=== PATIENT | male | born 1955 | race Caucasian/White ===

== ENCOUNTER 2020-09-11 07:29 | Outpatient (REF) | payer MEDICARE, SELFPAY ==
--- NOTE | ~2020-09-11 | XR_ITS ---
EXAMINATION: BILATERAL KNEE X-RAY CLINICAL INFORMATION: Pain COMPARISON: Previous x-rays most recent February 2019 TECHNIQUE: Standing AP view of both knees and lateral and sunrise view of the right knee FINDINGS: Right knee: There is mild varus angulation at the knee joint. No fracture or dislocation is seen. There is subchondral lucency in the medial femoral condyle that is unchanged likely related to old trauma or osteochondritis desiccants. There is arthritis at the medial femoral tibial and patellofemoral joints with joint space narrowing and osteophyte formation. There is a small joint effusion. There is a ossification at the quadriceps tendon insertion to the patella. Standing AP view of the left knee demonstrates medial femoral tibial joint space narrowing and mild varus angulation. XR/XR knee LT 2V IMPRESSION: Right knee: Mild varus angulation and arthritis at the medial femoral tibial patellofemoral joints. 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 Medial femoral tibial joint space narrowing and mild varus angulation of the left knee.
--- NOTE | ~2020-09-11 | XR_ITS ---
EXAMINATION: BILATERAL KNEE X-RAY CLINICAL INFORMATION: Pain COMPARISON: Previous x-rays most recent February 2019 TECHNIQUE: Standing AP view of both knees and lateral and sunrise view of the right knee FINDINGS: Right knee: There is mild varus angulation at the knee joint. No fracture or dislocation is seen. There is subchondral lucency in the medial femoral condyle that is unchanged likely related to old trauma or osteochondritis desiccants. There is arthritis at the medial femoral tibial and patellofemoral joints with joint space narrowing and osteophyte formation. There is a small joint effusion. There is a ossification at the quadriceps tendon insertion to the patella. Standing AP view of the left knee demonstrates medial femoral tibial joint space narrowing and mild varus angulation. XR/XR knee standing BI IMPRESSION: Right knee: Mild varus angulation and arthritis at the medial femoral tibial patellofemoral joints. 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 Medial femoral tibial joint space narrowing and mild varus angulation of the left knee.
--- NOTE | ~2020-09-11 | XR_ITS ---
EXAMINATION: BILATERAL KNEE X-RAY CLINICAL INFORMATION: Pain COMPARISON: Previous x-rays most recent February 2019 TECHNIQUE: Standing AP view of both knees and lateral and sunrise view of the right knee FINDINGS: Right knee: There is mild varus angulation at the knee joint. No fracture or dislocation is seen. There is subchondral lucency in the medial femoral condyle that is unchanged likely related to old trauma or osteochondritis desiccants. There is arthritis at the medial femoral tibial and patellofemoral joints with joint space narrowing and osteophyte formation. There is a small joint effusion. There is a ossification at the quadriceps tendon insertion to the patella. Standing AP view of the left knee demonstrates medial femoral tibial joint space narrowing and mild varus angulation. XR/XR knee RT 2V IMPRESSION: Right knee: Mild varus angulation and arthritis at the medial femoral tibial patellofemoral joints. 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 Medial femoral tibial joint space narrowing and mild varus angulation of the left knee.
== END 2020-09-11 07:30 | disposition home or self-care (01) ==
LOC: HO.HOSX 07:29
PROVIDERS: Visit Provider Orthopaedic Surgery
DX: M17.0 Bilateral primary osteoarthritis of knee (principal)
CPT/HCPCS: 73560; 73565; 99212

== ENCOUNTER → 2020-10-18 09:42 | Outpatient (BNVA) | payer MEDICARE, SELFPAY | PROVIDERS: PCP Internal Medicine; Visit Provider Orthopaedic Surgery | DX: Z01.812 Encounter for preprocedural laboratory examination (principal); Z01.810 Encounter for preprocedural cardiovascular examination ==

== ENCOUNTER → 2020-11-16 08:32 | Outpatient (BNVA) | payer MEDICARE, SELFPAY | PROVIDERS: PCP Internal Medicine; Visit Provider Physician Assistant | DX: M17.12 Unilateral primary osteoarthritis, left knee (principal) | CPT/HCPCS: 99212 ==

== ENCOUNTER 2020-11-21 08:46 | Day surgery (SDC) | payer MEDICARE, SELFPAY ==
--- NOTE | 2020-10-19 11:19 | ECG_ITS ---
Test Reason : Z01.818 PREOP Blood Pressure : / mmHG Vent. Rate : 073 BPM Atrial Rate : 073 BPM P-R Int : 184 ms QRS Dur : 112 ms QT Int : 402 ms P-R-T Axes : 049 082 037 degrees QTc Int : 442 ms Normal sinus rhythm Normal EKG When compared with ECG of 09-AUG-2015 18:39, No significant change was found Referred By: Geoff Lima Electronically Signed By:JAMEL GRIGGS
[2020-10-19 12:29] LABS: MANUAL DIFF FLAG NO
[2020-10-19 12:36] LABS: Basophils Absolute Auto 0.1 X10*3/uL (0.0-0.2); Basophils Percent Auto 0.7 % (0-2); Eosinophils Absolute Auto 0.3 X10*3/uL (0.0-0.4); Hematocrit 40.3 % (42-52); Hemoglobin 13.1 g/dl (14.0-18.0); Imm Gran Abs Auto 0.07 X10*3/uL (0.00-0.03); Imm Gran Pct Auto 0.7 % (0.0-0.4); Lymphocytes Absolute Auto 2.6 X10*3/uL (1.2-4.9); Lymphocytes Percent Auto 24.6 % (20-40); Mean Corpuscular HGB Conc 32.5 g/dl (31.0-36.0); Mean Corpuscular Hemoglobin 28.6 pg (27.0-33.0); Mean Platelet Volume 10.7 fL (9.4-12.4); Monocytes Absolute Auto 1.4 X10*3/uL (0.1-1.2); Neutrophils Absolute Auto 6.1 X10*3/uL (2.0-8.3); Platelet Count 254 X10*3/uL (160-400); Red Blood Count 4.58 X10*6/uL (4.60-5.80); White Blood Count 10.5 X10*3/uL (4.8-10.8)
[2020-10-19 12:52] LABS: Anion Gap 15 (12-20); Blood Urea Nitrogen 24 mg/dL (9-16); Calcium 9.4 mg/dL (8.4-10.2); Carbon Dioxide 25 mmol/L (22-29); Chloride 104 mmol/L (96-108); Estimated Glomerular Filt Rate > 60; Glucose Random 83 mg/dL (60-115); Potassium 4.6 mmol/L (3.3-5.1); Sodium 139 mmol/L (135-145)
[2020-11-17 11:46] VITALS: BMI 42.8
[2020-11-17 11:56] VITALS: BP 155/67; PULSE 95; RESP 20; O2SAT 98
--- NOTE | 2020-11-17 12:07 | P.CONAN_ITS ---
Documented by User: Stacie Robin 11/20/20 10:43 HPI - Anesthesia Eval Consult details Narrative: 65yo M for Left Knee Replacement Total PCP cleared FOR[facility], [facility]–1983 Active Problems Active Problems: All Active Problems (Updated 11/16/20 @ 15:39 by Carley Rodriguez) Osteoarthritis of left knee (Acute) Past Medical History Medical History Chronic venous insufficiency COVID-19 vaccine series completed High cholesterol Hypertension Obesity TANO on CPAP Osteoarthritis Family History Family History Father No problems noted. Mother No problems noted. Family history of problems with anesthesia: No Surgical History Surgical History History of orthopedic surgery History of right knee surgery Hx of colonoscopy LAP-BAND surgery status History of Problems with Anesthesia: No (Slow to wake after general anesthesia x 2, probable TANO related) Social History Social History Are you a primary aged or disabled care worker to a significant other at home: No Do you presently have visiting nurse or other home services: No Alcohol intake: never Patient Tobacco Use Status: Never used Tobacco Use of substances other than those prescribed or required for medical reasons: No Have you been hit, kicked, punched, or otherwise hurt by someone within the past year? If so, by whom?: No Are you DNR?: No Advance Directives: No Advance Directives Information Provided: No Advance Directives on File: No Recently lost weight without trying: No How much weight loss: 34pounds or more Eating poorly because of decreased appetite: No Nutrition screen score: 4 Nutrition Risks: No Nutritional Risk Current occupational status: retired Narrative Narrative: No recent illness >4 mets with riding bike regularly. Actively losing weight. Meds Allergies Allergy/AdvReac Type Severity Reaction Status Date / Time dextromethorphan Allergy Severe ITCHY Verified 11/17/20 11:59 [DEXTROMETHORPHAN] SWELLING SOB shellfish derived Allergy Severe ANAPHYLAXIS Verified 11/17/20 11:59 moxifloxacin [From Avelox] Allergy Itching Verified 11/17/20 11:59 cough syrup Allergy Unknown Unknown Uncoded 11/17/20 11:59 seafood Allergy Unknown Difficulty Uncoded 11/17/20 11:59 Breathing Home Medications Medication Instructions Recorded Confirmed Last Taken Type atorvastatin 10 mg tablet 10 mg PO DAILY 09/11/20 11/16/20 Unknown History carvedilol 3.125 mg tablet 3.125 mg PO BID 09/11/20 11/16/20 11/21/20 History epinephrine 0.3 mg/0.3 mL 0.3 ml IM DAILY PRN 09/11/20 11/16/20 Unknown History injection, auto-injector sildenafil 50 mg tablet 50 mg PO DAILY PRN 09/11/20 11/16/20 Unknown History multivitamin,tx-minerals 1 tab PO DAILY 11/16/20 11/16/20 Unknown History [Therapeutic Multivitamins] cholecalciferol (vitamin D3) 50 mcg PO DAILY 11/17/20 11/17/20 Unknown History [Vitamin D3] zinc 50 mg PO DAILY 11/17/20 11/17/20 Unknown History Exam Exam Date and Time: November 17, 2020 1207 Height,Weight and Vital Signs: Height 5 ft 11 in Weight 139.253 kg Last Vital Signs Pulse 95 11/17/20 11:56 Resp 20 11/17/20 11:56 BP 155/67 H 11/17/20 11:56 Pulse Ox 98 11/17/20 11:56 Pertinent Lab Results Pertinent Lab Results: Lab Results 10/19/20 10/19/20 11/17/20 Range/Units 11:20 11:20 12:52 WBC 10.5 (4.8-10.8) X10*3/uL RBC 4.58 L (4.60-5.80) X10*6/uL Hgb 13.1 L (14.0-18.0) g/dl Hct 40.3 L (42-52) % MCV 88.0 (80-98) fL MCH 28.6 (27.0-33.0) pg MCHC 32.5 (31.0-36.0) g/dl RDW 13.0 (11.0-16.0) % Plt Count 254 (160-400) X10*3/uL MPV 10.7 (9.4-12.4) fL Immature Gran % (Auto) 0.7 H (0.0-0.4) % Neut % (Auto) 58.0 (45-73) % Lymph % (Auto) 24.6 (20-40) % [place] % (Auto) 13.0 H (2-11) % Eos % (Auto) 3.0 (0-4) % Baso % (Auto) 0.7 (0-2) % Lymph # (Auto) 2.6 (1.2-4.9) X10*3/uL [place] # (Auto) 1.4 H (0.1-1.2) X10*3/uL Eos # (Auto) 0.3 (0.0-0.4) X10*3/uL Baso # (Auto) 0.1 (0.0-0.2) X10*3/uL Abs Immat Gran (auto) 0.07 H (0.00-0.03) X10*3/uL Absolute Neuts (auto) 6.1 (2.0-8.3) X10*3/uL Absolute Nucleated RBC 0.000 (0.0-0.012) X10*3/uL Nucleated RBC % (auto) 0.0 (0.0-0.2) /100WBC Sodium 139 (135-145) mmol/L Potassium 4.6 (3.3-5.1) mmol/L Chloride 104 (96-108) mmol/L Carbon Dioxide 25 (22-29) mmol/L Anion Gap 15 (12-20) BUN 24 H (9-16) mg/dL Creatinine 1.10 (0.5-1.4) mg/dL Estim Creat Clear Calc TNP Estimated GFR > 60 Random Glucose 83 (60-115) mg/dL Calcium 9.4 (8.4-10.2) mg/dL Nasal Screen MRSA (PCR) (Negative) Nasal S. aureus Screen (Negative) Nasal MRSA/S.aureus Interp Blood Type O Positive Antibody Screen NEGATIVE 11/17/20 Range/Units Unknown WBC (4.8-10.8) X10*3/uL RBC (4.60-5.80) X10*6/uL Hgb (14.0-18.0) g/dl Hct (42-52) % MCV (80-98) fL MCH (27.0-33.0) pg MCHC (31.0-36.0) g/dl RDW (11.0-16.0) % Plt Count (160-400) X10*3/uL MPV (9.4-12.4) fL Immature Gran % (Auto) (0.0-0.4) % Neut % (Auto) (45-73) % Lymph % (Auto) (20-40) % [place] % (Auto) (2-11) % Eos % (Auto) (0-4) % Baso % (Auto) (0-2) % Lymph # (Auto) (1.2-4.9) X10*3/uL [place] # (Auto) (0.1-1.2) X10*3/uL Eos # (Auto) (0.0-0.4) X10*3/uL Baso # (Auto) (0.0-0.2) X10*3/uL Abs Immat Gran (auto) (0.00-0.03) X10*3/uL Absolute Neuts (auto) (2.0-8.3) X10*3/uL Absolute Nucleated RBC (0.0-0.012) X10*3/uL Nucleated RBC % (auto) (0.0-0.2) /100WBC Sodium (135-145) mmol/L Potassium (3.3-5.1) mmol/L Chloride (96-108) mmol/L Carbon Dioxide (22-29) mmol/L Anion Gap (12-20) BUN (9-16) mg/dL Creatinine (0.5-1.4) mg/dL Estim Creat Clear Calc Estimated GFR Random Glucose (60-115) mg/dL Calcium (8.4-10.2) mg/dL Nasal Screen MRSA (PCR) NEGATIVE (Negative) Nasal S. aureus Screen NEGATIVE (Negative) Nasal MRSA/S.aureus Interp SEE NOTE Blood Type Antibody Screen Narrative Narrative: EKG 10/2020 Vent. Rate : 073 BPM Atrial Rate : 073 BPM P-R Int : 184 ms QRS Dur : 112 ms QT Int : 402 ms P-R-T Axes : 049 082 037 degrees QTc Int : 442 ms Normal sinus rhythm Normal EKG When compared with ECG of 09-AUG-2015 18:39, No significant change was found Airway Mallampati Class: III TM Dist: >3cm Neck ROM: Full Loose/Missing/Broken Teeth: Yes (Pulled top right molars) Heart: RRR Lungs: CTAB Assessment and Plan Assessment Anesthesia Assessment: Anesthesia Plan Discussed and PAT Visit Documented by User: Renate Borges 11/21/20 11:15 PMFSH Past Medical History Medical History Chronic venous insufficiency COVID-19 vaccine series completed High cholesterol Hypertension Obesity TANO on CPAP Osteoarthritis Family History Family History Father No problems noted. Mother No problems noted. Surgical History Surgical History History of orthopedic surgery History of right knee surgery Hx of colonoscopy LAP-BAND surgery status Social History Social History Are you a primary aged or disabled care worker to a significant other at home: No Do you presently have visiting nurse or other home services: No Alcohol intake: never Patient Tobacco Use Status: Never used Tobacco Use of substances other than those prescribed or required for medical reasons: No Have you been hit, kicked, punched, or otherwise hurt by someone within the past year? If so, by whom?: No Are you DNR?: No Advance Directives: No Advance Directives Information Provided: No Advance Directives on File: No Recently lost weight without trying: No How much weight loss: 34pounds or more Eating poorly because of decreased appetite: No Nutrition screen score: 4 Nutrition Risks: No Nutritional Risk Current occupational status: retired Meds Allergies Allergy/AdvReac Type Severity Reaction Status Date / Time dextromethorphan Allergy Severe ITCHY Verified 11/17/20 11:59 [DEXTROMETHORPHAN] SWELLING SOB shellfish derived Allergy Severe ANAPHYLAXIS Verified 11/17/20 11:59 moxifloxacin [From Avelox] Allergy Itching Verified 11/17/20 11:59 cough syrup Allergy Unknown Unknown Uncoded 11/17/20 11:59 seafood Allergy Unknown Difficulty Uncoded 11/17/20 11:59 Breathing Home Medications Medication Instructions Recorded Confirmed Last Taken Type atorvastatin 10 mg tablet 10 mg PO DAILY 09/11/20 11/16/20 Unknown History carvedilol 3.125 mg tablet 3.125 mg PO BID 09/11/20 11/16/20 11/21/20 History epinephrine 0.3 mg/0.3 mL 0.3 ml IM DAILY PRN 09/11/20 11/16/20 Unknown History injection, auto-injector sildenafil 50 mg tablet 50 mg PO DAILY PRN 09/11/20 11/16/20 Unknown History multivitamin,tx-minerals 1 tab PO DAILY 11/16/20 11/16/20 Unknown History [Therapeutic Multivitamins] cholecalciferol (vitamin D3) 50 mcg PO DAILY 11/17/20 11/17/20 Unknown History [Vitamin D3] zinc 50 mg PO DAILY 11/17/20 11/17/20 Unknown History Exam Height,Weight and Vital Signs: Vital Signs Temp Pulse Resp BP Pulse Ox 11/21/20 08:42 97.7 F 64 16 141/62 H 98 Pertinent Lab Results Pertinent Lab Results: Laboratory Results - last 24 hr 11/21/20 08:15 COVID-19 (BISI) Negative COVID-19 Clin Com See Note Airway Mallampati Class: II TM Dist: >3cm Neck ROM: Full Heart: RRR Lungs: CTAB Assessment and Plan Assessment Anesthesia Assessment: Anesthesia Plan Discussed and Chart Reviewed Final Anesthetic Review NPO: Yes ASA Class: III Final Preanesthetic Review: No Changes in Pt Med Stat, Meds/Allgs Chart Reviewed, Consent Obtained/Reviewed and Anes Risks/Benef Reviewed Patient Risk: Intermediate Procedure Risk: Intermediate Assessment/Block/Sedation in SS: Assess/Block/Sedation-SS Anesthetic Plan Anesthetic Plan: Spinal Disposition: Inp. Admit - Standard Bed
[2020-11-17 15:05] LABS: MRSA Nasal PCR NEGATIVE (Negative); SA Nasal PCR NEGATIVE (Negative)
[2020-11-21] VITALS (12 sets, daily range): BP systolic 110–141; BP diastolic 55–76; PULSE 54–91; RESP 16–17; TEMP 36.1–36.9; O2SAT 97–100
--- NOTE | ~2020-11-21 | XR_ITS ---
EXAMINATION: XR KNEE, LEFT CLINICAL INFORMATION: Knee replacement COMPARISON: Previous x-ray August 2020 TECHNIQUE: Two views of the left knee. FINDINGS: There is a new hinged left knee replacement in satisfactory position. No fracture or dislocation is seen. There are postoperative changes to the soft tissues. XR/XR knee LT 2V IMPRESSION: Satisfactory appearance of left knee replacement.
[2020-11-21] MEDS: Gabapentin 600 MG TABLET PO (08:45)
[2020-11-21 09:02] LABS: IDNOW Serial# 08D9AD1C
[2020-11-21 09:03] LABS: COVID-19 Test Negative (Negative)
[2020-11-21] MEDS: Lactated Ringers 1,000 ML 100 ML IVCONT (09:15)
--- NOTE | 2020-11-21 09:41 | MHC.SHP ---
Pre-Procedural Eval Section A The patient is an INPATIENT: No Changes since office visit: Yes Patient answered all questions; No Cold of Flu in the past 2 weeks, No New Medical Problems and No Changes in Medication The History & Physical has been completed within 30 days and I have reviewed it.: Yes Section B Chief Complaint: s/p l tka Allergies: Allergies Allergy/AdvReac Type Severity Reaction Status Date / Time dextromethorphan Allergy Severe ITCHY Verified 11/17/20 11:59 [DEXTROMETHORPHAN] SWELLING SOB shellfish derived Allergy Severe ANAPHYLAXIS Verified 11/17/20 11:59 moxifloxacin [From Avelox] Allergy Itching Verified 11/17/20 11:59 cough syrup Allergy Unknown Unknown Uncoded 11/17/20 11:59 seafood Allergy Unknown Difficulty Uncoded 11/17/20 11:59 Breathing Plan I have reviewed the history and physical and performed a pertinent physical examination on my patient. No changes have occurred unless specified.
--- NOTE | 2020-11-21 13:31 | P.BOP_ITS ---
Brief Operative Note Date of Service: 11/21/20 Pre-op diagnosis: left knee OA Post-op diagnosis: same Procedure: left TKA Implants: Ivon traithalon cemented 09/18/15/a Surgeon: Geoff Lima MD Anesthesia: GETA Was an Podiatric Medicine Professor used for this Procedure?: Yes Podiatric Medicine Professor: Sulaiman Choi Estimated blood loss (mL): 200 IV fluids (mL): 1,200 Pathology: other Condition: stable Disposition: PACU
--- NOTE | 2020-11-21 13:32 | W.PM.OPN ---
Operative Note Operative Note Date of Service: 11/21/20 Narrative: Procedure in detail: Patient was brought to the operating room and prepped and draped in standard sterile fashion. A time-out was called to identify proper site proper procedure proper surgeon IV antibiotics were administered. 1 g of IV tranexamic acid was also administered. I began by making a midline incision down to the retinaculum and performed a medial parapatellar arthrotomy. He had a prior quadriceps tendon repair and this incision was incorporated into the incision. The patella was translated laterally and the knee was flexed up. There was medial and PF compartment wear. I performed a small medial peel and resected the infrapatellar fat pad. Disputanta's line was then used to drill my intramedullary femoral guide and my distal femur cut was made in 5 degrees of valgus. I then measured a #4 femur and placed my cutting guide and made my anterior posterior and chamfer cuts protecting the soft tissues at all times. I made my box cut and resected the PCL. Once I was satisfied with my cuts I turned my attention to the tibia. In line with the tibial crest and with a neutral slope I made my distal tibial cut, removing 9 mm from the lateral plateau. An extension block was used to confirm appropriate amount of bony resection. I then sized a #4 tibia and once I was satisfied with the tibial coverage I placed my trial and with the trial femur in place took the knee through range of motion. THere was some hyperextension with the 11 and the 16 felt stable with excellent motion but still with some mild imbalance laterally with a tight capsuloligamentous complex. I released the popliteuas and pie crusted the LCL. I was satisfied with the extension and flexion as well as the stability and balance at 0, 30 and 90 degrees. I then turned my attention to the patella where I removed 1 cm from the undersurface of the patella and then trialed a 38A patellar button. Again the knee was taken through range of motion I was satisfied with the tracking. I then prepared the tibia. Femoral bone plug was then placed and the knee was irrigated copiously. I then cemented in the femur and tibia in standard fashion while applying axial compression. I did the same with the patella using a clamp. Once the cement was hard I removed all excess cement and re-trialed. I was most satisfied with the 16 and a 16 TS implant was placed. I then performed a 3 minutes iodine soak with local TXA. The knee was then closed with a running Quill suture, a 3 0 Vicryl and adriana on the skin. Patient was then placed in sterile dressing and brought to recovery room in stable condition there were no known complications.
[2020-11-21] MEDS: Dextrose 5 % and 0.45 % NaCl 1,000 ML 80 ML IVCONT (14:57)
[2020-11-21] MEDS: 0.9 % Sodium Chloride Flush 3 ML SYRINGE IVFLUSH (14:58)
--- NOTE | 2020-11-21 15:10 | MHC.CM.PN ---
NURSE RESERVATIONS AGENT NOTE ELECTRONIC MEDICAL RECORD REVIEWED ALONG WITH CASE DISCUSSED, WITH STAFF NURSE , MET WITH PATIENT HE REPORTED THAT HE HAS BEEN RETIRED FROM THE [place] [employer] [facility], HE LIVES ALONE , INDEPENDENT ADLS AND MOBILITY WITH [facility] , HE HAS A WALKER AT HOME THAT WAS RECOMMENDED. . HE HAS SLEEP APNEA AND HAS CPAP AT HOME FROM [facility] , REVIEWED WITH HIM THE VNA AGENCIES IN THE [place] AND HE CHOSE THE [facility] SINCE HIS SUYURGEON IS FROM THE [place] AND WAS RECOMMENDED THAT AFTER D/C FROM THE [facility] HOME VISITS HE WILL COME BACK TO [facility] OUT PATIENT P,T,. DISCHARGE PLAN HOME WITH 1 NEW REFERRAL TO THE [facility] FOR HOME PHYSICAL THERAPY (HE WILL BE D/X HOME ON [facility] 2PCP DR BRITTNEY GODOY 3 ORTHOPEDIC SURGICAL FOLLOW UP PER DISCHARGE INSTRUCTIONS 4TRANSPORTATION FAMILY/FRIENDS 5HCP TO BE MAILED IN AFTER DISCHARGE 6 SELF RESUMPTION OF HIS CPAP SUPPLIES THROUGH [facility] IMM COMPLETED) 2.
[2020-11-21] MEDS: ceFAZolin Sodium/Dextrose,Iso 2 GM/50 ML PIGGYBACK IV (16:25)
[2020-11-21] MEDS: Acetaminophen 325 MG TABLET 650 MG PO (16:28)
--- NOTE | 2020-11-21 17:22 | PM.IMCN ---
History of Present Illness Data of Consult Service Date: 11/21/20 <Greta Renae NP - Last Filed: 11/21/20 17:58> Requesting physician: Geoff Lima <Greta Renae NP - Last Filed: 11/21/20 17:58> Primary Care Provider: Wilian Wood MD <Greta Renae NP - Last Filed: 11/21/20 17:58> HPI Reason for consult: medical management <Greta Renae NP - Last Filed: 11/21/20 17:58> 65-year-old man admitted by Orthopedic surgery and is status post left total knee arthroplasty. Surgery was unremarkable. Vital signs are stable. Patient has no acute medical complaints at this time. <Greta Renae NP - Last Filed: 11/21/20 17:58> Review of Systems Review of Systems: Denies any recent fever chills or decrease in appetite respiratory denies any shortness of breath coverage production cardiovascular is adjustment of any PND or edema gastrointestinal denies any dysphagia abdominal pain nausea vomiting or diarrhea genitourinary denies any dysuria frequency or hematuria musculoskeletal See HPI neuropsych denies any weakness or seizures all other systems reviewed are negative <Greta Renae NP - Last Filed: 11/21/20 17:58> [facility] Medical History: Medical History (Updated 11/21/20 @ 17:28 by Greta Renae NP) Chronic venous insufficiency COVID-19 vaccine series completed Gastritis High cholesterol Hypertension Obesity TANO on CPAP Osteoarthritis <Greta Renae NP - Last Filed: 11/21/20 17:58> Family History: Family History Father No problems noted. Mother No problems noted. <Greta Renae NP - Last Filed: 11/21/20 17:58> Surgical History: Surgical History (Updated 11/22/20 @ 07:34 by Georgina Marc PA-C) History of orthopedic surgery History of right knee surgery Hx of colonoscopy LAP-BAND surgery status <Greta Renae NP - Last Filed: 11/21/20 17:58> Social History: Social History Are you a primary pharmacy customer care specialist to a significant other at home: No Do you presently have visiting nurse or other home services: No Alcohol intake: never Patient Tobacco Use Status: Never used Tobacco service: No Current occupational status: retired <Greta Renae NP - Last Filed: 11/21/20 17:58> Meds Allergies/Adverse reactions: Allergies Allergy/AdvReac Type Severity Reaction Status Date / Time dextromethorphan Allergy Severe ITCHY Verified 11/17/20 11:59 [DEXTROMETHORPHAN] SWELLING SOB shellfish derived Allergy Severe ANAPHYLAXIS Verified 11/17/20 11:59 moxifloxacin [From Avelox] Allergy Itching Verified 11/17/20 11:59 cough syrup Allergy Unknown Unknown Uncoded 11/17/20 11:59 seafood Allergy Unknown Difficulty Uncoded 11/17/20 11:59 Breathing <Greta Renae NP - Last Filed: 11/21/20 17:58> Active Medications: Current Medications Generic Name Dose Route Start Last Admin Trade Name Freq PRN Reason Stop Dose Admin Acetaminophen 650 mg 11/21/20 14:38 11/21/20 16:28 Acetaminophen 325 Mg Tablet PO 650 mg Q6H PRN Administration Pain, Mild (Pain Scale 1-3) Celecoxib 200 mg 11/21/20 21:00 Celecoxib 200 Mg Capsule PO BID NGA Docusate Sodium 100 mg 11/21/20 21:00 Docusate Sodium 100 Mg Capsule PO BID NGA Hydromorphone HCl 0.25 mg 11/21/20 14:38 Hydromorphone Hcl 0.5 Mg/0.5 Ml Syringe IVPUSH Q4H PRN Pain, Severe (Pain Scale 7-10) Dextrose/Sodium Chloride 1,000 mls @ 80 mls/hr 11/21/20 14:38 11/21/20 14:57 D51/2ns IVCONT 80 mls/hr .[id number] NGA Administration Naloxone HCl 0.2 mg 11/21/20 14:38 Naloxone Hcl 0.4 Mg/Ml Vial IVPUSH Q2M PRN Excessive sedation or RR < 8 Ondansetron HCl 4 mg 11/21/20 14:38 Ondansetron Hcl 4 Mg/2 Ml Vial IVPUSH Q8H PRN Nausea and Vomiting Oxycodone HCl 10 mg 11/21/20 14:38 Oxycodone Hcl Immed Release 5 Mg Tablet PO Q4H PRN Pain, Moderate (Pain Scale 4-6 Oxycodone HCl 10 mg 11/21/20 21:00 Oxycodone Hcl Er 10 Mg Tab.Er.12h PO BID NGA Sodium Chloride 3 ml 11/21/20 16:00 11/21/20 14:58 0.9 % Sodium Chloride Flush 3 Ml Syringe IVFLUSH 3 ml QSHIFT NGA Administration <Greta Renae NP - Last Filed: 11/21/20 17:58> Home medications: Home Medications Medication Instructions Recorded Confirmed Last Taken Type atorvastatin 10 mg tablet 10 mg PO DAILY 09/11/20 11/16/20 Unknown History carvedilol 3.125 mg tablet 3.125 mg PO BID 09/11/20 11/16/20 11/21/20 History epinephrine 0.3 mg/0.3 mL 0.3 ml IM DAILY PRN 09/11/20 11/16/20 Unknown History injection, auto-injector sildenafil 50 mg tablet 50 mg PO DAILY PRN 09/11/20 11/16/20 Unknown History multivitamin,tx-minerals 1 tab PO DAILY 11/16/20 11/16/20 Unknown History [Therapeutic Multivitamins] cholecalciferol (vitamin D3) 50 mcg PO DAILY 11/17/20 11/17/20 Unknown History [Vitamin D3] zinc 50 mg PO DAILY 11/17/20 11/17/20 Unknown History <Greta Renae NP - Last Filed: 11/21/20 17:58> Physical Exam Vital Signs and Narrative: Vital Signs: Last Vital Signs Temp 97.9 F 11/21/20 15:13 Pulse 66 11/21/20 15:13 Resp 17 11/21/20 15:13 BP 140/73 H 11/21/20 15:13 Pulse Ox 98 11/21/20 15:13 Body Mass Index 42.8 <Greta Renae NP - Last Filed: 11/21/20 17:58> Appearing in no acute distress head is normocephalic atraumatic eyes pupils are PERRLA sclera is anicteric mouth throat mucous membranes are intact and moist neck is supple no lymphadenopathy, no JVD noted lung sounds are clear to auscultation heart regular rate rhythm, clear S1, S2 positive bowel sounds, abdomen is soft, nontender neuro patient is alert x3, no focal deficits musculoskeletal surgical dressing intact <Greta Renae NP - Last Filed: 11/21/20 17:58> Results Labs CBC and Chem 7: : 11/22/20 06:01 11/22/20 06:01 <Greta Renae NP - Last Filed: 11/21/20 17:58> Labs: Laboratory Results - last 24 hr 11/21/20 08:15 COVID-19 ([facility]) Negative COVID-19 Clin Com See Note <Greta Renae NP - Last Filed: 11/21/20 17:58> Imaging Radiologist's Impressions: Impressions Knee X-Ray 11/21/20 13:50 IMPRESSION: Satisfactory appearance of left knee replacement. <Greta Renae NP - Last Filed: 11/21/20 17:58> Assessment and Plan (1) Osteoarthritis of left knee: Status: Acute <Greta Renae NP - Last Filed: 11/21/20 17:58> 65-year-old man status post left total knee arthroplasty. Left total knee arthroplasty. -management as per surgical team -pain management Hypertension. Stable blood pressure. -Continue carvedilol Hyperlipidemia. -Statin at discharge DVT prophylaxis as per surgical team Full code Attending: Dr. Sheridan <Greta Renae NP - Last Filed: 11/21/20 17:58>
[2020-11-21] MEDS: HYDROmorphone HCl 0.5 MG/0.5 ML SYRINGE 0.25 MG IVPUSH (17:35)
[2020-11-21] MEDS: ondansetron HCL 4 MG/2 ML VIAL IVPUSH (17:46)
[2020-11-21] MEDS: oxyCODONE HCl ER 10 MG TAB.ER.12H PO (20:23)
[2020-11-21] MEDS: Docusate Sodium 100 MG CAPSULE PO (20:23)
[2020-11-21] MEDS: carvediloL 3.125 MG TABLET PO (20:23)
[2020-11-21] MEDS: Celecoxib 200 MG CAPSULE PO (20:23)
[2020-11-22] VITALS (12 sets, daily range): BP systolic 125–149; BP diastolic 54–69; PULSE 64–81; RESP 16–20; TEMP 36–36.8; O2SAT 96–98
[2020-11-22] MEDS: HYDROmorphone HCl 0.5 MG/0.5 ML SYRINGE 0.25 MG IVPUSH ×5 (00:15→21:28)
[2020-11-22] MEDS: Dextrose 5 % and 0.45 % NaCl 1,000 ML 80 ML IVCONT ×2 (03:30→15:33)
[2020-11-22 06:42] LABS: Basophils Percent Auto 0.2 % (0-2); Hematocrit 34.2 % (42-52); Hemoglobin 11.5 g/dl (14.0-18.0); Imm Gran Abs Auto 0.12 X10*3/uL (0.00-0.03); Imm Gran Pct Auto 0.6 % (0.0-0.4); Lymphocytes Absolute Auto 1.2 X10*3/uL (1.2-4.9); Lymphocytes Percent Auto 6.4 % (20-40); MANUAL DIFF FLAG SCAN; Mean Corpuscular HGB Conc 33.6 g/dl (31.0-36.0); Mean Corpuscular Hemoglobin 29.6 pg (27.0-33.0); Mean Corpuscular Volume 87.9 fL (80-98); Mean Platelet Volume 10.5 fL (9.4-12.4); Monocytes Absolute Auto 1.8 X10*3/uL (0.1-1.2); Monocytes Percent Auto 9.1 % (2-11); Neutrophils Percent Auto 83.7 % (45-73); Platelet Count 206 X10*3/uL (160-400); Red Blood Count 3.89 X10*6/uL (4.60-5.80); Red Cell Distribution Width 12.9 % (11.0-16.0); SCAN SMEAR FLAG 1; White Blood Count 19.1 X10*3/uL (4.8-10.8)
[2020-11-22 07:10] LABS: Anion Gap 9 (12-20); Blood Urea Nitrogen 21 mg/dL (9-16); Calcium 8.5 mg/dL (8.4-10.2); Carbon Dioxide 25 mmol/L (22-29); Chloride 107 mmol/L (96-108); Creatinine Clr Calc Pharmacy 110.3; Estimated Glomerular Filt Rate > 60; Glucose Fasting 152 mg/dL (60-99); Potassium 4.3 mmol/L (3.3-5.1); Sodium 137 mmol/L (135-145)
[2020-11-22 07:24] LABS: SLIDE REVIEW VERIFIED
--- NOTE | 2020-11-22 07:32 | P.PNOP_ITS ---
Subjective Subjective Date of Service: 11/22/20 Interval history: POD1 s/p LTKA with Dr. Lima. Patient is resting comfortably in bed. No overnight events. Pain is well managed. No additional complaints. Physical Exam Vital Signs: Vital Signs: Last Vital Signs Temp 98.2 F 11/22/20 06:06 Pulse 76 11/22/20 06:06 Resp 18 11/22/20 06:06 BP 125/59 L 11/22/20 06:06 Pulse Ox 96 11/22/20 06:06 Body Mass Index 42.8 Const: General: cooperative and no acute distress Orientation/consciousness: patient oriented x3 Resp: Effort & Inspection: normal respiratory effort and able to speak in complete sentences Cardio: Peripheral pulses: Peripheral pulses 2+ throughout Skin: General skin exam: no rashes or lesions noted Neuro: General: patient oriented x3 Extrem: Other: Left knee dressing is clean, dry, and intact. Patient is able to dorsiflex and plantarflex. Sensation intact. Pedal pulse intact. Progress Note: A&P Assessment and plan (1) Status post total knee replacement, left: Status: Acute Assessment and Plan: Continue pain mgmnt Begin ASA for dvt ppx begin PT for LTKA Dispo planning-Pending PT eval, pain mgmnt Fall Risk Details Current Medications: Current Medications Generic Name Dose Route Start Last Admin Trade Name Freq PRN Reason Stop Dose Admin Acetaminophen 650 mg 11/21/20 14:38 11/21/20 16:28 Acetaminophen 325 Mg Tablet PO 650 mg Q6H PRN Administration Pain, Mild (Pain Scale 1-3) Aspirin 325 mg 11/22/20 11:00 Aspirin 325 Mg Tablet PO BID NGA Carvedilol 3.125 mg 11/21/20 21:00 11/21/20 20:23 Carvedilol 3.125 Mg Tablet PO 3.125 mg BID NGA Administration Protocol Celecoxib 200 mg 11/21/20 21:00 11/21/20 20:23 Celecoxib 200 Mg Capsule PO 200 mg BID NGA Administration Docusate Sodium 100 mg 11/21/20 21:00 11/21/20 20:23 Docusate Sodium 100 Mg Capsule PO 100 mg BID NGA Administration Hydromorphone HCl 0.25 mg 11/21/20 14:38 11/22/20 00:15 Hydromorphone Hcl 0.5 Mg/0.5 Ml Syringe IVPUSH 0.25 mg Q4H PRN Administration Pain, Severe (Pain Scale 7-10) Dextrose/Sodium Chloride 1,000 mls @ 80 mls/hr 11/21/20 14:38 11/22/20 03:30 D51/2ns IVCONT 80 mls/hr .[id number] NGA Administration Multivitamins/Minerals 1 tab 11/22/20 09:00 Multivitamin With Minerals Tablet PO DAILY NGA Naloxone HCl 0.2 mg 11/21/20 14:38 Naloxone Hcl 0.4 Mg/Ml Vial IVPUSH Q2M PRN Excessive sedation or RR < 8 Ondansetron HCl 4 mg 11/21/20 14:38 11/21/20 17:46 Ondansetron Hcl 4 Mg/2 Ml Vial IVPUSH 4 mg Q8H PRN Administration Nausea and Vomiting Oxycodone HCl 10 mg 11/21/20 14:38 Oxycodone Hcl Immed Release 5 Mg Tablet PO Q4H PRN Pain, Moderate (Pain Scale 4-6 Oxycodone HCl 10 mg 11/21/20 21:00 11/21/20 20:23 Oxycodone Hcl Er 10 Mg Tab.Er.12h PO 10 mg BID NGA Administration Sodium Chloride 3 ml 11/21/20 16:00 11/22/20 00:15 0.9 % Sodium Chloride Flush 3 Ml Syringe IVFLUSH Not Given QSHIFT [facility] Vitamin D 50 mcg 11/22/20 09:00 Cholecalciferol (Vitamin D3) 25 Mcg Tablet PO DAILY [facility] Zinc Sulfate 220 mg 11/22/20 09:00 Zinc Sulfate 220 Mg Capsule PO DAILY [facility] Time Spent With Patient Time: Total time spent is greater than 50% in coordination of care (as documented) at patient's floor/unit and/or counseling patient: Time with patient: less than 15 minutes Procedures Date of Service Date of Service: 11/22/20
[2020-11-22] MEDS: Cholecalciferol (Vitamin D3) 25 MCG TABLET 50 MCG PO (08:52)
[2020-11-22] MEDS: Docusate Sodium 100 MG CAPSULE PO ×2 (08:52→21:23)
[2020-11-22] MEDS: carvediloL 3.125 MG TABLET PO ×2 (08:53→21:23)
[2020-11-22] MEDS: Zinc Sulfate 220 MG CAPSULE PO (08:53)
[2020-11-22] MEDS: oxyCODONE HCl ER 10 MG TAB.ER.12H PO ×2 (08:53→21:23)
[2020-11-22] MEDS: Celecoxib 200 MG CAPSULE PO ×2 (08:53→21:23)
[2020-11-22] MEDS: oxyCODONE HCl Immed Release 5 MG TABLET 10 MG PO ×3 (09:57→18:31)
[2020-11-22] MEDS: Aspirin 325 MG TABLET PO ×2 (09:58→21:22)
[2020-11-22] MEDS: Acetaminophen 325 MG TABLET 650 MG PO (14:06)
--- NOTE | 2020-11-22 14:20 | HO.POSTANES ---
Post Anesthesia Evaluation Post Anesthesia Evaluation Vital Signs: Vital Signs Temp Pulse Resp BP Pulse Ox 11/22/20 13:45 78 143/65 H 98 11/22/20 11:22 97.5 F 78 19 143/65 H 98 11/22/20 09:41 64 139/69 11/22/20 08:53 64 139/69 11/22/20 07:47 97.4 F 64 18 131/69 97 11/22/20 06:06 98.2 F 76 18 125/59 L 96 Anesthesia: Spinal Mental Status: Awake Pain Control: Satisfactory Nausea/Vomiting: None Hydration: Adequate Anesthesia-Related Issues: No Anes. Related Issues
--- NOTE | 2020-11-22 14:26 | P.PNIM_ITS ---
Subjective Subjective Date of Service: 11/22/20 Interval History: Complaining of left knee pain requiring pain medications every 4 hours denies lightheadedness dizziness tolerating by mouth well with no nausea, no vomiting lost 77 lb prior to surgery. Review of systems [employer] no headache no dizziness CVS no chest pain, no palpitation GI no nausea no vomiting no diarrhea Respiratory no cough, no shortness of breath Physical Exam Vital Signs: Vital Signs: Last Vital Signs Temp 97.5 F 11/22/20 11:22 Pulse 78 11/22/20 13:45 Resp 19 11/22/20 11:22 BP 143/65 H 11/22/20 13:45 Pulse Ox 98 11/22/20 13:45 Body Mass Index 42.8 General no acute distress. Neck supple no JVD. CVS regular rate rhythm, Respiratory lungs clear to auscultation, no respiratory distress, no wheeze, no rhonchi. Gastrointestinal abdomen soft, nontender, bowel sounds audible, no guarding , no rigidity. Extremities no edema, left knee dressing in place. Neuro nonfocal ,speech clear. Skin no rash Objective Data Current Medications Generic Name Dose Route Start Last Admin Trade Name Freq PRN Reason Stop Dose Admin Acetaminophen 650 mg 11/21/20 14:38 11/22/20 14:06 Acetaminophen 325 Mg Tablet PO 650 mg Q6H PRN Administration Pain, Mild (Pain Scale 1-3) Aspirin 325 mg 11/22/20 11:00 11/22/20 09:58 Aspirin 325 Mg Tablet PO 325 mg BID NGA Administration Carvedilol 3.125 mg 11/21/20 21:00 11/22/20 08:53 Carvedilol 3.125 Mg Tablet PO 3.125 mg BID NGA Administration Protocol Celecoxib 200 mg 11/21/20 21:00 11/22/20 08:53 Celecoxib 200 Mg Capsule PO 200 mg BID NGA Administration Docusate Sodium 100 mg 11/21/20 21:00 11/22/20 08:52 Docusate Sodium 100 Mg Capsule PO 100 mg BID NGA Administration Hydromorphone HCl 0.25 mg 11/21/20 14:38 11/22/20 11:29 Hydromorphone Hcl 0.5 Mg/0.5 Ml Syringe IVPUSH 0.25 mg Q4H PRN Administration Pain, Severe (Pain Scale 7-10) Dextrose/Sodium Chloride 1,000 mls @ 80 mls/hr 11/21/20 14:38 11/22/20 03:30 D51/2ns IVCONT 80 mls/hr .[id number] NGA Administration Multivitamins/Minerals 1 tab 11/22/20 09:00 11/22/20 08:52 Multivitamin With Minerals Tablet PO 1 tab DAILY NGA Administration Naloxone HCl 0.2 mg 11/21/20 14:38 Naloxone Hcl 0.4 Mg/Ml Vial IVPUSH Q2M PRN Excessive sedation or RR < 8 Ondansetron HCl 4 mg 11/21/20 14:38 11/21/20 17:46 Ondansetron Hcl 4 Mg/2 Ml Vial IVPUSH 4 mg Q8H PRN Administration Nausea and Vomiting Oxycodone HCl 10 mg 11/21/20 14:38 11/22/20 14:06 Oxycodone Hcl Immed Release 5 Mg Tablet PO 10 mg Q4H PRN Administration Pain, Moderate (Pain Scale 4-6 Oxycodone HCl 10 mg 11/21/20 21:00 11/22/20 08:53 Oxycodone Hcl Er 10 Mg Tab.Er.12h PO 10 mg BID NGA Administration Sodium Chloride 3 ml 11/21/20 16:00 11/22/20 10:01 0.9 % Sodium Chloride Flush 3 Ml Syringe IVFLUSH Not Given QSHIFT [facility] Vitamin D 50 mcg 11/22/20 09:00 11/22/20 08:52 Cholecalciferol (Vitamin D3) 25 Mcg Tablet PO 50 mcg DAILY NGA Administration Zinc Sulfate 220 mg 11/22/20 09:00 11/22/20 08:53 Zinc Sulfate 220 Mg Capsule PO 220 mg DAILY NGA Administration Labs CBC & Chem 7: 11/22/20 06:01 11/22/20 06:01 Assessment and Plan (1) Status post total knee replacement, left: Status: Acute (2) Osteoarthritis of left knee: Status: Acute Assessment and Plan: 65-year-old man status post left total knee arthroplasty on 11/21/20. Left total knee arthroplasty pod #1. Continue pain control with OxyContin twice daily, oxycodone 10 mg q.4 hours and IV Dilaudid, will DC IV fluid Recommend high-fiber diet to avoid constipation continue Colace encourage incentive spirometry Hypertension. Stable blood pressure,Continue carvedilol Hyperlipidemia. Resume Lipitor DVT prophylaxis with aspirin as per surgical team Full code
--- NOTE | 2020-11-22 15:01 | MHC.CLN ---
WEIGHT LOSS DISCUSSED WEIGHT LOSS WITH PATIENT. REPORTS 75# WEIGHT LOSS IN THE PAST 15-16 MONTHS. FAVORABLE, PLANNED WEIGHT LOSS. 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 NO NEW NUTRITION INTERVENTIONS.
[2020-11-23] VITALS (7 sets, daily range): BP systolic 123–163; BP diastolic 59–77; PULSE 72–96; RESP 15–18; TEMP 36.2–37.1; O2SAT 97–99
[2020-11-23] MEDS: Dextrose 5 % and 0.45 % NaCl 1,000 ML 80 ML IVCONT (04:06)
[2020-11-23] MEDS: HYDROmorphone HCl 0.5 MG/0.5 ML SYRINGE 0.25 MG IVPUSH ×2 (05:54→10:23)
[2020-11-23 06:47] LABS: Basophils Percent Auto 0.3 % (0-2); Eosinophils Absolute Auto 0.2 X10*3/uL (0.0-0.4); Eosinophils Percent Auto 1.2 % (0-4); Imm Gran Pct Auto 0.8 % (0.0-0.4); Lymphocytes Absolute Auto 1.9 X10*3/uL (1.2-4.9); Lymphocytes Percent Auto 15.5 % (20-40); MANUAL DIFF FLAG SCAN; Mean Corpuscular HGB Conc 33.3 g/dl (31.0-36.0); Mean Corpuscular Hemoglobin 29.4 pg (27.0-33.0); Mean Corpuscular Volume 88.2 fL (80-98); Mean Platelet Volume 10.7 fL (9.4-12.4); Monocytes Absolute Auto 1.9 X10*3/uL (0.1-1.2); Monocytes Percent Auto 15.7 % (2-11); Neutrophils Percent Auto 66.5 % (45-73); Platelet Count 182 X10*3/uL (160-400); Red Blood Count 3.74 X10*6/uL (4.60-5.80); Red Cell Distribution Width 13.4 % (11.0-16.0); SCAN SMEAR FLAG 1; White Blood Count 12.1 X10*3/uL (4.8-10.8)
[2020-11-23 07:06] LABS: Anion Gap 10 (12-20); Blood Urea Nitrogen 16 mg/dL (9-16); Calcium 8.3 mg/dL (8.4-10.2); Carbon Dioxide 26 mmol/L (22-29); Chloride 105 mmol/L (96-108); Creatinine Clr Calc Pharmacy 105.7; Estimated Glomerular Filt Rate > 60; Glucose Fasting 116 mg/dL (60-99); Sodium 137 mmol/L (135-145)
[2020-11-23 07:26] LABS: SLIDE REVIEW VERIFIED
--- NOTE | 2020-11-23 07:48 | PM.PNORT ---
Subjective Subjective Date of Service: 11/23/20 Interval history: POD2 s/p left TKA. Pain is resting in bed. Having some difficulties with pain management. No additional complaints at this time. Physical Exam Vital Signs: Vital Signs: Last Vital Signs Temp 97.9 F 11/23/20 07:29 Pulse 84 11/23/20 07:29 Resp 18 11/23/20 07:29 BP 163/73 H 11/23/20 07:29 Pulse Ox 97 11/23/20 07:29 Body Mass Index 42.8 Const: General: cooperative, healthy appearing and no acute distress Resp: Effort & Inspection: normal respiratory effort and able to speak in complete sentences Cardio: Rate: regular rate Peripheral pulses: Peripheral pulses 2+ throughout GI: Palpation (GI): Soft to palpation Skin: Lesions: no lesions Rashes: no rashes Extrem: Other: Left knee Aquacel dressing removed. [place] intact. No erythema, ecchymosis, or drainage. New Aquacel dressing applied. Patient is able to dorsiflex and plantarflex. Sensation intact. Pedal pulse intact. Progress Note: A&P Assessment and plan (1) Status post total knee replacement, left: Status: Acute Assessment and Plan: Continue pain mgmnt Continue ASA for dvt ppx Continue PT for LTKA Dispo planning-Pending PT eval, pain mgmnt Fall Risk Details Current Medications: Current Medications Generic Name Dose Route Start Last Admin Trade Name Freq PRN Reason Stop Dose Admin Acetaminophen 650 mg 11/21/20 14:38 11/22/20 14:06 Acetaminophen 325 Mg Tablet PO 650 mg Q6H PRN Administration Pain, Mild (Pain Scale 1-3) Aspirin 325 mg 11/22/20 11:00 11/22/20 21:22 Aspirin 325 Mg Tablet PO 325 mg BID NGA Administration Carvedilol 3.125 mg 11/21/20 21:00 11/22/20 21:23 Carvedilol 3.125 Mg Tablet PO 3.125 mg BID NGA Administration Protocol Celecoxib 200 mg 11/21/20 21:00 11/22/20 21:23 Celecoxib 200 Mg Capsule PO 200 mg BID NGA Administration Docusate Sodium 100 mg 11/21/20 21:00 11/22/20 21:23 Docusate Sodium 100 Mg Capsule PO 100 mg BID NGA Administration Hydromorphone HCl 0.25 mg 11/21/20 14:38 11/23/20 05:54 Hydromorphone Hcl 0.5 Mg/0.5 Ml Syringe IVPUSH 0.25 mg Q4H PRN Administration Pain, Severe (Pain Scale 7-10) Dextrose/Sodium Chloride 1,000 mls @ 80 mls/hr 11/21/20 14:38 11/23/20 04:06 D51/2ns IVCONT 80 mls/hr .[id number] NGA Administration Multivitamins/Minerals 1 tab 11/22/20 09:00 11/22/20 08:52 Multivitamin With Minerals Tablet PO 1 tab DAILY NGA Administration Naloxone HCl 0.2 mg 11/21/20 14:38 Naloxone Hcl 0.4 Mg/Ml Vial IVPUSH Q2M PRN Excessive sedation or RR < 8 Ondansetron HCl 4 mg 11/21/20 14:38 11/21/20 17:46 Ondansetron Hcl 4 Mg/2 Ml Vial IVPUSH 4 mg Q8H PRN Administration Nausea and Vomiting Oxycodone HCl 10 mg 11/21/20 14:38 11/22/20 18:31 Oxycodone Hcl Immed Release 5 Mg Tablet PO 10 mg Q4H PRN Administration Pain, Moderate (Pain Scale 4-6 Oxycodone HCl 10 mg 11/21/20 21:00 11/22/20 21:23 Oxycodone Hcl Er 10 Mg Tab.Er.12h PO 10 mg BID NGA Administration Sodium Chloride 3 ml 11/21/20 16:00 11/22/20 23:34 0.9 % Sodium Chloride Flush 3 Ml Syringe IVFLUSH Not Given QSHIFT [facility] Vitamin D 50 mcg 11/22/20 09:00 11/22/20 08:52 Cholecalciferol (Vitamin D3) 25 Mcg Tablet PO 50 mcg DAILY NGA Administration Zinc Sulfate 220 mg 11/22/20 09:00 11/22/20 08:53 Zinc Sulfate 220 Mg Capsule PO 220 mg DAILY NGA Administration Time Spent With Patient Time: Total time spent is greater than 50% in coordination of care (as documented) at patient's floor/unit and/or counseling patient: Time with patient: less than 15 minutes Procedures Date of Service Date of Service: 11/23/20
--- NOTE | 2020-11-23 07:57 | P.F2F_ITS ---
Service Date Service Date: 11/23/20 Encounter Encounter: Pt. is considered homebound due to recent surgery. Unable to drive, poor balance, poor gait mechanics. Reasons for Services Homebound: Leaving the home is medically contraindicated at this time without the asist of a device and/or another person due th the listed conditions above and below. Reason homebound: unsteady gait / fall risk, leg weakness, pain with ambulation, pain with transfers, poor balance / fall risk and unable to drive Homebound supporting statement: Pt. is considered homebound due to recent surgery. Unable to drive, poor balance, poor gait mechanics. Certification: Based on the above findings, I certify that this patient is confined to the home and needs intermittent care home care, physical therapy and/or speech therapy, or continues to need occupational therapy. The patient is under my care, and I have initiated the establishment of the plan of care. The patient will be followed by a physician who will periodically review the plan of care.
[2020-11-23] MEDS: Zinc Sulfate 220 MG CAPSULE PO (08:58)
[2020-11-23] MEDS: oxyCODONE HCl Immed Release 5 MG TABLET 10 MG PO ×4 (08:58→21:15)
[2020-11-23] MEDS: Docusate Sodium 100 MG CAPSULE PO ×2 (08:58→20:14)
[2020-11-23] MEDS: Celecoxib 200 MG CAPSULE PO ×2 (08:58→20:14)
[2020-11-23] MEDS: oxyCODONE HCl ER 10 MG TAB.ER.12H PO ×2 (08:59→20:14)
[2020-11-23] MEDS: Cholecalciferol (Vitamin D3) 25 MCG TABLET 50 MCG PO (08:59)
[2020-11-23] MEDS: carvediloL 3.125 MG TABLET PO ×2 (08:59→20:14)
[2020-11-23] MEDS: Aspirin 325 MG TABLET PO ×2 (09:00→20:13)
--- NOTE | 2020-11-23 13:58 | MHC.CM.PN ---
[facility] UPDATED WITH PT EVAL. PLAN IS FOR DC TOMORROW (FRIDAY)
--- NOTE | 2020-11-23 14:41 | HO.PM.IMPN ---
Subjective Subjective Date of Service: 11/23/20 Interval History: Offers no acute complaints noted to have elevated blood pressure this morning but was check soon after physical therapy, patient denies headache, lightheadedness or dizziness Good pain control. Review of systems [employer] no headache, no dizziness CVS no chest pain, no palpitation GI no nausea, no vomiting, no diarrhea Respiratory no cough, no shortness of breath Physical Exam Vital Signs: Vital Signs: Last Vital Signs Temp 98.4 F 11/23/20 11:25 Pulse 78 11/23/20 11:25 Resp 16 11/23/20 11:25 BP 150/65 H 11/23/20 11:25 Pulse Ox 99 11/23/20 11:25 Body Mass Index 42.8 General no acute distress. Neck supple no JVD. CVS regular rate rhythm, Respiratory lungs clear to auscultation, no respiratory distress, no wheeze, no rhonchi. Gastrointestinal abdomen soft, nontender, bowel sounds audible, no guarding , no rigidity. Extremities no edema, left knee dressing in place. Neuro nonfocal ,speech clear. Skin no rash Objective Data Current Medications Generic Name Dose Route Start Last Admin Trade Name Freq PRN Reason Stop Dose Admin Acetaminophen 650 mg 11/21/20 14:38 11/22/20 14:06 Acetaminophen 325 Mg Tablet PO 650 mg Q6H PRN Administration Pain, Mild (Pain Scale 1-3) Aspirin 325 mg 11/22/20 11:00 11/23/20 09:00 Aspirin 325 Mg Tablet PO 325 mg BID NGA Administration Carvedilol 3.125 mg 11/21/20 21:00 11/23/20 08:59 Carvedilol 3.125 Mg Tablet PO 3.125 mg BID NGA Administration Protocol Celecoxib 200 mg 11/21/20 21:00 11/23/20 08:58 Celecoxib 200 Mg Capsule PO 200 mg BID NGA Administration Docusate Sodium 100 mg 11/21/20 21:00 11/23/20 08:58 Docusate Sodium 100 Mg Capsule PO 100 mg BID NGA Administration Hydromorphone HCl 0.25 mg 11/21/20 14:38 11/23/20 10:23 Hydromorphone Hcl 0.5 Mg/0.5 Ml Syringe IVPUSH 0.25 mg Q4H PRN Administration Pain, Severe (Pain Scale 7-10) Multivitamins/Minerals 1 tab 11/22/20 09:00 11/23/20 08:59 Multivitamin With Minerals Tablet PO 1 tab DAILY NGA Administration Naloxone HCl 0.2 mg 11/21/20 14:38 Naloxone Hcl 0.4 Mg/Ml Vial IVPUSH Q2M PRN Excessive sedation or RR < 8 Ondansetron HCl 4 mg 11/21/20 14:38 11/21/20 17:46 Ondansetron Hcl 4 Mg/2 Ml Vial IVPUSH 4 mg Q8H PRN Administration Nausea and Vomiting Oxycodone HCl 10 mg 11/21/20 14:38 11/23/20 13:20 Oxycodone Hcl Immed Release 5 Mg Tablet PO 10 mg Q4H PRN Administration Pain, Moderate (Pain Scale 4-6 Oxycodone HCl 10 mg 11/21/20 21:00 11/23/20 08:59 Oxycodone Hcl Er 10 Mg Tab.Er.12h PO 10 mg BID NGA Administration Sodium Chloride 3 ml 11/21/20 16:00 11/23/20 08:55 0.9 % Sodium Chloride Flush 3 Ml Syringe IVFLUSH Not Given QSHIFT [facility] Vitamin D 50 mcg 11/22/20 09:00 11/23/20 08:59 Cholecalciferol (Vitamin D3) 25 Mcg Tablet PO 50 mcg DAILY NGA Administration Zinc Sulfate 220 mg 11/22/20 09:00 11/23/20 08:58 Zinc Sulfate 220 Mg Capsule PO 220 mg DAILY NGA Administration Labs CBC & Chem 7: 11/23/20 06:04 11/23/20 06:04 Assessment and Plan (1) Leukocytosis: Status: Acute (2) Status post total knee replacement, left: Status: Acute (3) Osteoarthritis of left knee: Status: Acute Assessment and Plan: 65-year-old man status post left total knee arthroplasty on 11/21/20. Left total knee arthroplasty pod #2. Good pain control, participating with PT Continue pain control with OxyContin twice daily, oxycodone 10 mg q.4 hours, Celebrex and IV Dilaudid, will DC IV fluid Hematocrit stable Recommend high-fiber diet to avoid constipation continue Colace encourage incentive spirometry Hypertension. Noted to have elevated blood pressure this morning likely due to activity, and pain, Continue carvedilol and follow BP Leukocytosis likely reactive patient asymptomatic WBC trending down Hyperlipidemia. Resume Lipitor upon discharge DVT prophylaxis with aspirin as per surgical team Full code
[2020-11-23] MEDS: 0.9 % Sodium Chloride Flush 3 ML SYRINGE IVFLUSH ×2 (16:26→23:34)
[2020-11-24 03:19] VITALS: BP 162/80; PULSE 76; RESP 18; TEMP 36.5; O2SAT 98
[2020-11-24 07:06] LABS: Basophils Absolute Auto 0.1 X10*3/uL (0.0-0.2); Basophils Percent Auto 0.5 % (0-2); Eosinophils Absolute Auto 0.3 X10*3/uL (0.0-0.4); Eosinophils Percent Auto 2.6 % (0-4); Hematocrit 32.7 % (42-52); Hemoglobin 10.6 g/dl (14.0-18.0); Imm Gran Abs Auto 0.06 X10*3/uL (0.00-0.03); Imm Gran Pct Auto 0.6 % (0.0-0.4); Lymphocytes Absolute Auto 1.6 X10*3/uL (1.2-4.9); Lymphocytes Percent Auto 15.6 % (20-40); MANUAL DIFF FLAG SCAN; Mean Corpuscular HGB Conc 32.4 g/dl (31.0-36.0); Mean Corpuscular Hemoglobin 29.1 pg (27.0-33.0); Mean Corpuscular Volume 89.8 fL (80-98); Mean Platelet Volume 10.9 fL (9.4-12.4); Monocytes Absolute Auto 1.7 X10*3/uL (0.1-1.2); Monocytes Percent Auto 16.2 % (2-11); Neutrophils Absolute Auto 6.8 X10*3/uL (2.0-8.3); Neutrophils Percent Auto 64.5 % (45-73); Platelet Count 165 X10*3/uL (160-400); Red Blood Count 3.64 X10*6/uL (4.60-5.80); Red Cell Distribution Width 13.4 % (11.0-16.0); SCAN SMEAR FLAG 1; White Blood Count 10.5 X10*3/uL (4.8-10.8)
[2020-11-24 07:12] LABS: Anion Gap 10 (12-20); Blood Urea Nitrogen 17 mg/dL (9-16); Calcium 7.9 mg/dL (8.4-10.2); Carbon Dioxide 27 mmol/L (22-29); Chloride 105 mmol/L (96-108); Creatinine Clr Calc Pharmacy 100.6; Estimated Glomerular Filt Rate > 60; Glucose Fasting 105 mg/dL (60-99); Potassium 4.1 mmol/L (3.3-5.1); Sodium 138 mmol/L (135-145)
[2020-11-24] MEDS: oxyCODONE HCl Immed Release 5 MG TABLET 10 MG PO ×2 (07:16→11:17)
--- NOTE | 2020-11-24 07:26 | MHC.CM.PN ---
PATIENT DENIES ANY REFERRALS TO THE ACUTE REHAB FACILITIES, ALTHOUGH HE IS AWARE THAT THIS MAY BE BEST OPTION. HE WANTS TO STAY IN [place] AND ASKS FOR A SAME DAY [facility] REFERRAL TO BE PLACED. REFERRALS PLACED. CASE MANAGEMENT FOLLOWING. PLAN IS DC TODAY
[2020-11-24 07:40] VITALS: BP 128/68; PULSE 83; RESP 16; TEMP 36.4; O2SAT 99
[2020-11-24 07:40] LABS: SLIDE REVIEW VERIFIED
[2020-11-24 08:33] VITALS: BP 128/68; PULSE 83; RESP 16; TEMP 36.4
[2020-11-24] MEDS: Docusate Sodium 100 MG CAPSULE PO (08:35)
[2020-11-24] MEDS: Celecoxib 200 MG CAPSULE PO (08:35)
[2020-11-24] MEDS: Zinc Sulfate 220 MG CAPSULE PO (08:35)
[2020-11-24] MEDS: Cholecalciferol (Vitamin D3) 25 MCG TABLET 50 MCG PO (08:35)
[2020-11-24] MEDS: oxyCODONE HCl ER 10 MG TAB.ER.12H PO (08:36)
[2020-11-24] MEDS: Aspirin 325 MG TABLET PO (08:36)
[2020-11-24 08:37] VITALS: BP 128/68; PULSE 83
[2020-11-24] MEDS: carvediloL 3.125 MG TABLET PO (08:37)
--- NOTE | 2020-11-24 09:10 | P.DS_ITS ---
DS: Providers Provider Date of Service: 11/24/20 Primary care physician: Wilian Wood MD Consults: 11/21/20 14:38 Consult to Hospitalist Routine Consulting Provider: Hospitalist Reason For Exam: post op medical management DS: Diagnosis Discharge Diagnosis (1) Leukocytosis: Status: Acute (2) Status post total knee replacement, left: Status: Acute (3) Osteoarthritis of left knee: Problem details: Mr. Giraldo is a 65 yo male who presented to the office with ongoing left knee pain. He was found to have OA of the left knee and had failed all conservative treatment. He continued to have difficulty with ambulation and daily activities; therefore he consented to move forward with left total knee arthroplasty. DS: Medications Discharge Medications Home Medications: Home Medications Medication Instructions Recorded Confirmed atorvastatin 10 mg tablet 10 mg PO DAILY 09/11/20 11/16/20 carvedilol 3.125 mg tablet 3.125 mg PO BID 09/11/20 11/16/20 epinephrine 0.3 mg/0.3 mL 0.3 ml IM DAILY PRN 09/11/20 11/16/20 injection, auto-injector sildenafil 50 mg tablet 50 mg PO DAILY PRN 09/11/20 11/16/20 multivitamin,tx-minerals 1 tab PO DAILY 11/16/20 11/16/20 cholecalciferol (vitamin D3) 50 mcg PO DAILY 11/17/20 11/17/20 [Vitamin D3] zinc 50 mg PO DAILY 11/17/20 11/17/20 Previous Rx's Medication Instructions Recorded walker #1 ea 10/18/20 acetaminophen 650 mg PO Q6H PRN 30 Days #240 tab 11/23/20 aspirin 325 mg PO BID 28 Days #56 tab 11/23/20 docusate sodium 100 mg PO BID 30 Days #60 cap 11/23/20 oxycodone 10 mg PO Q4H PRN 7 Days #42 tab 11/23/20 DS: Summary Status at Discharge Cognitive/behavioral status at discharge: The patient underwent a successful left total knee arthroplasty, they were transferred to PACU and then to the [facility] to recover. During their stay, their vitals were stable, afebrile at 97.5. Labs were unremarkable, H/H 10.3/32.7. POD 1 they were started on Aspirin 325mg po bid for DVT ppx, they also received Physical Therapy services twice a day. Prior to discharge, their dressing was changed, incision clean dry and intact, new Aquacel dressing applied and the plan was to be discharged home with VNA services. Time Spent with Patient Time attestation: Total time spent providing and/or coordinating discharge services: Discharge coordination time: Less than 30 minutes Quality: Stroke Does the patient have a stroke diagnosis?: No Physical Exam Vital Signs: Vital Signs: Last Vital Signs Temp 97.5 F 11/24/20 08:33 Pulse 83 11/24/20 08:37 Resp 16 11/24/20 08:33 BP 128/68 11/24/20 08:37 Pulse Ox 99 11/24/20 07:40 Body Mass Index 42.8 Const: General: cooperative, healthy appearing and no acute distress Resp: Effort & Inspection: normal respiratory effort and able to speak in complete sentences Cardio: Rate: regular rate Peripheral pulses: Peripheral pulses 2+ throughout GI: Palpation (GI): Soft to palpation Skin: Lesions: no lesions Rashes: no rashes Extrem: Other: LEft knee Aquacell dressing intact. Dale intact. Patient is able to dorsiflex and plantarflex. NVI. DS: Data Data Completed and Pending Completed studies during hospitalization [Text1]: Pending at discharge 11/21/20 12:46 Surgical [PTH] Routine Labs on day of discharge: Laboratory Results - last 24 hr 11/24/20 11/24/20 05:56 05:56 WBC 10.5 RBC 3.64 L Hgb 10.6 L Hct 32.7 L MCV 89.8 MCH 29.1 MCHC 32.4 RDW 13.4 Plt Count 165 MPV 10.9 Immature Gran % (Auto) 0.6 H Neut % (Auto) 64.5 Lymph % (Auto) 15.6 L [place] % (Auto) 16.2 H Eos % (Auto) 2.6 Baso % (Auto) 0.5 Lymph # (Auto) 1.6 [place] # (Auto) 1.7 H Eos # (Auto) 0.3 Baso # (Auto) 0.1 Abs Immat Gran (auto) 0.06 H Absolute Neuts (auto) 6.8 Absolute Nucleated RBC 0.000 Nucleated RBC % (auto) 0.0 Smear Tech's Comments VERIFIED Sodium 138 Potassium 4.1 Chloride 105 Carbon Dioxide 27 Anion Gap 10 L BUN 17 H Creatinine 1.03 Estim Creat Clear Calc 100.6 Estimated GFR > 60 Fasting Glucose 105 H Calcium 7.9 L Discharge Plan Discharge Patient Disposition: Home, Self-Care Referrals: Sulaiman Choi PA-C [Physician Cooler Supervisor] - 1 Week (12/07/20 at 9:45am) Discharge Medications: New acetaminophen 325 mg Tablet 650 mg PO Q6H PRN (Reason: Pain, Mild (Pain Scale 1-3)) 30 Days Qty: 240 RF: 0 aspirin 325 mg Tablet 325 mg PO BID 28 Days Qty: 56 RF: 0 docusate sodium 100 mg Capsule 100 mg PO BID 30 Days Qty: 60 RF: 0 oxycodone 5 mg Tablet 10 mg PO Q4H PRN (Reason: Pain, Moderate (Pain Scale 4-6) 7 Days Qty: 42 RF: 0 Continued multivitamin,tx-minerals Tablet 1 tab PO DAILY RF: 0 zinc 50 mg Tablet 50 mg PO DAILY RF: 0 cholecalciferol (vitamin D3) [Vitamin D3] 50 mcg (2,000 unit) Capsule 50 mcg PO DAILY RF: 0 carvedilol 3.125 mg tablet 3.125 mg PO BID RF: 0 atorvastatin 10 mg tablet 10 mg PO DAILY RF: 0 sildenafil 50 mg tablet 50 mg PO DAILY PRN (Reason: Sexual Activity) RF: 0 epinephrine 0.3 mg/0.3 mL auto-injector 0.3 ml IM DAILY PRN (Reason: Allergic Reaction) RF: 0 (DME) walker Misc See Rx Instructions .MEDSUPPLY Qty: 1 RF: 0 Discharge Orders: Discharge Order (Routine); Ordered 11/24/20 Ordered By: Georgina Marc Activity Restrictions/Additional Instructions: Physical Therapy for ROM 0-120, quad strength, gait training. Use walker for ambulation Limit stair climbing, No shower, No tub bath, No driving Continue anticoagulant Keep Aquacel dressing clean, dry and intact. Follow up with orthopedics in 2 weeks
[2020-11-24 09:52] LABS: COVID-19 Test Negative (Negative)
[2020-11-24] MEDS: Acetaminophen 325 MG TABLET 650 MG PO (10:26)
--- NOTE | 2020-11-24 13:48 | MHC.CM.PN ---
NURSE CONSULTING SYSTEMS ENGINEER NOTE ACTION WHEELCHAIR VAN CAME TO PICK PATIENT UP , DESPITE HAVING HT/WT AND DX THEIR WHEELCHAIR WAS TOO SMALL FOR PATIENT , THE STAFF NRMARCE WAS GOING TO LEND THEM THE LARGER WHEELCAIR WITH LEG EXTENSION , BUT THE ATTENDANT COULD NOT GET HIM OIN THE WHEELCHAIR VAN , HE CALLED TASHA SEBASTIAN AND THEY ARE SENDING A AAAAAAAAAAAAAAAAAAAAAAAAAAMBULANCE IN SUBSTITUE FOR WHEELCHAIR VAN AT THE SAME COST ATS THE WHEELCHAIR VAN . INFORMED SUDEEP AT [facility] OF THE DELAY AND ANTICIPATED TOME OF DEPATURE FROM HER WITH THE AMBULANCE
== END 2020-11-24 13:21 | disposition skilled nursing facility (03) ==
LOC: HO.SSS 10:08 → HO.S3 10:38
PROVIDERS: Physician Assistant; PCP Internal Medicine; Visit Provider Orthopaedic Surgery
PROC: (CPT 27447; principal; 2020-11-21 10:00)
DX: M17.12 Unilateral primary osteoarthritis, left knee (principal); I10 Essential (primary) hypertension; E78.5 Hyperlipidemia, unspecified; D72.829 Elevated white blood cell count, unspecified; Z20.822 Contact with and (suspected) exposure to COVID-19
CPT/HCPCS: 27447; 36415; 73560; 80048; 85025; 86850; 86900; 86901; 87635; 87640; 87641; 88305; 88311; 93005; 97110; 97116; 97161; 97530; C1713; C1776; J0690; J1100; J1170; J2250; J2405

== ENCOUNTER → 2020-12-07 09:34 | Outpatient (BNVA) | payer MEDICARE, SELFPAY | PROVIDERS: Visit Provider Physician Assistant | DX: Z47.1 Aftercare following joint replacement surgery (principal); Z96.652 Presence of left artificial knee joint | CPT/HCPCS: 99212 ==

== ENCOUNTER 2021-01-04 08:14 | Outpatient (REF) | payer MEDICARE, SELFPAY ==
--- NOTE | ~2021-01-04 | XR_ITS ---
EXAMINATION: XR KNEES, STANDING AP XR KNEE, LEFT CLINICAL INFORMATION: Knee pain. COMPARISON: Radiographs left knee 11/21/2020, standing bilateral AP view and left patellar view 09/11/2020 TECHNIQUE: Standing AP view of both knees is performed along with lateral and axial patella views of the left knee. FINDINGS: Left: Status post knee arthroplasty with hinged prosthesis. Hardware intact. Normal alignment. No fracture or dislocation or destructive process. No osteolysis. Suprapatellar effusion and mild edema in Hoffa's fat pad. No lateralization or tilting patella. There is some benign heterotopic mineralization extensor mechanism in region of distal quadriceps, proximal patellar tendon, and lateral patellar retinaculum. Right: There are degenerative changes medial knee joint compartment with prominent knee joint narrowing and secondary genu varus. Small subchondral cysts medial femoral condyle again seen. No erosive change or chondrocalcinosis. XR/XR knee LT 2V IMPRESSION: Left: -Status post knee arthroplasty. Hardware intact. No destructive process. -Mild heterotopic mineralization extensor mechanism. Right: -Degenerative changes greatest medial compartment with secondary genu varus.
--- NOTE | ~2021-01-04 | XR_ITS ---
EXAMINATION: XR KNEES, STANDING AP XR KNEE, LEFT CLINICAL INFORMATION: Knee pain. COMPARISON: Radiographs left knee 11/21/2020, standing bilateral AP view and left patellar view 09/11/2020 TECHNIQUE: Standing AP view of both knees is performed along with lateral and axial patella views of the left knee. FINDINGS: Left: Status post knee arthroplasty with hinged prosthesis. Hardware intact. Normal alignment. No fracture or dislocation or destructive process. No osteolysis. Suprapatellar effusion and mild edema in Hoffa's fat pad. No lateralization or tilting patella. There is some benign heterotopic mineralization extensor mechanism in region of distal quadriceps, proximal patellar tendon, and lateral patellar retinaculum. Right: There are degenerative changes medial knee joint compartment with prominent knee joint narrowing and secondary genu varus. Small subchondral cysts medial femoral condyle again seen. No erosive change or chondrocalcinosis. XR/XR knee standing BI IMPRESSION: Left: -Status post knee arthroplasty. Hardware intact. No destructive process. -Mild heterotopic mineralization extensor mechanism. Right: -Degenerative changes greatest medial compartment with secondary genu varus.
== END 2021-01-04 08:15 | disposition home or self-care (01) ==
LOC: HO.HOSX 08:14
PROVIDERS: Visit Provider Orthopaedic Surgery
DX: M25.562 Pain in left knee (principal); M17.12 Unilateral primary osteoarthritis, left knee; E78.00 Pure hypercholesterolemia, unspecified; I10 Essential (primary) hypertension; Z88.8 Allergy status to other drugs, medicaments and biological substances; Z91.013 Allergy to seafood; Z96.652 Presence of left artificial knee joint
CPT/HCPCS: 73560; 73565; 99212

== ENCOUNTER 2021-02-15 08:06 | Outpatient (REF) | payer MEDICARE, SELFPAY ==
--- NOTE | ~2021-02-15 | XR_ITS ---
EXAMINATION: XR BOTH KNEES AP STANDING XR LEFT KNEE, 2 VIEWS CLINICAL INFORMATION: Pain. COMPARISON: Standing bilateral and left knee radiographs dated 01/04/2021. TECHNIQUE: Standing AP view of both knees and lateral and sunrise views of the left knee. FINDINGS: Right Knee: Severe medial compartment joint space narrowing. Subchondral sclerosis and subchondral cystic change. Tract compartment marginal osteophytes. No fracture or dislocation. No abnormal soft tissue calcification. Left knee: Hinged total left knee arthroplasty. No acute hardware or osseous fracture. No perihardware lucency to suggest loosening or infection. Small joint effusion, unchanged. Multiple calcifications redemonstrated in the region of the distal quadriceps tendon, unchanged. XR/XR knee LT 2V IMPRESSION: Right knee: Tricompartmental osteoarthritis, most severe within the medial compartment, unchanged. LEFT KNEE: Total left knee arthroplasty without evidence of hardware complication. No significant interval change.
--- NOTE | ~2021-02-15 | XR_ITS ---
EXAMINATION: XR BOTH KNEES AP STANDING XR LEFT KNEE, 2 VIEWS CLINICAL INFORMATION: Pain. COMPARISON: Standing bilateral and left knee radiographs dated 01/04/2021. TECHNIQUE: Standing AP view of both knees and lateral and sunrise views of the left knee. FINDINGS: Right Knee: Severe medial compartment joint space narrowing. Subchondral sclerosis and subchondral cystic change. Tract compartment marginal osteophytes. No fracture or dislocation. No abnormal soft tissue calcification. Left knee: Hinged total left knee arthroplasty. No acute hardware or osseous fracture. No perihardware lucency to suggest loosening or infection. Small joint effusion, unchanged. Multiple calcifications redemonstrated in the region of the distal quadriceps tendon, unchanged. XR/XR knee standing BI IMPRESSION: Right knee: Tricompartmental osteoarthritis, most severe within the medial compartment, unchanged. LEFT KNEE: Total left knee arthroplasty without evidence of hardware complication. No significant interval change.
== END 2021-02-15 08:07 | disposition home or self-care (01) ==
LOC: HO.HOSX 08:06
PROVIDERS: Visit Provider Orthopaedic Surgery
DX: Z47.1 Aftercare following joint replacement surgery (principal); Z96.652 Presence of left artificial knee joint
CPT/HCPCS: 73560; 73565; 99212

== ENCOUNTER 2021-03-16 08:00 | Outpatient (RCR) | payer MEDICARE, SELFPAY ==
--- NOTE | 2020-12-20 16:16 | MHC.PT.EP ---
[facility] [place] Office [place] Office [place] Office [address] [place] [address] [address] [phone] F: [phone] F: [phone] F: [phone] F: [phone] Physical Therapy Plan of Care Date of Evaluation: Date of Surgery: 11/21/20 Diagnosis: L TKR Assessment: Pt IS 65 YO M REFERRED TO PT FROM ORTHO ([facility] PATEL) S/P L TKR ON 11/21/[address] NGUYEN. Pt HAD STR AND HOME PT. PRESENTS NOW WITH ROM L KNEE 5-120, TIGHTNESS L LE, DECREASED LE STRENGTH/ENDURANCE AND PAIN LIMITING ADLS. REPORTS STILL HAVING TROUBLE WITH STAIRS. USING [facility]. GOOD PT CANDIDATE TO ADDRESS THESE ISSUES Frequency and Duration: The patient will be seen 2X/WK X 6 WKS Short Term Goals: 1. INCREASED AWARENESS KNEE CARE 2. I HEP WITH DC EX PLAN 3. ABLE TO COMFORTABLY NEGOTIATE STAIRS STEP OVER STEP Fpc Goals: 1. INCREASED L KNEE ROM 0-125 2. NORMALIZED GT WITHOUT AD 3. DECREASED L LE PAIN AT LEAST 50% WITH ADLS Treatment Plan: Modalities to reduce pain, spasms and effusion. Manual therapy to restore motion and function. Therapeutic exercise to improve strength and flexibility. Neuromuscular re-education for posture and balance. Therapeutic activities to return to functional activities of daily living. Electronically signed by: RAMEZ ZAVALA PT Please sign and return to therapist. Thank you for your referral.
--- NOTE | 2021-03-30 08:46 | MHC.PT.DC ---
[facility] [place] Office [place] Office [place] Office [address]aryn Tee 140 [facility] [phone] F: [phone] F: [phone] F: [phone] F: [phone] Physical Therapy Discharge Report Diagnosis: L TKR Date of Surgery: 11/21/20 Date of Evaluation: 12/20/20 Date of Discharge: 03/16/21 Treatments to Date: 23 Cancellations to Date: No Shows to Date: Discharge Status: Achieved Goals Improved Function Independent with HEP Discharge Summary: HAS MET MOST PT GOALS, GOES TO GYM REGULARLY, HAS HEP Electronically signed by: RAMEZ ZAVALA PT Please sign and return to therapist. Thank you for your referral.
== END 2021-03-30 08:54 | disposition home or self-care (01) ==
LOC: HO.PT 08:00
PROVIDERS: Visit Provider Physician Assistant
DX: Z96.652 Presence of left artificial knee joint (principal)
CPT/HCPCS: 97014; 97110; 97112; 97116; 97140; 97150; 97162; 97530

== ENCOUNTER → 2021-03-19 08:10 | Outpatient (BNVA) | payer MEDICARE, SELFPAY | PROVIDERS: Visit Provider Orthopaedic Surgery | DX: Z47.1 Aftercare following joint replacement surgery (principal); Z96.652 Presence of left artificial knee joint | CPT/HCPCS: 99212 ==

== ENCOUNTER → 2021-04-02 10:50 | Outpatient (BNVA) | payer MEDICARE, SELFPAY | PROVIDERS: PCP Internal Medicine; Visit Provider Internal Medicine | DX: G47.33 Obstructive sleep apnea (adult) (pediatric) (principal); E66.01 Morbid (severe) obesity due to excess calories; Z99.89 Dependence on other enabling machines and devices | CPT/HCPCS: 99202 ==

== ENCOUNTER → 2021-04-23 12:52 | Outpatient (REF) | payer MEDICARE, SELFPAY | LOC: HO.SL 12:52 | PROVIDERS: PCP Internal Medicine; Visit Provider Internal Medicine | DX: G47.33 Obstructive sleep apnea (adult) (pediatric) (principal); E66.01 Morbid (severe) obesity due to excess calories; Z99.89 Dependence on other enabling machines and devices | CPT/HCPCS: 95806 ==

== ENCOUNTER → 2021-05-21 09:16 | Outpatient (BNVA) | payer MEDICARE, SELFPAY | PROVIDERS: PCP Internal Medicine; Visit Provider Internal Medicine | DX: E66.01 Morbid (severe) obesity due to excess calories (principal); G47.33 Obstructive sleep apnea (adult) (pediatric); Z99.89 Dependence on other enabling machines and devices; Z68.42 Body mass index [BMI] 45.0-49.9, adult | CPT/HCPCS: 99212 ==

== ENCOUNTER 2021-06-25 07:51 | Outpatient (REF) | payer MEDICARE, SELFPAY ==
--- NOTE | ~2021-06-25 | XR_ITS ---
EXAMINATION: CR X-RAY KNEES STANDING BILATERAL, LEFT KNEE 2 VIEW CLINICAL INFORMATION: Left knee pain. COMPARISON: 02/15/2021 knee radiographs. TECHNIQUE: 2 views of the left knee as well as standing views of the bilateral knees were obtained. FINDINGS: The patient is status post left knee arthroplasty showing good anatomic alignment with no evidence for hardware malfunction. There is no acute fracture. The right knee shows femoral-tibial degenerative joint changes most pronounced medially without acute abnormality. XR/XR knee LT 2V IMPRESSION: 1. No significant left knee hardware abnormality or change. 2. Right knee femoral-tibial degenerative joint changes most consistent with osteoarthritis without significant change.
--- NOTE | ~2021-06-25 | XR_ITS ---
EXAMINATION: CR X-RAY KNEES STANDING BILATERAL, LEFT KNEE 2 VIEW CLINICAL INFORMATION: Left knee pain. COMPARISON: 02/15/2021 knee radiographs. TECHNIQUE: 2 views of the left knee as well as standing views of the bilateral knees were obtained. FINDINGS: The patient is status post left knee arthroplasty showing good anatomic alignment with no evidence for hardware malfunction. There is no acute fracture. The right knee shows femoral-tibial degenerative joint changes most pronounced medially without acute abnormality. XR/XR knee standing BI IMPRESSION: 1. No significant left knee hardware abnormality or change. 2. Right knee femoral-tibial degenerative joint changes most consistent with osteoarthritis without significant change.
== END 2021-06-25 07:52 | disposition home or self-care (01) ==
LOC: HO.HOSX 07:51
PROVIDERS: Visit Provider Orthopaedic Surgery
DX: M25.561 Pain in right knee (principal); M17.11 Unilateral primary osteoarthritis, right knee; I10 Essential (primary) hypertension; E78.00 Pure hypercholesterolemia, unspecified; E66.01 Morbid (severe) obesity due to excess calories; G47.33 Obstructive sleep apnea (adult) (pediatric); Z68.42 Body mass index [BMI] 45.0-49.9, adult; Z96.652 Presence of left artificial knee joint; Z98.84 Bariatric surgery status; Z88.8 Allergy status to other drugs, medicaments and biological substances; Z91.013 Allergy to seafood; Z99.89 Dependence on other enabling machines and devices
CPT/HCPCS: 20610; 73560; 73565; 99212; J1100

== ENCOUNTER → 2021-10-11 09:00 | Outpatient (BNVA) | payer MEDICARE, SELFPAY | PROVIDERS: PCP Internal Medicine; Visit Provider Internal Medicine | DX: G47.33 Obstructive sleep apnea (adult) (pediatric) (principal); E66.01 Morbid (severe) obesity due to excess calories; Z99.89 Dependence on other enabling machines and devices; Z68.42 Body mass index [BMI] 45.0-49.9, adult | CPT/HCPCS: 99212 ==

== ENCOUNTER 2021-10-29 07:16 | Outpatient (REF) | payer MEDICARE, SELFPAY ==
--- NOTE | ~2021-10-29 | XR_ITS ---
EXAMINATION: XR KNEE STANDING, BILATERAL XR KNEE, LEFT CLINICAL INFORMATION: Pain left knee COMPARISON: None TECHNIQUE: AP bilateral knee standing. Left knee 2 views. FINDINGS: AP BILATERAL KNEE: There is a total left knee prosthesis with prosthetic components in satisfactory alignment. There is loss of medial compartment right knee joint space with mild degenerative varus deformity. Minimal loss of lateral compartment joint space is seen as well. No bony erosive changes. The soft tissues are normal. LEFT KNEE: There is a total left knee prosthesis with prosthetic components in satisfactory alignment. No periprosthetic loosening or fracture. There is minimal suprapatellar joint effusion. Moderate enthesophytes seen and parapatellar regions with mild prepatellar and infrapatellar superficial soft tissue swelling. XR/XR knee standing BI IMPRESSION: 1. Total left knee prosthesis in satisfactory alignment without any loosening or periprosthetic fracture. 2. There is mild suprapatellar joint effusion and anterior prepatellar superficial soft tissue swelling. 3. There are no loose bodies.
--- NOTE | ~2021-10-29 | XR_ITS ---
EXAMINATION: XR KNEE STANDING, BILATERAL XR KNEE, LEFT CLINICAL INFORMATION: Pain left knee COMPARISON: None TECHNIQUE: AP bilateral knee standing. Left knee 2 views. FINDINGS: AP BILATERAL KNEE: There is a total left knee prosthesis with prosthetic components in satisfactory alignment. There is loss of medial compartment right knee joint space with mild degenerative varus deformity. Minimal loss of lateral compartment joint space is seen as well. No bony erosive changes. The soft tissues are normal. LEFT KNEE: There is a total left knee prosthesis with prosthetic components in satisfactory alignment. No periprosthetic loosening or fracture. There is minimal suprapatellar joint effusion. Moderate enthesophytes seen and parapatellar regions with mild prepatellar and infrapatellar superficial soft tissue swelling. XR/XR knee LT 2V IMPRESSION: 1. Total left knee prosthesis in satisfactory alignment without any loosening or periprosthetic fracture. 2. There is mild suprapatellar joint effusion and anterior prepatellar superficial soft tissue swelling. 3. There are no loose bodies.
== END 2021-10-29 07:17 | disposition home or self-care (01) ==
LOC: HO.HOSX 07:16
PROVIDERS: Visit Provider Orthopaedic Surgery
DX: Z13.89 Encounter for screening for other disorder (principal)
CPT/HCPCS: 73560; 73565; 99212

== ENCOUNTER 2021-10-29 12:56 | Outpatient (REF) | payer MEDICARE, SELFPAY ==
[2021-10-29 14:03] LABS: C Reactive Protein 0.31 mg/dL (< or = 0.50)
[2021-10-29 14:13] LABS: Erythrocyte Sedimentation Rate 23 MM/HR (0-15)
== END 2021-10-29 12:57 | disposition home or self-care (01) ==
LOC: HO.10HDL 12:56
PROVIDERS: Visit Provider Orthopaedic Surgery
DX: Z96.652 Presence of left artificial knee joint (principal)
CPT/HCPCS: 36415; 73560; 73565; 85652; 86140; 99212

== ENCOUNTER → 2021-12-21 08:52 | Outpatient (BNVA) | payer MEDICARE, SELFPAY | PROVIDERS: PCP Internal Medicine; Visit Provider Orthopaedic Surgery | DX: M70.52 Other bursitis of knee, left knee (principal); Z96.652 Presence of left artificial knee joint | CPT/HCPCS: 99212 ==

== ENCOUNTER 2022-01-04 08:00 | Outpatient (RCR) | payer MEDICARE, SELFPAY ==
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
--- NOTE | 2022-01-04 09:24 | MHC.PT.DC ---
[facility] [place] Office [place] Office [place] Office [address] Sharyn Tee [address] [phone] F: [phone] F: [phone] F: [phone] F: [phone] Physical Therapy Discharge Report Diagnosis: L KNEE PAIN/PES ANSERINE BURSITIS L S/P L TKR 11/21/20 Date of Surgery: 11/21/20 Date of Evaluation: 11/23/21 Date of Discharge: 01/04/22 Treatments to Date: 12 Cancellations to Date: No Shows to Date: Discharge Status: Achieved Goals Improved Function Independent with HEP Discharge Summary: HAS MET PT GOALS. I WITH HEP AND GOES TO GYM REGULARLY LIMP INITIALLY AFTER GETS UP FROM SIT IN WAITING ROOM Electronically signed by: RAMEZ ZAVALA PT Please sign and return to therapist. Thank you for your referral.
== END 2022-01-04 09:25 | disposition home or self-care (01) ==
LOC: HO.PT 08:00
PROVIDERS: Visit Provider Orthopaedic Surgery
DX: M70.50 Other bursitis of knee, unspecified knee (principal); Z96.652 Presence of left artificial knee joint
CPT/HCPCS: 97033; 97110; 97140; 97162; 97530

== ENCOUNTER 2022-03-09 12:12 | Inpatient (IN) | payer MEDICARE, SELFPAY ==
[2022-03-09] VITALS (9 sets, daily range): BP systolic 104–189; BP diastolic 48–86; PULSE 91–170; RESP 19–35; TEMP 36.6; O2SAT 96–99; BMI 55.7
--- NOTE | ~2022-03-09 | XR_ITS ---
EXAMINATION: XR chest 1V CLINICAL INFORMATION: Fever COMPARISON: 2016, 2017 TECHNIQUE: XR chest 1V Tubes and lines: None Lungs and pleura: Limited portable technique underpenetrated, crowding of lung markings probably poor inspiration, no dense focal consolidation pneumonia. Heart and mediastinum: The mediastinum is within normal limits.. Bones/soft tissue: Skeletal structures included are normal for patient's age. XR/XR chest 1V IMPRESSION: Limited portable, crowding of lung markings probably poor inspiration. No dense consolidation.
--- NOTE | ~2022-03-09 | US_ITS ---
EXAMINATION: US ABDOMEN LIMITED CLINICAL INFORMATION: Fever. COMPARISON: None TECHNIQUE: Real-time imaging of the right upper quadrant abdominal viscera. FINDINGS: Exam limited by patient's body habitus. PANCREAS: The visualized portion of the pancreas head and body are normal, portion of the pancreatic body and tail, not visualized are obscured by bowel gas. LIVER: Increased echogenicity of the liver parenchyma, this can be seen in the setting of hepatic steatosis or liver parenchymal disease. The liver is normal in size. The liver contour is normal. No focal hepatic lesion. There is no intrahepatic biliary duct dilatation seen. GALLBLADDER: Normal. The gallbladder is physiologically distended without evidence of stones, sludge, polyps, wall thickening or pericholecystic fluid. COMMON BILE DUCT: Not visualized might have been obscured by bowel gas. RIGHT KIDNEY: Normal. No hydronephrosis. No renal calculi or focal parenchymal lesions. The kidney measures 11.9 cm in maximum dimension. FREE FLUID: None. US/US abdomen limited IMPRESSION: Study limited No ultrasound evidence of cholecystitis. Diffusely echogenic liver suggesting hepatic steatosis.
--- NOTE | ~2022-03-09 | CT_ITS ---
EXAMINATION: CT ABDOMEN AND PELVIS WITHOUT CONTRAST CLINICAL INFORMATION: pain . COMPARISON: 08/25/2008. TECHNIQUE: Multidetector volumetric imaging was performed from the superior aspect of the liver through the pubic symphysis without contrast per request. Sagittal and coronal reformatted images were obtained on the technologist workstation. This CT examination was performed using dose optimization techniques as appropriate, variously including the following: *Automated exposure control *Adjustment of mA and/or kV according to patient size (this includes techniques or standardized protocols for targeted exams where dose is matched to indication/reason for exam; i.e. extremities or head) *Use of iterative reconstruction technique DLP: 1625 mGy-cm. FINDINGS: LUNG BASES: Minimal dependent atelectasis. Old healed right-sided rib fractures. Small hiatal hernia. LIVER, GALLBLADDER, BILIARY TREE: The non-contrast liver is normal in size, shape, and attenuation. No focal hepatic lesion or biliary ductal dilatation is present. The gallbladder is unremarkable with no evidence of radiopaque gallstones, gallbladder wall thickening, or obvious pericholecystic inflammatory changes. PANCREAS: Inflammatory changes are seen in the region the pancreatic head. Epicenter this appears to be more associated with the adjacent duodenum. No pancreatic ductal dilatation SPLEEN: Unremarkable. ADRENAL GLANDS: Unremarkable. KIDNEYS AND URETERS: The kidneys are normal in size, shape, and attenuation. No hydronephrosis or hydroureter. 8 mm nonobstructing intrarenal calculi in the lower pole collecting system of the right kidney. No perinephric stranding. BLADDER: Unremarkable. GASTROINTESTINAL TRACT: No colonic wall thickening or pericolonic inflammatory changes. Normal-appearing retrocecal appendix. Main abnormality of note is focal wall thickening in surrounding inflammatory change in the region of the 2nd-3rd portion the duodenum. Focal duodenitis or duodenal ulcer is suspected in this setting. Pancreatitis would be considered less likely with this distribution. Lap band noted. ABDOMINAL WALL: No significant hernia is appreciated. LYMPHOVASCULAR STRUCTURES: Minimal vascular calcification within the aorta iliac system. Small retroperitoneal lymph nodes but no bulky adenopathy.. PELVIC VISCERA: Unremarkable. OSSEUS STRUCTURES: Degenerative changes in the spine but no acute bony abnormality. CT/CT abdomen pelvis wo IV con IMPRESSION: Main finding of note is focal inflammatory changes surrounding a thick-walled 2nd-3rd portion of the duodenum. With this appearance, a focal duodenitis/duodenal ulcer disease would be suspected. Clinical correlation would be recommended. Although the inflammation is near the pancreatic head, the epicenter really appears to be more associated with the duodenum. No obstructive changes seen. Other chronic appearing changes as noted above.
--- NOTE | ~2022-03-09 | US_ITS ---
EXAMINATION: RIGHT LOWER EXTREMITY DEEP VENOUS ULTRASOUND CLINICAL INFORMATION: Right leg edema COMPARISON: Right lower extremity DVT study January 23, 2017 TECHNIQUE: Duplex Doppler imaging with compression maneuvers were performed of the right lower extremity deep venous system. FINDINGS: The visualized common femoral, femoral and popliteal veins demonstrate normal compressibility and color flow without evidence of venous thrombosis. Calf veins not clearly visualized due to overlying edema. There is no evidence of a Castellanos's cyst. A few prominent lymph nodes are again noted within the right groin, nonspecific. US/US venous duplex LE RT IMPRESSION: No evidence of femoral to popliteal deep venous thrombosis involving the right lower extremity.
--- NOTE | 2022-03-09 12:22 | ECG_ITS ---
Test Reason : SOB Blood Pressure : / mmHG Vent. Rate : 167 BPM Atrial Rate : 000 BPM P-R Int : 000 ms QRS Dur : 102 ms QT Int : 270 ms P-R-T Axes : 000 126 -13 degrees QTc Int : 450 ms Atrial fibrillation with rapid ventricular response Incomplete right bundle branch block Possible Right ventricular hypertrophy ST & T wave abnormality, consider inferior ischemia Abnormal ECG When compared with ECG of 19-OCT-2020 11:26, Atrial fibrillation has replaced Sinus rhythm Vent. rate has increased BY 94 BPM Incomplete right bundle branch block is now Present Criteria for Inferior-posterior infarct are no longer Present Referred By: Cirilo Hatfield Electronically Signed By:EDWARDO BRO
--- NOTE | 2022-03-09 12:36 | ED_ITS ---
HPI - General Adult General Chief complaint: Abdominal Pain Stated complaint: SOB Time Seen by Provider: 03/09/22 12:22 Source: patient and EMS Mode of arrival: EMS Limitations: no limitations History of Present Illness HPI narrative: 66-year-old male came in for evaluation of SOB. Two nights ago patient had a dinner at a restaurant, patient vaguely remember have did a drive back home and patient ever since not feeling well had subjective fever at home at 102, patient been having shortness of breath for the past 2 days that is worsening with exertion slightly improved with rest, patient was chronic bilateral lower extremity swelling. No exposure to sick contacts, no recent travel. Related Data Home Medications Medication Instructions Recorded Confirmed atorvastatin 10 mg tablet 10 mg PO DAILY 09/11/20 03/09/22 carvedilol 3.125 mg tablet 3.125 mg PO BID 09/11/20 03/09/22 epinephrine 0.3 mg/0.3 mL 0.3 ml IM DAILY PRN Allergic 09/11/20 03/09/22 injection, auto-injector Reaction multivitamin,tx-minerals 1 tab PO DAILY 11/16/20 03/09/22 cholecalciferol (vitamin D3) 50 50 mcg PO DAILY 11/17/20 03/09/22 mcg (2,000 unit) capsule (Vitamin D3) sildenafil 50 mg tablet 50 mg PO DAILY PRN sexual 04/02/21 03/09/22 dysfunction Allergies Allergy/AdvReac Type Severity Reaction Status Date / Time dextromethorphan Allergy Severe ITCHY Verified 10/29/21 12:22 [DEXTROMETHORPHAN] SWELLING SOB shellfish derived Allergy Severe ANAPHYLAXIS Verified 10/29/21 12:22 Review of Systems Review of Systems: All other systems are reviewed and are negative Constitutional: Reports as per HPI and Reports no additional constitutional complaints Eyes: Reports as per HPI and Reports no additional eye complaints Reports system reviewed and no additional complaints, except as documented Cardiovascular: Reports as per HPI and Reports no additional cardiovascular complaints Respiratory: Reports as per HPI and Reports no additional respiratory complaints Gastrointestinal: Reports as per HPI and Reports no additional gastrointestinal complaints Genitourinary: Reports no additional female genitourinary complaints Musculoskeletal: Reports no additional musculoskeletal complaints Skin/Breast: Reports system reviewed and no additional complaints, except as docu Psychiatric: Reports no additional psychiatric complaints Endocrine: Reports no additional endocrine complaints Hematologic/Lymphatic: Reports no additional hematologic/lymphatic complaints Allergic/Immunologic: Reports no additional allergic/immunologic complaints Reports system reviewed and no additional complaints, except as documented and Reports Abnormal speech present [facility] Past Medical History Medical History Chronic venous insufficiency COVID-19 vaccine series completed Gastritis High cholesterol Hypertension Leukocytosis Morbid obesity Obesity TANO on CPAP TANO on CPAP Osteoarthritis Osteoarthritis of left knee Surgical History History of orthopedic surgery History of right knee surgery Hx of colonoscopy LAP-BAND surgery status Family History Family History Father No problems noted. Mother No problems noted. 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 Physical Exam ED Vital Signs: Vital Signs - 24 hr 03/09/22 12:29 03/09/22 12:41 03/09/22 13:02 Temperature 98 F Pulse Rate 170 H 152 H 150 H Respiratory Rate 20 26 H 26 H Blood Pressure 146/73 H 148/71 H 164/82 H Pulse Oximetry 98 98 99 Oxygen Delivery Method Nasal Cannula Nasal Cannula Nasal Cannula Oxygen Flow Rate 4 2 03/09/22 13:17 03/09/22 14:09 Temperature Pulse Rate 153 H 144 H Respiratory Rate 20 19 Blood Pressure 189/86 H 153/64 H Pulse Oximetry 99 Oxygen Delivery Method Nasal Cannula Nasal Cannula Oxygen Flow Rate 2 BMI result Body Mass Index 55.7 Vital signs have been reviewed as appeared to be correct. Blood pressure normal. Heart rate rapid. Respiration rate normal. Temperature normal. Oxygen saturation normal. Appearance: Alert. Oriented X3. No acute distress. Head: Normal external exam. Normocephalic. Atraumatic. No Ramírez signs noted. No raccoon eyes noted Eyes: PERRLA. EOMI. Conjunctiva and sclera normal. Eyelids normal. ENT: TM's Normal. Pharynx normal. Uvula midline. Moist mucous membranes. No trismus noted. No drooling noted. No muffled voice noted. Neck: Normal inspection. Neck supple. FROM. No adenopathy. Thyroid Normal. No meningeal signs. No neck mass noted. CVS: Normal heart rate and rhythm. Heart sound normal. No murmurs noted. Pulses normal throughout. Respiratory: No respiratory distress. Painless inspiration. Breath sounds normal. No wheezes/rales/rhonchi noted. Chest nontender. No accessory muscle usage noted or decreased air movement noted. Abdomen: Soft and nontender. Bowel sounds normal in all 4 quadrants. No distention noted. No organomegaly noted. No visible injury noted. Back: No CVA tenderness. Full range of motion noted. Skin: Skin warm and dry. Normal skin color. Normal skin turgor. No rashes/lesions/lacerations noted. Extremities: +2 lower extremity edema. Redness hotness to the right lower extremity. Extremities exhibit normal range of motion. Extremities nontender. Neuro: Oriented X 3. Cranial nerve exam: II-XII are grossly intact No motor deficit. No sensory deficit. Reflexes normal. Course Course Course Narrative: 66-year-old male came in for evaluation of generalized weakness patient found to be in rapid atrial fibrillation which is new onset. 1. New onset rapid atrial fibrillation patient is on Cardizem IV drip and received 1 dose of digoxin in the ED heart rate is still 130s to 140s. 2. Patient meets criteria for sirs no septic shock or severe sepsis source is right lower extremity cellulitis start the patient on Zosyn. 3. Elevated LFTs had hepatobiliary ultrasound which was unremarkable except for probably hepatic steatosis. Medical Decision Making Medical Records Medical records reviewed: Yes I reviewed the patient's medical records. Lab Data Lab results reviewed: Yes I reviewed the patient's lab results. Result diagrams: 03/09/22 12:45 03/09/22 12:45 Labs: Lab Results 03/09/22 03/09/22 03/09/22 Range/Units 12:44 12:45 12:45 WBC 24.8 H (4.8-10.8) X10*3/uL RBC 4.84 (4.60-5.80) X10*6/uL Hgb 13.9 L (14.0-18.0) g/dl Hct 41.0 L (42.0-52.0) % MCV 84.7 (80.0-98.0) fL MCH 28.7 (27.0-33.0) pg MCHC 33.9 (31.0-36.0) g/dl RDW 14.0 (11.0-16.0) % Plt Count 214 (160-400) X10*3/uL MPV 10.7 (9.4-12.4) fL Immature Gran % (Auto) 1.5 H (0.0-0.4) % Neut % (Auto) 90.2 H (45-73) % Lymph % (Auto) 3.5 L (20-40) % [place] % (Auto) 4.6 (2-11) % Eos % (Auto) 0.0 (0-4) % Baso % (Auto) 0.2 (0-2) % Lymph # (Auto) 0.9 L (1.2-4.9) X10*3/uL [place] # (Auto) 1.2 (0.1-1.2) X10*3/uL Eos # (Auto) 0.0 (0.0-0.4) X10*3/uL Baso # (Auto) 0.1 (0.0-0.2) X10*3/uL Abs Immat Gran (auto) 0.38 H (0.00-0.03) X10*3/uL Absolute Neuts (auto) 22.4 H (2.0-8.3) x10*3/uL Absolute Nucleated RBC 0.000 (0.0-0.012) X10*3/uL Nucleated RBC % (auto) 0.0 (0.0-0.2) /100WBC Smear Tech's Comments VERIFIED Sodium 132 L (135-145) mmol/L Potassium 3.9 (3.3-5.1) mmol/L Chloride 98 (96-108) mmol/L Carbon Dioxide 19 L (22-29) mmol/L Anion Gap 19 (12-20) BUN 24 H (9-16) mg/dL Creatinine 1.44 H (0.5-1.4) mg/dL Estim Creat Clear Calc 71.0 Estimated GFR 49 Random Glucose 173 H D (60-115) mg/dL Lactic Acid 1.7 (0.5-2.0) mmol/L Calcium 8.6 D (8.4-10.2) mg/dL Total Bilirubin 1.6 H (0.0-1.0) mg/dL Direct Bilirubin 0.8 H (0.0-0.5) mg/dL AST 62 H (5-37) U/L ALT 61 H (0-40) U/L Alkaline Phosphatase 78 (39-117) U/L Troponin I High Sens (<3.5-35.0) ng/L B-Natriuretic Peptide (<100) pg/mL Total Protein 6.5 (6.5-8.0) g/dL Albumin 3.9 (3.5-5.0) g/dL Lipase 17 (8-78) U/L Influenza Type A (PCR) (Negative) Influenza Type B (PCR) (Negative) RSV RNA Qual (PCR) (Negative) SARS-CoV-2 RNA (RT-PCR) (Negative) 03/09/22 03/09/22 Range/Units 12:45 12:46 WBC (4.8-10.8) X10*3/uL RBC (4.60-5.80) X10*6/uL Hgb (14.0-18.0) g/dl Hct (42.0-52.0) % MCV (80.0-98.0) fL MCH (27.0-33.0) pg MCHC (31.0-36.0) g/dl RDW (11.0-16.0) % Plt Count (160-400) X10*3/uL MPV (9.4-12.4) fL Immature Gran % (Auto) (0.0-0.4) % Neut % (Auto) (45-73) % Lymph % (Auto) (20-40) % [place] % (Auto) (2-11) % Eos % (Auto) (0-4) % Baso % (Auto) (0-2) % Lymph # (Auto) (1.2-4.9) X10*3/uL [place] # (Auto) (0.1-1.2) X10*3/uL Eos # (Auto) (0.0-0.4) X10*3/uL Baso # (Auto) (0.0-0.2) X10*3/uL Abs Immat Gran (auto) (0.00-0.03) X10*3/uL Absolute Neuts (auto) (2.0-8.3) x10*3/uL Absolute Nucleated RBC (0.0-0.012) X10*3/uL Nucleated RBC % (auto) (0.0-0.2) /100WBC Smear Tech's Comments Sodium (135-145) mmol/L Potassium (3.3-5.1) mmol/L Chloride (96-108) mmol/L Carbon Dioxide (22-29) mmol/L Anion Gap (12-20) BUN (9-16) mg/dL Creatinine (0.5-1.4) mg/dL Estim Creat Clear Calc Estimated GFR Random Glucose (60-115) mg/dL Lactic Acid (0.5-2.0) mmol/L Calcium (8.4-10.2) mg/dL Total Bilirubin (0.0-1.0) mg/dL Direct Bilirubin (0.0-0.5) mg/dL AST (5-37) U/L ALT (0-40) U/L Alkaline Phosphatase (39-117) U/L Troponin I High Sens 13.2 (<3.5-35.0) ng/L B-Natriuretic Peptide 54 (<100) pg/mL Total Protein (6.5-8.0) g/dL Albumin (3.5-5.0) g/dL Lipase (8-78) U/L Influenza Type A (PCR) NEGATIVE (Negative) Influenza Type B (PCR) NEGATIVE (Negative) RSV RNA Qual (PCR) NEGATIVE (Negative) SARS-CoV-2 RNA (RT-PCR) NEGATIVE (Negative) Imaging Data Chest x-ray: Attestation: I personally reviewed and interpreted this imaging study as follows: Radiologist's impression: Limited portable, crowding of lung markings probably poor inspiration. No dense consolidation. Abdominal ultrasound: Attestation: I personally reviewed and interpreted this imaging study as follows: Radiologist's impression: IMPRESSION: Study limited ? ? No ultrasound evidence of cholecystitis. ? Diffusely echogenic liver suggesting hepatic steatosis. ECG Data Interpretation: AFib with rapid ventricular response at 167 beats per minute, incomplete right bundle-branch block, normal intervals. Discharge Plan Discharge Clinical Impression: Cellulitis of leg, right, New onset atrial fibrillation Patient Disposition: Admitted As Inpatient Prescriptions: No Action multivitamin,tx-minerals Tablet 1 tab PO DAILY cholecalciferol (vitamin D3) [Vitamin D3] 50 mcg (2,000 unit) Capsule 50 mcg PO DAILY carvedilol 3.125 mg tablet 3.125 mg PO BID atorvastatin 10 mg tablet 10 mg PO DAILY epinephrine 0.3 mg/0.3 mL auto-injector 0.3 ml IM DAILY PRN (Reason: Allergic Reaction) sildenafil 50 mg tablet 50 mg PO DAILY PRN (Reason: sexual dysfunction)
[2022-03-09] MEDS: dilTIAZem HCL 50 MG/10 ML VIAL 25 MG IVPUSH (12:38)
[2022-03-09] MEDS: 0.9 % Sodium Chloride 1,000 ML 999 ML IV (12:40)
[2022-03-09] MEDS: dilTIAZem HCL 125 MG in 0.9 % Sodium Chloride 100 ML 10 MG IVCONT (12:49)
--- NOTE | 2022-03-09 12:58 | PC.NURSE ---
pt alert and oriented, skin very warm to touch, respirations even and unlabored, rapid a-fib on the monitor ranging from 150-170's no hx of a-fib, pt denies feeling sob denies chest pain, but is having mid abd pain 3/, denies n/v/d but is feeling dizzy swaying motion. bp stable at this time
[2022-03-09 13:12] LABS: Lactic Acid 1.7 mmol/L (0.5-2.0)
[2022-03-09 13:16] LABS: Basophils Absolute Auto 0.1 X10*3/uL (0.0-0.2); Basophils Percent Auto 0.2 % (0-2); Hemoglobin 13.9 g/dl (14.0-18.0); Imm Gran Abs Auto 0.38 X10*3/uL (0.00-0.03); Imm Gran Pct Auto 1.5 % (0.0-0.4); Lymphocytes Absolute Auto 0.9 X10*3/uL (1.2-4.9); Lymphocytes Percent Auto 3.5 % (20-40); MANUAL DIFF FLAG SCAN; Mean Corpuscular HGB Conc 33.9 g/dl (31.0-36.0); Mean Corpuscular Hemoglobin 28.7 pg (27.0-33.0); Mean Corpuscular Volume 84.7 fL (80.0-98.0); Mean Platelet Volume 10.7 fL (9.4-12.4); Monocytes Absolute Auto 1.2 X10*3/uL (0.1-1.2); Monocytes Percent Auto 4.6 % (2-11); Neutrophils Absolute Auto 22.4 x10*3/uL (2.0-8.3); Neutrophils Percent Auto 90.2 % (45-73); Platelet Count 214 X10*3/uL (160-400); Red Blood Count 4.84 X10*6/uL (4.60-5.80); SCAN SMEAR FLAG 1; White Blood Count 24.8 X10*3/uL (4.8-10.8)
[2022-03-09 13:17] LABS: Alanine Aminotransferase 61 U/L (0-40); Albumin Level 3.9 g/dL (3.5-5.0); Alkaline Phosphatase 78 U/L (39-117); Anion Gap 19 (12-20); Aspartate Amino Transferase 62 U/L (5-37); Bilirubin Direct 0.8 mg/dL (0.0-0.5); Bilirubin Total 1.6 mg/dL (0.0-1.0); Blood Urea Nitrogen 24 mg/dL (9-16); Calcium 8.6 mg/dL (8.4-10.2); Carbon Dioxide 19 mmol/L (22-29); Chloride 98 mmol/L (96-108); Estimated Glomerular Filt Rate 49; Glucose Random 173 mg/dL (60-115); Lipase 17 U/L (8-78); Potassium 3.9 mmol/L (3.3-5.1); Sodium 132 mmol/L (135-145); Total Protein 6.5 g/dL (6.5-8.0)
[2022-03-09] MEDS: Piperacillin Sodium/Tazobactam 3.375 GM in 0.9 % Sodium Chloride 50 ML IV (13:18)
[2022-03-09 13:21] LABS: B Type Natriuretic Peptide 54 pg/mL (<100); Troponin-I High Sensitivity 13.2 ng/L (<3.5-35.0)
[2022-03-09 13:46] LABS: Influenza A PCR NEGATIVE (Negative); Influenza B PCR NEGATIVE (Negative); Resp Syncy Virus RNA Qual PCR NEGATIVE (Negative); SARS COV2 PCR INHOUSE NEGATIVE (Negative)
[2022-03-09 13:52] LABS: SLIDE REVIEW VERIFIED
[2022-03-09] MEDS: Digoxin 0.25 MG TABLET PO ×2 (14:14→15:55)
--- NOTE | 2022-03-09 14:47 | PHA.MEDREC ---
Pharmacy Consult ? Medication Reconciliation Pharmacy has completed the medication reconciliation.
--- NOTE | 2022-03-09 15:45 | P.EN_ITS ---
Event Note Date of Service: 03/09/22
--- NOTE | 2022-03-09 15:45 | PM.EVENT ---
Event Note Date of Service: 03/09/22
--- NOTE | 2022-03-09 15:54 | PM.IMHP ---
History of Present Illness Date of Service: 03/09/22 Attending physician on admission: Jeremias Sanches Chief Complaint: shortness of breath, redness RLE 66-year-old male with history of hypertension, hyperlipidemia, chronic venous stasis dermatitis, erectile dysfunction, morbid obesity, and TANO on CPAP presented to the ER earlier today for evaluation of increased redness and swelling of the right lower leg as well as dyspnea on exertion that has been ongoing for about 2 days. He is also reporting fevers up to 102. On arrrival patient was afebrile. However, HR 170 and tachypneic to 26. EKG showed new atrial fibrillation with RVR, rate [address]/T wave abnormality, consider inferior ischemia. Trop-I 13.5. BNP 54. WBC 24.8. Lactic acid 1.7. Creat elevated from baseline at 1.44, BUN 24. Na 132. Glucose 173. A1c 5.6%. Total bilirubin 1.6, direct bili 0.8, AST 62, ALT 61. U/s abd showed hepatic steatosis, no cholecytitis. CXR negative for acute pulmonary disease. Found to have cellulitis of the RLE and started on zosyn. Started on 2l O2 via NC. In the ED patient received diltiazem 25mg push without improvement in HR. Started on cardiazem drip without improvement in rate. Digoxin iniated. Pt to be admitted for new onset AFib and cellulitis with severe sepsis. Denies palpitations, lightheadedenss, or palpitations. Review of Systems Review of Systems: General: No fevers, malaise, unintentional weight loss HEENT: no blurred vision or diplopia Cardiovascular: No chest pain, palpitations, or leg edema Respiratory: +shortness of breath. No wheezing, cough GI: No abdominal pain, nausea, vomiting, diarrhea, constipation, melena, hematochezia : No dysuria, hematuria, increased frequency MSK: no back pain Neuro: No headaches, weakness, paresthesias Skin: +increased redness/swelling RLE. No other rashes or lesions [facility] Medical History (Updated 03/09/22 @ 16:31 by JORGE Logan) ALEXUS (acute kidney injury) Chronic venous insufficiency COVID-19 vaccine series completed Gastritis High cholesterol Hypertension Leukocytosis Morbid obesity Obesity TANO on CPAP TANO on CPAP Osteoarthritis Osteoarthritis of left knee Family History (Updated 03/09/22 @ 16:22 by JORGE Logan) Father Myocardial infarct Mother No problems noted. 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 Meds Allergies Allergy/AdvReac Type Severity Reaction Status Date / Time dextromethorphan Allergy Severe ITCHY Verified 10/29/21 12:22 [DEXTROMETHORPHAN] SWELLING SOB shellfish derived Allergy Severe ANAPHYLAXIS Verified 10/29/21 12:22 Active Medications: Current Medications Apixaban (Apixaban 5 Mg Tablet) 5 mg PO BID [facility] Atorvastatin Calcium (Atorvastatin Calcium 10 Mg Tablet) 10 mg PO DAILY [facility] Carvedilol (Carvedilol 3.125 Mg Tablet) 3.125 mg PO BID [facility]; Protocol Digoxin (Digoxin 0.5 Mg/2 Ml Ampul) 0.25 mg IVPUSH Q6H [facility] Stop: 03/10/22 02:16 Diltiazem HCl 125 mg/ Sodium (Chloride) 125 mls @ 0 mls/hr IVCONT .Q0M [facility]; Protocol Last Titration: 03/09/22 13:16 Dose: 15 mg/hr, 15 mls/hr Sodium Chloride (Ns) 1,000 mls @ 100 mls/hr IVCONT .Q10H [facility] Pharmacy Consult (Consult Rx Perform Med Rec) 1 each MISCELLANE ONCE PRN PRN Reason: Consult order Sodium Chloride (0.9 % Sodium Chloride Flush 3 Ml Syringe) 3 ml IVFLUSH QSHIFT [facility] Home Medications Medication Instructions Recorded Confirmed Last Taken Type atorvastatin 10 mg tablet 10 mg PO DAILY 09/11/20 03/09/22 03/09/22 History carvedilol 3.125 mg tablet 3.125 mg PO BID 09/11/20 03/09/22 03/09/22 History epinephrine 0.3 mg/0.3 mL 0.3 ml IM DAILY PRN Allergic 09/11/20 03/09/22 Unknown History injection, auto-injector Reaction multivitamin,tx-minerals 1 tab PO DAILY 11/16/20 03/09/22 03/09/22 History cholecalciferol (vitamin D3) 50 50 mcg PO DAILY 11/17/20 03/09/22 03/09/22 History mcg (2,000 unit) capsule (Vitamin D3) sildenafil 50 mg tablet 50 mg PO DAILY PRN sexual 04/02/21 03/09/22 Unknown History dysfunction Physical Exam Vital Signs and Narrative: Vital Signs: Last Vital Signs Temp 98 F 03/09/22 12:29 Pulse 144 H 03/09/22 14:09 Resp 19 03/09/22 14:09 BP 153/64 H 03/09/22 14:09 Pulse Ox 99 03/09/22 13:17 O2 Del Method 03/09/22 14:09 O2 Flow Rate 2 03/09/22 13:17 Oxygen Flow Rate 4 03/09/22 12:29 BMI result Body Mass Index 55.7 Constitutional - Awake and Alert, uncomfortable appearing, on 2L supplemental O2 Eyes - PERRLA, EOMI Cardiovascular - Irregularly irregular,tachycardic. S1S2, 1+BLE Respiratory - Normal lung expansion, Normal respiratory effort, No respiratory distress, CTA bilaterally Gastrointestinal - NT / ND; +BS; No rebound or guarding Extremities - no calf tenderness bilaterally Skin - Warm/Dry. Chronic venous stasis dermatitis ble with erythema/warmth lower leg Neurological - Alert & oriented x3, CN II in tact, 5/5 strength BUE and BLE, no sensory deficit Psychological - Appropriate affect Results Labs CBC and Chem 7: 03/09/22 12:45 03/09/22 12:45 Labs: Laboratory Results - last 24 hr 03/09/22 03/09/22 03/09/22 12:44 12:45 12:45 MCV 84.7 MCH 28.7 MCHC 33.9 RDW 14.0 Plt Count 214 MPV 10.7 Immature Gran % (Auto) 1.5 H Neut % (Auto) 90.2 H Lymph % (Auto) 3.5 L [place] % (Auto) 4.6 Eos % (Auto) 0.0 Baso % (Auto) 0.2 Lymph # (Auto) 0.9 L [place] # (Auto) 1.2 Eos # (Auto) 0.0 Baso # (Auto) 0.1 Abs Immat Gran (auto) 0.38 H Absolute Neuts (auto) 22.4 H Absolute Nucleated RBC 0.000 Nucleated RBC % (auto) 0.0 Smear Tech's Comments VERIFIED Anion Gap 19 Estim Creat Clear Calc 71.0 Estimated GFR 49 Random Glucose 173 H D Lactic Acid 1.7 Calcium 8.6 D Total Bilirubin 1.6 H Direct Bilirubin 0.8 H AST 62 H ALT 61 H Alkaline Phosphatase 78 B-Natriuretic Peptide Total Protein 6.5 Albumin 3.9 Lipase 17 Influenza Type A (PCR) Influenza Type B (PCR) RSV RNA Qual (PCR) SARS-CoV-2 RNA (RT-PCR) 03/09/22 03/09/22 12:45 12:46 MCV MCH MCHC RDW Plt Count MPV Immature Gran % (Auto) Neut % (Auto) Lymph % (Auto) [place] % (Auto) Eos % (Auto) Baso % (Auto) Lymph # (Auto) [place] # (Auto) Eos # (Auto) Baso # (Auto) Abs Immat Gran (auto) Absolute Neuts (auto) Absolute Nucleated RBC Nucleated RBC % (auto) Smear Tech's Comments Anion Gap Estim Creat Clear Calc Estimated GFR Random Glucose Lactic Acid Calcium Total Bilirubin Direct Bilirubin AST ALT Alkaline Phosphatase B-Natriuretic Peptide 54 Total Protein Albumin Lipase Influenza Type A (PCR) NEGATIVE Influenza Type B (PCR) NEGATIVE RSV RNA Qual (PCR) NEGATIVE SARS-CoV-2 RNA (RT-PCR) NEGATIVE Imaging Radiologist's Impressions: Impressions Chest X-Ray 03/09/22 12:47 IMPRESSION: Limited portable, crowding of lung markings probably poor inspiration. No dense consolidation. Abdomen Ultrasound 03/09/22 14:09 IMPRESSION: Study limited No ultrasound evidence of cholecystitis. Diffusely echogenic liver suggesting hepatic steatosis. Assessment and Plan (1) New onset atrial fibrillation: Status: Acute (2) Cellulitis of leg, right: Status: Acute (3) Severe sepsis: Status: Acute (4) ALEXUS (acute kidney injury): Status: Acute Plan 66-year-old male with history of hypertension, hyperlipidemia, chronic venous stasis dermatitis, erectile dysfunction, morbid obesity, and TANO on CPAP admitted for new onset atrial fibrillation with RVR and cellulitis RLE with severe sepsis. 1- New onset atrial fibrillation with RVR -EKG with new afib, rate 167, consider inferior infarct. Troponin 13.2, BNP 54. Repeat troponin -Magnesium and TSH ordered -Received 25mg diltiazem push in ED, Cardiazem drip and diltiazem intiated -Continue cardiazem drip and digoxin load. Check digoxin level am -[id number] score 2. Initaite eliquis 5mg BID. Denies hx bleeding disorders or any active bleeding. Monitor for bleeding. Follow cbc -Cardiology consulted -Echocardiogram ordered -Admit to telemetry 2-Severe sepsis secondary to cellulitis RLE -Leukocytosis 24.8 with tachypnea, elevated bilirubin (possibly chronic r/t liver disease), and ALEXUS -IV cefazolin and doxycycline -Continue IV fluids -Follow CBC and chemistries 3-Acute cellulitis RLE with severe sepsis and chronic venous stasis dermatitis -IV cefazolin and doxycycline -Follow CBC -Tylenol prn for fevers 4-ALEXUS secondary to sepsis/infection -Creat 1.44, BUN 24 -Continue IVF -Follow BMP 5-Hepatic steatosis -AST 62, ALT 61, Direct bili 0.8, total bili 1.6 -U/S showed hepatic steatosis, no cholecystitis -Recommend weight loss efforts 1-ITI-bhtivttagj -Hold home bp meds -Continue dilt drip 7-HLD -Continue atorvastatin 10mg DVT prophylaxis Full code Pt requires inpt stay of at least 2 midnights for management of new onset atrial fibrillation with RVR, alexus and cellulitis with severe sepsis requiring IV fluid resuscitation, IV abx, and cardizem drip wtih further close montioring to prevent cardiacvascular and renal compromise. Quality Stroke Does the patient have a stroke diagnosis?: No VTE Prior VTE?: No VTE Risk Level:: Medical - moderate - high VTE Device Contraindication: Treatment Not Indicated VTE Drug Contraindication: N/A - Med Ordered
[2022-03-09] MEDS: ondansetron HCL 4 MG/2 ML VIAL IVPUSH (15:55)
[2022-03-09] MEDS: 0.9 % Sodium Chloride Flush 3 ML SYRINGE IVFLUSH (15:55)
[2022-03-09] MEDS: 0.9 % Sodium Chloride 1,000 ML 100 ML IVCONT (16:02)
[2022-03-09 16:07] LABS: Estimated Average Glucose 114 mg/dL; Hemoglobin A1c % 5.6 %
--- NOTE | 2022-03-09 16:09 | PC.NURSE ---
pt alert and oriented, skin pwd, respirations even and unlabored, pt reports having nausea but denies pain and sob. still in rapid a-fib ranges from 140-160's, bp holding
[2022-03-09 17:48] LABS: Troponin-I High Sensitivity 19.1 ng/L (<3.5-35.0)
[2022-03-09] MEDS: Magnesium Sulfate/H2O 2 GM/50 ML PIGGYBACK IV (18:12)
[2022-03-09 18:56] LABS: Magnesium 1.6 mg/dL (1.6-2.6)
[2022-03-09] MEDS: ceFAZolin Sodium/Dextrose,Iso 2 GM/50 ML PIGGYBACK IV (19:04)
[2022-03-09 19:16] LABS: Thyroid Stimulating Hormone 1.31 uIU/mL (0.32-4.0)
[2022-03-09] MEDS: Doxycycline Hyclate 100 MG in 0.9 % Sodium Chloride 250 ML 166.67 MG IV (19:46)
[2022-03-09] MEDS: Digoxin 0.5 MG/2 ML AMPUL 0.25 MG IVPUSH (20:08)
[2022-03-09] MEDS: carvediloL 3.125 MG TABLET PO (20:08)
[2022-03-09] MEDS: Apixaban 5 MG TABLET PO (20:08)
[2022-03-09 20:10] LABS: Appearance Urine Clear; Color Urine Dark Yellow; Glucose Urine UA Negative (Negative); Leukocyte Esterase Urine Negative (Negative); Nitrite Urine Negative (Negative); Specific Gravity - Urine >= 1.030 (1.005-1.025); UMIC TRIGGER UACC YES; Urine Blood Trace (Negative); Urine Ketones Trace mg/dL (Negative); Urine Protein 100 (2+) mg/dL (Neg-Trace)
[2022-03-09 20:12] LABS: Bacteria Urine None Seen (None Seen); Hyaline Casts Urine 0-2 /LPF (0-2); RBC Urine 0-2 /HPF (0-2); WBC Urine 0-5 /HPF (0-5)
[2022-03-09] MEDS: dilTIAZem HCL 125 MG in 0.9 % Sodium Chloride 100 ML 15 MG IVCONT (21:39)
[2022-03-10 00:44] VITALS: BP 132/74; PULSE 120; RESP 21
[2022-03-10] MEDS: Metoprolol Tartrate 5 MG/5 ML VIAL IVPUSH (01:58)
[2022-03-10] MEDS: Digoxin 0.5 MG/2 ML AMPUL 0.25 MG IVPUSH (01:58)
[2022-03-10] MEDS: 0.9 % Sodium Chloride 1,000 ML 100 ML IVCONT (01:59)
[2022-03-10 02:07] VITALS: BP 116/58; PULSE 103; RESP 19; O2SAT 97
[2022-03-10] MEDS: ceFAZolin Sodium/Dextrose,Iso 2 GM/50 ML PIGGYBACK IV ×3 (03:07→21:50)
[2022-03-10 05:20] LABS: MANUAL DIFF FLAG NO
[2022-03-10 05:26] LABS: Basophils Percent Auto 0.2 % (0-2); Hematocrit 38.1 % (42.0-52.0); Hemoglobin 12.7 g/dl (14.0-18.0); Imm Gran Abs Auto 0.14 X10*3/uL (0.00-0.03); Imm Gran Pct Auto 0.7 % (0.0-0.4); Lymphocytes Absolute Auto 0.9 X10*3/uL (1.2-4.9); Lymphocytes Percent Auto 4.5 % (20-40); Mean Corpuscular HGB Conc 33.3 g/dl (31.0-36.0); Mean Corpuscular Hemoglobin 28.9 pg (27.0-33.0); Mean Corpuscular Volume 86.6 fL (80.0-98.0); Mean Platelet Volume 11.2 fL (9.4-12.4); Monocytes Absolute Auto 1.3 X10*3/uL (0.1-1.2); Monocytes Percent Auto 6.9 % (2-11); Neutrophils Absolute Auto 16.9 x10*3/uL (2.0-8.3); Neutrophils Percent Auto 87.7 % (45-73); Platelet Count 180 X10*3/uL (160-400); Red Cell Distribution Width 14.2 % (11.0-16.0); White Blood Count 19.3 X10*3/uL (4.8-10.8)
[2022-03-10 05:59] LABS: Alanine Aminotransferase 50 U/L (0-40); Albumin Level 3.2 g/dL (3.5-5.0); Alkaline Phosphatase 75 U/L (39-117); Anion Gap 18 (12-20); Aspartate Amino Transferase 54 U/L (5-37); Bilirubin Total 1.2 mg/dL (0.0-1.0); Blood Urea Nitrogen 21 mg/dL (9-16); Carbon Dioxide 18 mmol/L (22-29); Chloride 103 mmol/L (96-108); Creatinine Clr Calc Pharmacy 81.8; Estimated Glomerular Filt Rate 58; Glucose Random 137 mg/dL (60-115); Potassium 4.8 mmol/L (3.3-5.1); Sodium 134 mmol/L (135-145); Total Protein 5.7 g/dL (6.5-8.0)
[2022-03-10 06:22] LABS: Digoxin 1.6 ng/mL (0.8-2.0)
[2022-03-10] MEDS: Doxycycline Hyclate 100 MG in 0.9 % Sodium Chloride 250 ML 166.67 MG IV ×2 (08:45→18:59)
[2022-03-10] MEDS: Atorvastatin Calcium 10 MG TABLET PO (08:47)
[2022-03-10] MEDS: carvediloL 3.125 MG TABLET PO (08:47)
[2022-03-10] MEDS: Apixaban 5 MG TABLET PO ×2 (08:48→21:53)
[2022-03-10 08:51] VITALS: BP 128/64; PULSE 88; RESP 20; O2SAT 97
[2022-03-10] MEDS: 0.9 % Sodium Chloride Flush 3 ML SYRINGE IVFLUSH (08:53)
--- NOTE | 2022-03-10 09:10 | HO.PM.IMPN ---
Subjective Subjective Date of Service: 03/10/22 Interval History: Seen for follow up on new onset afib and cellulitis with severe sepsis Interval history: Patient reports he is feeling much better. Denies any ongoing shortness of breath. No palpitations, lightheadedness, or chest pains. Right lower extremity remains painful with edema. Complaining of mild discomfort lower abdomen. Last BM this am, voiding without difficulty. No radiation of pain. Denies n/v. Review of Systems General: No fevers, malaise, unintentional weight loss Cardiovascular: No chest pain, palpitations, 2+edema RLE Respiratory: No shortness of breath, wheezing, cough GI: +mild lower abdominal pain. No nausea, vomiting, diarrhea, constipation, melena, hematochezia Neuro: No headaches, weakness, paresthesias Skin: +redness,warmth RLE. No other rashes or lesions Physical Exam Vital Signs: Vital Signs: Last Vital Signs Temp 97.9 F 03/09/22 22:41 Pulse 88 03/10/22 08:51 Resp 20 03/10/22 08:51 BP 128/64 03/10/22 08:51 Pulse Ox 97 03/10/22 08:51 O2 Del Method 03/10/22 08:51 O2 Flow Rate 2 03/10/22 08:51 Oxygen Flow Rate 4 03/09/22 12:29 BMI result Body Mass Index 55.7 Constitutional - Awake and Alert, No apparent distress Eyes - PERRLA, EOMI Cardiovascular - S1S2, irregularly irregular, rate controlled, 2+ edema RLE Respiratory - Normal lung expansion, Normal respiratory effort, No respiratory distress on 2L supplemental o2, CTA bilaterally Gastrointestinal - NT / ND; +BS; No rebound or guarding Extremities - +right calf tenderness and swelling ROM Skin - RLE- 2+edema with erythema and warmth of the distal half of the leg Neurological - Alert & oriented x3, No focal deficit Psychological - Appropriate affect Objective Data Active Medications Acetaminophen (Acetaminophen 325 Mg Tablet) 650 mg PO Q6H PRN PRN Reason: fever and mild pain Apixaban (Apixaban 5 Mg Tablet) 5 mg PO BID [facility] Last Admin: 03/10/22 08:48 Dose: 5 mg Documented By: RADHA Atorvastatin Calcium (Atorvastatin Calcium 10 Mg Tablet) 10 mg PO DAILY [facility] Last Admin: 03/10/22 08:47 Dose: 10 mg Documented By: RADHA Carvedilol (Carvedilol 3.125 Mg Tablet) 3.125 mg PO BID [facility]; Protocol Last Admin: 03/10/22 08:47 Dose: 3.125 mg Documented By: RADHA Diltiazem HCl 125 mg/ Sodium (Chloride) 125 mls @ 0 mls/hr IVCONT .Q0M [facility]; Protocol Last Admin: 03/09/22 21:39 Dose: 15 mg/hr, 15 mls/hr Documented By: JEFF Sodium Chloride (Ns) 1,000 mls @ 100 mls/hr IVCONT .Q10H [facility] Last Admin: 03/10/22 01:59 Dose: 100 mls/hr Documented By: JEFF Doxycycline Hyclate 100 mg/ (Sodium Chloride) 250 mls @ 166.67 mls/hr IV Q12H [facility] Last Admin: 03/10/22 08:45 Dose: 166.67 mls/hr Documented By: RADHA Cefazolin Sodium/Dextrose (Ancef) 2 gm in 50 mls @ 100 mls/hr IV Q8H [facility] Last Admin: 03/10/22 03:07 Dose: 100 mls/hr Documented By: JEFF Ondansetron HCl (Ondansetron Hcl 4 Mg/2 Ml Vial) 4 mg IVPUSH Q8H PRN PRN Reason: Nausea and Vomiting Pharmacy Consult (Consult Rx Perform Med Rec) 1 each MISCELLANE ONCE PRN PRN Reason: Consult order Sodium Chloride (0.9 % Sodium Chloride Flush 3 Ml Syringe) 3 ml IVFLUSH QSHIFT [facility] Last Admin: 03/10/22 08:53 Dose: 3 ml Documented By: RADHA Labs CBC & Chem 7: 03/10/22 04:13 03/10/22 04:13 Labs: Laboratory Results - last 24 hr 03/09/22 03/09/22 03/09/22 12:44 12:45 12:45 MCV 84.7 MCH 28.7 MCHC 33.9 RDW 14.0 Plt Count 214 MPV 10.7 Immature Gran % (Auto) 1.5 H Neut % (Auto) 90.2 H Lymph % (Auto) 3.5 L Ector % (Auto) 4.6 Eos % (Auto) 0.0 Baso % (Auto) 0.2 Lymph # (Auto) 0.9 L Ector # (Auto) 1.2 Eos # (Auto) 0.0 Baso # (Auto) 0.1 Abs Immat Gran (auto) 0.38 H Absolute Neuts (auto) 22.4 H Absolute Nucleated RBC 0.000 Nucleated RBC % (auto) 0.0 Smear Tech's Comments VERIFIED Anion Gap 19 Estim Creat Clear Calc 71.0 Estimated GFR 49 Random Glucose 173 H D Estimat Average Glucose Hemoglobin A1c % Lactic Acid 1.7 Calcium 8.6 D Magnesium 1.6 Total Bilirubin 1.6 H Direct Bilirubin 0.8 H AST 62 H ALT 61 H Alkaline Phosphatase 78 B-Natriuretic Peptide Total Protein 6.5 Albumin 3.9 Lipase 17 TSH 1.31 Urine Color Urine Appearance Urine pH Ur Specific Fisher Urine Protein Urine Glucose (UA) Urine Ketones Urine Blood Urine Nitrite Ur Leukocyte Esterase Urine RBC Urine WBC Ur Squamous Epith Cells Urine Bacteria Hyaline Casts Digoxin Influenza Type A (PCR) Influenza Type B (PCR) RSV RNA Qual (PCR) SARS-CoV-2 RNA (RT-PCR) 03/09/22 03/09/22 03/09/22 12:45 12:45 12:46 MCV MCH MCHC RDW Plt Count MPV Immature Gran % (Auto) Neut % (Auto) Lymph % (Auto) Ector % (Auto) Eos % (Auto) Baso % (Auto) Lymph # (Auto) Ector # (Auto) Eos # (Auto) Baso # (Auto) Abs Immat Gran (auto) Absolute Neuts (auto) Absolute Nucleated RBC Nucleated RBC % (auto) Smear Tech's Comments Anion Gap Estim Creat Clear Calc Estimated GFR Random Glucose Estimat Average Glucose 114 Hemoglobin A1c % 5.6 Lactic Acid Calcium Magnesium Total Bilirubin Direct Bilirubin AST ALT Alkaline Phosphatase B-Natriuretic Peptide 54 Total Protein Albumin Lipase TSH Urine Color Urine Appearance Urine pH Ur Specific Fisher Urine Protein Urine Glucose (UA) Urine Ketones Urine Blood Urine Nitrite Ur Leukocyte Esterase Urine RBC Urine WBC Ur Squamous Epith Cells Urine Bacteria Hyaline Casts Digoxin Influenza Type A (PCR) NEGATIVE Influenza Type B (PCR) NEGATIVE RSV RNA Qual (PCR) NEGATIVE SARS-CoV-2 RNA (RT-PCR) NEGATIVE 03/09/22 03/10/22 03/10/22 20:02 04:13 04:13 MCV 86.6 MCH 28.9 MCHC 33.3 RDW 14.2 Plt Count 180 MPV 11.2 Immature Gran % (Auto) 0.7 H Neut % (Auto) 87.7 H Lymph % (Auto) 4.5 L Ector % (Auto) 6.9 Eos % (Auto) 0.0 Baso % (Auto) 0.2 Lymph # (Auto) 0.9 L Ector # (Auto) 1.3 H Eos # (Auto) 0.0 Baso # (Auto) 0.0 Abs Immat Gran (auto) 0.14 H Absolute Neuts (auto) 16.9 H Absolute Nucleated RBC 0.000 Nucleated RBC % (auto) 0.0 Smear Tech's Comments Anion Gap 18 Estim Creat Clear Calc 81.8 Estimated GFR 58 Random Glucose 137 H Estimat Average Glucose Hemoglobin A1c % Lactic Acid Calcium 8.0 L D Magnesium Total Bilirubin 1.2 H Direct Bilirubin AST 54 H ALT 50 H Alkaline Phosphatase 75 B-Natriuretic Peptide Total Protein 5.7 L Albumin 3.2 L Lipase TSH Urine Color Dark Yellow Urine Appearance Clear Urine pH 7.0 Ur Specific Fisher >= 1.030 H Urine Protein 100 (2+) H Urine Glucose (UA) Negative Urine Ketones Trace Urine Blood Trace H Urine Nitrite Negative Ur Leukocyte Esterase Negative Urine RBC 0-2 Urine WBC 0-5 Ur Squamous Epith Cells 3-5 Urine Bacteria None Seen Hyaline Casts 0-2 Digoxin Influenza Type A (PCR) Influenza Type B (PCR) RSV RNA Qual (PCR) SARS-CoV-2 RNA (RT-PCR) 03/10/22 04:13 MCV MCH MCHC RDW Plt Count MPV Immature Gran % (Auto) Neut % (Auto) Lymph % (Auto) Ector % (Auto) Eos % (Auto) Baso % (Auto) Lymph # (Auto) Ector # (Auto) Eos # (Auto) Baso # (Auto) Abs Immat Gran (auto) Absolute Neuts (auto) Absolute Nucleated RBC Nucleated RBC % (auto) Smear Tech's Comments Anion Gap Estim Creat Clear Calc Estimated GFR Random Glucose Estimat Average Glucose Hemoglobin A1c % Lactic Acid Calcium Magnesium Total Bilirubin Direct Bilirubin AST ALT Alkaline Phosphatase B-Natriuretic Peptide Total Protein Albumin Lipase TSH Urine Color Urine Appearance Urine pH Ur Specific Fisher Urine Protein Urine Glucose (UA) Urine Ketones Urine Blood Urine Nitrite Ur Leukocyte Esterase Urine RBC Urine WBC Ur Squamous Epith Cells Urine Bacteria Hyaline Casts Digoxin 1.6 Influenza Type A (PCR) Influenza Type B (PCR) RSV RNA Qual (PCR) SARS-CoV-2 RNA (RT-PCR) Assessment and Plan (1) New onset atrial fibrillation: Status: Acute (2) Cellulitis of leg, right: Status: Acute (3) Severe sepsis: Status: Acute (4) ALEXUS (acute kidney injury): Status: Acute Plan 66-year-old male with history of hypertension, hyperlipidemia, chronic venous stasis dermatitis, erectile dysfunction, morbid obesity, and TANO on CPAP admitted for new onset atrial fibrillation with RVR and cellulitis RLE with severe sepsis. 1- New onset atrial fibrillation with RVR -Rate improved. Continue digoxin and diltiazem. Digoxin level 1.6 -Magnesiuma nd TSH normal -Continue eliquis. Denies bleeding. H/H stable. Follow H/H -Change carvedilol to metorprolol, add lasix 20mg BID per cardiology -Cardiology input appreciated -Echocardiogram pending 2-Severe sepsis secondary to cellulitis RLE- improving -WBC trending down, now 19.3. Continue following CBC. Intermittent tachycardia secondary to AFib. ALEXUS improved. Bili improving, likely chronically elevated secondary to chronic liver disease -Continue IV cefazolin and doxycycline -DC IV fluids -Follow CBC and chemistries 3-Acute cellulitis RLE with severe sepsis and chronic venous stasis dermatitis -IV cefazolin and doxycycline -Edema, erythema, and warmth persists thought WBC is improving. R/o DVT with venous duplex. Lasix added -Follow CBC -Tylenol prn for fevers 4-ALEXUS secondary to sepsis/infection- resolved -D/C IVF -Encourage PO intake 5-Hepatic steatosis -LFTs trendign down -Recommend weight loss efforts and outpt follow up 4-[id number]-[id number] -Continue carvedilol and diltiazem drip 7-HLD -Continue atorvastatin 10mg 8-TANO -Continue CPAP DVT prophylaxis Full code Pt requires ongoing inpt stay due to new onset a fib with rvr requiring diltiazem drip and IV digoxin load with ongoing cardiac monitoring. He also requiring IV abx for cellulitis RLE with severe sepsis. Quality Stroke Does the patient have a stroke diagnosis?: No VTE Prior VTE?: No VTE Risk Level:: Medical - moderate - high VTE Device Contraindication: Treatment Not Indicated VTE Drug Contraindication: N/A - Med Ordered
--- NOTE | 2022-03-10 10:21 | P.CONCA_ITS ---
History of Present Illness History of Present Illness Date of Service: 03/10/22 Chief complaint: afib, cellulitis Narrative: This is a cardiology consultation regarding atrial fibrillation rapid rate. Patient has listed history of hypertension, hyperlipidemia, morbid obesity as well as obstructive sleep apnea. He came here because of increasing redness and swelling of right lower leg as well as shortness of breath which has been present for about 2 days time. There is also a mention in the H and P of fevers up to 102. However, he was afebrile upon arrival. Heart rate was in the 170s. Was tachypneic. EKG with atrial fibrillation rapid rate. Subsequently, hospitalized. He was started on a Cardizem drip and digoxin. We have been asked to see him in evaluation. Patient is denying any prior history of coronary artery disease or myocardial infarction or cardiomyopathy or any other cardiac issues in the past. He states that he is generally able to get along without any cardiac symptoms apart from some shortness of breath from weight. Otherwise, not known to have any COPD or asthma. He does have obstructive sleep apnea and uses CPAP regularly. Review of Systems Review of Systems: Yes all other systems are reviewed and are negative Constitutional: Constitutional: Reports as per HPI Eyes: Eyes: Reports as per HPI ENT: Reports as per HPI Cardiovascular: Cardiovascular: Reports as per HPI, Denies acrocyanosis, Denies cool extremities, Denies chest pain, Reports leg edema, Denies lightheadedness, Denies palpitations and Reports dyspnea Respiratory: Respiratory: Reports as per HPI, Reports no additional respiratory complaints and Reports dyspnea Gastrointestinal: Gastrointestinal: Reports as per HPI and Reports no additional gastrointestinal complaints Genitourinary: Genitourinary: Reports no additional male genitourinary co mplaints and Reports as per HPI Musculoskeletal: Musculoskeletal: Reports no additional musculoskeletal complaints and Reports as per HPI Integumentary/Breasts: Skin/Breast: Reports system reviewed and no additional complaints, except as docu Neurologic: Reports system reviewed and no additional complaints, except as documented and Reports as per HPI Psychiatric: Psychiatric: Reports no additional psychiatric complaints and Reports as per HPI Endocrine: Endocrine: Reports no additional endocrine complaints, Reports as per HPI and Denies palpitations Hematologic/Lymphatic: Hematologic/Lymphatic: Reports no additional hematologic/lymphatic complaints and Reports as per HPI Allergic/Immunologic: Allergic/Immunologic: Reports no additional allergic/immunologic complaints and Reports as per HPI [facility] Past Medical History Medical History (Updated 03/10/22 @ 10:27 by Jass Posada MD) ALEXUS (acute kidney injury) Chronic venous insufficiency COVID-19 vaccine series completed Gastritis High cholesterol Hypertension Leukocytosis Morbid obesity Obesity TANO on CPAP TANO on CPAP Osteoarthritis Osteoarthritis of left knee Family History Family History (Updated 03/09/22 @ 16:22 by JORGE Logan) Father Myocardial infarct Mother No problems noted. Brother Myocardial infarct Surgical History Surgical History History of orthopedic surgery History of right knee surgery Hx of colonoscopy LAP-BAND surgery status Social History Social History Are you a primary client care consultant to a significant other at home: No Do you presently have visiting nurse or other home services: No Alcohol intake: never Patient Tobacco Use Status: Never used Tobacco Use of substances other than those prescribed or required for medical reasons: No Advance Directives: No Advance Directives Information Provided: No service: No Current occupational status: 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 Meds Allergies Allergy/AdvReac Type Severity Reaction Status Date / Time dextromethorphan Allergy Severe ITCHY Verified 10/29/21 12:22 [DEXTROMETHORPHAN] SWELLING SOB shellfish derived Allergy Severe ANAPHYLAXIS Verified 10/29/21 12:22 Active Medications: Current Medications Acetaminophen (Acetaminophen 325 Mg Tablet) 650 mg PO Q6H PRN PRN Reason: fever and mild pain Apixaban (Apixaban 5 Mg Tablet) 5 mg PO BID [facility] Last Admin: 03/10/22 08:48 Dose: 5 mg Atorvastatin Calcium (Atorvastatin Calcium 10 Mg Tablet) 10 mg PO DAILY [facility] Last Admin: 03/10/22 08:47 Dose: 10 mg Carvedilol (Carvedilol 3.125 Mg Tablet) 3.125 mg PO BID [facility]; Protocol Last Admin: 03/10/22 08:47 Dose: 3.125 mg Diltiazem HCl 125 mg/ Sodium (Chloride) 125 mls @ 0 mls/hr IVCONT .Q0M [facility]; Protocol Last Admin: 03/09/22 21:39 Dose: 15 mg/hr, 15 mls/hr Doxycycline Hyclate 100 mg/ (Sodium Chloride) 250 mls @ 166.67 mls/hr IV Q12H [facility] Last Admin: 03/10/22 08:45 Dose: 166.67 mls/hr Cefazolin Sodium/Dextrose (Ancef) 2 gm in 50 mls @ 100 mls/hr IV Q8H [facility] Last Admin: 03/10/22 03:07 Dose: 100 mls/hr Ondansetron HCl (Ondansetron Hcl 4 Mg/2 Ml Vial) 4 mg IVPUSH Q8H PRN PRN Reason: Nausea and Vomiting Pharmacy Consult (Consult Rx Perform Med Rec) 1 each MISCELLANE ONCE PRN PRN Reason: Consult order Sodium Chloride (0.9 % Sodium Chloride Flush 3 Ml Syringe) 3 ml IVFLUSH QSHIFT [facility] Last Admin: 03/10/22 08:53 Dose: 3 ml Home Medications Medication Instructions Recorded Confirmed Last Taken Type atorvastatin 10 mg tablet 10 mg PO DAILY 09/11/20 03/09/22 03/09/22 History carvedilol 3.125 mg tablet 3.125 mg PO BID 09/11/20 03/09/22 03/09/22 History epinephrine 0.3 mg/0.3 mL 0.3 ml IM DAILY PRN Allergic 09/11/20 03/09/22 Unknown History injection, auto-injector Reaction multivitamin,tx-minerals 1 tab PO DAILY 11/16/20 03/09/22 03/09/22 History cholecalciferol (vitamin D3) 50 50 mcg PO DAILY 11/17/20 03/09/22 03/09/22 History mcg (2,000 unit) capsule (Vitamin D3) sildenafil 50 mg tablet 50 mg PO DAILY PRN sexual 04/02/21 03/09/22 Unknown History dysfunction Physical Exam Vital Signs: Vital Signs: Last Vital Signs Temp 97.9 F 03/09/22 22:41 Pulse 88 03/10/22 08:51 Resp 20 03/10/22 08:51 BP 128/64 03/10/22 08:51 Pulse Ox 97 03/10/22 08:51 O2 Del Method 03/10/22 08:51 O2 Flow Rate 2 03/10/22 08:51 Oxygen Flow Rate 4 03/09/22 12:29 BMI result Body Mass Index 55.7 Const: General: comfortable and no acute distress Delta entation/consciousness: patient oriented x3 HEENT: Other: Unremarkable Head: Yes normal to inspection Neck: Neck: Yes normal visual inspection Chest: Chest palpation & inspection: normal inspection of the chest Resp: Auscultation: clear to auscultation bilaterally Cardio: Palpation: normal PMI Heart sounds: S1 normal heart sound present, S2 normal heart sound present, no gallops, no murmurs and no rubs GI: Palpation (GI): Soft to palpation Back/Spine/Pelvis: Other: unremarkable Skin: General skin exam: no rashes or lesions noted Neuro: General: patient oriented x3 Extrem: Other: RLE >LLE swelling, atleast 2+; right macario also red. Psych: Mental Status: mental status grossly normal Objective Labs and Meds Result diagrams: 03/10/22 04:13 03/10/22 04:13 Lab results: Laboratory Results - last 24 hr 03/09/22 03/09/22 03/09/22 12:44 12:45 12:45 WBC 24.8 H RBC 4.84 Hgb 13.9 L Hct 41.0 L MCV 84.7 MCH 28.7 MCHC 33.9 RDW 14.0 Plt Count 214 MPV 10.7 Immature Gran % (Auto) 1.5 H Neut % (Auto) 90.2 H Lymph % (Auto) 3.5 L [place] % (Auto) 4.6 Eos % (Auto) 0.0 Baso % (Auto) 0.2 Lymph # (Auto) 0.9 L [place] # (Auto) 1.2 Eos # (Auto) 0.0 Baso # (Auto) 0.1 Abs Immat Gran (auto) 0.38 H Absolute Neuts (auto) 22.4 H Absolute Nucleated RBC 0.000 Nucleated RBC % (auto) 0.0 Smear Tech's Comments VERIFIED Sodium 132 L Potassium 3.9 Chloride 98 Carbon Dioxide 19 L Anion Gap 19 BUN 24 H Creatinine 1.44 H Estim Creat Clear Calc 71.0 Estimated GFR 49 Random Glucose 173 H D Estimat Average Glucose Hemoglobin A1c % Lactic Acid 1.7 Calcium 8.6 D Magnesium 1.6 Total Bilirubin 1.6 H Direct Bilirubin 0.8 H AST 62 H ALT 61 H Alkaline Phosphatase 78 Troponin I High Sens B-Natriuretic Peptide Total Protein 6.5 Albumin 3.9 Lipase 17 TSH 1.31 Urine Color Urine Appearance Urine pH Ur Specific [place] Urine Protein Urine Glucose (UA) Urine Ketones Urine Blood Urine Nitrite Ur Leukocyte Esterase Urine RBC Urine WBC Ur Squamous Epith Cells Urine Bacteria Hyaline Casts Digoxin Influenza Type A (PCR) Influenza Type B (PCR) RSV RNA Qual (PCR) SARS-CoV-2 RNA (RT-PCR) 03/09/22 03/09/22 03/09/22 12:45 12:45 12:46 WBC RBC Hgb Hct MCV MCH MCHC RDW Plt Count MPV Immature Gran % (Auto) Neut % (Auto) Lymph % (Auto) [place] % (Auto) Eos % (Auto) Baso % (Auto) Lymph # (Auto) [place] # (Auto) Eos # (Auto) Baso # (Auto) Abs Immat Gran (auto) Absolute Neuts (auto) Absolute Nucleated RBC Nucleated RBC % (auto) Smear Tech's Comments Sodium Potassium Chloride Carbon Dioxide Anion Gap BUN Creatinine Estim Creat Clear Calc Estimated GFR Random Glucose Estimat Average Glucose 114 Hemoglobin A1c % 5.6 Lactic Acid Calcium Magnesium Total Bilirubin Direct Bilirubin AST ALT Alkaline Phosphatase Troponin I High Sens 13.2 B-Natriuretic Peptide 54 Total Protein Albumin Lipase TSH Urine Color Urine Appearance Urine pH Ur Specific [place] Urine Protein Urine Glucose (UA) Urine Ketones Urine Blood Urine Nitrite Ur Leukocyte Esterase Urine RBC Urine WBC Ur Squamous Epith Cells Urine Bacteria Hyaline Casts Digoxin Influenza Type A (PCR) NEGATIVE Influenza Type B (PCR) NEGATIVE RSV RNA Qual (PCR) NEGATIVE SARS-CoV-2 RNA (RT-PCR) NEGATIVE 03/09/22 03/09/22 03/10/22 17:21 20:02 04:13 WBC 19.3 H RBC 4.40 L Hgb 12.7 L Hct 38.1 L MCV 86.6 MCH 28.9 MCHC 33.3 RDW 14.2 Plt Count 180 MPV 11.2 Immature Gran % (Auto) 0.7 H Neut % (Auto) 87.7 H Lymph % (Auto) 4.5 L [place] % (Auto) 6.9 Eos % (Auto) 0.0 Baso % (Auto) 0.2 Lymph # (Auto) 0.9 L [place] # (Auto) 1.3 H Eos # (Auto) 0.0 Baso # (Auto) 0.0 Abs Immat Gran (auto) 0.14 H Absolute Neuts (auto) 16.9 H Absolute Nucleated RBC 0.000 Nucleated RBC % (auto) 0.0 Smear Tech's Comments Sodium Potassium Chloride Carbon Dioxide Anion Gap BUN Creatinine Estim Creat Clear Calc Estimated GFR Random Glucose Estimat Average Glucose Hemoglobin A1c % Lactic Acid Calcium Magnesium Total Bilirubin Direct Bilirubin AST ALT Alkaline Phosphatase Troponin I High Sens 19.1 B-Natriuretic Peptide Total Protein Albumin Lipase TSH Urine Color Dark Yellow Urine Appearance Clear Urine pH 7.0 Ur Specific [place] >= 1.030 H Urine Protein 100 (2+) H Urine Glucose (UA) Negative Urine Ketones Trace Urine Blood Trace H Urine Nitrite Negative Ur Leukocyte Esterase Negative Urine RBC 0-2 Urine WBC 0-5 Ur Squamous Epith Cells 3-5 Urine Bacteria None Seen Hyaline Casts 0-2 Digoxin Influenza Type A (PCR) Influenza Type B (PCR) RSV RNA Qual (PCR) SARS-CoV-2 RNA (RT-PCR) 03/10/22 03/10/22 04:13 04:13 WBC RBC Hgb Hct MCV MCH MCHC RDW Plt Count MPV Immature Gran % (Auto) Neut % (Auto) Lymph % (Auto) [place] % (Auto) Eos % (Auto) Baso % (Auto) Lymph # (Auto) [place] # (Auto) Eos # (Auto) Baso # (Auto) Abs Immat Gran (auto) Absolute Neuts (auto) Absolute Nucleated RBC Nucleated RBC % (auto) Smear Tech's Comments Sodium 134 L Potassium 4.8 D Chloride 103 Carbon Dioxide 18 L Anion Gap 18 BUN 21 H Creatinine 1.25 Estim Creat Clear Calc 81.8 Estimated GFR 58 Random Glucose 137 H Estimat Average Glucose Hemoglobin A1c % Lactic Acid Calcium 8.0 L D Magnesium Total Bilirubin 1.2 H Direct Bilirubin AST 54 H ALT 50 H Alkaline Phosphatase 75 Troponin I High Sens B-Natriuretic Peptide Total Protein 5.7 L Albumin 3.2 L Lipase TSH Urine Color Urine Appearance Urine pH Ur Specific [place] Urine Protein Urine Glucose (UA) Urine Ketones Urine Blood Urine Nitrite Ur Leukocyte Esterase Urine RBC Urine WBC Ur Squamous Epith Cells Urine Bacteria Hyaline Casts Digoxin 1.6 Influenza Type A (PCR) Influenza Type B (PCR) RSV RNA Qual (PCR) SARS-CoV-2 RNA (RT-PCR) ECG Interpretation: EKG with atrial fibrillation at a rate of 167/Min; incomplete right bundle- branch block pattern and nonspecific ST-T changes. In the previous EKG from 2020, in sinus rhythm. Imaging Radiologist's impression: Impressions Chest X-Ray 03/09/22 12:47 IMPRESSION: Limited portable, crowding of lung markings probably poor inspiration. No dense consolidation. Abdomen Ultrasound 03/09/22 14:09 IMPRESSION: Study limited No ultrasound evidence of cholecystitis. Diffusely echogenic liver suggesting hepatic steatosis. Assessment and Plan (1) Atrial fibrillation with rapid ventricular response: Status: Acute (2) Acute diastolic heart failure: Status: Acute (3) Cellulitis of leg, right: Status: Acute (4) Severe sepsis: Status: Acute (5) ALEXUS (acute kidney injury): Status: Acute Plan Possibly right lower extremity cellulitis triggering atrial fibrillation rapid rate. Also with elevated creatinine upon arrival but now improving. From the cardiac standpoint, rate is somewhere in the 90s at this time. Co ntinue diltiazem drip. It appears that he also got some digoxin. At home he is on Carvedilol; possibly switch to metoprolol to avoid blood pressure lowering too much. Agree with Tessa. Will also need some diuretics as there may be a component of heart failure as well. We will get an echocardiogram tomorrow for LV function assessment. High sensitivity troponins are unremarkable. Cardiac BNP is also within normal limits but could be false negative. Discussed with Michelle Diez. Procedures Date of Service Date of Service: 03/10/22
[2022-03-10] MEDS: Furosemide 20 MG/2 ML VIAL IVPUSH ×2 (12:01→18:58)
[2022-03-10 12:03] VITALS: BP 126/73; PULSE 89; RESP 24; O2SAT 98
[2022-03-10 13:32] VITALS: BP 133/70; PULSE 93; RESP 20; O2SAT 98
[2022-03-10] MEDS: dilTIAZem HCL 125 MG in 0.9 % Sodium Chloride 100 ML 10 MG IVCONT (14:53)
--- NOTE | 2022-03-10 19:02 | PC.NURSE ---
Pt restful throughout shift. Attempting to eat dinner at this time. Remains a fib on tele rate 90-100. Cardizem at 10mg/hr. BP stable. Pt states minimal 5/10 pain to right leg, which remains aarm, red and hot to touch, +CMS. Condom cath placed, i and o documented.
[2022-03-10] MEDS: Metoprolol Tartrate 25 MG TABLET PO (21:53)
--- NOTE | 2022-03-10 21:57 | PC.NURSE ---
pt a&ox3, afib on monitor, hr remains in high 90s-110s, dilt running at 10mg/hr, other vss, medicated per provider order, pt on CPAP for sleep apnea overnight.
[2022-03-11] VITALS (7 sets, daily range): BP systolic 115–150; BP diastolic 67–80; PULSE 79–113; RESP 18–32; TEMP 36.8–37.4; O2SAT 92–97
[2022-03-11] MEDS: ceFAZolin Sodium/Dextrose,Iso 2 GM/50 ML PIGGYBACK IV ×3 (04:59→19:29)
[2022-03-11] MEDS: dilTIAZem HCL 125 MG in 0.9 % Sodium Chloride 100 ML 10 MG IVCONT (05:45)
[2022-03-11] MEDS: Doxycycline Hyclate 100 MG in 0.9 % Sodium Chloride 250 ML 166.67 MG IV ×2 (05:47→18:33)
--- NOTE | 2022-03-11 05:52 | PC.NURSE ---
messaged provider regarding diltiazem drip finishing, 40mg IV push dilt ordered, called provider to clarify order, IV push vs continuing titration, per provider do not administer IV push, restart titration at 10mg/hr. medicated per provider order, 18G IV left AC resecured.
--- NOTE | 2022-03-11 07:00 | CA_ITS ---
Transthoracic Echocardiogram Patient (Last, First, Middle): Emery Giraldo R Gender: Male Date of : 1955 Age: 66 Procedure Date: 03/11/2022 Procedure Type: Transthoracic Echocardiogram Location: ER Height: 167.64 cm Weight: 156.49 kg BSA: 2.52 m2 Heart Rate: 109 bpm BP: 130 / 68 mmHg Muck Hauler: JOSÉ Referring MD: Michelle PATEL Symptoms: atrial fibrillation Study Quality: Adequate w contrast ECG Rhythm: Afib w RVR Conclusions: - Normal left ventricular cavity size. The left ventricular systolic function is hyperdynamic. The visually estimated ejection fraction is >70%. - Limited assessment but function appears preserved. - There is mild dilatation of the sinuses of Valsalva and mild dilatation of the ascending aorta. Findings Procedure Information Contrast agent, definity, is being given per protocol with complications as noted. The patient experienced back pain from contrast. Left Ventricle Normal left ventricular cavity size. The left ventricular systolic function is hyperdynamic. The visually estimated ejection fraction is >70%. There is no evidence of regional wall motion abnormalities. Diastolic function is indeterminate on the basis of available data. Right Ventricle Limited assessment but function appears preserved. Atria The left atrium is mildly dilated. Aortic Valve There is a normal trileaflet aortic valve. There is mild calcification of the aortic valve. There is no aortic valve stenosis. There is no aortic valve regurgitation. Mitral Valve Normal mitral valve structure and function. There is no mitral valve regurgitation. There is no mitral valve stenosis. Pulmonic Valve The pulmonic valve was not well visualized. Tricuspid Valve Likely normal tricuspid valve structure and function. Tricuspid regurgitation envelope is inadequate for calculation of right ventricular systolic pressure. Mildly elevated right atrial pressure. Great Vessels The pulmonary artery was not well visualized. There is mild dilatation of the sinuses of Valsalva and mild dilatation of the ascending aorta. Venous The inferior vena cava is normal in size and collapses less than 50% with inspiration. Pericardium/Pleural There is no evidence of pericardial effusion. Prior Study Comparison No prior study available for comparison. Measurements 2D Linear Measurements IVSd: 2.26 0.6-0.9/0.6-1.0 cm LVIDd: 2.73 3.9-5.3/4.2-5.9 cm LVIDd Index: 1.08 2.4-3.2/2.2-3.1 cm/m2 LVIDs: 2.37 2.0-3.6 cm LVPWd: 1.58 0.7-1.1 cm LA Diam: 4.10 2.7-3.8/3.0-4.0 cm LAIDs Index: 1.63 1.5-2.3 cm/m2 LV Mass: 273.78 67-162/88-224 g LV Mass Index: 108.64 43-95/49-115 g/m2 LVOT Diam: 2.10 3.0+(-)1.3 cm 2D Systolic Function EF 4C: 75.40 >55% EF 2C: 64.70 >55% EF BiP: 71.10 >55% Aortic Valve AoV Pk Flex: 1.46 AoV Mn Flex: 1.09 AoV VTI: 0.24 AoV Pk Grad: 9.00 Aov Mn Grad: 6.00 SUPRIYA Cont.VTI: 3.36 LVOT LVOT Pk Flex: 1.20 LVOT Mn Flex: 0.88 LVOT VTI: 0.23 LVOT Pk Grad: 6.00 LVOT Mn Grad: 4.00 LVOT Diam: 2.10 LVOT Area: 3.46 Right Ventricle TAPSE (mm): 19.10 TVS' Flex: 12.60 Tricuspid Valve TR Pk Flex: 1.59 TR Pk Grad: 10.00 RA Press: 3.00 Great Vessels Aorta Sinus of Valsalva: 3.90 2.0-3.5 cm Ao Asc: 3.90 2.1-3.4 cm Pulmonary Valve PV Pk Flex: 1.09 Peak PV Grad: 5.00 Updated in Other Vendor System with Status of Final Trino Sanchez MD electronically signed on 03/11/2022 10:29:16 AM with status of Final
[2022-03-11] MEDS: 0.9 % Sodium Chloride Flush 3 ML SYRINGE IVFLUSH ×2 (09:10→18:00)
[2022-03-11] MEDS: Furosemide 20 MG/2 ML VIAL IVPUSH (09:10)
[2022-03-11] MEDS: Metoprolol Tartrate 25 MG TABLET PO ×2 (09:10→21:21)
[2022-03-11] MEDS: Apixaban 5 MG TABLET PO ×2 (09:11→21:21)
[2022-03-11] MEDS: Atorvastatin Calcium 10 MG TABLET PO (09:11)
[2022-03-11 09:37] LABS: Basophils Absolute Auto 0.1 X10*3/uL (0.0-0.2); Basophils Percent Auto 0.3 % (0-2); Eosinophils Percent Auto 0.1 % (0-4); Hematocrit 39.8 % (42.0-52.0); Lymphocytes Percent Auto 5.1 % (20-40); MANUAL DIFF FLAG SCAN; Mean Corpuscular HGB Conc 32.7 g/dl (31.0-36.0); Mean Corpuscular Hemoglobin 28.1 pg (27.0-33.0); Mean Corpuscular Volume 86.1 fL (80.0-98.0); Mean Platelet Volume 10.3 fL (9.4-12.4); Monocytes Absolute Auto 2.2 X10*3/uL (0.1-1.2); Neutrophils Percent Auto 82.5 % (45-73); Platelet Count 216 X10*3/uL (160-400); Red Blood Count 4.62 X10*6/uL (4.60-5.80); Red Cell Distribution Width 14.1 % (11.0-16.0); SCAN SMEAR FLAG 1; White Blood Count 19.5 X10*3/uL (4.8-10.8)
[2022-03-11 09:57] LABS: Alanine Aminotransferase 46 U/L (0-40); Albumin Level 3.2 g/dL (3.5-5.0); Alkaline Phosphatase 72 U/L (39-117); Anion Gap 14 (12-20); Aspartate Amino Transferase 38 U/L (5-37); Bilirubin Direct 0.5 mg/dL (0.0-0.5); Bilirubin Total 0.9 mg/dL (0.0-1.0); Blood Urea Nitrogen 22 mg/dL (9-16); Calcium 8.3 mg/dL (8.4-10.2); Carbon Dioxide 25 mmol/L (22-29); Chloride 99 mmol/L (96-108); Creatinine Clr Calc Pharmacy 85.2; Estimated Glomerular Filt Rate > 60; Glucose Random 158 mg/dL (60-115); Potassium 3.7 mmol/L (3.3-5.1); Sodium 134 mmol/L (135-145); Total Protein 5.6 g/dL (6.5-8.0)
[2022-03-11 10:09] LABS: SLIDE REVIEW VERIFIED
--- NOTE | 2022-03-11 10:10 | MHC.CM.PN ---
met with pt who is independent pot had no servcis and does not feel he will need any when dcd pt is covid vax x 3 dc plan home no servceis
--- NOTE | 2022-03-11 10:18 | P.PNCA_ITS ---
Subjective Subjective Date of Service: 03/11/22 Interval history: Saying he is feeling better. Continues to have right leg cellulitis. Telemetry is showing AFib with RVR. Physical Exam Vital Signs: Last Vital Signs Temp 98.3 F 03/11/22 09:49 Pulse 113 H 03/11/22 09:49 Resp 24 H 03/11/22 09:49 BP 150/79 H 03/11/22 09:49 Pulse Ox 97 03/11/22 09:49 O2 Del Method 03/11/22 09:49 O2 Flow Rate 2 03/10/22 13:32 Oxygen Flow Rate 4 03/09/22 12:29 BMI result Body Mass Index 55.7 GENERAL APPEARANCE: in no acute distress, pleasant. NECK: no carotid bruit, elevated jugular venous distention. SKIN: no suspicious lesions, warm and dry. HEART: no murmurs, irregular rate and rhythm. LUNGS: clear to auscultation bilaterally. ABDOMEN: soft, nontender. EXTREMITIES: 1 to 2+ edema. Erythema right lower extremity. PERIPHERAL PULSES: equal. NEUROLOGIC: No gross deficits, AAO X 3 Objective Labs and Meds Result diagrams: 03/11/22 09:25 03/11/22 09:25 Lab results: Laboratory Results - last 24 hr 03/11/22 03/11/22 09:25 09:25 WBC 19.5 H RBC 4.62 Hgb 13.0 L Hct 39.8 L MCV 86.1 MCH 28.1 MCHC 32.7 RDW 14.1 Plt Count 216 MPV 10.3 Immature Gran % (Auto) 1.0 H Neut % (Auto) 82.5 H Lymph % (Auto) 5.1 L [place] % (Auto) 11.0 Eos % (Auto) 0.1 Baso % (Auto) 0.3 Lymph # (Auto) 1.0 L [place] # (Auto) 2.2 H Eos # (Auto) 0.0 Baso # (Auto) 0.1 Abs Immat Gran (auto) 0.20 H Absolute Neuts (auto) 16.0 H Absolute Nucleated RBC 0.000 Nucleated RBC % (auto) 0.0 Smear Tech's Comments VERIFIED Sodium 134 L Potassium 3.7 D Chloride 99 Carbon Dioxide 25 Anion Gap 14 BUN 22 H Creatinine 1.20 Estim Creat Clear Calc 85.2 Estimated GFR > 60 Random Glucose 158 H Calcium 8.3 L Total Bilirubin 0.9 Direct Bilirubin 0.5 AST 38 H ALT 46 H Alkaline Phosphatase 72 Total Protein 5.6 L Albumin 3.2 L Imaging Radiologist's impression: Impressions Venous Duplex 03/10/22 10:10 IMPRESSION: No evidence of femoral to popliteal deep venous thrombosis involving the right lower extremity. Progress Note: A&P Assessment and plan (1) Acute diastolic heart failure: Status: Acute (2) Atrial fibrillation with rapid ventricular response: Status: Acute Plan Pleasant 66 year gentleman presenting with AFib with RVR and congestive heart failure in the setting of right leg cellulitis. Continues to have redness and cellulitis on the right lower extremity. He is on Cardizem and metoprolol currently. He is on IV diuretics. Clinically he is volume overloaded. His neck veins are distended. Increasing Lasix to 40 mg IV b.i.d.. We will review the echocardiogram. If the echo shows any LV dysfunction then I will stop the Cardizem and substituted with digoxin. As he improves from the cellulitis point of view will see if he converts back to sinus rhythm. If not then he may require BEATRIZ cardioversion. Continue Eliquis. Thank you for allowing me to participate in the care of your patient. Please feel free to contact me if you have any questions. Time Spent With Patient Time: Total time spent is greater than 50% in coordination of care (as documented) at patient's floor/unit and/or counseling patient: Progress Note: Quality Stroke Does the patient have a stroke diagnosis?: No Procedures Date of Service Date of Service: 03/11/22
--- NOTE | 2022-03-11 10:30 | P.PNIM_ITS ---
Subjective Subjective Date of Service: 03/11/22 Review of Systems Follow-up atrial fibrillation with rapid ventricular response, cellulitis Feeling okay today Physical Exam Vital Signs: Vital Signs: Last Vital Signs Temp 98.3 F 03/11/22 09:49 Pulse 113 H 03/11/22 09:49 Resp 24 H 03/11/22 09:49 BP 150/79 H 03/11/22 09:49 Pulse Ox 97 03/11/22 09:49 O2 Del Method 03/11/22 09:49 O2 Flow Rate 2 03/10/22 13:32 Oxygen Flow Rate 4 03/09/22 12:29 BMI result Body Mass Index 55.7 Appearing in no acute distress lung sounds are clear to auscultation Irregularly irregular positive bowel sounds, abdomen is soft, nontender neuro patient is alert x3, no focal deficits Objective Data Active Medications Acetaminophen (Acetaminophen 325 Mg Tablet) 650 mg PO Q6H PRN PRN Reason: fever and mild pain Apixaban (Apixaban 5 Mg Tablet) 5 mg PO BID [facility] Last Admin: 03/11/22 09:11 Dose: 5 mg Documented By: YURIY Atorvastatin Calcium (Atorvastatin Calcium 10 Mg Tablet) 10 mg PO DAILY [facility] Last Admin: 03/11/22 09:11 Dose: 10 mg Documented By: YURIY Furosemide (Furosemide 20 Mg/2 Ml Vial) 40 mg IVPUSH BID@0900,1800 [facility]; Protocol Diltiazem HCl 125 mg/ Sodium (Chloride) 125 mls @ 0 mls/hr IVCONT .Q0M [facility]; Protocol Last Admin: 03/11/22 05:45 Dose: 10 mg/hr, 10 mls/hr Documented By: NIKHIL Comments: no NS 100ml available, compatible w D5W, added to 100ml D5W bag. Doxycycline Hyclate 100 mg/ (Sodium Chloride) 250 mls @ 166.67 mls/hr IV Q12H [facility] Last Infusion: 03/11/22 07:58 Dose: 0 mls/hr Documented By: YURIY Cefazolin Sodium/Dextrose (Ancef) 2 gm in 50 mls @ 100 mls/hr IV Q8H [facility] Last Infusion: 03/11/22 05:30 Dose: 0 mls/hr Documented By: NIKHIL Metoprolol Tartrate (Metoprolol Tartrate 25 Mg Tablet) 25 mg PO BID [facility]; Protocol Last Admin: 03/11/22 09:10 Dose: 25 mg Documented By: YURIY Ondansetron HCl (Ondansetron Hcl 4 Mg/2 Ml Vial) 4 mg IVPUSH Q8H PRN PRN Reason: Nausea and Vomiting Pharmacy Consult (Consult Rx Perform Med Rec) 1 each MISCELLANE ONCE PRN PRN Reason: Consult order Sodium Chloride (0.9 % Sodium Chloride Flush 3 Ml Syringe) 3 ml IVFLUSH QSHIFT [facility] Last Admin: 03/11/22 09:10 Dose: 3 ml Documented By: YURIY Labs CBC & Chem 7: 03/11/22 09:25 03/11/22 09:25 Labs: Laboratory Results - last 24 hr 03/11/22 03/11/22 09:25 09:25 MCV 86.1 MCH 28.1 MCHC 32.7 RDW 14.1 Plt Count 216 MPV 10.3 Immature Gran % (Auto) 1.0 H Neut % (Auto) 82.5 H Lymph % (Auto) 5.1 L [place] % (Auto) 11.0 Eos % (Auto) 0.1 Baso % (Auto) 0.3 Lymph # (Auto) 1.0 L [place] # (Auto) 2.2 H Eos # (Auto) 0.0 Baso # (Auto) 0.1 Abs Immat Gran (auto) 0.20 H Absolute Neuts (auto) 16.0 H Absolute Nucleated RBC 0.000 Nucleated RBC % (auto) 0.0 Smear Tech's Comments VERIFIED Anion Gap 14 Estim Creat Clear Calc 85.2 Estimated GFR > 60 Random Glucose 158 H Calcium 8.3 L Total Bilirubin 0.9 Direct Bilirubin 0.5 AST 38 H ALT 46 H Alkaline Phosphatase 72 Total Protein 5.6 L Albumin 3.2 L Microbiology Microbiology Results: Microbiology 03/09/22 12:57 Blood Culture - Preliminary Blood - Venous No growth after 24 hours. 03/09/22 12:44 Blood Culture - Preliminary Blood - Venous No growth after 24 hours. Assessment and Plan (1) New onset atrial fibrillation: Status: Acute (2) Cellulitis of leg, right: Status: Acute (3) Severe sepsis: Status: Acute (4) ALEXUS (acute kidney injury): Status: Acute Plan 66-year-old male with history of hypertension, hyperlipidemia, chronic venous stasis dermatitis, erectile dysfunction, morbid obesity, and TANO on CPAP admitted for new onset atrial fibrillation with RVR and cellulitis RLE with severe sepsis. New onset atrial fibrillation with rapid ventricular response Magnesium a TSH normal Continue diltiazem drip and Eliquis Metoprolol 25 mg b.i.d. along with Lasix 20 mg b.i.d. Cardiology following Echocardiogram pending Will likely need cardioversion Severe sepsis secondary to cellulitis to right lower extremity Continue IV cefazolin and doxycycline IV fluids stopped History of venous stasis dermatitis Venous Doppler ultrasound negative for DVT ALEXUS. Resolved Secondary to infection Treated with IV fluids Transaminitis. Chronic LFTs trending down Hypertension stable blood pressure Continue metoprolol and diltiazem Hyperlipidemia Continue statin Obstructive sleep apnea Continue CPAP Morbid obesity BMI 55.7 Discussed importance of weight management as this may contribute to worsening of other comorbidities DVT prophylaxis with Tessa Attending Dr. Martinez Full code Pt requires ongoing inpt stay due to new onset a fib with rvr requiring diltiazem drip and ongoing cardiac monitoring. He also requiring IV abx for cellulitis RLE with severe sepsis. Quality Stroke Does the patient have a stroke diagnosis?: No VTE Prior VTE?: No VTE Risk Level:: Medical - moderate - high VTE Device Contraindication: Treatment Not Indicated VTE Drug Contraindication: N/A - Med Ordered
[2022-03-11] MEDS: Furosemide 40 MG/4 ML VIAL IVPUSH (11:59)
[2022-03-11] MEDS: dilTIAZem HCL 125 MG in 0.9 % Sodium Chloride 100 ML 15 MG IVCONT ×2 (15:06→21:23)
[2022-03-11] MEDS: dilTIAZem HCL 50 MG/10 ML VIAL 15 MG IVPUSH (18:00)
[2022-03-11] MEDS: Furosemide 20 MG/2 ML VIAL 40 MG IVPUSH (18:34)
[2022-03-11] MEDS: Pantoprazole Sodium 40 MG/10 ML VIAL IVPUSH (18:45)
[2022-03-12] MEDS: ceFAZolin Sodium/Dextrose,Iso 2 GM/50 ML PIGGYBACK IV ×2 (01:52→10:54)
[2022-03-12 03:03] VITALS: BP 134/74; PULSE 80; RESP 16; TEMP 37.3; O2SAT 97
[2022-03-12] MEDS: Doxycycline Hyclate 100 MG in 0.9 % Sodium Chloride 250 ML 166.67 MG IV (06:25)
[2022-03-12] MEDS: Pantoprazole Sodium 40 MG/10 ML VIAL IVPUSH ×2 (06:26→16:00)
[2022-03-12 07:24] VITALS: BP 148/74; PULSE 110; RESP 16; TEMP 36.9; O2SAT 97
[2022-03-12] MEDS: Apixaban 5 MG TABLET PO ×2 (07:36→21:42)
[2022-03-12] MEDS: Furosemide 20 MG/2 ML VIAL 40 MG IVPUSH ×2 (07:36→17:58)
[2022-03-12] MEDS: Atorvastatin Calcium 10 MG TABLET PO (07:36)
[2022-03-12] MEDS: Metoprolol Tartrate 25 MG TABLET PO ×3 (07:36→21:42)
[2022-03-12] MEDS: dilTIAZem HCL 125 MG in 0.9 % Sodium Chloride 100 ML 10 MG IVCONT (07:48)
--- NOTE | 2022-03-12 09:03 | P.PNCA_ITS ---
Subjective Subjective Date of Service: 03/12/22 Interval history: Patient seen and examined at bedside. Continues to be in AFib with RVR. Volume status improving with the higher diuretic dose. Continues to have significant swelling and erythema of the right lower extremity. On IV antibiotics. Physical Exam Vital Signs: Last Vital Signs Temp 98.5 F 03/12/22 07:24 Pulse 110 H 03/12/22 07:24 Resp 16 03/12/22 07:24 BP 148/74 H 03/12/22 07:24 Pulse Ox 97 03/12/22 07:24 O2 Del Method 03/12/22 07:24 O2 Flow Rate 2 03/10/22 13:32 Oxygen Flow Rate 4 03/09/22 12:29 BMI result Body Mass Index 55.7 GENERAL APPEARANCE: in no acute distress, pleasant. NECK: no carotid bruit, elevated jugular venous distention. SKIN: no suspicious lesions, warm and dry. HEART: no murmurs, irregular rate and rhythm. LUNGS: clear to auscultation bilaterally. ABDOMEN: soft, nontender. EXTREMITIES: 1 to 2+ edema. Erythema right lower extremity. PERIPHERAL PULSES: equal. NEUROLOGIC: No gross deficits, AAO X 3 Objective Labs and Meds Result diagrams: 03/11/22 09:25 03/11/22 09:25 Lab results: Laboratory Results - last 24 hr 03/11/22 03/11/22 09:25 09:25 WBC 19.5 H RBC 4.62 Hgb 13.0 L Hct 39.8 L MCV 86.1 MCH 28.1 MCHC 32.7 RDW 14.1 Plt Count 216 MPV 10.3 Immature Gran % (Auto) 1.0 H Neut % (Auto) 82.5 H Lymph % (Auto) 5.1 L [place] % (Auto) 11.0 Eos % (Auto) 0.1 Baso % (Auto) 0.3 Lymph # (Auto) 1.0 L [place] # (Auto) 2.2 H Eos # (Auto) 0.0 Baso # (Auto) 0.1 Abs Immat Gran (auto) 0.20 H Absolute Neuts (auto) 16.0 H Absolute Nucleated RBC 0.000 Nucleated RBC % (auto) 0.0 Smear Tech's Comments VERIFIED Sodium 134 L Potassium 3.7 D Chloride 99 Carbon Dioxide 25 Anion Gap 14 BUN 22 H Creatinine 1.20 Estim Creat Clear Calc 85.2 Estimated GFR > 60 Random Glucose 158 H Calcium 8.3 L Total Bilirubin 0.9 Direct Bilirubin 0.5 AST 38 H ALT 46 H Alkaline Phosphatase 72 Total Protein 5.6 L Albumin 3.2 L Imaging Radiologist's impression: Impressions Abdomen/Pelvis CT 03/11/22 17:30 IMPRESSION: Main finding of note is focal inflammatory changes surrounding a thick-walled 2nd-3rd portion of the duodenum. With this appearance, a focal duodenitis/duodenal ulcer disease would be suspected. Clinical correlation would be recommended. Although the inflammation is near the pancreatic head, the epicenter really appears to be more associated with the duodenum. No obstructive changes seen. Other chronic appearing changes as noted above. Progress Note: A&P Assessment and plan (1) Acute diastolic heart failure: Status: Acute (2) Atrial fibrillation with rapid ventricular response: Status: Acute Plan 66-year-old gentleman who is presenting for AFib with RVR and diastolic heart failure. He has significant cellulitis on right lower extremity. He will be seen by ID today. I think cellulitis is trying is AFib and till be improved that chest year successfully cardioverting him are low. His echocardiography has shown normal LV function. Continue the anticoagulation. Keep NPO after midnight for potential BEATRIZ cardioversion tomorrow. If his legs looks the same tomorrow are probably not cardiovert him but if he is improving then I think we should consider BEATRIZ cardioversion. Continue diuretics at the same dose. Thank you for allowing me to participate in the care of your patient. Please feel free to contact me if you have any questions. Time Spent With Patient Time: Total time spent is greater than 50% in coordination of care (as documented) at patient's floor/unit and/or counseling patient: Progress Note: Quality Stroke Does the patient have a stroke diagnosis?: No Procedures Date of Service Date of Service: 03/12/22
[2022-03-12 10:40] VITALS: BP 130/71; PULSE 111; RESP 20; TEMP 36.8; O2SAT 97
--- NOTE | 2022-03-12 13:58 | HO.PM.IMPN ---
Subjective Subjective Date of Service: 03/12/22 Review of Systems Follow-up congestive heart failure, cellulitis Feeling better today Right leg swelling is slightly better Denies chest pain, shortness breath, nausea, vomiting, diarrhea Physical Exam Vital Signs: Vital Signs: Last Vital Signs Temp 98.3 F 03/12/22 10:40 Pulse 111 H 03/12/22 10:40 Resp 20 03/12/22 10:40 BP 130/71 03/12/22 10:40 Pulse Ox 97 03/12/22 10:40 O2 Del Method 03/12/22 10:40 O2 Flow Rate 2 03/10/22 13:32 Oxygen Flow Rate 4 03/09/22 12:29 BMI result Body Mass Index 55.7 Appearing in no acute distress lung sounds are clear to auscultation heart regular rate rhythm, clear S1, S2 positive bowel sounds, abdomen is soft, nontender neuro patient is alert x3, no focal deficits Right lower extremity with erythema and edema Objective Data Active Medications Acetaminophen (Acetaminophen 325 Mg Tablet) 650 mg PO Q6H PRN PRN Reason: fever and mild pain Apixaban (Apixaban 5 Mg Tablet) 5 mg PO BID [facility] Last Admin: 03/12/22 07:36 Dose: 5 mg Documented By: NANCIE Atorvastatin Calcium (Atorvastatin Calcium 10 Mg Tablet) 10 mg PO DAILY [facility] Last Admin: 03/12/22 07:36 Dose: 10 mg Documented By: NANCIE Furosemide (Furosemide 20 Mg/2 Ml Vial) 40 mg IVPUSH BID@0900,1800 [facility]; Protocol Last Admin: 03/12/22 07:36 Dose: 40 mg Documented By: NANCIE Diltiazem HCl 125 mg/ Sodium (Chloride) 125 mls @ 0 mls/hr IVCONT .Q0M [facility]; Protocol Last Titration: 03/12/22 13:28 Dose: 15 mg/hr, 15 mls/hr Documented By: NANCIE Doxycycline Hyclate 100 mg/ (Sodium Chloride) 250 mls @ 166.67 mls/hr IV Q12H [facility] Last Infusion: 03/12/22 07:49 Dose: 0 mls/hr Documented By: NANCIE Cefazolin Sodium/Dextrose (Ancef) 2 gm in 50 mls @ 100 mls/hr IV Q8H [facility] Last Infusion: 03/12/22 11:31 Dose: 0 mls/hr Documented By: NANCIE Metoprolol Tartrate (Metoprolol Tartrate 25 Mg Tablet) 25 mg PO BID [facility]; Protocol Last Admin: 03/12/22 07:36 Dose: 25 mg Documented By: NANCIE Ondansetron HCl (Ondansetron Hcl 4 Mg/2 Ml Vial) 4 mg IVPUSH Q8H PRN PRN Reason: Nausea and Vomiting Pantoprazole Sodium (Pantoprazole Sodium 40 Mg/10 Ml Vial) 40 mg IVPUSH BID@0630,1630 [facility] Last Admin: 03/12/22 06:26 Dose: 40 mg Documented By: CARLENE Pharmacy Consult (Consult Rx Perform Med Rec) 1 each MISCELLANE ONCE PRN PRN Reason: Consult order Sodium Chloride (0.9 % Sodium Chloride Flush 3 Ml Syringe) 3 ml IVFLUSH QSHIFT [facility] Last Admin: 03/12/22 07:37 Dose: Not Given Documented By: NANCIE Non-Admin Reason: IV Running Labs CBC & Chem 7: 03/11/22 09:25 03/11/22 09:25 Microbiology Microbiology Results: Microbiology 03/09/22 12:57 Blood Culture - Preliminary Blood - Venous No growth after 48 hours. 03/09/22 12:44 Blood Culture - Preliminary Blood - Venous No growth after 48 hours. Assessment and Plan (1) New onset atrial fibrillation: Status: Acute (2) Cellulitis of leg, right: Status: Acute (3) Severe sepsis: Status: Acute (4) ALEXUS (acute kidney injury): Status: Acute Plan 66-year-old male with history of hypertension, hyperlipidemia, chronic venous stasis dermatitis, erectile dysfunction, morbid obesity, and TANO on CPAP admitted for new onset atrial fibrillation with RVR and cellulitis RLE with severe sepsis. New onset atrial fibrillation with rapid ventricular response Magnesium a TSH normal Continue diltiazem drip and Eliquis Metoprolol increased to 5 mg q.6 hours. Continue Lasix 40 mg b.i.d. Cardiology following Echocardiogram with EF of 70% and no evidence of regional wall motion abnormalities Plan for BEATRIZ cardioversion tomorrow NPO after midnight Severe sepsis secondary to cellulitis to right lower extremity. Sepsis resolved Continue IV cefazolin and doxycycline IV fluids stopped History of venous stasis dermatitis Venous Doppler ultrasound negative for DVT ALEXUS. Resolved Secondary to infection Treated with IV fluids Transaminitis. Chronic LFTs trending down Hypertension stable blood pressure Continue metoprolol and diltiazem Hyperlipidemia Continue statin Obstructive sleep apnea Continue CPAP Morbid obesity BMI 55.7 Discussed importance of weight management as this may contribute to worsening of other comorbidities DVT prophylaxis with Tessa Attending Dr. Martinez Full code Pt requires ongoing inpt stay due to new onset a fib with rvr requiring diltiazem drip and ongoing cardiac monitoring. He also requiring IV abx for cellulitis RLE with severe sepsis. Quality Stroke Does the patient have a stroke diagnosis?: No VTE Prior VTE?: No VTE Risk Level:: Medical - moderate - high VTE Device Contraindication: Treatment Not Indicated VTE Drug Contraindication: N/A - Med Ordered
--- NOTE | 2022-03-12 14:59 | P.CNID_ITS ---
History of Present Illness Data of Consult Service Date: 03/12/22 Requesting physician: Greta Renae Primary Care Provider: Wilian Wood MD [facility] Reason for consult: shortness of breath He presents with cough and shortness of breath and weakness for two days. He went to restaurant and had no ill exposures. He has some redness right leg. Review of Systems Review of Systems: Yes all other systems are reviewed and are negative PMFSH Past Medical History Medical History ALEXUS (acute kidney injury) Chronic venous insufficiency COVID-19 vaccine series completed Gastritis High cholesterol Hypertension Leukocytosis Morbid obesity Obesity TANO on CPAP TANO on CPAP Osteoarthritis Osteoarthritis of left knee Family History Family History Father Myocardial infarct Mother No problems noted. 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 Meds Allergies Allergy/AdvReac Type Severity Reaction Status Date / Time dextromethorphan Allergy Severe ITCHY Verified 10/29/21 12:22 [DEXTROMETHORPHAN] SWELLING SOB shellfish derived Allergy Severe ANAPHYLAXIS Verified 10/29/21 12:22 perflutren AdvReac Back Pain Verified 03/12/22 15:04 Active Medications: Current Medications Acetaminophen (Acetaminophen 325 Mg Tablet) 650 mg PO Q6H PRN PRN Reason: fever and mild pain Apixaban (Apixaban 5 Mg Tablet) 5 mg PO BID [facility] Last Admin: 03/12/22 07:36 Dose: 5 mg Atorvastatin Calcium (Atorvastatin Calcium 10 Mg Tablet) 10 mg PO DAILY [facility] Last Admin: 03/12/22 07:36 Dose: 10 mg Furosemide (Furosemide 20 Mg/2 Ml Vial) 40 mg IVPUSH BID@0900,1800 [facility]; Protocol Last Admin: 03/12/22 07:36 Dose: 40 mg Diltiazem HCl 125 mg/ Sodium (Chloride) 125 mls @ 0 mls/hr IVCONT .Q0M [facility]; Protocol Last Titration: 03/12/22 13:28 Dose: 15 mg/hr, 15 mls/hr Doxycycline Hyclate 100 mg/ (Sodium Chloride) 250 mls @ 166.67 mls/hr IV Q12H [facility] Last Infusion: 03/12/22 07:49 Dose: Infused Cefazolin Sodium/Dextrose (Ancef) 2 gm in 50 mls @ 100 mls/hr IV Q8H [facility] Last Infusion: 03/12/22 11:31 Dose: Infused Metoprolol Tartrate (Metoprolol Tartrate 25 Mg Tablet) 25 mg PO BID [facility]; Protocol Last Admin: 03/12/22 07:36 Dose: 25 mg Ondansetron HCl (Ondansetron Hcl 4 Mg/2 Ml Vial) 4 mg IVPUSH Q8H PRN PRN Reason: Nausea and Vomiting Pantoprazole Sodium (Pantoprazole Sodium 40 Mg/10 Ml Vial) 40 mg IVPUSH BID@0630,1630 [facility] Last Admin: 03/12/22 06:26 Dose: 40 mg Pharmacy Consult (Consult Rx Perform Med Rec) 1 each MISCELLANE ONCE PRN PRN Reason: Consult order Sodium Chloride (0.9 % Sodium Chloride Flush 3 Ml Syringe) 3 ml IVFLUSH QSHIFT [facility] Last Admin: 03/12/22 07:37 Dose: Not Given Home Medications Medication Instructions Recorded Confirmed Last Taken Type atorvastatin 10 mg tablet 10 mg PO DAILY 09/11/20 03/09/22 03/09/22 History carvedilol 3.125 mg tablet 3.125 mg PO BID 09/11/20 03/09/22 03/09/22 History epinephrine 0.3 mg/0.3 mL 0.3 ml IM DAILY PRN Allergic 09/11/20 03/09/22 Unknown History injection, auto-injector Reaction multivitamin,tx-minerals 1 tab PO DAILY 11/16/20 03/09/22 03/09/22 History cholecalciferol (vitamin D3) 50 50 mcg PO DAILY 11/17/20 03/09/2222 History mcg (2,000 unit) capsule (Vitamin D3) sildenafil 50 mg tablet 50 mg PO DAILY PRN sexual 04/02/21 03/09/22 Unknown History dysfunction Physical Exam Vital Signs: Vital Signs: Last Vital Signs Temp 98.3 F 03/12/22 10:40 Pulse 111 H 03/12/22 10:40 Resp 20 03/12/22 10:40 BP 130/71 03/12/22 10:40 Pulse Ox 97 03/12/22 10:40 O2 Del Method 03/12/22 10:40 O2 Flow Rate 2 03/10/22 13:32 Oxygen Flow Rate 4 03/09/22 12:29 BMI result Body Mass Index 55.7 Const: General: cooperative HEENT: Head: Yes normal to inspection Face and sinus: Yes normal facial exam Mouth: Normal oral and palatal mucosa present Teeth and gingiva: dentition normal Eyes: General: appearance normal, both eyes and all related structures Pupils: Equal, round and reactive pupils present Resp: Effort & Inspection: normal respiratory effort Cardio: Rate: regular rate Rhythm: regular rhythm GI: Palpation (GI): Soft to palpation and nontender : General: Yes no CVA tenderness Back/Spine/Pelvis: Back: no CVA tenderness Skin: General skin exam: no rashes or lesions noted Neuro: General: moves all extremities Cranial nerves: Yes Equal, round and reactive pupils present Extrem: Other: right leg Psych: Appearance: grossly normal Results Labs CBC & Chem 7: 03/11/22 09:25 03/11/22 09:25 Microbiology Microbiology Results: Microbiology 03/09/22 12:57 Blood - Venous Blood Culture - Preliminary No growth after 48 hours. 03/09/22 12:44 Blood - Venous Blood Culture - Preliminary No growth after 48 hours. Assessment and Plan (1) Cellulitis of leg, right: Status: Acute He has possible strep or staph High BMI and leg swelling are contributory Plan Would elevate leg IV Clindamycin and gram negative agent such as Ceftriaxone or Zosyn as well,duration to be determined,
[2022-03-12 15:45] VITALS: BP 142/74; PULSE 93; RESP 14; TEMP 37.1; O2SAT 96
[2022-03-12] MEDS: Clindamycin Phosphate/D5W 900 MG/50 ML PIGGYBACK 50 MG IV (16:00)
--- NOTE | 2022-03-12 16:03 | PM.PNCARD ---
Subjective Subjective Date of Service: 03/12/22 <HECTOR Graham - Last Filed: 03/12/22 16:18> 03/13/22 <Trino Sanchez MD - Last Filed: 03/13/22 12:06> Principal diagnosis: Afib, CHF, cellulitis <HECTOR Graham - Last Filed: 03/12/22 16:18> Interval history: Seen at 0930. Today he reports that he is still noticing shortness of breath with movement. He does not feel heart palpitations, chest discomfort, dizziness. He still has significant swelling and redness in his right lower leg. His left leg is less swollen. He slept with the head of the bed mostly flat. No coughing. No bleeding issues. alarm security or surveillance monitor showing atrial fibrillation with heart rate 90-100 at rest and up to 160 this a.m. with movement. Continues on diltiazem drip at 15 mg an hour. <HECTOR Graham - Last Filed: 03/12/22 16:18> Review of Systems Review of Systems As above <HECTOR Graham - Last Filed: 03/12/22 16:18> Physical Exam Vital Signs: Last Vital Signs Temp 98.8 F 03/12/22 15:45 Pulse 93 03/12/22 15:45 Resp 14 03/12/22 15:45 BP 142/74 H 03/12/22 15:45 Pulse Ox 96 03/12/22 15:45 O2 Del Method 03/12/22 15:45 O2 Flow Rate 2 03/10/22 13:32 Oxygen Flow Rate 4 03/09/22 12:29 BMI result Body Mass Index 55.7 <HECTOR Graham - Last Filed: 03/12/22 16:18> Const General: cooperative, comfortable and no acute distress <HECTOR Graham Last Filed: 03/12/22 16:18> Neck Neck: Yes normal visual inspection and Yes no JVD (Difficult to assess however none noted) <HECTOR Graham Last Filed: 03/12/22 16:18> Resp Effort & Inspection: normal respiratory effort <HECTOR Graham Last Filed: 03/12/22 16:18> Auscultation: clear to auscultation bilaterally, no crackles, no rales, no rhonchi and no wheezes <HECTOR Graham - Last Filed: 03/12/22 16:18> Cardio Rate: tachycardic <HECTOR Graham - Last Filed: 03/12/22 16:18> Rhythm: abnormal rhythm <ION Graham - Last Filed: 03/12/22 16:18> Heart sounds: S1 normal heart sound present, S2 normal heart sound present, no gallops, no murmurs and no rubs <ION Graham - Last Filed: 03/12/22 16:18> Extrem Other: Right lower leg reddened discoloration, significantly swollen and warm to touch. He states unchanged from yesterday. <ION Graham - Last Filed: 03/12/22 16:18> Psych Appearance: grossly normal <ION Graham - Last Filed: 03/12/22 16:18> Mental Status: mental status grossly normal [facility]: 03/12/22 16:18> Speech and movement: Normal speech and movement present <HECTOR Graham Last Filed: 03/12/22 16:18> Objective Labs and Meds Result diagrams: : 03/11/22 09:25 03/11/22 09:25 <ION Graham - Last Filed: 03/12/22 16:18> Imaging Radiologist's impression: Impressions Abdomen/Pelvis CT 03/11/22 17:30 IMPRESSION: Main finding of note is focal inflammatory changes surrounding a thick-walled 2nd-3rd portion of the duodenum. With this appearance, a focal duodenitis/duodenal ulcer disease would be suspected. Clinical correlation would be recommended. Although the inflammation is near the pancreatic head, the epicenter really appears to be more associated with the duodenum. No obstructive changes seen. Other chronic appearing changes as noted above. <ION Graham - Last Filed: 03/12/22 16:18> Progress Note: A&P Assessment and plan (1) Atrial fibrillation with rapid ventricular response: Status: Acute <HECTOR Graham - Last Filed: 03/12/22 16:18> Assessment and Plan: Admission with cellulitis right lower leg. New finding atrial fibrillation with rapid ventricular response. Being treated with heart rate control using diltiazem drip and metoprolol p.o.. No reports of heart palpitations or chest discomfort. Does have shortness of breath with activity and findings of acute diastolic heart failure. Echocardiogram showed EF greater than 70%, left atrium mildly dilated, mildly dilated sinus of Valsalva and ascending aorta. Telemetry monitoring shows heart rate 90s to 100 at rest and up to 160 this a.m. with getting out of bed. Will increase his metoprolol to 25 mg q.6 hours. Continue diltiazem drip and titrate as needed for heart rate control. NPO in the a.m. Possible BEATRIZ cardioversion tomorrow. Discuss this with patient and he states understanding. Ongoing management for his right lower leg cellulitis. Consider ID evaluation. We will follow. <HECTOR Graham - Last Filed: 03/12/22 16:18> (2) Acute diastolic heart failure: Status: Acute <HECTOR Graham - Last Filed: 03/12/22 16:18> Assessment and Plan: Shortness of breath with activity present on admit. BNP normal however could be false due to his obesity. Chest x-ray limited quality. Based on symptoms and clinical exam he is being treated for acute diastolic heart failure. Being diuresed with IV Lasix. Negative fluid balance 1482 cc since admission. Continues to report some shortness of breath with activity such as getting out of bed this morning. He has significant edema still in his right lower leg however less in the left lower leg. Will continue on IV Lasix. Continue strict I&O monitoring. Close monitoring of electrolytes and kidney function. <HECTOR Graham - Last Filed: 03/12/22 16:18> (3) Cellulitis of leg, right: Status: Acute <HECTOR Graham - Last Filed: 03/12/22 16:18> Assessment and Plan: Being managed by hospitalist. <HECTOR Graham - Last Filed: 03/12/22 16:18> Time Spent With Patient Time: Total time spent is greater than 50% in coordination of care (as documented) at patient's floor/unit and/or counseling patient: 20 <HECTOR Graham - Last Filed: 03/12/22 16:18> Progress Note: Quality Stroke Does the patient have a stroke diagnosis?: No <HECTOR Graham Last Filed: 03/12/22 16:18> Procedures Date of Service Date of Service: 03/12/22 <HECTOR Graham - Last Filed: 03/12/22 16:18>
--- NOTE | 2022-03-12 17:13 | PM.EVENT ---
Event Note Date of Service: 03/12/22 Event Note: GI consult dictated, pt seen and examined. The ct findings are likely nsaid related duodenitis or ulcer. recommend continuing oral ppi for 12 weeks, longer if he needs to be on nsaids. No signs of bleeding on OAC, so endoscopy is not likely to add much at this time. His abd pain is better and he is tolerating clear liquids. Agree with advancing diet.
--- NOTE | 2022-03-12 17:13 | PC.NURSE ---
Patient OOB into chair. Denies shortness of breath dizziness, chest pain or palpitations. Afib with RVR 110s-120s throughout the day. Cardizem drip running at 15. Patient c/o of right lower extremity discomfort with movement. Patient will be NPO after midnight for possible cardioversion tomorrow.
[2022-03-12] MEDS: Piperacillin Sodium/Tazobactam 3.375 GM in 0.9 % Sodium Chloride 50 ML IV ×2 (18:03→21:43)
[2022-03-12] MEDS: dilTIAZem HCL 125 MG in 0.9 % Sodium Chloride 100 ML 15 MG IVCONT (18:43)
[2022-03-12 20:00] VITALS: BP 117/68; PULSE 116; RESP 18; TEMP 36.9; O2SAT 97
[2022-03-13] VITALS: BP 156/73; PULSE 102; RESP 16; TEMP 37.6; O2SAT 97
[2022-03-13] MEDS: 0.9 % Sodium Chloride Flush 3 ML SYRINGE IVFLUSH ×2 (00:20→22:19)
[2022-03-13] MEDS: Clindamycin Phosphate/D5W 900 MG/50 ML PIGGYBACK 50 MG IV ×4 (00:20→23:08)
[2022-03-13] MEDS: dilTIAZem HCL 125 MG in 0.9 % Sodium Chloride 100 ML 15 MG IVCONT (03:13)
--- NOTE | 2022-03-13 03:16 | CONS_ITS ---
DATE OF SERVICE: 03/12/2022 REFERRING PHYSICIAN: Greta Renae NP REASON FOR CONSULTATION: CT scan showing duodenitis. HISTORY OF PRESENT ILLNESS: The patient is a pleasant 66-year-old man who was admitted to the hospital on March 09, because of cellulitis, sepsis and new onset atrial fibrillation. Reports that since he was admitted, he has had some generalized abdominal pain, which contributed to his anorexia. He denies any dysphagia, hematemesis or melena and does not take acid suppressive therapy at home. He has no prior history of peptic ulcer disease. He has never undergone endoscopy. Colonoscopy 3 years ago was positive for small polyp and he is due in a 5 year followup. He does use NSAIDs and has been given a prescription of Naprosyn for some left lower extremity knee pain. He denies tobacco or alcohol use. As part of the evaluation in the hospital, he underwent CT scanning, which is reviewed. This is interpreted as showing focal wall thickening and surrounding inflammatory change in the region of the 2nd, 3rd portions of the duodenum. This was thought to be consistent with focal duodenitis or duodenal ulcer. The patient was started on Eliquis since admission and he has also been treated with a proton pump inhibitor since his CT scan was done. PAST MEDICAL HISTORY: 1. Lower extremity cellulitis. 2. Hypertension. 3. TANO/CPAP. 4. Venous stasis. 5. Morbid obesity. 6. New-onset atrial fibrillation. 7. Hyperlipidemia. 8. Colon polyp. 9. Osteoarthritis. CURRENT MEDICATIONS: Current medication list is reviewed in the chart. ALLERGIES: MULTIPLE ALLERGIES ARE REVIEWED. FAMILY HISTORY: This is reviewed with the patient and is negative for upper GI tract malignancy. SOCIAL HISTORY: He does not smoke or drink. REVIEW OF SYSTEMS: SKIN: No pruritus. HEENT: Negative. CARDIOPULMONARY: No shortness of breath or chest pain. GASTROINTESTINAL: As above. GENITOURINARY: Negative. NEUROPSYCHIATRIC: Negative. PHYSICAL EXAMINATION: GENERAL: Pleasant male, sitting comfortably in the chair. VITAL SIGNS: Reviewed in the electronic medical record and are stable. SKIN: Anicteric. HEENT: No scleral icterus. NECK: Without lymphadenopathy or thyromegaly. LUNGS: Clear. HEART: An irregular S1, S2. No murmur. ABDOMEN: Soft without focal mass or tenderness. Bowel sounds are present. No organomegaly is noted. EXTREMITIES: Cellulitis involving the right lower extremity. LABORATORY DATA: Reviewed. Hematocrit has been stable at 41 on admission and 39.[address] scanning is reviewed with the findings as noted above. IMPRESSION: Abnormal CT scan suggestive of duodenitis with peptic ulcer. This most likely represents an NSAID-induced process. I discussed this with the patient. He has been stable on anticoagulation since admission without any signs of bleeding. Upper endoscopy is unlikely to add much at this point. I would recommend empiric coverage with a proton pump inhibitor for minimum of 12 weeks. This should be continued if he does need NSAIDs on a fairly regular basis. I discussed with him what to watch for in terms of complications from Eliquis use including black tarry stools or hematemesis. Thanks for asking me to see him. I will follow him in the hospital with you. MD YANETH Meyer/TORITO / [id number]
[2022-03-13 04:00] VITALS: BP 121/60; PULSE 88; RESP 20; TEMP 37.6; O2SAT 96
[2022-03-13] MEDS: Metoprolol Tartrate 25 MG TABLET PO ×4 (05:11→20:45)
[2022-03-13] MEDS: Piperacillin Sodium/Tazobactam 3.375 GM in 0.9 % Sodium Chloride 50 ML IV ×4 (05:12→22:15)
[2022-03-13] MEDS: Pantoprazole Sodium 40 MG/10 ML VIAL IVPUSH ×2 (05:42→15:59)
[2022-03-13 06:00] VITALS: BMI 42.3
[2022-03-13 07:17] VITALS: BP 106/70; PULSE 87; RESP 16; TEMP 36.7; O2SAT 97
[2022-03-13] MEDS: Furosemide 20 MG/2 ML VIAL 40 MG IVPUSH ×2 (07:55→17:39)
[2022-03-13] MEDS: Apixaban 5 MG TABLET PO ×2 (07:55→20:45)
--- NOTE | 2022-03-13 09:12 | HO.PM.IMPN ---
Subjective Subjective Date of Service: 03/13/22 Review of Systems Follow-up congestive heart failure, cellulitis Feeling better today Right leg swelling is slightly better Denies chest pain, shortness breath, nausea, vomiting, diarrhea Physical Exam Vital Signs: Vital Signs: Last Vital Signs Temp 98.1 F 03/13/22 07:17 Pulse 87 03/13/22 07:17 Resp 16 03/13/22 07:17 BP 106/70 03/13/22 07:17 Pulse Ox 97 03/13/22 07:17 O2 Del Method 03/13/22 07:17 O2 Flow Rate 2 03/10/22 13:32 Oxygen Flow Rate 4 03/09/22 12:29 BMI result Body Mass Index 42.3 Appearing in no acute distress lung sounds are clear to auscultation heart regular rate rhythm, clear S1, S2 positive bowel sounds, abdomen is soft, nontender neuro patient is alert x3, no focal deficits Right lower extremity with erythema and edema, slightly improved Objective Data Active Medications Acetaminophen (Acetaminophen 325 Mg Tablet) 650 mg PO Q6H PRN PRN Reason: fever and mild pain Apixaban (Apixaban 5 Mg Tablet) 5 mg PO BID [facility] Last Admin: 03/13/22 07:55 Dose: 5 mg Documented By: NANCIE Furosemide (Furosemide 20 Mg/2 Ml Vial) 40 mg IVPUSH BID@0900,1800 NGA; Protocol Last Admin: 03/13/22 07:55 Dose: 40 mg Documented By: NANCIE Diltiazem HCl 125 mg/ Sodium (Chloride) 125 mls @ 0 mls/hr IVCONT .Q0M NGA; Protocol Last Titration: 03/13/22 08:13 Dose: 5 mg/hr, 5 mls/hr Documented By: NANCIE Clindamycin Phosphate (Cleocin) 900 mg in 50 mls @ 50 mls/hr IV Q8H [facility] Last Infusion: 03/13/22 09:03 Dose: 0 mls/hr Documented By: NANCIE Piperacillin Sod/Tazobactam (Sod 3.375 gm/ Sodium Chloride) 50 mls @ 100 mls/hr IV Q6H [facility] Last Infusion: 03/13/22 05:44 Dose: 0 mls/hr Documented By: REIC Metoprolol Tartrate (Metoprolol Tartrate 25 Mg Tablet) 25 mg PO Q6H [facility]; Protocol Last Admin: 03/13/22 05:11 Dose: 25 mg Ondansetron HCl (Ondansetron Hcl 4 Mg/2 Ml Vial) 4 mg IVPUSH Q8H PRN PRN Reason: Nausea and Vomiting Pantoprazole Sodium (Pantoprazole Sodium 40 Mg/10 Ml Vial) 40 mg IVPUSH BID@0630,1630 [facility] Last Admin: 03/13/22 05:42 Dose: 40 mg Documented By: ERIC Pharmacy Consult (Consult Rx Perform Med Rec) 1 each MISCELLANE ONCE PRN PRN Reason: Consult order Sodium Chloride (0.9 % Sodium Chloride Flush 3 Ml Syringe) 3 ml IVFLUSH QSHIFT [facility] Last Admin: 03/13/22 07:56 Dose: Not Given Documented By: NANCIE Non-Admin Reason: IV Running Labs CBC & Chem 7: 03/11/22 09:25 03/11/22 09:25 Assessment and Plan (1) New onset atrial fibrillation: Status: Acute (2) Cellulitis of leg, right: Status: Acute (3) Severe sepsis: Status: Acute (4) ALEXUS (acute kidney injury): Status: Acute Plan 66-year-old male with history of hypertension, hyperlipidemia, chronic venous stasis dermatitis, erectile dysfunction, morbid obesity, and TANO on CPAP admitted for new onset atrial fibrillation with RVR and cellulitis RLE with severe sepsis. New onset atrial fibrillation with rapid ventricular response. Heart rate responding better Magnesium a TSH normal Continue diltiazem drip and Eliquis Metoprolol increased to 5 mg q.6 hours. Continue Lasix 40 mg b.i.d. Cardiology following Echocardiogram with EF of 70% and no evidence of regional wall motion abnormalities Plan for BEATRIZ cardioversion tomorrow 03/14/2022 NPO after midnight Severe sepsis secondary to cellulitis to right lower extremity. Sepsis resolved Continue IV cefazolin and doxycycline History of venous stasis dermatitis Venous Doppler ultrasound negative for DVT Likely staph or strep antibiotics changed to IV clindamycin and Zosyn Slowly improving ALEXUS. Resolved Secondary to infection Treated with IV fluids Transaminitis. Chronic LFTs trending down Hypertension stable blood pressure Continue metoprolol and diltiazem Hyperlipidemia Continue statin Obstructive sleep apnea Continue CPAP Morbid obesity BMI 55.7 Discussed importance of weight management as this may contribute to worsening of other comorbidities DVT prophylaxis with Tessa Attending Dr. Martinez Full code Pt requires ongoing inpt stay due to new onset a fib with rvr requiring diltiazem drip and ongoing cardiac monitoring. He also requiring IV abx for cellulitis RLE with severe sepsis, plan for cardioversion tomorrow Quality Stroke Does the patient have a stroke diagnosis?: No VTE Prior VTE?: No VTE Risk Level:: Medical - moderate - high VTE Device Contraindication: Treatment Not Indicated VTE Drug Contraindication: N/A - Med Ordered
[2022-03-13 11:47] VITALS: BP 108/65; PULSE 95; RESP 20; TEMP 37.1; O2SAT 97
--- NOTE | 2022-03-13 12:06 | PM.PNCARD ---
Subjective Subjective Date of Service: 03/13/22 Principal diagnosis: Afib, CHF, cellulitis Interval history: Seen examined at bedside. He was seen by ID and was changed to clindamycin. Doing better from rate control point of view. Volume status also improving. Seen by GI for concern for peptic ulcer and plan is conservative management with PPI and avoidance of NSAIDs. Physical Exam Vital Signs: Last Vital Signs Temp 98.7 F 03/13/22 11:47 Pulse 95 03/13/22 11:47 Resp 20 03/13/22 11:47 BP 108/65 03/13/22 11:47 Pulse Ox 97 03/13/22 11:47 O2 Del Method 03/13/22 11:47 O2 Flow Rate 2 03/10/22 13:32 Oxygen Flow Rate 4 03/09/22 12:29 BMI result Body Mass Index 42.3 GENERAL APPEARANCE: in no acute distress, pleasant. NECK: no carotid bruit, no jugular venous distention. SKIN: no suspicious lesions, warm and dry. HEART: no murmurs, irregular rate and rhythm. LUNGS: clear to auscultation bilaterally. ABDOMEN: soft, nontender. EXTREMITIES: 2+ edema right more than left. Erythema right lower extremity. PERIPHERAL PULSES: equal. NEUROLOGIC: No gross deficits, AAO X 3 Objective Labs and Meds Result diagrams: 03/11/22 09:25 03/11/22 09:25 Progress Note: A&P Assessment and plan (1) Acute diastolic heart failure: Status: Acute (2) Atrial fibrillation with rapid ventricular response: Status: Acute Plan [age] year gentleman presenting with cellulitis right lower extremity, acute diastolic heart failure and AFib with RVR. On Cardizem and metoprolol with reasonable rate controlled currently. Volume status is improving. I think he can be transitioned to 40 mg p.o. Lasix tomorrow morning. Keep NPO after midnight for potential BEATRIZ cardioversion tomorrow. He has been seen by ID and has been changed to clindamycin and Zosyn for the cellulitis. Continues to have erythema of the right lower extremity with tenderness. No DVT was noticed. There is no progression of infection upward from the calf. Clinically he is looking better although the cellulitis still appears quite bad. We plan to do BEATRIZ cardioversion tomorrow morning. Please do not interrupt the Eliquis. Thank you for allowing me to participate in the care of your patient. Please feel free to contact me if you have any questions. Time Spent With Patient Time: Total time spent is greater than 50% in coordination of care (as documented) at patient's floor/unit and/or counseling patient: Progress Note: Quality Stroke Does the patient have a stroke diagnosis?: No Procedures Date of Service Date of Service: 03/13/22
[2022-03-13 15:33] VITALS: BP 140/72; PULSE 87; RESP 20; TEMP 36.7; O2SAT 97
--- NOTE | 2022-03-13 15:42 | MHC.CM.PN ---
per rounds pt to have a cardio version
--- NOTE | 2022-03-13 16:05 | PC.NURSE ---
Patient converted to normal sinus 80s-90s wit PACs
[2022-03-13 19:38] VITALS: BP 141/69; PULSE 80; RESP 18; TEMP 36.8; O2SAT 96
[2022-03-14] VITALS (7 sets, daily range): BP systolic 116–140; BP diastolic 61–73; PULSE 74–81; RESP 13–20; TEMP 36.5–36.9; O2SAT 92–98; BMI 36.7
--- NOTE | 2022-03-14 | ECG_ITS ---
Test Reason : confirm afib conversion Blood Pressure : / mmHG Vent. Rate : 076 BPM Atrial Rate : 076 BPM P-R Int : 194 ms QRS Dur : 126 ms QT Int : 446 ms P-R-T Axes : 004 083 -15 degrees QTc Int : 501 ms Normal sinus rhythm Right bundle branch block Possible Inferior infarct , age undetermined Abnormal ECG When compared with ECG of 09-MAR-2022 12:31, Sinus rhythm has replaced Atrial fibrillation Vent. rate has decreased BY 91 BPM Right bundle branch block has replaced Incomplete right bundle branch block Borderline criteria for Inferior infarct are now Present Referred By: Michelle Diez Electronically Signed By:EDWARDO BRO
[2022-03-14] MEDS: Metoprolol Tartrate 25 MG TABLET PO ×3 (03:51→14:30)
[2022-03-14] MEDS: Piperacillin Sodium/Tazobactam 3.375 GM in 0.9 % Sodium Chloride 50 ML IV ×4 (04:18→20:21)
[2022-03-14] MEDS: Pantoprazole Sodium 40 MG/10 ML VIAL IVPUSH ×2 (06:48→16:27)
[2022-03-14 07:15] LABS: Albumin Level 2.9 g/dL (3.5-5.0); Anion Gap 16 (12-20); Bilirubin Direct 0.5 mg/dL (0.0-0.5); Bilirubin Total 1.1 mg/dL (0.0-1.0); Blood Urea Nitrogen 34 mg/dL (9-16); Calcium 7.9 mg/dL (8.4-10.2); Carbon Dioxide 30 mmol/L (22-29); Chloride 96 mmol/L (96-108); Creatinine Clr Calc Pharmacy 56.8; Estimated Glomerular Filt Rate 50; Glucose Random 123 mg/dL (60-115); Potassium 3.2 mmol/L (3.3-5.1); Sodium 139 mmol/L (135-145); Total Protein 5.3 g/dL (6.5-8.0)
[2022-03-14 07:33] LABS: Alanine Aminotransferase 167 U/L (0-40); Alkaline Phosphatase 85 U/L (39-117); Aspartate Amino Transferase 122 U/L (5-37)
[2022-03-14] MEDS: 0.9 % Sodium Chloride Flush 3 ML SYRINGE IVFLUSH ×3 (08:59→20:21)
[2022-03-14] MEDS: Clindamycin Phosphate/D5W 900 MG/50 ML PIGGYBACK 50 MG IV ×3 (08:59→20:26)
[2022-03-14] MEDS: Apixaban 5 MG TABLET PO ×2 (09:00→20:21)
[2022-03-14] MEDS: Furosemide 20 MG/2 ML VIAL 40 MG IVPUSH (09:00)
--- NOTE | 2022-03-14 09:06 | HO.PM.IMPN ---
Subjective Subjective Date of Service: 03/14/22 Interval History: Seen for follow up on atrial fibrillation and RLE cellulitis Pt reports feeling better. Volume status improving. Feels his swelling and redness in leg is improving. Still reporting dark stools. No sob, palpitations, lightheadedness, n/v, chest pain. Review of Systems General: No fevers, malaise, unintentional weight loss Cardiovascular: No chest pain, palpitations, or leg edema Respiratory: No shortness of breath, wheezing, cough GI: +dark stools. No abdominal pain, nausea, vomiting, diarrhea, constipation, hematochezia Neuro: No headaches, weakness, paresthesias Skin: +redness/swelling RLE. No rashes or lesions Physical Exam Vital Signs: Vital Signs: Last Vital Signs Temp 97.9 F 03/14/22 07:19 Pulse 75 03/14/22 07:19 Resp 20 03/14/22 07:19 BP 129/62 03/14/22 07:19 Pulse Ox 95 03/14/22 07:19 O2 Del Method 03/14/22 07:19 O2 Flow Rate 2 03/10/22 13:32 Oxygen Flow Rate 4 03/09/22 12:29 BMI result Body Mass Index 36.7 Constitutional - Awake and Alert, No apparent distress Eyes - PERRLA, EOMI Cardiovascular - S1S2, RRR, 3+ edema RLE, 2+LLE Respiratory - Normal lung expansion, Normal respiratory effort, No respiratory distress, CTA bilaterally Gastrointestinal - NT / ND; +BS; No rebound or guarding Extremities - no calf tenderness bilaterally, no swelling Skin - Warm/Dry. RLE- 3+ pitting edema with erythema and warmth. See photo Neurological - Alert & oriented x3, No focal deficit Psychological - Appropriate affect Objective Data Active Medications Acetaminophen (Acetaminophen 325 Mg Tablet) 650 mg PO Q6H PRN PRN Reason: fever and mild pain Apixaban (Apixaban 5 Mg Tablet) 5 mg PO BID [facility] Last Admin: 03/14/22 09:00 Dose: 5 mg Documented By: ELIJAH Furosemide (Furosemide 20 Mg/2 Ml Vial) 40 mg IVPUSH BID@0900,1800 [facility]; Protocol Last Admin: 03/14/22 09:00 Dose: 40 mg Documented By: ELIJAH Diltiazem HCl 125 mg/ Sodium (Chloride) 125 mls @ 0 mls/hr IVCONT .Q0M [facility]; Protocol Last Titration: 03/13/22 15:38 Dose: 0 mg/hr, 0 mls/hr Documented By: NANCIE Clindamycin Phosphate (Cleocin) 900 mg in 50 mls @ 50 mls/hr IV Q8H [facility] Last Admin: 03/14/22 08:59 Dose: 50 mls/hr Documented By: ELIJAH Piperacillin Sod/Tazobactam (Sod 3.375 gm/ Sodium Chloride) 50 mls @ 100 mls/hr IV Q6H [facility] Last Infusion: 03/14/22 05:15 Dose: 0 mls/hr Documented By: WEN Metoprolol Tartrate (Metoprolol Tartrate 25 Mg Tablet) 25 mg PO Q6H [facility]; Protocol Last Admin: 03/14/22 09:00 Dose: 25 mg Documented By: ELIJAH Ondansetron HCl (Ondansetron Hcl 4 Mg/2 Ml Vial) 4 mg IVPUSH Q8H PRN PRN Reason: Nausea and Vomiting Pantoprazole Sodium (Pantoprazole Sodium 40 Mg/10 Ml Vial) 40 mg IVPUSH BID@0630,1630 [facility] Last Admin: 03/14/22 06:48 Dose: 40 mg Documented By: WEN Pharmacy Consult (Consult Rx Perform Med Rec) 1 each MISCELLANE ONCE PRN PRN Reason: Consult order Sodium Chloride (0.9 % Sodium Chloride Flush 3 Ml Syringe) 3 ml IVFLUSH QSHIFT [facility] Last Admin: 03/14/22 08:59 Dose: 3 ml Documented By: ELIJAH Labs CBC & Chem 7: 03/11/22 09:25 03/14/22 06:26 Labs: Laboratory Results - last 24 hr 03/14/22 03/14/22 06:26 06:26 Anion Gap 16 Estim Creat Clear Calc 56.8 Estimated GFR 50 Random Glucose 123 H Calcium 7.9 L Total Bilirubin 1.1 H Direct Bilirubin 0.5 AST 122 H ALT 167 H Alkaline Phosphatase 85 Total Protein 5.3 L Albumin 2.9 L Assessment and Plan (1) Atrial fibrillation with rapid ventricular response: Status: Acute (2) Acute diastolic heart failure: Status: Acute (3) ALEXUS (acute kidney injury): Status: Acute (4) Severe sepsis: Status: Acute (5) Cellulitis of leg, right: Status: Acute (6) New onset atrial fibrillation: Status: Acute Plan 66-year-old male with history of hypertension, hyperlipidemia, chronic venous stasis dermatitis, erectile dysfunction, morbid obesity, and TANO on CPAP admitted for new onset atrial fibrillation with RVR and cellulitis RLE with severe sepsis. 1. New onset atrial fibrillation with rapid ventricular response- converted to NSR last night with rate control -Magnesium and TSH normal -Continue diltiazem drip and Eliquis. Pt reporting dark stool. See below. Continue eliquis -Metoprolol increased to 25 mg q.6 hours -Change lasix to PO per cards. Continue Lasix 40 mg b.i.d. -Cardiology following -Echocardiogram with EF of 70% and no evidence of regional wall motion abnormalities -EKG ordered showing NSR. -Resume cardiac diet 2-Acute diastolic HF- BLE edema improving -Volume status improving -Echocardiogram with EF of 70% and no evidence of regional wall motion abnormalities -Change lasix to PO 40mg BID per cards -Cardiology following 3-Severe sepsis secondary to cellulitis to right lower extremity. Sepsis resolved -Blood cultures negative -Continue abx per below 4-Acute cellulitis RLE- improving -WBC trending down. Follow cbc -History chronic venous stasis dermatitis. DVT studies negative -Likely staph or strep. Abx changed to clindamycin and zosyn. Continue -ID following- duration abx tbd 5-Hypokalemia secondary to diuretics -Replete with 40meq potassium PO -Repeat BMP am 6-ALEXUS. Resolved Secondary to infection Treated with IV fluids 7-Melena -Duodenitis noted on CT abd -GI feels there is puptic ulcer secondary to chronic NSAID use outpt. EGD not advised at this time -GI recommends conservative tx with oral PPI x 3 months, longer if he needs to be on NSAIDs -Continue eliquis per GI. Follow CBC -GI to continue following 8-Transaminitis. Chronic LFTs trending down 9-Hypertension stable blood pressure Continue metoprolol and diltiazem 10-Hyperlipidemia Continue statin 11-Obstructive sleep apnea Continue CPAP Morbid obesity BMI 55.7 Discussed importance of weight management as this may contribute to worsening of other comorbidities DVT prophylaxis with [employer] luis Attending Dr. Martinez Full code Pt requires ongoing inpt stay due to new onset a fib with rvr requiring diltiazem drip and ongoing cardiac monitoring. He also requiring IV abx for cellulitis RLE with severe sepsis Quality Stroke Does the patient have a stroke diagnosis?: No VTE Prior VTE?: No VTE Risk Level:: Medical - moderate - high VTE Device Contraindication: Treatment Not Indicated VTE Drug Contraindication: N/A - Med Ordered
[2022-03-14] MEDS: Spironolactone 25 MG TABLET PO (09:38)
--- NOTE | 2022-03-14 10:49 | PM.PNCARD ---
Subjective Subjective Date of Service: 03/14/22 Principal diagnosis: Afib, CHF, cellulitis Interval history: Reverted to sinus yesterday. Doing well. Physical Exam Vital Signs: Last Vital Signs Temp 97.9 F 03/14/22 07:19 Pulse 75 03/14/22 07:19 Resp 20 03/14/22 07:19 BP 129/62 03/14/22 07:19 Pulse Ox 95 03/14/22 07:19 O2 Del Method 03/14/22 07:19 O2 Flow Rate 2 03/10/22 13:32 Oxygen Flow Rate 4 03/09/22 12:29 BMI result Body Mass Index 36.7 GENERAL APPEARANCE: in no acute distress, pleasant. NECK: no carotid bruit, no jugular venous distention. SKIN: no suspicious lesions, warm and dry. HEART: no murmurs, regular rate and rhythm. LUNGS: clear to auscultation bilaterally. ABDOMEN: soft, nontender. EXTREMITIES: 2+ edema right more than left. Erythema right lower extremity. PERIPHERAL PULSES: equal. NEUROLOGIC: No gross deficits, AAO X 3 Objective Labs and Meds Result diagrams: 03/11/22 09:25 03/14/22 06:26 Lab results: Laboratory Results - last 24 hr 03/14/22 03/14/22 06:26 06:26 Sodium 139 Potassium 3.2 L Chloride 96 Carbon Dioxide 30 H Anion Gap 16 BUN 34 H D Creatinine 1.40 Estim Creat Clear Calc 56.8 Estimated GFR 50 Random Glucose 123 H Calcium 7.9 L Total Bilirubin 1.1 H Direct Bilirubin 0.5 AST 122 H ALT 167 H Alkaline Phosphatase 85 Total Protein 5.3 L Albumin 2.9 L Progress Note: A&P Assessment and plan (1) Acute diastolic heart failure: Status: Acute (2) Atrial fibrillation with rapid ventricular response: Status: Acute Plan 67-year-old gentleman with atrial fibrillation and acute diastolic heart failure. He is back in sinus rhythm. Cardizem drip is discontinued. Changing metoprolol to Toprol-XL 75 mg once a day. Continue Eliquis. Continue Lasix 40 mg p.o. b.i.d.. We will bring him in the office for follow-up. Signing off for now. Thank you for allowing me to participate in the care of your patient. Please feel free to contact me if you have any questions. Time Spent With Patient Time: Total time spent is greater than 50% in coordination of care (as documented) at patient's floor/unit and/or counseling patient: Progress Note: Quality Stroke Does the patient have a stroke diagnosis?: No Procedures Date of Service Date of Service: 03/14/22
[2022-03-14] MEDS: Potassium Chloride Packet 20 MEQ PACKET 40 MEQ PO (14:30)
[2022-03-14] MEDS: Metoprolol Succinate ER 25 MG TAB.ER.24H 75 MG PO (16:40)
[2022-03-14] MEDS: Furosemide 40 MG TABLET PO (18:02)
[2022-03-15 03:41] VITALS: BP 122/69; PULSE 72; RESP 18; TEMP 36.8; O2SAT 97
[2022-03-15] MEDS: Piperacillin Sodium/Tazobactam 3.375 GM in 0.9 % Sodium Chloride 50 ML IV ×4 (04:11→22:31)
[2022-03-15 06:00] VITALS: BMI 40.5
[2022-03-15 06:47] LABS: Hematocrit 36.4 % (42.0-52.0); Hemoglobin 12.2 g/dl (14.0-18.0); Mean Corpuscular HGB Conc 33.5 g/dl (31.0-36.0); Mean Corpuscular Hemoglobin 28.6 pg (27.0-33.0); Mean Corpuscular Volume 85.2 fL (80.0-98.0); Mean Platelet Volume 10.1 fL (9.4-12.4); Platelet Count 343 X10*3/uL (160-400); Red Blood Count 4.27 X10*6/uL (4.60-5.80); Red Cell Distribution Width 13.9 % (11.0-16.0); White Blood Count 13.1 X10*3/uL (4.8-10.8)
[2022-03-15 07:12] LABS: Anion Gap 16 (12-20); Blood Urea Nitrogen 30 mg/dL (9-16); Calcium 7.9 mg/dL (8.4-10.2); Carbon Dioxide 29 mmol/L (22-29); Chloride 95 mmol/L (96-108); Creatinine Clr Calc Pharmacy 53.7; Estimated Glomerular Filt Rate 44; Glucose Random 198 mg/dL (60-115); Potassium 3.2 mmol/L (3.3-5.1); Sodium 137 mmol/L (135-145)
[2022-03-15 07:55] VITALS: BP 130/66; PULSE 77; RESP 18; TEMP 36.1; O2SAT 98
[2022-03-15 08:02] LABS: Band Neutrophils Percent 5 % (3-5); Eosinophils Absolute Manual 0.5 X10*3/uL (0.0-0.4); Eosinophils Percent Manual 4 % (0-4); Lymphocytes Absolute Manual 1.6 X10*3/uL (1.2-4.9); Lymphocytes Percent Manual 12 % (20-40); Metamyelocytes Absolute 0.3 X10*3/uL; Metamyelocytes Percent 2 %; Monocytes Absolute Manual 0.8 X10*3/uL (0.1-1.2); Monocytes Percent Manual 6 % (2-11); Neutrophils Percent Manual 71 % (45-73)
[2022-03-15 08:03] LABS: Platelet Estimate NORMAL (NORMAL); Platelet Morphology Comment NORMAL; RBC Morphology NORMAL
[2022-03-15] MEDS: Clindamycin Phosphate/D5W 900 MG/50 ML PIGGYBACK 50 MG IV ×3 (08:23→23:04)
[2022-03-15] MEDS: Apixaban 5 MG TABLET PO ×2 (08:23→21:02)
[2022-03-15] MEDS: Metoprolol Succinate ER 25 MG TAB.ER.24H 75 MG PO (08:23)
[2022-03-15] MEDS: Furosemide 40 MG TABLET PO (08:23)
[2022-03-15] MEDS: Spironolactone 25 MG TABLET PO (08:23)
[2022-03-15] MEDS: 0.9 % Sodium Chloride Flush 3 ML SYRINGE IVFLUSH ×2 (08:24→21:02)
[2022-03-15] MEDS: Omeprazole 40 MG CAPSULE.DR PO (11:01)
--- NOTE | 2022-03-15 11:29 | MHC.CM.PN ---
Per ROUNDS discussion, Patient is not yet medically cleared for dc today, will have PT eval to assist with disposition. CM will follow.
[2022-03-15] MEDS: Potassium Chloride Packet 20 MEQ PACKET 60 MEQ PO (11:39)
[2022-03-15 12:00] VITALS: BP 136/67; PULSE 77; RESP 20; TEMP 36.8; O2SAT 96
--- NOTE | 2022-03-15 12:07 | P.PNCA_ITS ---
Subjective Subjective Date of Service: 03/15/22 Principal diagnosis: Afib, CHF, cellulitis Interval history: Seen and examined at bedside. His creatinine worsened today. His white cell counts are improving and he is overall doing well. He started ambulating and has no dyspnea with ambulation. Physical Exam Vital Signs: Last Vital Signs Temp 96.9 F 03/15/22 07:55 Pulse 77 03/15/22 07:55 Resp 18 03/15/22 07:55 BP 130/66 03/15/22 07:55 Pulse Ox 98 03/15/22 07:55 O2 Del Method 03/15/22 07:55 O2 Flow Rate 2 03/15/22 03:41 Oxygen Flow Rate 4 03/09/22 12:29 BMI result Body Mass Index 40.5 GENERAL APPEARANCE: in no acute distress, pleasant. NECK: no carotid bruit, no jugular venous distention. SKIN: no suspicious lesions, warm and dry. HEART: no murmurs, regular rate and rhythm. LUNGS: clear to auscultation bilaterally. ABDOMEN: soft, nontender. EXTREMITIES: 2+ edema right lower extremity. Erythema right lower extremity- improving. PERIPHERAL PULSES: equal. NEUROLOGIC: No gross deficits, AAO X 3 Objective Labs and Meds Result diagrams: 03/15/22 05:54 03/15/22 05:54 Lab results: Laboratory Results - last 24 hr 03/15/22 03/15/22 05:54 05:54 WBC 13.1 H RBC 4.27 L Hgb 12.2 L Hct 36.4 L MCV 85.2 MCH 28.6 MCHC 33.5 RDW 13.9 Plt Count 343 D MPV 10.1 Immature Gran % (Auto) Cancelled Neut % (Auto) Cancelled Lymph % (Auto) Cancelled [place] % (Auto) Cancelled Eos % (Auto) Cancelled Baso % (Auto) Cancelled Lymph # (Auto) Cancelled [place] # (Auto) Cancelled Eos # (Auto) Cancelled Baso # (Auto) Cancelled Abs Immat Gran (auto) Cancelled Absolute Neuts (auto) Cancelled Absolute Nucleated RBC 0.000 Nucleated RBC % (auto) 0.0 Neutrophils % (Manual) 71 Band Neutrophils % 5 Lymphocytes % (Manual) 12 L Monocytes % (Manual) 6 Eosinophils % (Manual) 4 Metamyelocytes % 2 Abs Neuts (Manual) 10.0 H Lymphocytes # (Manual) 1.6 Monocytes # (Manual) 0.8 Eosinophils # (Manual) 0.5 H Metamyelocytes # 0.3 Platelet Estimate NORMAL Plt Morphology Comment NORMAL RBC Morphology NORMAL Sodium 137 Potassium 3.2 L Chloride 95 L Carbon Dioxide 29 Anion Gap 16 BUN 30 H Creatinine 1.56 H Estim Creat Clear Calc 53.7 Estimated GFR 44 Random Glucose 198 H D Calcium 7.9 L Magnesium 2.0 Progress Note: A&P Assessment and plan (1) Acute diastolic heart failure: Status: Acute (2) Atrial fibrillation with rapid ventricular response: Status: Acute Plan Pleasant 67 year gentleman with paroxysmal atrial fibrillation and acute diastolic heart failure. AFib was the likely cause for heart failure. He has reverted back to sinus rhythm. Doing well currently. Creatinine worsened today with to 1.56. Her diuretics. Recheck creatinine tomorrow and if trending down worse can be discharged home. Would give him 2 days of Lasix vacation and then started 40 mg once a day. Should be anticoagulation. Monitor potassium closely. Thank you for allowing me to participate in the care of your patient. Please feel free to contact me if you have any questions. Time Spent With Patient Time: Total time spent is greater than 50% in coordination of care (as documented) at patient's floor/unit and/or counseling patient: Progress Note: Quality Stroke Does the patient have a stroke diagnosis?: No Procedures Date of Service Date of Service: 03/15/22
[2022-03-15 13:03] VITALS: BP 136/67; PULSE 77; O2SAT 96
--- NOTE | 2022-03-15 14:37 | HO.PM.IMPN ---
Subjective Subjective Date of Service: 03/15/22 Interval History: seen and examined this morning follow up for afib, cellulitis reports improvement in leg pain, swelling, redness. Denies fever, chills No chest pain, shortness of breath. no rectal bleeding wishes to go home Review of Systems Review of Systems: Yes all other systems are reviewed and are negative Constitutional Constitutional: Denies chills and Denies fever(s) ENT Ears, Nose, Mouth, and Throat: Denies dizziness Cardiovascular Cardiovascular: Denies chest pain, Denies palpitations and Denies dyspnea Respiratory Respiratory: Denies cough and Denies dyspnea Gastrointestinal Gastrointestinal: Denies abdominal pain, Denies nausea and Denies vomiting Neurologic Neurologic: Denies dizziness Endocrine Endocrine: Denies palpitations Physical Exam Vital Signs: Vital Signs: Last Vital Signs Temp 98.2 F 03/15/22 12:00 Pulse 77 03/15/22 13:03 Resp 20 03/15/22 12:00 BP 136/67 03/15/22 13:03 Pulse Ox 96 03/15/22 13:03 O2 Del Method 03/15/22 12:00 O2 Flow Rate 2 03/15/22 03:41 Oxygen Flow Rate 4 03/09/22 12:29 BMI result Body Mass Index 40.5 Const: General: cooperative, comfortable, no acute distress, alert and awake Nutritional Appearance: obese Orientation/consciousness: patient oriented x3 Resp: Effort & Inspection: normal respiratory effort and able to speak in complete sentences Auscultation: diminished lung sounds Cardio: Rate: regular rate Heart sounds: S1 normal heart sound present and S2 normal heart sound present GI: Inspection: No distended Palpation (GI): Soft to palpation and nontender Skin: Other: RLE with erythema, warmth minimal tenderness from ankle to knee no fluctuance or induration, no purulent drainage Neuro: General: patient oriented x3 and CN's II-XI intact bilaterally Extrem: Other: trace b/l leg edema Objective Data Active Medications Acetaminophen (Acetaminophen 325 Mg Tablet) 650 mg PO Q6H PRN PRN Reason: fever and mild pain Apixaban (Apixaban 5 Mg Tablet) 5 mg PO BID [facility] Last Admin: 03/15/22 08:23 Dose: 5 mg Documented By: EUFEMIA Clindamycin Phosphate (Cleocin) 900 mg in 50 mls @ 50 mls/hr IV Q8H [facility] Last Infusion: 03/15/22 10:53 Dose: 0 mls/hr Documented By: NANCIE Piperacillin Sod/Tazobactam (Sod 3.375 gm/ Sodium Chloride) 50 mls @ 100 mls/hr IV Q6H [facility] Last Infusion: 03/15/22 11:34 Dose: 100 mls/hr Documented By: NANCIE Metoprolol Succinate (Metoprolol Succinate Er 25 Mg Tab.Er.24h) 75 mg PO DAILY [facility]; Protocol Last Admin: 03/15/22 08:23 Dose: 75 mg Documented By: EUFEMIA Omeprazole (Omeprazole 40 Mg Capsule.Dr) 40 mg PO DAILY@0630 [facility] Last Admin: 03/15/22 11:01 Dose: 40 mg Documented By: EUFEMIA Ondansetron HCl (Ondansetron Hcl 4 Mg/2 Ml Vial) 4 mg IVPUSH Q8H PRN PRN Reason: Nausea and Vomiting Pharmacy Consult (Consult Rx Perform Med Rec) 1 each MISCELLANE ONCE PRN PRN Reason: Consult order Sodium Chloride (0.9 % Sodium Chloride Flush 3 Ml Syringe) 3 ml IVFLUSH QSHIFT [facility] Last Admin: 03/15/22 08:24 Dose: 3 ml Documented By: EUFEMIA Spironolactone (Spironolactone 25 Mg Tablet) 25 mg PO DAILY [facility]; Protocol Last Admin: 03/15/22 08:23 Dose: 25 mg Documented By: EUFEMIA Labs CBC & Chem 7: 03/15/22 05:54 03/15/22 05:54 Labs: Laboratory Results - last 24 hr 03/15/22 03/15/22 05:54 05:54 MCV 85.2 MCH 28.6 MCHC 33.5 RDW 13.9 Plt Count 343 D MPV 10.1 Immature Gran % (Auto) Cancelled Neut % (Auto) Cancelled Lymph % (Auto) Cancelled [place] % (Auto) Cancelled Eos % (Auto) Cancelled Baso % (Auto) Cancelled Lymph # (Auto) Cancelled [place] # (Auto) Cancelled Eos # (Auto) Cancelled Baso # (Auto) Cancelled Abs Immat Gran (auto) Cancelled Absolute Neuts (auto) Cancelled Absolute Nucleated RBC 0.000 Nucleated RBC % (auto) 0.0 Neutrophils % (Manual) 71 Band Neutrophils % 5 Lymphocytes % (Manual) 12 L Monocytes % (Manual) 6 Eosinophils % (Manual) 4 Metamyelocytes % 2 Abs Neuts (Manual) 10.0 H Lymphocytes # (Manual) 1.6 Monocytes # (Manual) 0.8 Eosinophils # (Manual) 0.5 H Metamyelocytes # 0.3 Platelet Estimate NORMAL Plt Morphology Comment NORMAL RBC Morphology NORMAL Anion Gap 16 Estim Creat Clear Calc 53.7 Estimated GFR 44 Random Glucose 198 H D Calcium 7.9 L Magnesium 2.0 Microbiology Microbiology Results: Microbiology 03/09/22 12:57 Blood Culture - Final Blood - Venous No growth after 5 days. 03/09/22 12:44 Blood Culture - Final Blood - Venous No growth after 5 days. Assessment and Plan (1) Acute diastolic heart failure: Status: Acute (2) Atrial fibrillation with rapid ventricular response: Status: Acute (3) ALEXUS (acute kidney injury): Status: Acute (4) Severe sepsis: Status: Acute (5) Cellulitis of leg, right: Status: Acute Plan 66-year-old male with history of hypertension, hyperlipidemia, chronic venous stasis dermatitis, erectile dysfunction, morbid obesity, and TANO on CPAP admitted for new onset atrial fibrillation with RVR and cellulitis RLE with severe sepsis. New onset atrial fibrillation with rapid ventricular response- converted to NSR Magnesium and TSH normal initially treated with Cardizem drip, now on Toprol XL 75 mg daily (was on coreg at baseline) Echocardiogram with EF of 70% and no evidence of regional wall motion abnormalities -Continue AC with Eliquis Acute HRpEF - BLE edema improving Echocardiogram with EF of 70% and no evidence of regional wall motion abnormalities changed to lasix bid, creatinine trending up today. Will hold Lasix. likely decrease to daily Lasix tomorrow Continue spironolactone Cardiology following Severe sepsis secondary to right lower extremity cellulitis. Sepsis resolved Blood cultures negative WBC trending down DVT study negative Seen by ID - continue IV clindamycin, Zosyn- plan to discharge with augmentin for 7 more days Hypokalemia secondary to diuretics -Replace and follow BMP ALEXUS. creatinine back up to 1.56 hold lasix, resume at lower dose tomorrow s/p IVF Melena Duodenitis noted on CT abd GI feels there is peptic ulcer secondary to chronic NSAID use outpt. EGD not advised at this time -GI recommends conservative tx with oral PPI x 3 months, longer if he needs to be on NSAIDs -Continue eliquis per GI -GI to continue following -CBC stable Transaminitis. Chronic trending up follow in am Hypertension. stable blood pressure Continue metoprolol Hyperlipidemia d/c statin for transaminitis Obstructive sleep apnea Continue CPAP Morbid obesity BMI 55.7 Discussed importance of weight management as this may contribute to worsening of other comorbidities DVT prophylaxis with [place] Attending Dr. Martinez Full code Pt requires ongoing inpt stay due to new onset a fib with rvr requiring cardiac monitoring. He also requiring IV abx for cellulitis RLE with severe sepsis Quality Stroke Does the patient have a stroke diagnosis?: No VTE Prior VTE?: No VTE Risk Level:: Medical - moderate - high VTE Device Contraindication: Treatment Not Indicated VTE Drug Contraindication: N/A - Med Ordered
[2022-03-15 15:14] VITALS: BP 138/65; PULSE 83; RESP 18; O2SAT 98
[2022-03-15 19:50] VITALS: BP 129/61; PULSE 79; RESP 18; TEMP 36.9; O2SAT 97
[2022-03-16] VITALS: BP 152/74; PULSE 79; RESP 20; TEMP 35.9; O2SAT 98
[2022-03-16 04:00] VITALS: BP 129/59; PULSE 69; RESP 20; TEMP 37.1; O2SAT 98
[2022-03-16] MEDS: Piperacillin Sodium/Tazobactam 3.375 GM in 0.9 % Sodium Chloride 50 ML IV ×2 (04:53→10:44)
[2022-03-16 05:34] VITALS: BMI 38.2
[2022-03-16] MEDS: Omeprazole 40 MG CAPSULE.DR PO (05:36)
[2022-03-16 07:06] VITALS: BP 137/66; PULSE 73; RESP 19; TEMP 36.4; O2SAT 97
[2022-03-16 07:36] LABS: Alanine Aminotransferase 141 U/L (0-40); Albumin Level 2.8 g/dL (3.5-5.0); Alkaline Phosphatase 76 U/L (39-117); Aspartate Amino Transferase 60 U/L (5-37); Bilirubin Direct 0.5 mg/dL (0.0-0.5); Total Protein 5.8 g/dL (6.5-8.0)
[2022-03-16 08:24] LABS: Hematocrit 36.8 % (42.0-52.0); Hemoglobin 12.2 g/dl (14.0-18.0); Mean Corpuscular HGB Conc 33.2 g/dl (31.0-36.0); Mean Corpuscular Hemoglobin 28.3 pg (27.0-33.0); Mean Corpuscular Volume 85.4 fL (80.0-98.0); Platelet Count 362 X10*3/uL (160-400); Red Blood Count 4.31 X10*6/uL (4.60-5.80); White Blood Count 13.1 X10*3/uL (4.8-10.8)
[2022-03-16 08:30] LABS: Anion Gap 20 (12-20); Blood Urea Nitrogen 23 mg/dL (9-16); Calcium 8.1 mg/dL (8.4-10.2); Carbon Dioxide 27 mmol/L (22-29); Chloride 97 mmol/L (96-108); Creatinine Clr Calc Pharmacy 59.7; Estimated Glomerular Filt Rate 52; Glucose Random 115 mg/dL (60-115); Potassium 3.7 mmol/L (3.3-5.1); Sodium 140 mmol/L (135-145)
[2022-03-16] MEDS: Metoprolol Succinate ER 25 MG TAB.ER.24H 75 MG PO (09:12)
[2022-03-16] MEDS: Spironolactone 25 MG TABLET PO (09:12)
[2022-03-16] MEDS: Apixaban 5 MG TABLET PO (09:12)
[2022-03-16] MEDS: Clindamycin Phosphate/D5W 900 MG/50 ML PIGGYBACK 50 MG IV (09:12)
[2022-03-16] MEDS: 0.9 % Sodium Chloride Flush 3 ML SYRINGE IVFLUSH (09:13)
--- NOTE | 2022-03-16 10:46 | P.DS_ITS ---
DS: Providers Provider Date of Service: 03/16/22 Date of admission: 03/09/22 15:35 Primary care physician: Wilian Wood MD Consults: 03/09/22 15:45 Consult to Cardiology Routine Consulting Provider: Jass Posada Reason for consultation: new onset afib Has provider been notified: No 03/11/22 15:25 Consult to Infectious Diseases Routine Consulting Provider: Carmen Rubin Reason for consultation: LE cellulitis Has provider been notified: No 03/11/22 18:33 Consult to Gastroenterology Routine Consulting Provider: Wilfredo Rocha Reason for consultation: duodenitis Has provider been notified: No Attending physician on discharge: [facility] Discharging clinician: Edelmira Santos DS: Diagnosis Discharge Diagnosis (1) Atrial fibrillation with rapid ventricular response: Status: Acute (2) Acute diastolic heart failure: Status: Acute (3) ALEXUS (acute kidney injury): Status: Acute (4) Severe sepsis: Status: Acute (5) Cellulitis of leg, right: Status: Acute DS: Summary Hospital Course Hospital Course: From H&P on day of admission 66-year-old male with history of hypertension, hyperlipidemia, chronic venous stasis dermatitis, erectile dysfunction, morbid obesity, and TANO on CPAP presented to the ER earlier today for evaluation of increased redness and swelling of the right lower leg as well as dyspnea on exertion that has been ongoing for about 2 days.? He is also reporting fevers up to 102. On arrrival patient was afebrile. However, HR 170 and tachypneic to 26. EKG showed new atrial fibrillation with RVR, rate [address]/T wave abnorm ality, consider inferior ischemia. Trop-I 13.5. BNP 54. WBC 24.8. Lactic acid 1.7. Creat elevated from baseline at 1.44, BUN 24. Na 132. Glucose 173. A1c 5.6%. Total bilirubin 1.6, direct bili 0.8, AST 62, ALT 61. U/s abd showed hepatic steatosis, no cholecytitis. CXR negative for acute pulmonary disease. Found to have cellulitis of the RLE and started on zosyn. Started on 2l O2 via NC. In the ED patient received diltiazem 25mg push without improvement in HR. Started on cardiazem drip without improvement in rate. Digoxin iniated. Pt to be admitted for new onset AFib and cellulitis with severe sepsis. Denies palpitations, lightheadedenss, or palpitations. Hospital course by problem: New onset atrial fibrillation with rapid ventricular response. initially was started on Cardizem drip and see by cardiology and planned for cardioversion however he converted back into normal sinus rhythm. His Coreg was discontinued and he was started on metoprolol which was titrated to Toprol XL 75 mg daily. he was started on anticoagulation with Eliquis. He has remained in sinus rhythm for the past 48 hours. Acute HRpEF. Likely secondary to rapid AFib. Echocardiogram with EF of 70% and no evidence of regional wall motion abnormalities. Was initially treated with IV lasix which was eventually converted to po lasix bid. Started on spironolactone during this admission and will be discharged with 40 mg po lasix. recommend low salt diet. was seen by Cardiology during hospitalization should follow with home worker after discharge. Severe sepsis secondary to right lower extremity cellulitis.? Sepsis resolved Blood cultures remained negative. WBC has trended down, he has remained afebrile. DVT study was negative. He was seen in consultation by ID and treated with IV clindamycin, Zosyn. Although he still has erythema, this , swelling and tenderness has improved. plan to discharge with augmentin for 7 more days. Should with follow-up with PCP to ensure resolution of infection. Hypokalemia secondary to diuretics. Potassium was replaced and levels have improved. Potassium is 3.7 on the day of discharge. Recommend repeat labs next week. ? ALEXUS. Initial creatinine 1.44 likely related to sepsis. Was treated with IVF and renal function improved. After transitioning to po lasix 40 bid, creatinine went back up to 1.56. Lasix was placed on hold and will be resumed tomorrow at 40 mg once daily. BMP should be repeated next week. Duodenitis Patient reported abdominal pain And a noncontrast CT of the abdomen pelvis was obtained showing evidence of Duodenitis. he was seen in consultation by GI who felt this was likely peptic ulcer secondary to chronic NSAID use. No GI bleeding noted and no indication for inpatient EGD. No indication to discontinue anticoagulation. Recommended oral PPI times 12 weeks at least. Should follow up outpatient with GI. CBC has remained stable, no evidence of bleeding. Transaminitis.? Appears chronic to a degree, likely secondary to fatt liver disease compounded by heart failure and sepsis. Atorvastatin was placed on hold during hospitalization. should repeat liver panel next week and can resume statin if LFTs continued to trend down Patient was evaluated by Physical therapy who recommended home with physical therapy and a front wheeled walker. Time Spent with Patient Time attestation: Total time spent providing and/or coordinating discharge services: Discharge coordination time: Greater than 30 minutes Quality: Safe Use of Opioids Does Pt have an Active Cancer Diagnosis on the Problem List?: No Quality: Stroke Does the patient have a stroke diagnosis?: No Physical Exam Vital Signs: Vital Signs: Last Vital Signs Temp 97.5 F 03/16/22 07:06 Pulse 73 03/16/22 07:06 Resp 19 03/16/22 07:06 BP 137/66 03/16/22 07:06 Pulse Ox 97 03/16/22 07:06 O2 Del Method 03/16/22 07:06 O2 Flow Rate 2 03/15/22 03:41 Oxygen Flow Rate 4 03/09/22 12:29 BMI result Body Mass Index 38.2 Const: General: cooperative, comfortable, no acute distress, alert and awake Orientation/consciousness: patient oriented x3 Resp: Effort & Inspection: normal respiratory effort and able to speak in complete sentences Cardio: Rate: regular rate Heart sounds: S1 normal heart sound present and S2 normal heart sound present GI: Inspection: No distended Palpation (GI): Soft to palpation and nontender Skin: Other: RLE with erythema, warmth minimal tenderness from ankle to knee no fluctuance or induration, no purulent drainage Neuro: General: patient oriented x3 and CN's II-XI intact bilaterally Extrem: Other: trace b/l leg edema DS: Data Data Completed and Pending Labs on day of discharge: Laboratory Results - last 24 hr 03/16/22 03/16/22 05:56 05:56 WBC 13.1 H RBC 4.31 L Hgb 12.2 L Hct 36.8 L MCV 85.4 MCH 28.3 MCHC 33.2 RDW 14.0 Plt Count 362 MPV 10.0 Absolute Nucleated RBC 0.000 Nucleated RBC % (auto) 0.0 Sodium 140 Potassium 3.7 Chloride 97 Carbon Dioxide 27 Anion Gap 20 BUN 23 H Creatinine 1.36 Estim Creat Clear Calc 59.7 Estimated GFR 52 Random Glucose 115 D Calcium 8.1 L Total Bilirubin 1.0 Direct Bilirubin 0.5 AST 60 H ALT 141 H Alkaline Phosphatase 76 Total Protein 5.8 L Albumin 2.8 L Discharge Plan Discharge Anticipated Discharge Date/Time: 03/16/22 11:00 Patient Disposition: Home Health Service Discharge Diagnosis: New afib CHF cellulitis ALEXUS Referrals: marisel [Other] - 1 Week Wilian Wood MD [Primary Care Provider] - 1 Week Jass Posada MD [Physician] - 1 Week Wilfredo Rocha [Physician] - 1 Month Discharge Medications: New Eliquis 5 mg Tablet 5 mg PO BID 30 Days Qty: 60 0RF metoprolol succinate 25 mg Tablet Extended Release 24 Hr 75 mg PO DAILY 30 Days Qty: 90 0RF Protocol: Hold for SBP/HR < HOLD for SBP < : 90 HOLD for HR < : 60 spironolactone 25 mg Tablet 25 mg PO DAILY 30 Days Qty: 30 0RF Protocol: Hold for SBP< HOLD for SBP < : 90 omeprazole 40 mg Capsule,Delayed Release(Dr/Ec) 40 mg PO DAILY@0630 30 Days Qty: 30 0RF furosemide [Lasix] 40 mg tablet 40 mg PO DAILY 30 Days Qty: 30 0RF amoxicillin-pot clavulanate 875-125 mg tablet 1 tab PO BID 7 Days Qty: 14 0RF (DME) Ultra-Light Rollator Misc See Rx Instructions .Route Qty: 1 0RF Rx Instructions: As directed Continued multivitamin,tx-minerals Tablet 1 tab PO DAILY cholecalciferol (vitamin D3) [Vitamin D3] 50 mcg (2,000 unit) Capsule 50 mcg PO DAILY epinephrine 0.3 mg/0.3 mL auto-injector 0.3 ml IM DAILY PRN (Reason: Allergic Reaction) sildenafil 50 mg tablet 50 mg PO DAILY PRN (Reason: sexual dysfunction) Held atorvastatin 10 mg tablet 10 mg PO DAILY Hold Instructions: hold until repeat LFTS next week Discontinued carvedilol 3.125 mg tablet 3.125 mg PO BID Discharge Orders: Discharge Order (Routine); Ordered 03/16/22 Ordered By: Edelmira Santos Diet: Low salt diet Activity on Discharge: As tolerated Stand Alone Forms: Patient Portal Discharge page Other Ambulatory Orders: Basic Metabolic Panel (Routine) Timeframe: [id number] Facility: [facility] - Location: Laboratory Ordered By: Edelmira Santos Liver Panel (Routine) Timeframe: [id number] Facility: [facility] - Location: Laboratory Ordered By: Edelmira Santos Care Plan Goals: see below Health Concerns: Atrial fibrillation diastolic heart failure acute kidney injury right leg cellulitis low potassium levels duodenitis Plan of Treatment: For atrial fibrillation take Toprol Xl to control heart rate (stop taking carvedilol) and the blood thinner Eliquis to decrease risk of stroke as prescribed. Monitor for signs of bleeding For duodenitis, start taking omeprazole, recommended for at least 12 weeks. Will likely need to schedule follow up with GI Do not take NSAIDs (medications like ibuprofen, aspirin, naproxyn etc) start taking spironolactone start taking Lasix, beginning tomorrow For cellulitis, Complete entire course of antibiotics Don't take atorvastatin until liver function tests are repeated next week and liver function numbers are trending down call to schedule follow-up appointment with PCP call to schedule follow-up appointment with Cardiology Physical therapy has recommended home PT services and Front wheeled walker Repeat labs as ordered Assessment: see discharge summary Discharge Date/Time: 03/16/22 13:49
[2022-03-16 11:02] VITALS: BP 142/71; PULSE 80; RESP 18; TEMP 36.7; O2SAT 97
--- NOTE | 2022-03-16 11:42 | P.F2F_ITS ---
Service Date Service Date: 03/16/22 Encounter Date of encounter: 03/16/22 Reasons for Services Signs and symptoms assessed: unsteady gait Reason for physical therapy: home safety and mobility and gait/transfer training MD Overseeing Care: Wilian Wood Homebound: Leaving the home is medically contraindicated at this time without the asist of a device and/or another person due th the listed conditions above and below. Reason homebound: unsteady gait / fall risk Certification: Based on the above findings, I certify that this patient is confined to the home and needs intermittent senior living care, physical therapy and/or speech therapy, or continues to need occupational therapy. The patient is under my care, and I have initiated the establishment of the plan of care. The patient will be followed by a physician who will periodically review the plan of care.
--- NOTE | 2022-03-16 12:14 | MHC.CM.PN ---
pt dcd home with marisel for sn and physical therapy
== END 2022-03-16 13:49 | disposition home health service (06) | DRG 871 ==
LOC: HO.ED 15:32 → HO.EDOVER 15:52 → HO.S3 03-11 07:18 → HO.IMC 03-11 07:19
PROVIDERS: Nurse Practitioner Acute Care; Student in an Organized Health Care Education/Training Program; Admitting Provider Physician Assistant; Emergency Provider Emergency Medicine; PCP Internal Medicine; Visit Provider Physician Assistant Medical
DX: A41.9 Sepsis, unspecified organism (principal); I50.31 Acute diastolic (congestive) heart failure; K29.81 Duodenitis with bleeding; L03.115 Cellulitis of right lower limb; Z68.43 Body mass index [BMI] 50.0-59.9, adult; I48.91 Unspecified atrial fibrillation; R65.20 Severe sepsis without septic shock; K76.0 Fatty (change of) liver, not elsewhere classified; E78.5 Hyperlipidemia, unspecified; I11.0 Hypertensive heart disease with heart failure; E87.6 Hypokalemia; I87.321 Chronic venous hypertension (idiopathic) with inflammation of right lower extremity; E66.01 Morbid (severe) obesity due to excess calories; G47.33 Obstructive sleep apnea (adult) (pediatric); Z20.822 Contact with and (suspected) exposure to COVID-19; Z98.84 Bariatric surgery status; Z88.8 Allergy status to other drugs, medicaments and biological substances; Z79.01 Long term (current) use of anticoagulants; Z79.899 Other long term (current) drug therapy
CPT/HCPCS: 0241U; 36415; 71045; 74176; 76705; 80048; 80053; 80076; 80162; 81001; 83036; 83605; 83690; 83735; 83880; 84443; 84484; 85007; 85025; 85027; 87040; 93005; 93306; 93971; 94660; 96361; 96374; 96375; 97162; 99285; J0690; J1160; J1940; J2405; J2543; J3475; Q9957

== ENCOUNTER 2022-03-20 14:45 | Outpatient (REF) | payer MEDICARE, SELFPAY ==
[2022-03-20 15:00] LABS: MANUAL DIFF FLAG NO
[2022-03-20 15:14] LABS: Basophils Absolute Auto 0.1 X10*3/uL (0.0-0.2); Basophils Percent Auto 0.5 % (0-2); Eosinophils Absolute Auto 0.2 X10*3/uL (0.0-0.4); Eosinophils Percent Auto 1.8 % (0-4); Hemoglobin 12.3 g/dl (14.0-18.0); Imm Gran Abs Auto 0.09 X10*3/uL (0.00-0.03); Imm Gran Pct Auto 0.7 % (0.0-0.4); Lymphocytes Absolute Auto 2.6 X10*3/uL (1.2-4.9); Lymphocytes Percent Auto 19.6 % (20-40); Mean Corpuscular HGB Conc 33.2 g/dl (31.0-36.0); Mean Corpuscular Hemoglobin 28.2 pg (27.0-33.0); Mean Corpuscular Volume 84.9 fL (80.0-98.0); Mean Platelet Volume 9.2 fL (9.4-12.4); Monocytes Absolute Auto 1.5 X10*3/uL (0.1-1.2); Monocytes Percent Auto 11.2 % (2-11); Neutrophils Absolute Auto 8.8 x10*3/uL (2.0-8.3); Neutrophils Percent Auto 66.2 % (45-73); Platelet Count 445 X10*3/uL (160-400); Red Blood Count 4.36 X10*6/uL (4.60-5.80); Red Cell Distribution Width 13.7 % (11.0-16.0); White Blood Count 13.3 X10*3/uL (4.8-10.8)
[2022-03-20 15:37] LABS: Alanine Aminotransferase 128 U/L (0-40); Alanine Aminotransferase 129 U/L (0-40); Albumin Level 3.4 g/dL (3.5-5.0); Alkaline Phosphatase 74 U/L (39-117); Alkaline Phosphatase 75 U/L (39-117); Anion Gap 15 (12-20); Anion Gap 16 (12-20); Aspartate Amino Transferase 55 U/L (5-37); Aspartate Amino Transferase 57 U/L (5-37); Bilirubin Direct 0.3 mg/dL (0.0-0.5); Bilirubin Total 0.9 mg/dL (0.0-1.0); Blood Urea Nitrogen 14 mg/dL (9-16); Blood Urea Nitrogen 17 mg/dL (9-16); Calcium 8.4 mg/dL (8.4-10.2); Calcium 8.5 mg/dL (8.4-10.2); Carbon Dioxide 27 mmol/L (22-29); Chloride 100 mmol/L (96-108); Chloride 101 mmol/L (96-108); Estimated Glomerular Filt Rate 59; Estimated Glomerular Filt Rate 60; Glucose Random 100 mg/dL (60-115); Glucose Random 98 mg/dL (60-115); Sodium 139 mmol/L (135-145); Total Protein 7.8 g/dL (6.5-8.0)
== END 2022-03-20 14:46 | disposition home or self-care (01) ==
LOC: HO.LAB 14:45
PROVIDERS: Absent Provider Internal Medicine; PCP Internal Medicine; Referring Provider Internal Medicine; Visit Provider Physician Assistant Medical
DX: I11.0 Hypertensive heart disease with heart failure (principal); I50.31 Acute diastolic (congestive) heart failure; R74.01 Elevation of levels of liver transaminase levels; L03.115 Cellulitis of right lower limb; R60.0 Localized edema
CPT/HCPCS: 36415; 80048; 80053; 80076; 83735; 85025

== ENCOUNTER → 2022-03-21 12:32 | Outpatient (BNVA) | payer MEDICARE, SELFPAY | PROVIDERS: PCP Internal Medicine; Referring Provider Internal Medicine; Visit Provider Internal Medicine | DX: I48.0 Paroxysmal atrial fibrillation (principal); I50.32 Chronic diastolic (congestive) heart failure; G47.33 Obstructive sleep apnea (adult) (pediatric); E66.01 Morbid (severe) obesity due to excess calories; Z68.43 Body mass index [BMI] 50.0-59.9, adult; Z99.89 Dependence on other enabling machines and devices | CPT/HCPCS: 99212 ==

== ENCOUNTER → 2022-04-01 13:04 | Outpatient (BNVA) | payer MEDICARE, SELFPAY | PROVIDERS: PCP Internal Medicine; Visit Provider Internal Medicine | DX: L03.115 Cellulitis of right lower limb (principal) | CPT/HCPCS: 99212 ==

== ENCOUNTER → 2022-04-04 07:03 | Outpatient (REF) | payer MEDICARE, SELFPAY ==
--- NOTE | 2022-04-04 06:59 | HM_ITS ---
Conclusion: 1. Patient was monitored for total period of 3 days and 1 hour 2. Baseline was normal sinus rhythm with average heart of 85 beats per minute 3. Total of 473 PVCs accounting for 0.13% of total beats account for occasional PVCs 4. Total of 6035 PACs accounting for 1.6% of total beats account for frequent PACs which short runs of supraventricular ectopy 5. No sustained episodes of atrial fibrillation 6. No significant pauses or bradycardia noted 7. No patient reported events MTDD
== END ==
LOC: HO.CARD 07:03
PROVIDERS: PCP Internal Medicine; Visit Provider Internal Medicine
DX: I48.0 Paroxysmal atrial fibrillation (principal)
CPT/HCPCS: 93242

== ENCOUNTER → 2022-04-18 09:12 | Outpatient (BNVA) | payer MEDICARE, SELFPAY | PROVIDERS: PCP Internal Medicine; Visit Provider Internal Medicine | DX: G47.33 Obstructive sleep apnea (adult) (pediatric) (principal); E66.01 Morbid (severe) obesity due to excess calories; Z99.89 Dependence on other enabling machines and devices; Z68.41 Body mass index [BMI] 40.0-44.9, adult | CPT/HCPCS: 99212 ==

== ENCOUNTER → 2022-05-06 14:23 | Outpatient (BNVA) | payer MEDICARE, SELFPAY | PROVIDERS: PCP Internal Medicine; Visit Provider Surgery Vascular Surgery | DX: I83.11 Varicose veins of right lower extremity with inflammation (principal) | CPT/HCPCS: 99202 ==

== ENCOUNTER 2022-06-14 08:07 | Outpatient (REF) | payer MEDICARE, SELFPAY ==
--- NOTE | ~2022-06-14 | US_ITS ---
EXAMINATION: US LOWER EXTREMITY VENOUS (REFLUX EXAM), BILATERAL CLINICAL INDICATION: Right lower extremity venous duplex on 03/10/2022 COMPARISON: None. TECHNIQUE: Color flow triplex imaging and compression Doppler was performed to evaluate both the deep and the superficial systems bilaterally. To evaluate the superficial system, the examination was performed in the upright position. Color-flow Doppler ultrasound and compression ultrasound were utilized. In addition, maneuvers were utilized to demonstrate reflux. FINDINGS: 1. DEEP VENOUS ULTRASOUND OF THE RIGHT LOWER EXTREMITY: Common Femoral Vein: Compressible, normal respiratory variation and augmented flow. Femoral Vein: Compressible, normal color flow and augmentation. Popliteal Vein: Compressible, normal augmentation. Deep Reflux: There is no evidence of reflux in the deep system in either the common femoral vein or the popliteal vein. There is no evidence of a Castellanos's cyst. 2. SUPERFICIAL ULTRASOUND WITH DOPPLER OF RIGHT LOWER EXTREMITY: GREAT SAPHENOUS VEIN: Saphenofemoral Junction: 1.1 cm; Reflux: 0 ms Proximal Thigh: 0.7 cm; Reflux: 0 ms Mid Thigh: 0.4 cm; Reflux: 0 ms Above Knee: 0.3 cm; Reflux: 0 ms At Knee: 0.2 cm; Reflux: 0 ms Below Knee: 0.3 cm; Reflux: 0 ms Mid Calf: 0.3 cm; Reflux: 0 ms Ankle: 0.2 cm; Reflux: 0 ms DUPLICATED MEDIAL GREAT SAPHENOUS VEIN: Diameter: None Imaged Reflux: NA DUPLICATED LATERAL GREAT SAPHENOUS VEIN: Diameter: 0.8 cm Reflux: NA SMALL SAPHENOUS VEIN: Proximal: 0.4 cm; Reflux: 0 ms Distal: 0.3 cm; Reflux: 0 ms VEIN OF GIACOMINI: None Imaged. PERFORATORS: Location: None Imaged Size: NA Reflux: NA VARICOSITIES: Location: None Imaged Size: NA Reflux: NA 3. DEEP VENOUS ULTRASOUND OF THE LEFT LOWER EXTREMITY: Common Femoral Vein: Compressible, normal respiratory variation and augmented flow. Femoral Vein: Compressible, normal color flow and augmentation. Popliteal Vein: Compressible, normal augmentation. Deep Reflux: There is no evidence of reflux in the deep system in either the common femoral vein or the popliteal vein. There is no evidence of a Castellanos's cyst. 4. SUPERFICIAL ULTRASOUND WITH DOPPLER OF LEFT LOWER EXTREMITY: GREAT SAPHENOUS VEIN: Saphenofemoral Junction: 0.7 cm; Reflux: 0 ms Proximal Thigh: 0.4 cm; Reflux: 0 ms Mid Thigh: 0.4 cm; Reflux: 3428 ms Above Knee: 0.3 cm; Reflux: 3348 ms At Knee: 0.2 cm; Reflux: 0 ms Below Knee: 0.2 cm; Reflux: 0 ms Mid Calf: 0.2 cm; Reflux: 0 ms Ankle: 0.1 cm; Reflux: 0 ms DUPLICATED MEDIAL GREAT SAPHENOUS VEIN: Diameter: None Imaged Reflux: NA DUPLICATED LATERAL GREAT SAPHENOUS VEIN: Diameter: 0.7 cm Reflux: NA SMALL SAPHENOUS VEIN: Proximal: 0.3 cm; Reflux: 0 ms Distal: 0.2 cm; Reflux: 0 ms VEIN OF GIACOMINI: None Imaged. PERFORATORS: Location: None Imaged Size: NA Reflux: NA VARICOSITIES: Location: None Imaged Size: NA Reflux: NA US/US venous duplex LE BI IMPRESSION: 1. No evidence of DVT. 2. No reflux in the right great saphenous vein. 3. Left great saphenous vein reflux.
== END 2022-06-14 08:08 | disposition home or self-care (01) ==
LOC: HO.US 08:07
PROVIDERS: Visit Provider Surgery Vascular Surgery
DX: I83.11 Varicose veins of right lower extremity with inflammation (principal)
CPT/HCPCS: 93970

== ENCOUNTER → 2022-06-27 09:11 | Outpatient (BNVA) | payer MEDICARE, SELFPAY | PROVIDERS: PCP Internal Medicine; Referring Provider Internal Medicine; Visit Provider Internal Medicine | DX: I48.0 Paroxysmal atrial fibrillation (principal); I50.32 Chronic diastolic (congestive) heart failure; G47.33 Obstructive sleep apnea (adult) (pediatric); E66.01 Morbid (severe) obesity due to excess calories; Z99.89 Dependence on other enabling machines and devices; Z68.41 Body mass index [BMI] 40.0-44.9, adult | CPT/HCPCS: 99212 ==

== ENCOUNTER → 2022-07-04 08:54 | Outpatient (BNVA) | payer MEDICARE, SELFPAY | PROVIDERS: PCP Internal Medicine; Visit Provider Surgery Vascular Surgery | DX: I83.11 Varicose veins of right lower extremity with inflammation (principal); I89.0 Lymphedema, not elsewhere classified | CPT/HCPCS: 99212 ==

== ENCOUNTER → 2022-07-22 07:52 | Outpatient (REF) | payer MEDICARE, SELFPAY ==
--- NOTE | ~2022-07-22 | NM_ITS ---
EXERCISE MYOCARDIAL PERFUSION STUDY INDICATION: Congestive heart failure, assess for coronary disease and ischemia TECHNIQUE: The patient was brought in for an exercise perfusion study on 07/22/2022. Patient performed exercise as per Alexander protocol and was injected 45 mCi of sestamibi once target heart rate was achieved. Images were obtained using the SPECT gamma camera interlaced with the gating device. Images were obtained in supine position. Resting perfusion study was performed on 07/23/2022. Patient was administered 45 mCi of sestamibi intravenously at rest. Images were then obtained in supine position. Total DLP 132mGy-cm. Images were processed with the software and compared side to side in short axis, horizontal long axis and vertical long axis views. FINDINGS: Raw images were reviewed. The stress perfusion study showed no significant perfusion abnormality. Both uncorrected as well as CT attenuation corrected images were reviewed. The gated study shows normal LV systolic function with calculated LVEF of 65%. LV cavity is normal in size. The gated study shows normal wall thickening and contraction of segments. Resting study shows no significant perfusion abnormality. Gating at rest reveals normal wall motion with ejection fraction at 64%. The findings are consistent with no clear reversible or fixed perfusion defects. NM/NM tamar perf SPECT rest & str IMPRESSION: 1. Myocardial perfusion imaging study shows normal myocardial perfusion. 2. Gated LVEF is 65% during stress and 64% during rest. 3. Transient ischemic dilatation not present. EKG component of the test reported separately.
--- NOTE | 2022-07-22 07:55 | CA_ITS ---
Acquisition Time: 2022-07-22 08:06:12 Total Exercise Time: 00:05:00 Test Indications: AFIB, SOB Medications: SEE CHART Protocol: PETER Max HR: 127 BPM 83% of Pred: 152 BPM Max BP: 198/058 mmHG Max Work Load: 6.0 METS Exercise stress test with exercise 5 min of peter protocol ( in stage 2 speed reduced to 2.3 then 2.1MPH) with moderate to severe sob and need to stop exercise, with report of a mild ache in left chest region, with isolated PACs and PVCs, with hypertensive response to exercise with max BP 198/58, without EKG changes meeting criteria for ischemia. In recovery his symptoms resolved and BP returned to baseline. Nuclear images pending. Test reviewed with Dr Trinh Referred By: Jass Posada Overread By: CYNDIE HERNÁNDEZ
== END ==
LOC: HO.CARD 07:52
PROVIDERS: PCP Internal Medicine; Visit Provider Internal Medicine
DX: I50.32 Chronic diastolic (congestive) heart failure (principal)
CPT/HCPCS: 78452; 93017; A9500

== ENCOUNTER → 2022-09-23 09:05 | Outpatient (BNVA) | payer MEDICARE, SELFPAY | PROVIDERS: PCP Internal Medicine; Referring Provider Internal Medicine; Visit Provider Internal Medicine | DX: I48.0 Paroxysmal atrial fibrillation (principal); I50.32 Chronic diastolic (congestive) heart failure; G47.33 Obstructive sleep apnea (adult) (pediatric); E66.01 Morbid (severe) obesity due to excess calories; Z68.41 Body mass index [BMI] 40.0-44.9, adult; Z79.01 Long term (current) use of anticoagulants; Z99.89 Dependence on other enabling machines and devices | CPT/HCPCS: 99212 ==

== ENCOUNTER 2023-04-03 12:54 | Outpatient (AMB) | payer MEDICARE, SELFPAY ==
--- NOTE | 2023-04-03 13:03 | A.OFFVIS_ITS ---
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 Accompanied by: Self / Same As Patient Allergies dextromethorphan [DEXTROMETHORPHAN] Allergy (Severe, Verified 04/03/23 13:07) ITCHY SWELLING SOB shellfish derived Allergy (Severe, Verified 04/03/23 13:07) ANAPHYLAXIS perflutren Adverse Reaction (Verified 04/03/23 13:07) Back Pain Medication List - Last Reconciled 04/03/23 by Jass Posada MD apixaban (Eliquis) 5 mg PO BID 30 days atorvastatin 10 mg PO DAILY diltiazem HCl ER 240 mg PO DAILY epinephrine 0.3 mL IM DAILY PRN furosemide (Lasix) 40 mg PO DAILY 30 days multivitamin,tx-minerals 1 tab PO DAILY sildenafil 50 mg PO DAILY PRN HPI HPI Comments History of Present Illness Details Emery returns for follow-up. To recall, he was admitted for lower extremity cellulitis as well as sepsis. In that context, had atrial fibrillation rapid rate with component of congestive heart failure. He converted to sinus before discharge. He was on beta-blockers but that was changed diltiazem due to concurrent EpiPen use. Overall, he is feeling good. No clear-cut cardiac complaints. States that he is feeling okay. [facility] Medical History ALEXUS (acute kidney injury) TANO on CPAP Morbid obesity Leukocytosis Gastritis COVID-19 vaccine series completed Obesity Chronic venous insufficiency Osteoarthritis TANO on CPAP Osteoarthritis of left knee Hypertension High cholesterol Surgical History History of orthopedic surgery Hx of colonoscopy History of right knee surgery LAP-BAND surgery status Family History Father Myocardial infarct Mother No problems noted. 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 Review of Systems Const Denies weakness ENT Denies dizziness Card Denies chest pain, Denies chest pain with activity, Denies syncope, Denies rapid heart rate, Denies pedal edema, Denies edema, Denies leg edema, Denies lightheadedness, Denies palpitations, Denies dyspnea, Denies dyspnea on exertion and Denies orthopnea Resp Denies cough, Denies dyspnea and Denies dyspnea on exertion GI Denies hematochezia and Denies change in stool character Musc Denies abnormal gait, Denies muscle cramps, Denies muscle weakness, Denies numbness, Denies radiating pain into limb and Denies tingling Neuro Denies abnormal gait, Denies dizziness, Denies syncope, Denies numbness, Denies tingling and Denies weakness Endo Denies palpitations Physical Exam Vital Signs: Last Vital Signs Pulse 73 04/03/23 13:04 BP 126/70 04/03/23 13:04 BMI result Body Mass Index 40.9 Const General: comfortable and no acute distress Orientation/consciousness: patient oriented x3 HEENT Other: Unremarkable Head: Yes normal to inspection Neck Neck: Yes normal visual inspection Chest Chest palpation & inspection: normal inspection of the chest Resp Auscultation: clear to auscultation bilaterally Cardio Palpation: normal PMI Heart sounds: S1 normal heart sound present, S2 normal heart sound present, no gallops, no murmurs and no rubs GI Palpation (GI): Soft to palpation Back/Spine/Pelvis Other: unremarkable Skin General skin exam: no rashes or lesions noted Neuro General: patient oriented x3 Extrem General: Yes normal to inspection Psych Mental Status: mental status grossly normal Office Procedures EKG Details: EKG with sinus rhythm at 70/Min; possible left atrial enlargement; [place] [id number], Complete Assessment & Plan Assessment & Plan (1) PAF (paroxysmal atrial fibrillation): Code(s): I48.0 - Paroxysmal atrial fibrillation Plan: Continue Diltiazem. Due to possible need for EpiPen in the future, not on beta- blockers. Continue anticoagulation. (2) Chronic diastolic (congestive) heart failure: Code(s): I50.32 - Chronic diastolic (congestive) heart failure Plan: Stable. Continue diuretics. Echocardiogram with hyperdynamic LVEF. Preserved RV function on limited assessment. No significant valvular issues. On the perfusion imaging, no ischemia or infarction noted. (3) TANO on CPAP: Code(s): G47.33 - Obstructive sleep apnea (adult) (pediatric); Z99.89 - Dependence on other enabling machines and devices Plan: Continue CPAP. (4) Morbid obesity: Code(s): E66.01 - Morbid (severe) obesity due to excess calories Plan: His weight is less compared to couple years ago. Hopefully, he can keep with weight loss. Plan Follow-up 6 months. Coding Level of Care Code Est Pt Level 4 (24083) Diagnoses PAF (paroxysmal atrial fibrillation) I48.0 Chronic diastolic (congestive) heart failure I50.32 TANO on CPAP G47.33; Z99.89 Morbid obesity E66.01 CPT Codes EKG - CPT: 57098-[id number], Complete ([id number])
[2023-04-03 13:04] VITALS: BP 126/70; PULSE 73; BMI 40.9
== END 2023-04-03 13:27 | disposition home or self-care (01) ==
PROVIDERS: PCP Internal Medicine; Visit Provider Internal Medicine
DX: I48.0 Paroxysmal atrial fibrillation (principal); I50.32 Chronic diastolic (congestive) heart failure; G47.33 Obstructive sleep apnea (adult) (pediatric); Z99.89 Dependence on other enabling machines and devices; E66.01 Morbid (severe) obesity due to excess calories
CPT/HCPCS: 93010; 99214

== ENCOUNTER → 2023-04-03 12:54 | Outpatient (BNVA) | payer MEDICARE, SELFPAY | PROVIDERS: PCP Internal Medicine; Visit Provider Internal Medicine | DX: I48.0 Paroxysmal atrial fibrillation (principal); I50.32 Chronic diastolic (congestive) heart failure; G47.33 Obstructive sleep apnea (adult) (pediatric); E66.01 Morbid (severe) obesity due to excess calories; Z99.89 Dependence on other enabling machines and devices; Z68.41 Body mass index [BMI] 40.0-44.9, adult | CPT/HCPCS: 93005; 99212 ==

== ENCOUNTER 2023-04-15 15:10 | Outpatient (AMB) | payer MEDICARE, SELFPAY ==
[2023-04-15 16:12] VITALS: BP 140/78; PULSE 103; TEMP 37.7; O2SAT 99; BMI 42.3
--- NOTE | 2023-04-15 16:12 | MHC.OFFWIV ---
Intake Vital Signs 04/15/23 16:12 Height 5 ft 10 in Weight 294 lb 8 oz BMI 42.3 BP 140/78 H Blood Pressure Location Rt brachial Position Sitting Pulse 103 H Pulse Source Pulse Oximeter Temp 99.8 F Temp Source Oral Pulse Oximetry (%) 99 Oxygen Delivery Method Room Air Intake Visit Reasons: EST/cellu on right foot(lobby) Intake Note: pt's is here for right leg and foot pain and swelling pt says it started as a bug bite and he was itching and he is prone to cellulites pt says his leg is a little warm to the touch Patient Tobacco Use Status: Never used Tobacco Allergies dextromethorphan [DEXTROMETHORPHAN] Allergy (Severe, Verified 04/15/23 16:16) ITCHY SWELLING SOB shellfish derived Allergy (Severe, Verified 04/15/23 16:16) ANAPHYLAXIS perflutren Adverse Reaction (Verified 04/15/23 16:16) Back Pain Medication List - Last Reconciled 04/15/23 by DEAN Tan apixaban (Eliquis) 5 mg PO BID 30 days atorvastatin 10 mg PO DAILY diltiazem HCl ER 240 mg PO DAILY epinephrine 0.3 mL IM DAILY PRN furosemide (Lasix) 40 mg PO DAILY 30 days sildenafil 50 mg PO DAILY PRN HPI EST/cellu on right foot(lobby) HPI Details Patient is a 68-year-old male in for sick visit. Patient has a past medical history significant for hyperlipidemia, congestive heart failure, and proximal AFib. Patient reports right lower leg redness and discomfort. He states that he originally had a mosquito bite which he scratched excessively. Patient states that he has had cellulitis before and it feels the same. [facility] Medical History ALEXUS (acute kidney injury) TANO on CPAP Morbid obesity Leukocytosis Gastritis COVID-19 vaccine series completed Obesity Chronic venous insufficiency Osteoarthritis TANO on CPAP Osteoarthritis of left knee Hypertension High cholesterol Surgical History History of orthopedic surgery Hx of colonoscopy History of right knee surgery LAP-BAND surgery status Family History Father Myocardial infarct Mother No problems noted. 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 Erythema Neuro General: patient oriented x3 Extrem Right lower extremity: full ROM and lower leg Details: erythema and warmth Assessment & Plan Assessment & Plan (1) Cellulitis: Code(s): L03.90 - Cellulitis, unspecified Qualifiers: Laterality: right Site of cellulitis: extremity Site of cellulitis of extremity: lower extremity Qualified Code(s): L03.115 - Cellulitis of right lower limb Plan The patient will be given Bactrim 800 mg to be taken for 10 days. Patient instructed on potential side effects. Patient educated on signs and symptoms of sepsis and when to report to the ER. Medications: New sulfamethoxazole-trimethoprim 800-160 mg (Bactrim DS) 1 tab PO Q12H 10 days 20 tabs 0RF Coding Level of Care Code Est Pt Level 3 (60370) Diagnoses Cellulitis of right lower extremity L03.115 Laterality: right Site of cellulitis: extremity Site of cellulitis of extremity: lower extremity
== END 2023-04-15 16:49 | disposition home or self-care (01) ==
PROVIDERS: PCP Internal Medicine; Visit Provider Nurse Practitioner Primary Care
DX: L03.115 Cellulitis of right lower limb (principal)
CPT/HCPCS: 99213

== ENCOUNTER 2023-10-17 08:03 | Outpatient (AMB) | payer MEDICARE, SELFPAY ==
[2023-10-17 08:12] VITALS: BP 140/80; PULSE 75; O2SAT 98; BMI 43.4
--- NOTE | 2023-10-17 08:12 | AM.OFFWIN_ITS ---
Intake Vital Signs 3 10/17/23 08:12 Height 5 ft 10 in Weight 302 lb 8 oz BMI 43.4 BP 140/80 H Blood Pressure Location Lt brachial Position Sitting Pulse 75 Pulse Source Pulse Oximeter Pulse Oximetry (%) 98 Oxygen Delivery Method Room Air Intake Visit Reasons: EP RT leg Cellulitis Intake Note: Pt presents to the office today for c/o right leg cellulitis that started about a week ago. He states he has lymphedema in his legs as well which has been ongoing for a year. Patient Tobacco Use Status: Never used Tobacco Allergies dextromethorphan [DEXTROMETHORPHAN] Allergy (Severe, Verified 10/17/23 08:15) ITCHY SWELLING SOB shellfish derived Allergy (Severe, Verified 10/17/23 08:15) ANAPHYLAXIS perflutren Adverse Reaction (Verified 10/17/23 08:15) Back Pain Medication List - Last Reconciled 10/17/23 by Isaias Duong MD apixaban (Eliquis) 5 mg PO BID 30 days atorvastatin 10 mg PO DAILY diltiazem HCl ER 240 mg PO DAILY epinephrine 0.3 mL IM DAILY PRN furosemide (Lasix) 40 mg PO DAILY 30 days sildenafil 50 mg PO DAILY PRN HPI EP RT leg Cellulitis 2 HPI0 Details 68-year-old gentleman came in today to b e evaluated for possible cellulitis right lower leg Patient have a history of lymphedema, he is on diuretic as well Patient says that once a year he develop cellulitis of his leg, last time it happened he ended up in the hospital as he waited too long On examination his right leg is bigger than left, there is erythema developing from his ankle all the way to worse macario 1+ pitting I am prescribing Augmentin for patient he is to take that for 7 days, continue rest of the medication keep the leg elevated as much as possible. Review system: There is no fever no chills, there is no nausea no vomiting no chest pain no abdominal pain. [facility] Medical History ALEXUS (acute kidney injury) TANO on CPAP Morbid obesity Leukocytosis Gastritis COVID-19 vaccine series completed Obesity Chronic venous insufficiency Osteoarthritis TANO on CPAP Osteoarthritis of left knee Hypertension High cholesterol Surgical History History of orthopedic surgery Hx of colonoscopy History of right knee surgery LAP-BAND surgery status Family History Father Myocardial infarct Mother No problems noted. 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 Review of Systems Const All systems reviewed & are unremarkable except as noted in HPI and below Physical Exam Vital Signs: Last Vital Signs Pulse 75 10/17/23 08:12 BP 140/80 H 10/17/23 08:12 Pulse Ox 98 10/17/23 08:12 Oxygen Delivery Method Room Air 10/17/23 08:12 BMI result Body Mass Index 43.4 Const General: no acute distress Orientation/consciousness: patient oriented x3 Eyes General: appearance normal, both eyes and all related structures Resp Effort & Inspection: normal respiratory effort and able to speak in complete sentences Auscultation: clear to auscultation bilaterally Cardio Other: S1 S2 Neuro General: patient oriented x3 Extrem Upper/lower leg/hip images: 2 1. 1+ pitting edema, right lower leg larger in circumference compared to left, erythema from ankle to macario, no pain with calf palpation Psych Mental Status: mental status grossly normal Assessment & Plan Assessment & Plan (1) Acute cellulitis: Code(s): L03.90 - Cellulitis, unspecified Plan 68-year-old gentleman came in today to be evaluated for possible cellulitis right lower leg Patient have a history of lymphedema, he is on diuretic as well Patient says that once a year he develop cellulitis of his leg, last time it happened he ended up in the hospital as he waited too long On examination his right leg is bigger than left, there is erythema developing from his ankle all the way to worse macario 1+ pitting I am prescribing Augmentin for patient he is to take that for 7 days, continue rest of the medication keep the leg elevated as much as possible. Review system: There is no fever no chills, there is no nausea no vomiting no chest pain no abdominal pain. Medications: New 2 amoxicillin-pot clavulanate 875-125 mg 1 tab PO BID 7 days 14 tabs 0RF Coding Level of Care Code Est Pt Level 3 (49116) Diagnoses Acute cellulitis L03.90
== END 2023-10-17 09:02 | disposition home or self-care (01) ==
PROVIDERS: PCP Internal Medicine; Visit Provider Internal Medicine
DX: L03.90 Cellulitis, unspecified (principal)
CPT/HCPCS: 99213

== ENCOUNTER 2023-10-17 11:41 | Outpatient (AMB) | payer MEDICARE, SELFPAY ==
--- NOTE | 2023-10-17 11:57 | MHC.OFFVIS ---
Intake Visit Reasons: Newprob-RT knee pain/swelling pain started 09/28/23 Intake Note: Emery is a 66 year old male who presents today for a new problem visit with complaints of pain and swelling of his bilateral knee. Patient reports that his left knee has been painful since surgery, and he is very frustrated with this pain. Pain is felt on the medial aspect of the patella and his pain can be excruciating. He explains that he has had right knee pain for as long as the left knee but he chose to move forward with the left knee first. Patient complains of right shoulder pain, he was seen with his PCP who referred him here. No history of injury or treatment. he is right handed Allergies dextromethorphan [DEXTROMETHORPHAN] Allergy (Severe, Verified 10/17/23 08:15) ITCHY SWELLING SOB shellfish derived Allergy (Severe, Verified 10/17/23 08:15) ANAPHYLAXIS HPI HPI Newprob-RT knee pain/swelling pain started 09/28/23: Details: Bilateral knee pain and right shoulder pain. He is active and goes to the gym 6 days a week. He plays golf but has pain in both his knees both during and after activity. He also has anterior right shoulder pain. [facility] Medical History ALEXUS (acute kidney injury) TANO on CPAP Morbid obesity Leukocytosis Gastritis COVID-19 vaccine series completed Obesity Chronic venous insufficiency Osteoarthritis TANO on CPAP Osteoarthritis of left knee Hypertension High cholesterol Surgical History History of orthopedic surgery Hx of colonoscopy History of right knee surgery LAP-BAND surgery status Family History Father Myocardial infarct Mother No problems noted. 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 Site was prepped using aseptic technique. Patient tolerated the procedure well. Primary Site: left knee (pes anserine bursa) Coding - Large joint 90786 - Glenohumeral/Tronchanteric Bursa/Intraarticular Procedure code (CPT) selection complete Results Reviewed Results Reviewed: left total knee arthroplasty in expected post operative position with no hardware complications or evidence of loosening right knee moderate to sever tricompartmental OA Assessment & Plan Assessment & Plan (1) Bicipital tendinitis, right shoulder: Code(s): M75.21 - Bicipital tendinitis, right shoulder Category: Medical Plan: PT (2) Pes anserinus bursitis of left knee: Code(s): M70.52 - Other bursitis of knee, left knee Category: Medical Plan: Injected bursa (3) Tricompartment osteoarthritis of right knee: Code(s): M17.11 - Unilateral primary osteoarthritis, right knee Category: Medical Plan: Injected right knee (4) Status post total knee replacement, left: Code(s): Z96.652 - Presence of left artificial knee joint Category: Surgical Plan: Stable Orders: Orders XR knee standing BI Today M25.569 - Pain in unspecified knee PT Evaluation and Treatment Today M75.21 - Bicipital tendinitis, right shoulder Coding Level of Care Code Est Pt Level 4 (83592) Diagnoses Bicipital tendinitis, right shoulder M75.21 Pes anserinus bursitis of left knee M70.52 Tricompartment osteoarthritis of right knee M17.11 Status post total knee replacement, left Z96.652 CPT Codes Coding - Large joint: 42238 - Large joint ([id number]) Coding - Joint 7: - Glenohumeral/Tronchanteric Bursa/Intraarticular ([id number])
== END 2023-10-17 13:19 | disposition home or self-care (01) ==
PROVIDERS: PCP Internal Medicine; Visit Provider Orthopaedic Surgery
DX: M75.21 Bicipital tendinitis, right shoulder (principal); M70.52 Other bursitis of knee, left knee; M17.11 Unilateral primary osteoarthritis, right knee; Z96.652 Presence of left artificial knee joint
CPT/HCPCS: 20610; 99214

== ENCOUNTER 2023-10-17 11:41 | Outpatient (REF) | payer MEDICARE, SELFPAY ==
--- NOTE | ~2023-10-17 | XR_ITS ---
EXAMINATION: XR BILATERAL KNEE SERIES CLINICAL INFORMATION: Pain in the knee. COMPARISON: X-rays of the knees October 2021. TECHNIQUE: 3 views of each knee including AP upright. FINDINGS: RIGHT KNEE: There is a persistent subchondral cyst or concavity along the weightbearing medial femoral condyle unchanged. There is also joint space narrowing and a small marginal osteophyte indicative of at least [id number] osteoarthritis. Lateral compartment: Unremarkable. Patellofemoral compartment: Marginal osteophytes indicative of at least mild osteoarthritis. There is ossification anterior to the anterior recess on the lateral projection reflect loose body or ossification related to old soft tissue trauma. No effusion. Overall no definite change. LEFT KNEE: There is a total knee arthroplasty in place. The components are in the usual position and are unchanged. There is no periprosthetic fracture or surrounding abnormal lucency. There is no effusion. Persistent ossification distal to the patella likely within the patella tendon and/or Hoffa's fat pad as well as lateral to the patellofemoral joint on the patella view unchanged. Unchanged compared to prior. The findings in the patella could reflect the postsurgical result with the ossification laterally likely heterotopic and related to postsurgical result. This is unchanged. XR/XR knee RT 3V IMPRESSION: RIGHT KNEE: Osteoarthritis unchanged. LEFT KNEE: 1. Left total knee arthroplasty without change or complication by x-ray. 2. Ossification distal to the patella likely within the patella tendon and/or Hoffa's fat pad as well as lateral to the patellofemoral joint unchanged compared with the prior x-ray October 2021. Findings could reflect postsurgical change and/or heterotopic ossification.
--- NOTE | ~2023-10-17 | XR_ITS ---
EXAMINATION: XR BILATERAL KNEE SERIES CLINICAL INFORMATION: Pain in the knee. COMPARISON: X-rays of the knees October 2021. TECHNIQUE: 3 views of each knee including AP upright. FINDINGS: RIGHT KNEE: There is a persistent subchondral cyst or concavity along the weightbearing medial femoral condyle unchanged. There is also joint space narrowing and a small marginal osteophyte indicative of at least [id number] osteoarthritis. Lateral compartment: Unremarkable. Patellofemoral compartment: Marginal osteophytes indicative of at least mild osteoarthritis. There is ossification anterior to the anterior recess on the lateral projection reflect loose body or ossification related to old soft tissue trauma. No effusion. Overall no definite change. LEFT KNEE: There is a total knee arthroplasty in place. The components are in the usual position and are unchanged. There is no periprosthetic fracture or surrounding abnormal lucency. There is no effusion. Persistent ossification distal to the patella likely within the patella tendon and/or Hoffa's fat pad as well as lateral to the patellofemoral joint on the patella view unchanged. Unchanged compared to prior. The findings in the patella could reflect the postsurgical result with the ossification laterally likely heterotopic and related to postsurgical result. This is unchanged. XR/XR knee LT 3V IMPRESSION: RIGHT KNEE: Osteoarthritis unchanged. LEFT KNEE: 1. Left total knee arthroplasty without change or complication by x-ray. 2. Ossification distal to the patella likely within the patella tendon and/or Hoffa's fat pad as well as lateral to the patellofemoral joint unchanged compared with the prior x-ray October 2021. Findings could reflect postsurgical change and/or heterotopic ossification.
== END 2023-10-17 11:42 | disposition home or self-care (01) ==
LOC: HO.HOSX 11:41
PROVIDERS: PCP Internal Medicine; Visit Provider Orthopaedic Surgery
DX: M75.21 Bicipital tendinitis, right shoulder (principal); M17.11 Unilateral primary osteoarthritis, right knee; M70.52 Other bursitis of knee, left knee; M25.462 Effusion, left knee; M25.461 Effusion, right knee; Z96.652 Presence of left artificial knee joint
CPT/HCPCS: 20610; 73562; 99212; J0665; J1100

== ENCOUNTER 2023-12-11 11:00 | Outpatient (RCR) | payer MEDICARE, SELFPAY ==
--- NOTE | 2023-10-30 13:51 | MHC.PT.EP ---
[facility] [place] Office [place] Office [place] Office [address] Sharyn Tee [address] [phone] F: [phone] F: [phone] F: [phone] F: [phone] Physical Therapy Plan of Care Date of Evaluation: 10/30/23 Date of Surgery: Diagnosis: RIGHT SHOULDER PAIN (KP) Assessment: TERESE IS A PLEASANT 68 YO MALE WHO PRESENTS WITH RIGHT SHOULDER PAIN OF APROX 6 MONTHS, NO ACE. INITIALLY WAS REFFERED TO ORTHO AND THEN TO PT. REPORT PAIN IS WORSE WITH REACHING AWAY FROM BODY ESPECIALLY INTO ABDUCTION AND IR. TAKES TYLENOL WITH SOME RELIEF. GOLFING 1 DAY A WEEK, GOES TO GYM 6XWEEK. CURRENT IMPAIRMENTS INCLUDE DECREASED SHOULDER AND THORACIC ROM, DECREASED STRENGTH OF UE, ALTERED POSTURE AND POSITIONING, INCREASED PAIN. FUNCTIONAL LIMITATIONS INCLUDE DECREASED ABILITY TO PERFORM LIFTING, PUSHING, PULLING AND CARRYING. HE REPORTS DECREASED PARTICIPATION IN RECREATIONAL AND FITNESS ACTIVITIES. Frequency and Duration: The patient will be seen 2 X WEEK FOR 4 WEEKS Short Term Goals: INITIATE HEP AND PROMOTE SELF MANAGEMENT Group Home Goals: INDEPENDENT HEP AND GYM PROGRAM TO PLACE 10# OBJECT ON SHOULDER ANNETTE SHELF TO SLEEP A MINIMUM OF 6 HOURS WITHOUT WAKING FROM PAIN Treatment Plan: Modalities to reduce pain, spasms and effusion. Manual therapy to restore motion and function. Therapeutic exercise to improve strength and flexibility. Neuromuscular re-education for posture and balance. Therapeutic activities to return to functional activities of daily living. Electronically signed by: SHANELL DODSON PT DPT Please sign and return to therapist. Thank you for your referral.
== END 2024-01-09 07:51 | disposition home or self-care (01) ==
LOC: HO.PT 11:00
PROVIDERS: PCP Internal Medicine; Visit Provider Orthopaedic Surgery
DX: M75.21 Bicipital tendinitis, right shoulder (principal)
CPT/HCPCS: 95992; 97110; 97140; 97161; 97530; 97535

== ENCOUNTER 2023-12-19 08:11 | Outpatient (AMB) | payer MEDICARE, SELFPAY ==
--- NOTE | 2023-12-19 08:46 | MHC.OFFWIV ---
Intake Vital Signs 12/19/23 08:48 Height 5 ft 10 in Weight 303 lb BMI 43.5 BP 110/72 Blood Pressure Location Rt brachial Pulse 88 Pulse Source Pulse Oximeter Temp 98.2 F Temp Source Oral Pulse Oximetry (%) 99 Oxygen Delivery Method Room Air Intake Visit Reasons: EP cellulitis RT leg Intake Note: pt is here for c/o of cellulitis in right leg. Started Friday morning 2:30 AM. Fever. Cut toe Friday. Patient Tobacco Use Status: Never used Tobacco Allergies dextromethorphan [DEXTROMETHORPHAN] Allergy (Severe, Verified 12/19/23 08:48) ITCHY SWELLING SOB shellfish derived Allergy (Severe, Verified 12/19/23 08:48) ANAPHYLAXIS Do you need a note to return to daycare/school/sports/work: No HPI HPI Comments History of Present Illness Details 68 y/o male patient who presents to walk in clinic with c/o cellulitis right lower extremity. Reports getting frequent cellulitis on his lower extremities at least every other month. He was last seen at the [facility] for this in October and was treated with Augmentin. Denies SOB, CP, Wheezing, Palpitations or severe leg pain. [facility] Medical History ALEXUS (acute kidney injury) TANO on CPAP Morbid obesity Leukocytosis Gastritis COVID-19 vaccine series completed Obesity Chronic venous insufficiency Osteoarthritis TANO on CPAP Osteoarthritis of left knee Hypertension High cholesterol Surgical History History of orthopedic surgery Hx of colonoscopy History of right knee surgery LAP-BAND surgery status Family History Father Myocardial infarct Mother No problems noted. 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 Review of Systems Const All systems reviewed & are unremarkable except as noted in HPI and below Physical Exam Vital Signs: Last Vital Signs Temp 98.2 F 12/19/23 08:48 Pulse 88 12/19/23 08:48 BP 110/72 12/19/23 08:48 Pulse Ox 99 12/19/23 08:48 Oxygen Delivery Method Room Air 12/19/23 08:48 BMI result Body Mass Index 43.5 Const General: comfortable and no acute distress Nutritional Appearance: obese Orientation/consciousness: patient oriented x3 Resp Effort & Inspection: normal respiratory effort and able to speak in complete sentences Auscultation: clear to auscultation bilaterally, no crackles, no rales, no rhonchi and no wheezes Cardio Rate: regular rate Rhythm: regular rhythm Neuro General: patient oriented x3, gait normal and moves all extremities Extrem Right lower extremity: full ROM and lower leg Details: erythema Location: of the mid lower leg and of the distal lower leg and pitting edema Details: 1+; no crepitus Left lower extremity: normal to inspection and full ROM Psych Speech and movement: Normal speech and movement present Assessment & Plan Assessment & Plan (1) Acute cellulitis: Code(s): L03.90 - Cellulitis, unspecified Plan: Prescribed Keflex Advised to report S&S of SOB, CP or Severe pain Medications: New cephalexin 500 mg PO BID 10 days 20 caps 0RF L03.90 - Cellulitis, unspecified Coding Level of Care Code Est Pt Level 3 (23994) Diagnoses Acute cellulitis L03.90 Time Spent (min) 15
[2023-12-19 08:48] VITALS: BP 110/72; PULSE 88; TEMP 36.8; O2SAT 99; BMI 43.5
== END 2023-12-19 09:43 | disposition home or self-care (01) ==
PROVIDERS: PCP Internal Medicine; Visit Provider Nurse Practitioner Family
DX: L03.90 Cellulitis, unspecified (principal)
CPT/HCPCS: 99213

== ENCOUNTER 2023-12-26 09:30 | Outpatient (REF) | payer MEDICARE, SELFPAY | END 2023-12-26 09:31 | disposition home or self-care (01) | LOC: HO.HOSX 09:30 | PROVIDERS: PCP Internal Medicine; Visit Provider Orthopaedic Surgery | DX: M75.21 Bicipital tendinitis, right shoulder (principal); M24.811 Other specific joint derangements of right shoulder, not elsewhere classified | CPT/HCPCS: 20610; 99212; J0665; J1100 ==

== ENCOUNTER 2023-12-26 09:30 | Outpatient (AMB) | payer MEDICARE, SELFPAY ==
--- NOTE | 2023-12-26 09:32 | MHC.OFFVIS ---
Vital Signs 12/26/23 09:34 Height 5 ft 10 in Weight 303 lb BMI 43.5 Intake Visit Reasons: OV-Right shoulder Bicipital tendonitis-follow up Intake Note: Emery is a 68 year old right hand dominant male who presents today for a follow up of his right shoulder bicipital tendonitis. Patient reports that he has been doing physical therapy for 5 weeks now and this has not given him any significant relief. He only feels pain with certain acitivties such as reaching particularly above shoulder height and lifting. Denies numbness and tingling. Allergies dextromethorphan [DEXTROMETHORPHAN] Allergy (Severe, Verified 12/19/23 08:48) ITCHY SWELLING SOB shellfish derived Allergy (Severe, Verified 12/19/23 08:48) ANAPHYLAXIS HPI HPI OV-Right shoulder Bicipital tendonitis-follow up: Details: Emery is a 68 year old right hand dominant male who presents today for a follow up of his right shoulder bicipital tendonitis. Patient reports that he has been doing physical therapy for 5 weeks now and this has not given him any significant relief. He only feels pain with certain activities such as reaching particularly above shoulder height and lifting. Denies numbness and tingling. He cannot take NSAIDs due to being on blood thinners. [facility] [place] Medical History ALEXUS (acute kidney injury) TANO on CPAP Morbid obesity Leukocytosis Gastritis COVID-19 vaccine series completed Obesity Chronic venous insufficiency Osteoarthritis TANO on CPAP Osteoarthritis of left knee Hypertension High cholesterol Surgical History History of orthopedic surgery Hx of colonoscopy History of right knee surgery LAP-BAND surgery status Family History Father Myocardial infarct Mother No problems noted. 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 Site was prepped using aseptic technique. Patient tolerated the procedure well. Primary Site: right shoulder Approach Used: posterolateral Coding - Large joint Procedure code (CPT) selection complete Assessment & Plan Assessment & Plan (1) Bicipital tendinitis, right shoulder: Code(s): M75.21 - Bicipital tendinitis, right shoulder Category: Medical Plan: Continued pain and dysfunction that has not responded to activity modification or non narcotic analgesia. MRI ordered (2) Internal derangement of right shoulder: Code(s): M24.811 - Other specific joint derangements of right shoulder, not elsewhere classified Category: Medical Plan: Continued pain and dysfunction that has not responded to activity modification or non narcotic analgesia. MRI ordered I injected his right shoulder today as well. Orders: Orders MR shoulder RT wo con Today M24.811 - Other specific joint derangements of right shoulder, not elsewhere classified, M75.21 - Bicipital tendinitis, right shoulder XR shoulder RT min 2V Today M25.519 - Pain in unspecified shoulder Coding Level of Care Code Est Pt Level 4 (47238) Diagnoses Bicipital tendinitis, right shoulder M75.21 Internal derangement of right shoulder M24.811 CPT Codes Coding - Large joint: - Large joint ([id number])
[2023-12-26 09:34] VITALS: BMI 43.5
== END 2023-12-26 10:10 | disposition home or self-care (01) ==
PROVIDERS: PCP Internal Medicine; Visit Provider Orthopaedic Surgery
DX: M75.21 Bicipital tendinitis, right shoulder (principal); M24.811 Other specific joint derangements of right shoulder, not elsewhere classified
CPT/HCPCS: 20610; 99214

== ENCOUNTER 2024-01-30 11:52 | Outpatient (AMB) | payer MEDICARE, SELFPAY ==
--- NOTE | 2024-01-30 12:05 | AM.OFFWIN_ITS ---
Intake Vital Signs 01/30/24 12:09 Height 5 ft 10 in Weight 304 lb BMI 43.6 BP 128/84 Blood Pressure Location Rt radial Position Sitting Pulse 101 H Pulse Source Pulse Oximeter Temp 98.6 F Temp Source Oral Pulse Oximetry (%) 96 Oxygen Delivery Method Room Air Intake Visit Reasons: EP- Cellulitis Intake Note: pt c/o cellulitis. Ongoing Patient Tobacco Use Status: Never used Tobacco Allergies dextromethorphan [DEXTROMETHORPHAN] Allergy (Severe, Verified 01/30/24 12:05) ITCHY SWELLING SOB shellfish derived Allergy (Severe, Verified 01/30/24 12:05) ANAPHYLAXIS Do you need a note to return to daycare/school/sports/work: No HPI EP- Cellulitis HPI Details This is a 68 year old male patient who presents to the [facility] today with possible right lower leg cellulitis. He reports this has been recurring over the last several months. He was seen here for this in October and prescribed Augmentin, and again in December at which time he was started on Cephalexin. He states that the cellulitis was resolved both times with each respective antibiotic. He denies any pain. He report fever of 101 yesterday, for which he took Tyenol. He is on Lasix and also wears compression stockings (also has intermittent pneumatic compression device he uses at home). He reports right lower leg is always more swollen. He saw vascular specialist last about 1 year ago. Sees PCP Wilian Wood this coming Friday. Denies any fatigue, weakness, shortness of breath. [facility] Medical History ALEXUS (acute kidney injury) TANO on CPAP Morbid obesity Leukocytosis Gastritis COVID-19 vaccine series completed Obesity Chronic venous insufficiency Osteoarthritis TANO on CPAP Osteoarthritis of left knee Hypertension High cholesterol Surgical History History of orthopedic surgery Hx of colonoscopy History of right knee surgery LAP-BAND surgery status Family History Father Myocardial infarct Mother No problems noted. 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 Review of Systems Const All systems reviewed & are unremarkable except as noted in HPI and below Physical Exam Vital Signs: Last Vital Signs Temp 98.6 F 01/30/24 12:09 Pulse 101 H 01/30/24 12:09 BP 128/84 01/30/24 12:09 Pulse Ox 96 01/30/24 12:09 Oxygen Delivery Method Room Air 01/30/24 12:09 BMI result Body Mass Index 43.6 Const General: cooperative, healthy appearing and no acute distress HEENT Ears: hearing grossly normal bilaterally Neck Neck: Yes no lymphadenopathy Resp Effort & Inspection: normal respiratory effort Auscultation: clear to auscultation bilaterally Cardio Rate: regular rate Rhythm: regular rhythm Skin Lesions: no lesions Neuro General: moves all extremities Extrem Other: RLE from mid lower leg to ankle, erythematous and warm circumferentially, non- pitting edema. No calf pain, negative florina's sign. +PT, DP pulses General: Yes capillary refill normal Psych Appearance: grossly normal Mental Status: mental status grossly normal Speech and movement: Normal speech and movement present Assessment & Plan Assessment & Plan (1) Cellulitis of right lower extremity from knee to ankle: Code(s): L03.115 - Cellulitis of right lower limb Plan: I will start patient on Bactrim for this recurrent cellulitis. We reviewed indications, use, possible s/e of medication. He has an appt with PCP next week and we discussed possible f/u with vascular, as it has been <1year since seeing them, and he feels his lymphadema is not improving. If patient develops any persistent fever, chills, fatigue, or worsening symptoms, in the meantime, he should go to the ED for evaluation. All questions were answered and patient agrees to plan. Medications: New sulfamethoxazole-trimethoprim 800-160 mg 1 tab PO BID 10 days 20 tabs 0RF L03.115 - Cellulitis of right lower limb Coding Level of Care Code Est Pt Level 4 (44797) Diagnoses Cellulitis of right lower extremity from knee to ankle L03.115
[2024-01-30 12:09] VITALS: BP 128/84; PULSE 101; TEMP 37; O2SAT 96; BMI 43.6
== END 2024-01-30 13:20 | disposition home or self-care (01) ==
PROVIDERS: PCP Internal Medicine; Visit Provider Nurse Practitioner Family
DX: L03.115 Cellulitis of right lower limb (principal)
CPT/HCPCS: 99214

== ENCOUNTER 2024-02-10 12:52 | Outpatient (REF) | payer MEDICARE, SELFPAY ==
--- NOTE | ~2024-02-10 | MR_ITS ---
EXAMINATION: MR SHOULDER WITHOUT CONTRAST, RIGHT CLINICAL INFORMATION: Bicipital tendinitis right shoulder. COMPARISON: None available. TECHNIQUE: MRI of the shoulder without contrast was performed on a high-field scanner. FINDINGS: ROTATOR CUFF: Supraspinatus: There is abnormal signal in the irregular attenuation along the anterior supraspinatus tendon compatible with partial articular sided tearing extending proximally from the insertion. The tear extends over 1.8 cm transverse and approximately 1.1 cm AP. No full-thickness defect. The muscle is normal. Infraspinatus: Normal. Teres minor normal. Subscapularis: There is attenuation of the upper portion of the subscapularis tendon compatible with partial articular sided tearing. This extends over approximately 1 cm medial to lateral. No full-thickness defect or tendon retraction. Muscle normal. BICEPS: There is medial subluxation of the biceps tendon passing distally over the lesser tuberosity. This could be related to the aforementioned suspected articular sided tear of the distal subscapularis tendon and/or biceps truong lesion. The tendons are otherwise intact. CORACOACROMIAL ARCH: The undersurface of the acromion is curved with no subacromial spur. There is mild to moderate hypertrophic osteoarthritis of the acromioclavicular joint. LABRUM/CAPSULE: Normal. GLENOHUMERAL JOINT/MARROW: Small cyst along the anterior superior glenoid likely enthesopathic and the biceps labral complex attachment. Articular cartilage is normal. Minimal cysts in the greater tuberosity anteriorly and posteriorly. MR/MR shoulder RT wo con IMPRESSION: 1. Partial articular sided tearing of the anterior supraspinatus tendon. 2. Small partial articular sided tearing of the upper subscapularis tendon. 3. Medial subluxation of the biceps tendon likely related to the aforementioned partial tear of the subscapularis tendon and/or biceps truong lesion. 4. Mild to moderate hypertrophic osteoarthritis of the acromioclavicular joint. Electronically signed by: Coleman Almonte MD 02/11/2024 12:25 PM EDT
== END 2024-02-10 12:53 | disposition home or self-care (01) ==
LOC: HO.MRI 12:52
PROVIDERS: PCP Internal Medicine; Visit Provider Orthopaedic Surgery
DX: M75.21 Bicipital tendinitis, right shoulder (principal); M24.811 Other specific joint derangements of right shoulder, not elsewhere classified
CPT/HCPCS: 73221

== ENCOUNTER 2024-02-20 09:30 | Outpatient (AMB) | payer MEDICARE, SELFPAY ==
--- NOTE | 2024-02-20 09:41 | MHC.OFFVIS ---
Vital Signs 02/20/24 09:43 Height 5 ft 10 in Weight 304 lb BMI 43.6 Intake Visit Reasons: OV - Right Shoulder MRI Review Intake Note: Emery is a 68 year old right hand dominant male who presents today for an MRI review of his right shoulder. Allergies dextromethorphan [DEXTROMETHORPHAN] Allergy (Severe, Verified 01/30/24 12:05) ITCHY SWELLING SOB shellfish derived Allergy (Severe, Verified 01/30/24 12:05) ANAPHYLAXIS HPI HPI OV - Right Shoulder MRI Review: Details: Emery is a 68 year old right hand dominant male who presents today for an MRI review of his right shoulder. He is playing golf and has occasional pain with reaching activities but for the most part feels okay. [facility] Medical History ALEXUS (acute kidney injury) TANO on CPAP Morbid obesity Leukocytosis Gastritis COVID-19 vaccine series completed Obesity Chronic venous insufficiency Osteoarthritis TANO on CPAP Osteoarthritis of left knee Hypertension High cholesterol Surgical History History of orthopedic surgery Hx of colonoscopy History of right knee surgery LAP-BAND surgery status Family History Father Myocardial infarct Mother No problems noted. Brother Myocardial infarct Social History Household Members: None 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 Partial articular sided tearing of the anterior supraspinatus tendon. 2. Small partial articular sided tearing of the upper subscapularis tendon. 3. Medial subluxation of the biceps tendon likely related to the aforementioned partial tear of the subscapularis tendon and/or biceps truong lesion. 4. Mild to moderate hypertrophic osteoarthritis of the acromioclavicular joint. Assessment & Plan Assessment & Plan (1) Internal derangement of right shoulder: Code(s): M24.811 - Other specific joint derangements of right shoulder, not elsewhere classified Category: Medical Plan: This is a 68-year-old gentleman with multiple medical problems who comes in today after obtaining an MRI of his right shoulder. The MRI shows degenerative changes of the cuff in the glenohumeral joint and associated soft tissues. I do not think his quality of life is affected and I would not recommend surgery at this time. We did discuss treatment options should his pain worsen but at this time is content to proceed without further intervention. He does not feel like physical therapy has been helpful but I would recommend strengthening nevertheless. Coding Level of Care Code Est Pt Level 4 (05475) Diagnoses Internal derangement of right shoulder M24.811
[2024-02-20 09:43] VITALS: BMI 43.6
== END 2024-02-20 10:04 | disposition home or self-care (01) ==
PROVIDERS: PCP Internal Medicine; Visit Provider Orthopaedic Surgery
DX: M24.811 Other specific joint derangements of right shoulder, not elsewhere classified (principal)
CPT/HCPCS: 99213

== ENCOUNTER → 2024-02-20 09:30 | Outpatient (BNVA) | payer MEDICARE, SELFPAY | PROVIDERS: PCP Internal Medicine; Visit Provider Orthopaedic Surgery | DX: M24.811 Other specific joint derangements of right shoulder, not elsewhere classified (principal) | CPT/HCPCS: 99212 ==

== ENCOUNTER 2024-02-24 10:00 | Outpatient (AMB) | payer MEDICARE, SELFPAY ==
--- NOTE | 2024-02-24 10:09 | A.OFFVIS_ITS ---
Vital Signs 02/24/24 10:10 Height 5 ft 10 in Weight 304 lb BMI 43.6 Intake Visit Reasons: Recurring cellulitis Intake Note: pt states urgent care and PCP reccomended he be seen again by vascular for reoccurring cellulitis in the Right LE. Pt states he wears his compression socks daily and still has LE swelling. Pt does use compression pumps and states it helps from getting worse. Accompanied by: Self / Same As Patient Allergies dextromethorphan [DEXTROMETHORPHAN] Allergy (Severe, Verified 02/24/24 10:13) ITCHY SWELLING SOB shellfish derived Allergy (Severe, Verified 02/24/24 10:13) ANAPHYLAXIS HPI HPI Recurring cellulitis: Details: Very pleasant 68-year-old gentleman well known to us regarding swollen lower extremities. He had been seen by us back in June of 2022. At that time he had undergone evaluation and was negative for any significant venous insufficiency. He was then given lymphedema compression. He reports he has been using them. It has been somewhat effective but still continues to have significant swelling of the right lower extremity. He has had multiple bouts of cellulitis. He now presents for routine follow-up. [facility] Medical History ALEXUS (acute kidney injury) TANO on CPAP Morbid obesity Leukocytosis Gastritis COVID-19 vaccine series completed Obesity Chronic venous insufficiency Osteoarthritis TANO on CPAP Osteoarthritis of left knee Hypertension High cholesterol Surgical History (Updated 02/24/24 @ 10:15 by DANUTA Cordoba) History of orthopedic surgery Hx of colonoscopy History of right knee surgery LAP-BAND surgery status Family History Father Myocardial infarct Mother No problems noted. 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 Review of Systems Const All systems reviewed & are unremarkable except as noted in HPI and below Reports no additional complaints ENT Reports Normal hearing present Card Denies chest pain, Denies chest pain at rest, Denies chest pain with activity and Denies pedal edema Resp Denies cough GI Denies abdominal pain Musc Denies abnormal gait, Denies muscle cramps and Denies radiating pain into limb Skin/Breast Denies skin ulcer and Denies wounds Neuro Reports Normal hearing present and Denies abnormal gait Psych Reports no additional complaints Physical Exam Vital Signs: BMI result Body Mass Index 43.6 Const General: cooperative, healthy appearing and comfortable Orientation/consciousness: oriented to person, oriented to place and oriented to time HEENT Head: Yes normal to inspection Neck Neck: Yes normal visual inspection Carotids: no bruits Chest Chest palpation & inspection: normal inspection of the chest Resp Effort & Inspection: normal respiratory effort and able to speak in complete sentences Auscultation: clear to auscultation bilaterally, no crackles, no rales, no rhonchi and no wheezes Cardio Rate: regular rate Rhythm: regular rhythm Heart sounds: S1 normal heart sound present and S2 normal heart sound present Bruits: no carotid bruits Peripheral pulses: Peripheral pulses 2+ throughout GI Inspection: Yes normal to inspection Skin Wounds: no wounds Hair: normal Neuro General: oriented to person, oriented to place and oriented to time Cranial nerves: Yes CN's II-XII intact bilaterally and Yes Normal hearing present Cognition (Neuro): normal cognition Motor exam (neuro): 5/5 motor strength present throughout Extrem Other: venous exam: No significant superficial varicosities or spider telangiectasias, minimal edema General: No clubbing, No cyanosis and No edema Psych Appearance: grossly normal Mental Status: mental status grossly normal Speech and movement: Normal speech and movement present Assessment & Plan Assessment & Plan (1) Varicose veins of right lower extremity with inflammation: Code(s): I83.11 - Varicose veins of right lower extremity with inflammation Category: Medical Plan: In short patient has recurrent bouts of cellulitis. Although venous insufficiency testing was negative nearly 18 months ago I have taken the liberty of reordering it for completeness sake. Should that prove to be negative might readdress the lymphedema issue as delineated below (2) Lymphedema: Code(s): I89.0 - Lymphedema, not elsewhere classified Category: Medical Plan: He does have peripheral lymphedema and may need more of a central lymphedema unit as well. In addition if this may be a more persistent problem may need referral to physical therapy at [facility] for their lymphedema program. In addition we did discuss meticulous skin care as well We will continue to keep a close eye on this and he will follow up with us after venous insufficiency testing. Thank you for allowing us to assist in his care. Orders: Orders US venous duplex LE RT 1 Week I83.11 - Varicose veins of right lower extremity with inflammation Coding Level of Care Code Est Pt Level 4 (30729) Diagnoses Varicose veins of right lower extremity with inflammation I83.11 Lymphedema I89.0
[2024-02-24 10:10] VITALS: BMI 43.6
== END 2024-02-24 10:39 | disposition home or self-care (01) ==
PROVIDERS: PCP Internal Medicine; Visit Provider Surgery Vascular Surgery
DX: I83.11 Varicose veins of right lower extremity with inflammation (principal); I89.0 Lymphedema, not elsewhere classified
CPT/HCPCS: 99213

== ENCOUNTER → 2024-02-24 10:00 | Outpatient (BNVA) | payer MEDICARE, SELFPAY | PROVIDERS: PCP Internal Medicine; Visit Provider Surgery Vascular Surgery | DX: I83.11 Varicose veins of right lower extremity with inflammation (principal); I89.0 Lymphedema, not elsewhere classified | CPT/HCPCS: 99212 ==

== ENCOUNTER 2024-03-02 10:13 | Outpatient (REF) | payer MEDICARE, SELFPAY ==
--- NOTE | ~2024-03-02 | US_ITS ---
EXAMINATION: US LOWER EXTREMITY (REFLUX EXAM), RIGHT CLINICAL INDICATION: Right lower extremity varicose veins with inflammation COMPARISON: 06/14/2022 TECHNIQUE: Color flow triplex imaging and compression Doppler was performed to evaluate both the deep and the superficial systems of the right lower extremity. To evaluate the superficial system, the examination was performed in the upright position. Color-flow Doppler ultrasound and compression ultrasound were utilized. In addition, maneuvers were utilized to demonstrate reflux. FINDINGS: 1. DEEP VENOUS DOPPLER ULTRASOUND: Common Femoral Vein: Compressible, normal respiratory variation and augmented flow. Femoral Vein: Compressible, normal color flow and augmentation. Popliteal Vein: Compressible, normal augmentation. Deep Reflux: There is no evidence of reflux in the deep system in either the common femoral vein, superficial femoral vein or the popliteal vein. There is no evidence of a Castellanos's cyst. 2. SUPERFICIAL VENOUS DOPPLER ULTRASOUND: GREAT SAPHENOUS VEIN: Saphenofemoral Junction: 1.0 cm; Reflux: 0 ms Proximal Thigh: 0.6 cm; Reflux: 0 ms Mid Thigh: 0.5 cm; Reflux: 0 ms Above Knee: 0.5 cm; Reflux: 0 ms At Knee: 0.5 cm; Reflux: 0 ms Below Knee: 0.6 cm; Reflux: 0 ms Mid Calf: 0.3 cm; Reflux: 0 ms Ankle: 0.3 cm; Reflux: 0 ms DUPLICATED MEDIAL GREAT SAPHENOUS VEIN: Diameter: 0.6 Reflux: None DUPLICATED LATERAL GREAT SAPHENOUS VEIN: Diameter: 0.5 cm Reflux: None SMALL SAPHENOUS VEIN: Saphenopopliteal Junction: 0.4 cm; Reflux: 0 ms Proximal: 0.2 cm; Reflux: 0 ms Distal: 0.3 cm; Reflux: 0 ms VEIN OF GIACOMINI: Size: NA Reflux: NA PERFORATORS: Location: [place] Size: 0.4 cm Reflux: None VARICOSITIES: Location: Mid thigh and proximal calf Size: 0.3 to 0.5 cm Reflux: None US/US venous duplex LE RT IMPRESSION: 1. Right great saphenous vein is patent without significant reflux. 2. Right calf brace maker and varicosities without significant reflux. Electronically signed by: Nic Vizcaino MD 03/03/2024 03:47 PM EDT
== END 2024-03-02 10:14 | disposition home or self-care (01) ==
LOC: HO.US 10:13
PROVIDERS: PCP Internal Medicine; Visit Provider Surgery Vascular Surgery
DX: I83.11 Varicose veins of right lower extremity with inflammation (principal)
CPT/HCPCS: 93971

== ENCOUNTER 2024-03-10 08:00 | Outpatient (RCR) | payer MEDICARE, SELFPAY ==
[2024-02-24 13:48] VITALS: BP 153/74; PULSE 80
== END 2024-04-12 15:34 | disposition home or self-care (01) ==
LOC: HO.PT 08:00
PROVIDERS: PCP Internal Medicine; Visit Provider Physician Assistant Surgical
DX: H81.4 Vertigo of central origin (principal)
CPT/HCPCS: 95992; 97161

== ENCOUNTER 2024-03-23 09:46 | Outpatient (AMB) | payer MEDICARE, SELFPAY ==
--- NOTE | 2024-03-23 09:49 | MHC.OFFVIS ---
Intake Visit Reasons: follow up s/p 03/02/24 Intake Note: Patient presents for follow up US. He has bilateral leg swelling. Right leg is worse. Flue Lining Dipper Required: No Allergies dextromethorphan [DEXTROMETHORPHAN] Allergy (Severe, Verified 03/23/24 09:50) ITCHY SWELLING SOB shellfish derived Allergy (Severe, Verified 03/23/24 09:50) ANAPHYLAXIS HPI HPI follow up s/p 03/02/24: Details: Emery is presenting today for a follow up to . He has continuing concerns for lower extremity swelling, R>L. He denies any pain. He denies numbness/tingling. He has never smoked and is not a diabetic. He has had 3 episodes of cellulitis this summer, from October to January. He is not currently having any symptoms. He denies CP/diff breathing/shortness of breath. He denies any pain with walking or difficulty walking. He regularly goes to the gym without difficulty. He wears compression stockings daily. [facility] Medical History ALEXUS (acute kidney injury) TANO on CPAP Morbid obesity Leukocytosis Gastritis COVID-19 vaccine series completed Obesity Chronic venous insufficiency Osteoarthritis TANO on CPAP Osteoarthritis of left knee Hypertension High cholesterol Surgical History History of orthopedic surgery Hx of colonoscopy History of right knee surgery LAP-BAND surgery status Family History Father Myocardial infarct Mother No problems noted. 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 . Neuro Reports as per HPI, Reports Normal hearing present, Denies dizziness, Denies numbness and Denies weakness Physical Exam Const Orientation/consciousness: patient oriented x3 HEENT Ears: hearing grossly normal bilaterally Resp Effort & Inspection: normal respiratory effort and able to speak in complete sentences Auscultation: clear to auscultation bilaterally, no crackles, no rales, no rhonchi and no wheezes Cardio Rate: regular rate Rhythm: regular rhythm Heart sounds: S1 normal heart sound present and S2 normal heart sound present Bruits: no abdominal aortic bruits, no carotid bruits, no femoral bruits and no renal bruits Peripheral pulses: Peripheral pulses 2+ throughout GI Inspection: Yes normal to inspection Palpation (GI): No Abdominal aortic bruit present Skin Other: Bilateral lower extremity swelling noted, right slightly more than left. No injuries/deformities/erythema noted. +palpable DP and PT pulses bilaterally. Skin is warm/dry to touch. General skin exam: no rashes or lesions noted Wounds: no wounds Hair: normal Nails: normal Neuro General: patient oriented x3 Cranial nerves: Yes CN's II-XII intact bilaterally and Yes Normal hearing present Cognition (Neuro): normal cognition Gait exam (Neuro): Normal gait present Motor exam (neuro): 5/5 motor strength present throughout Extrem Other: Venous exam: no significant superficial varicosities or spider telangiectasias General: Yes no pedal edema (bilateral lower extremity 1+ pitting edema) Psych Appearance: grossly normal Speech and movement: Normal speech and movement present Results Reviewed Results Reviewed: Reviewed results of US with patient. No concerns noted throughout, bilaterally. Assessment & Plan Assessment & Plan (1) Varicose veins of right lower extremity with inflammation: Code(s): I83.11 - Varicose veins of right lower extremity with inflammation Category: Medical Plan: see below (2) Lymphedema: Code(s): I89.0 - Lymphedema, not elsewhere classified Category: Medical Plan: see below Plan Emery is presenting today for review of his most recent US on 03/02/24. The US is negative for any venous processes. The pt continues with bilateral lower extremity swelling, right > left. He continues to wear compression stockings daily and utilizes his lymphedema sleeves daily. He denies any lower extremity pain and is able to walk 1.5-2 miles without difficulty or pain. He also goes to the gym 5 times a week. He has never smoked and he is not a diabetic. He is followed closely by Cardiology for heart failure and has an appt with them later this month. He states that the compression stockings do help with the swelling as well as elevation. He states he never gets any pain. He denies numbness or tingling in his lower extremities. CEAP: C - 3 edema E - lymphedema/HF A - bilateral lower extremities P - HF/lymphedema He continues to use his peripheal lymphedema sleeves (appx 16-17m now) but is requesting the abdominal sleeve as well. He is not interested in the lymphedema clinic at [facility] at this time; he states he would be unable to get there daily for 30d. His abdominal circumference is 141cm. We will be reaching out to the company and obtaining the abd sleeve for him. We discussed that if the lymphedema continues, we will discuss the possibility of the clinic again. We discussed continued skin care. We will follow up with him only as needed at this point. We discussed to continue with close follow-up with Cardiology. Thank you for allowing us to assist in his care. Patient Instructions: Continue with compression stockings daily. Continue with the lymphedema sleeves and abdominal sleeve when it comes in. Continue with close Cardiology follow up. Continue with activity. Coding Level of Care Code Established Pt Est Pt Level 4 (66147) Established Pt Complex EM visit Add On G2211 Patient Type Established Diagnoses Varicose veins of right lower extremity with inflammation I83.11 Lymphedema I89.0 Time Spent (min) 30 Comment Reviewed in length USVI. Time spent with pt education as well.
== END 2024-03-23 10:08 | disposition home or self-care (01) ==
PROVIDERS: PCP Internal Medicine; Visit Provider Surgery Vascular Surgery
DX: I83.11 Varicose veins of right lower extremity with inflammation (principal); I89.0 Lymphedema, not elsewhere classified
CPT/HCPCS: 99214; G2211

== ENCOUNTER → 2024-03-23 09:46 | Outpatient (BNVA) | payer MEDICARE, SELFPAY | PROVIDERS: PCP Internal Medicine; Visit Provider Surgery Vascular Surgery | DX: I83.11 Varicose veins of right lower extremity with inflammation (principal); I89.0 Lymphedema, not elsewhere classified | CPT/HCPCS: 99212 ==

== ENCOUNTER 2024-04-05 08:56 | Outpatient (AMB) | payer MEDICARE, SELFPAY ==
[2024-04-05 09:03] VITALS: BP 144/78; PULSE 83; BMI 44.2
--- NOTE | 2024-04-05 09:03 | MHC.OFFVIS ---
Vital Signs 04/05/24 09:03 Height 5 ft 10 in Weight 308 lb 3.3 oz BMI 44.2 BP 144/78 H Blood Pressure Location Lt brachial Position Sitting Pulse 83 Intake Visit Reasons: 1 year follow-up with ekg Cyber Incident Handler Required: No Accompanied by: Self / Same As Patient Allergies dextromethorphan [DEXTROMETHORPHAN] Allergy (Severe, Verified 03/23/24 09:50) ITCHY SWELLING SOB shellfish derived Allergy (Severe, Verified 03/23/24 09:50) ANAPHYLAXIS Medication List - Last Reconciled 04/05/24 by Jass Posada MD apixaban (Eliquis) 5 mg PO BID 30 days atorvastatin 10 mg PO DAILY cephalexin 500 mg PO QID diltiazem HCl CD 240 mg PO DAILY epinephrine 0.3 mL IM DAILY PRN furosemide (Lasix) 40 mg PO DAILY 30 days sildenafil 50 mg PO DAILY PRN HPI Comments Details: Emery returns for follow-up. To recall, he was admitted for lower extremity cellulitis as well as sepsis. In that context, had atrial fibrillation rapid rate with component of congestive heart failure. He converted to sinus before discharge. He was on beta-blockers but that was changed diltiazem due to concurrent EpiPen use. Since last seen, he states he has had a few episodes of chest fluttering. He thinks he might be atrial fibrillation. He is still dealing with lower extremity swelling problems. [facility] Medical History ALEXUS (acute kidney injury) TANO on CPAP Morbid obesity Leukocytosis Gastritis COVID-19 vaccine series completed Obesity Chronic venous insufficiency Osteoarthritis TANO on CPAP Osteoarthritis of left knee Hypertension High cholesterol Surgical History History of orthopedic surgery Hx of colonoscopy History of right knee surgery LAP-BAND surgery status Family History Father Myocardial infarct Mother No problems noted. 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 Review of Systems Const Denies chills, Denies fatigue, Denies fever(s), Denies weight gain and Denies weight loss ENT Denies dizziness Card Denies chest pain, Reports irregular heart rhythm, Denies leg edema, Denies lightheadedness, Denies palpitations, Reports dyspnea on exertion, Denies orthopnea and Denies other Resp Denies cough and Reports dyspnea on exertion GI Denies hematochezia and Denies change in stool character Musc Denies abnormal gait, Denies muscle weakness, Denies numbness, Denies radiating pain into limb and Denies tingling Neuro Denies abnormal gait, Denies dizziness, Denies numbness and Denies tingling Endo Denies fatigue and Denies palpitations Physical Exam Vital Signs: Last Vital Signs Pulse 83 04/05/24 09:03 BP 144/78 H 04/05/24 09:03 BMI result Body Mass Index 44.2 Const General: comfortable and no acute distress Orientation/consciousness: patient oriented x3 HEENT Other: Unremarkable Head: Yes normal to inspection Neck Neck: Yes normal visual inspection Chest Chest palpation & inspection: normal inspection of the chest Resp Auscultation: clear to auscultation bilaterally Cardio Palpation: normal PMI Heart sounds: S1 normal heart sound present, S2 normal heart sound present, no gallops, no murmurs and no rubs GI Palpation (GI): Soft to palpation Back/Spine/Pelvis Other: unremarkable Skin General skin exam: no rashes or lesions noted Neuro General: patient oriented x3 Extrem General: Yes normal to inspection Psych Mental Status: mental status grossly normal Office Procedures EKG Details: In the EKG, underlying rhythm is sinus at 83/Min; nonspecific Q-waves in inferior leads; incomplete right bundle-branch pattern; [place] [id number], Complete Assessment & Plan Assessment & Plan (1) PAF (paroxysmal atrial fibrillation): Code(s): I48.0 - Paroxysmal atrial fibrillation Category: Medical Plan: Due to palpitations, check Holter monitor. He may continue the current dose while wearing the Holter but after that we can try the higher dose at 360 mg daily. We discussed about this today. Continue anticoagulation. Due to possible need for EpiPen in the future, not on beta-blockers. (2) Chronic diastolic (congestive) heart failure: Code(s): I50.32 - Chronic diastolic (congestive) heart failure Category: Medical Plan: Continue diuretics. Echocardiogram with hyperdynamic LVEF. Preserved RV function on limited assessment. No significant valvular issues. On the perfusion imaging, no ischemia or infarction noted. (3) TANO on CPAP: Code(s): G47.33 - Obstructive sleep apnea (adult) (pediatric); Z99.89 - Dependence on other enabling machines and devices Category: Medical Plan: Continue CPAP. (4) Morbid obesity: Code(s): E66.01 - Morbid (severe) obesity due to excess calories Category: Medical Plan: His weight is less compared to couple years ago. Ideally, should lose much more weight. We discussed about this as well. That contributes to many of his issues including atrial fibrillation, obstructive sleep apnea, leg swelling. Plan Follow-up 6 months. Orders: Orders ECG 14 day holter monitor Today I48.0 - Paroxysmal atrial fibrillation Medications: New diltiazem HCl CD 360 mg PO DAILY 90 caps 3RF 90 days Discontinued diltiazem HCl CD Discontinued Reason: Doctor's Order 240 mg PO DAILY 90 caps 3RF Coding Level of Care Code Est Pt Level 4 (04850) Diagnoses PAF (paroxysmal atrial fibrillation) I48.0 Chronic diastolic (congestive) heart failure I50.32 TANO on CPAP G47.33; Z99.89 Morbid obesity E66.01 CPT Codes EKG - CPT: [id number], Complete ([id number])
== END 2024-04-05 09:39 | disposition home or self-care (01) ==
PROVIDERS: PCP Internal Medicine; Visit Provider Internal Medicine
DX: I48.0 Paroxysmal atrial fibrillation (principal); I50.32 Chronic diastolic (congestive) heart failure; G47.33 Obstructive sleep apnea (adult) (pediatric); Z99.89 Dependence on other enabling machines and devices; E66.01 Morbid (severe) obesity due to excess calories
CPT/HCPCS: 93010; 99214

== ENCOUNTER → 2024-04-05 08:56 | Outpatient (BNVA) | payer MEDICARE, SELFPAY | PROVIDERS: PCP Internal Medicine; Visit Provider Internal Medicine | DX: I48.0 Paroxysmal atrial fibrillation (principal); I50.32 Chronic diastolic (congestive) heart failure; G47.33 Obstructive sleep apnea (adult) (pediatric); E66.01 Morbid (severe) obesity due to excess calories; Z68.41 Body mass index [BMI] 40.0-44.9, adult; Z99.89 Dependence on other enabling machines and devices | CPT/HCPCS: 93005; 99212 ==

== ENCOUNTER → 2024-04-14 07:56 | Outpatient (REF) | payer MEDICARE, SELFPAY ==
--- NOTE | 2024-04-14 07:58 | HM_ITS ---
Conclusion: 1. Patient was monitored for total period of 14 days 2. Baseline was normal sinus rhythm with average heart of 80 beats per minute 3. Intermittent episodes of atrial fibrillation noted with total burden of 0.8% lasting for 1 hour and 39 minutes on day 13 with the fastest heart rate 171 beats per minute 4. Occasional PACs noted with total burden of 0.83% with frequent short burst of SVT/runs of PACs 5. Two episodes of nonsustained ventricular tachycardia noted, longest lasting 25 beats at 146 beats per minute consistent with nonsustained VT 6. Patient reported to marked events, 1 correlating with isolated PACs very reported quick heartbeat and 2nd correlating with atrial fibrillation with no reported symptoms MTDD
== END ==
LOC: HO.CARD 07:56
PROVIDERS: PCP Internal Medicine; Visit Provider Internal Medicine
DX: I48.0 Paroxysmal atrial fibrillation (principal)
CPT/HCPCS: 93246

== ENCOUNTER → 2024-04-14 07:58 | Outpatient (BNV) | payer MEDICARE, SELFPAY | PROVIDERS: PCP Internal Medicine; Visit Provider Internal Medicine Cardiovascular Disease | DX: I48.91 Unspecified atrial fibrillation (principal) | CPT/HCPCS: 93248 ==

== ENCOUNTER 2024-05-06 08:56 | Outpatient (AMB) | payer MEDICARE, SELFPAY ==
--- NOTE | 2024-05-06 09:06 | A.OFFVIS_ITS ---
Vital Signs 05/06/24 09:09 Height 5 ft 10 in Weight 308 lb BMI 44.2 Intake Visit Reasons: OV - Right Knee OA Intake Note: Emery is a 69 year old male who presents today for a follow up of his right knee OA. Patient reports that he is having increasing pain and tightness felt in the posterior aspect of the knee. Patient reports that he got out of bed about 2 weeks ago and the right knee gave out on him causing him to fall. He explains that he had pain in the posterior aspect of the knee and radiated down the calf to the foot. Discomfort felt with flexion of the leg. Since this episode the knee has improved. Allergies dextromethorphan [DEXTROMETHORPHAN] Allergy (Severe, Verified 03/23/24 09:50) ITCHY SWELLING SOB shellfish derived Allergy (Severe, Verified 03/23/24 09:50) ANAPHYLAXIS HPI HPI OV - Right Knee OA: Details: Emery is a 69 year old male who presents today for a follow up of his right knee OA. Patient reports that he is having increasing pain and tightness felt in the posterior aspect of the knee. Patient reports that he got out of bed about 2 weeks ago and the right knee gave out on him causing him to fall. He explains that he had pain in the posterior aspect of the knee and radiated down the calf to the foot. Discomfort felt with flexion of the leg. Since this episode the knee has improved. [facility] Medical History ALEXUS (acute kidney injury) TANO on CPAP Morbid obesity Leukocytosis Gastritis COVID-19 vaccine series completed Obesity Chronic venous insufficiency Osteoarthritis TANO on CPAP Osteoarthritis of left knee Hypertension High cholesterol Surgical History History of orthopedic surgery Hx of colonoscopy History of right knee surgery LAP-BAND surgery status Family History Father Myocardial infarct Mother No problems noted. 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 He had a flare-up but he is doing better. I discussed the natural history of osteoarthritis of the knee and he will see me as needed but no intervention warranted at this time. Coding Level of Care Code Est Pt Level 3 (52419) Diagnoses Tricompartment osteoarthritis of right knee M17.11
[2024-05-06 09:09] VITALS: BMI 44.2
== END 2024-05-06 09:33 | disposition home or self-care (01) ==
PROVIDERS: PCP Internal Medicine; Visit Provider Orthopaedic Surgery
DX: M17.11 Unilateral primary osteoarthritis, right knee (principal)
CPT/HCPCS: 99213

== ENCOUNTER → 2024-05-06 08:56 | Outpatient (BNVA) | payer MEDICARE, SELFPAY | PROVIDERS: PCP Internal Medicine; Visit Provider Orthopaedic Surgery | DX: M17.11 Unilateral primary osteoarthritis, right knee (principal) | CPT/HCPCS: 99212 ==

== ENCOUNTER 2024-05-19 13:41 | Outpatient (AMB) | payer MEDICARE, SELFPAY ==
[2024-05-19 14:17] VITALS: BMI 44.2
--- NOTE | 2024-05-19 14:17 | MHC.OFFVIS ---
Vital Signs 05/19/24 14:17 Height 5 ft 10 in Weight 308 lb BMI 44.2 Intake Visit Reasons: Lymphedema clinic Accompanied by: Self / Same As Patient Allergies dextromethorphan [DEXTROMETHORPHAN] Allergy (Severe, Verified 05/19/24 14:17) ITCHY SWELLING SOB shellfish derived Allergy (Severe, Verified 05/19/24 14:17) ANAPHYLAXIS HPI HPI Lymphedema clinic: Details: Emery is presenting today for the lymphedema clinic. He currently utilizes the basic model of compression pumps for his legs only, which he states has been keeping the lymphedema at bay, but it has not improved it at all. He continues to endorse swelling and pain of his lower extremities. He has currently been using the pumps for at least 18m. [facility] Medical History ALEXUS (acute kidney injury) TANO on CPAP Morbid obesity Leukocytosis Gastritis COVID-19 vaccine series completed Obesity Chronic venous insufficiency Osteoarthritis TANO on CPAP Osteoarthritis of left knee Hypertension High cholesterol Surgical History History of orthopedic surgery Hx of colonoscopy History of right knee surgery LAP-BAND surgery status Family History Father Myocardial infarct Mother No problems noted. 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 Review of Systems Const Reports as per HPI and Denies weakness ENT Reports Normal hearing present and Denies dizziness Card Reports as per HPI, Denies chest pain, Denies chest pain at rest, Denies chest pain with activity, Denies dyspnea and Denies dyspnea on exertion Resp Reports as per HPI, Denies cough, Denies dyspnea and Denies dyspnea on exertion GI Reports as per HPI, Denies abdominal pain, Denies nausea and Denies vomiting Musc Denies numbness Skin/Breast Reports as per HPI, Denies erythema and Denies wounds Neuro Reports Normal hearing present, Denies dizziness, Denies numbness, Denies Sensory deficit (Neuro) and Denies weakness Psych Reports no additional complaints Endo Reports no additional complaints Physical Exam Vital Signs: BMI result Body Mass Index 44.2 Const General: healthy appearing and no acute distress Orientation/consciousness: patient oriented x3 HEENT Head: Yes normal to inspection Ears: hearing grossly normal bilaterally Mouth: Normal oral and palatal mucosa present Resp Effort & Inspection: normal respiratory effort and able to speak in complete sentences Auscultation: clear to auscultation bilaterally Cardio Jugular venous distension: no JVD Rate: regular rate Rhythm: regular rhythm Heart sounds: S1 normal heart sound present and S2 normal heart sound present Bruits: no abdominal aortic bruits, no carotid bruits, no femoral bruits and no renal bruits Peripheral pulses: Peripheral pulses 2+ throughout GI Inspection: Yes normal to inspection Palpation (GI): No Abdominal aortic bruit present Skin General skin exam: no rashes or lesions noted Wounds: no wounds Hair: normal Neuro General: patient oriented x3 Cranial nerves: Yes Normal hearing present Cognition (Neuro): normal cognition Gait exam (Neuro): Normal gait present Motor exam (neuro): 5/5 motor strength present throughout Sensory Exam: No Sensory deficit (Neuro) Extrem Other: Bilateral lower extremity swelling, R slightly more than left. General: Yes normal to inspection, Yes full ROM, Yes capillary refill normal and Yes normal gait Assessment & Plan Assessment & Plan (1) Lymphedema: Code(s): I89.0 - Lymphedema, not elsewhere classified Category: Medical Plan: Emery is presenting today to be fitted for lymphedema pumps. They have had more than 3 months, starting 18 months ago in August/September 2022 , of conservative treatments with elevation, compression stockings daily use with 20-30mmHg, and physical activity with minimal relief as well as using the basic leg compression pumps from [employer]. They continue to have persistent symptoms despite conservative treatments and daily 1h treatments with the basic pump. They are presenting with hyperpigmentation, lymphorrhea, hyperkeratosis, and 2+ pitting edema. They state the right leg is worse than the left and there is extension into their abdominal area. They also complains of pain and itchiness. It appears that they has stage II lymphedema. Maxwell from [employer] will be fitting them for the advanced pneumatic compression device, which will get mailed to their house. The patient has lymphedema that extends to their upper thigh and abdominal region. The basic pneumatic compression device is not adequate for the patient; it has been trialed but is not clinically appropriate due to the extensive lymphedema noted. The advanced compression device will be the best in this case. Thank you allowing us to care for the patient. Coding Level of Care Code Est Pt Level 4 (06912) Diagnoses Lymphedema I89.0 Comment fitting for compression pumps
--- OUTSIDE RECORDS SUMMARY | 2024-05-25 19:38 | XMS_ITS | Clinical Summary ---
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 And Lock Attacher Name Role Phone WALT DO, BRITTNEY Unavailable Unavailable SHARIF MAMMOGRAPHY TECH, DUSTY Unavailable Unavailable LARRY MAMMOGRAPHY TECH, DARIAN Unavailable Unavail able LETITIA RN, AMINA Unavailable Unavailable KALETINA MAMMOGRAPHY TECH, JADA Unavailable Unavailab le Payers Payer Name Policy Type Policy Number Effective Date Expira tion Date [place] [id number] Problems Condition Name Condition Details Condition Category Status Onset Date Resolution Date Last Treatment Date Treating Clinician Comments UNSPECIFIED ATRIAL FIBRILLATION Active 06-16 00:00: 00 HYPERTENSIVE HEART DISEASE WITH HEART FAILURE Active 06-16 00:00: 00 ACUTE DIASTOLIC (CONGESTIVE) HEART FAILURE Active 06-16 00:00: 00 UNILATERAL PRIMARY OSTEOARTHRIT IS, LEFT KNEE Active 06-16 00:00: 00 ACUTE KIDNEY FAILURE, UNSPECIFIED Active 06-16 00:00: 00 PURE HYPERCHOLEST EROLEMIA, UNSPECIFIED Active 06-16 00:00: 00 CELLULITIS OF RIGHT LOWER LIMB Active 06-16 00:00: 00 HYPOKALEMIA Active 06-16 00:00: 00 VENOUS INSUFFICIENC Y (CHRONIC) (PERIPHERAL) Active 06-16 00:00: 00 MALE ERECTILE DYSFUNCTION, UNSPECIFIED Active 06-16 00:00: 00 MORBID (SEVERE) OBESITY DUE TO EXCESS CALORIES Active 06-16 00:00: 00 OBSTRUCTIVE SLEEP APNEA (ADULT) (PEDIATRIC) Active 06-16 00:00: 00 DUODENITIS WITHOUT BLEEDING Active 06-16 00:00: 00 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 Ordering Clinician Indication Dosage Frequency Signature (SIG) Comments Components amoxicillin 875 mg-potassiu m clavulanate 125 mg tablet 2021-06 00:00: 00 03-23 23:59 :00 No [id number] 1 tablet 2 TIMES DAILY 1 tablet 2 TIMES DAILY (route: oral) Med Classific ation: Anti-Infe ctive Agents Eliquis 5 mg tablet 2021-06 00:00: 00 Yes [id number] 1 tablet 2 TIMES DAILY 1 tablet 2 TIMES DAILY (route: oral) Med Classific ation: Hematolog ical Agents epinephrine 0.3 mg/0.3 mL injection, auto-inject or 2021-06 00:00: 00 Yes [id number] 1 auto-in jector DIRECTED 1 auto-injec tor DIRECTED (route: injection) Med Classific ation: Cardiovas cular Therapy Agents Lasix 40 mg tablet 2021-06 00:00: 00 Yes [id number] 1 tablet EVERY AM 1 tablet EVERY AM (route: oral) Med Classific ation: Cardiovas cular Therapy Agents metoprolol tartrate 75 mg tablet 2021-06 00:00: 00 03-22 23:59 :00 No [id number] 1 tablet 2 TIMES DAILY 1 tablet 2 TIMES DAILY (route: oral) Med Classific ation: Cardiovas cular Therapy Agents multivitami n tablet 2021-06 00:00: 00 Yes [id number] 1 tablet EVERY AM 1 tablet EVERY AM (route: oral) Med Classific ation: Electroly te Balance-N utritiona l Products omeprazole 40 mg capsule,del ayed release 2021-06 00:00: 00 Yes [id number] 1 capsule EVERY AM 1 capsule EVERY AM (route: oral) Med Classific ation: Gastroint estinal Therapy Agents sildenafil 50 mg tablet 2021-06 0 00:00: 00 Yes [id number] 1 tablet NEEDED 1 tablet NEEDED (route: oral) Med Classific ation: Drugs to treat Erectile Dysfuncti on spironolact one 25 mg tablet 2021-06 0 00:00: 00 Yes [id number] 1 tablet EVERY AM 1 tablet EVERY AM (route: oral) Med Classific ation: Cardiovas cular Therapy Agents Vitamin D3 50 mcg (2,000 unit) capsule 2021-06 0 00:00: 00 Yes [id number] 1 capsule EVERY AM 1 capsule EVERY AM (route: oral) Med Classific ation: Electroly te Balance-N utritiona l Products DILT-XR 240 mg capsule, extended release 2021-06 0 00:00: 00 Yes [id number] 1 capsule DAILY 1 capsule DAILY (route: oral) Med Classific ation: Cardiovas cular Therapy Agents Immunizations Ordered Immunization Name Filled Immunization Name Date Status Comments Refusal Reason COVID FIRST DOSE, COVID FIRST DOSE 2021-06-16 00:00:00 PNEUMOCOCCAL (PPV), PPV 2021-06-16 00:00:00 SHINGLES, TIV (INACTIVATED) 2021-06-16 00:00:00 Vital Signs Vital Name Observation Time Observation Value Commen ts Temperature 2022-05-14 10:07:00.000 98 [degF] Temperature 2022-05-01 10:12:00.000 98.9 [degF] Temperature 2022-04-17 09:38:00.000 96.9 [degF] Temperature 2022-04-10 10:30:00.000 97.7 [degF] Temperature 2022-04-03 15:00:00.000 98.1 [degF] Temperature 2022-03-27 10:50:00.000 98.1 [degF] Temperature 2022-03-22 22:18:00.000 98.5 [degF] Temperature 2022-03-18 15:16:00.000 98.1 [degF] BMI (%) 2022-03-18 15:16:00.000 53 kg/m2 Height 2022-03-18 15:16:00.000 67 [in_us] Pulse 2022-05-14 10:07:00.000 87 /min Pulse 2022-05-01 10:12:00.000 73 /min Pulse 2022-04-17 09:38:00.000 80 /min Pulse 2022-04-10 10:30:00.000 92 /min Pulse 2022-04-03 15:00:00.000 82 /min Pulse 2022-03-27 10:50:00.000 99 /min Pulse 2022-03-22 22:18:00.000 88 /min Pulse 2022-03-18 15:16:00.000 84 /min O2 Saturation (%) 2022-05-14 10:07:00.000 98 % O2 Saturation (%) 2022-05-01 10:12:00.000 98 % O2 Saturation (%) 2022-04-17 09:38:00.000 98 % O2 Saturation (%) 2022-04-10 10:30:00.000 96 % O2 Saturation (%) 2022-04-03 15:00:00.000 97 % O2 Saturation (%) 2022-03-27 10:50:00.000 97 % O2 Saturation (%) 2022-03-18 15:16:00.000 97 % Respirations 2022-05-14 10:07:00.000 20 /min Respirations 2022-05-01 10:12:00.000 20 /min Respirations 2022-04-17 09:38:00.000 20 /min Respirations 2022-04-10 10:30:00.000 18 /min Respirations 2022-04-03 15:00:00.000 20 /min Respirations 2022-03-27 10:50:00.000 20 /min Respirations 2022-03-22 22:18:00.000 18 /min Respirations 2022-03-18 15:16:00.000 20 /min Weight (lbs) 2022-05-14 10:07:00.000 307 [lb_av] Weight (lbs) 2022-05-01 10:12:00.000 305 [lb_av] Weight (lbs) 2022-04-17 09:38:00.000 308.5 [lb_av] Weight (lbs) 2022-04-10 10:30:00.000 312 [lb_av] Weight (lbs) 2022-04-03 15:00:00.000 311 [lb_av] Weight (lbs) 2022-03-27 10:50:00.000 321 [lb_av] Weight (lbs) 2022-03-18 15:16:00.000 340 [lb_av] Systolic Blood Pressure 2022-05-14 10:07:00.000 126 mm [Hg] Systolic Blood Pressure 2022-05-01 10:12:00.000 138 mm [Hg] Systolic Blood Pressure 2022-04-17 09:38:00.000 138 mm [Hg] Systolic Blood Pressure 2022-04-10 10:30:00.000 130 mm [Hg] Systolic Blood Pressure 2022-04-03 15:00:00.000 144 mm [Hg] Systolic Blood Pressure 2022-03-27 10:50:00.000 146 mm [Hg] Systolic Blood Pressure 2022-03-22 22:18:00.000 118 mm [Hg] Systolic Blood Pressure 2022-03-18 15:16:00.000 126 mm [Hg] Diastolic Blood Pressure 2022-05-14 10:07:00.000 78 mm [Hg] Diastolic Blood Pressure 2022-05-01 10:12:00.000 76 mm [Hg] Diastolic Blood Pressure 2022-04-17 09:38:00.000 82 mm [Hg] Diastolic Blood Pressure 2022-04-10 10:30:00.000 80 mm [Hg] Diastolic Blood Pressure 2022-04-03 15:00:00.000 80 mm [Hg] Diastolic Blood Pressure 2022-03-27 10:50:00.000 82 mm [Hg] Diastolic Blood Pressure 2022-03-22 22:18:00.000 72 mm [Hg] Diastolic Blood Pressure 2022-03-18 15:16:00.000 80 mm [Hg] Plan of Treatment Planned Activity Planned Date Details Comments Future Scheduled Test SKILLED NU RSE TO EVALUATE PATIENT, IDENTIFY PRIMARY AND CO-MORBID CONDITIONS CODED PER CODING GUIDELINES, AND DEVELOP PATIENT SPECIFIC PLAN OF CARE THAT INCLUDES PATIENT GOAL FOR HOME HEALTH. CLINICAL SUMMARY (SOC) THE PATIENT IS A 67 YO FORMER [employer] RECEIVING 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 CELLULITIS RLE. PMH OBESITY, HTN, HLD, TANO USES CPAP, ALEXUS, L TKA, R KNEE OA, CHF RECENT HOSPITALIZATION/INPATIENT ADMISSION RELATED TO: AFIB WITH TACHYCARDIA, CONFUSION, INFECTED RLE. [facility] [place] 03/10-03/16 NEW OR CHANGED MEDICATIONS: DC LIPITOR AND CARVEDILOL, START AMOXICILLIN, LASIX, ELIQUIS, METOPROLOL PATIENT LIVING SITUATION/CAREGIVER STATUS: LIVES ALONE IN CONDO RECENT FALLS: DENIES SUMMARIZE SKILLED NEED: INFECTION CONTROL, SKIN INTEGRITY, AFIB AND HTN, FALL PREVENTION, MEDS AND SIDE EFFECTS, LABS, NUTRITION AND HYDRATION, MANAGING CHRONIC CONDITIONS ADDITIONAL DISCIPLINES NEEDED OR DECLINED ORDERED SERVICES: NA [code = SKILLED NURSE TO EVALUATE PATIENT, IDENTIFY PRIMARY AND CO-MORBID CONDITIONS CODED PER CODING GUIDELINES, AND DEVELOP PATIENT SPECIFIC PLAN OF CARE THAT INCLUDES PATIENT GOAL FOR HOME HEALTH. CLINICAL SUMMARY (SOC) THE PATIENT IS A 67 YO FORMER [employer] RECEIVING 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 CELLULITIS RLE. PMH OBESITY, HTN, HLD, TANO USES CPAP, ALEXUS, L TKA, R KNEE OA, CHF RECENT HOSPITALIZATION/INPATIENT ADMISSION RELATED TO: AFIB WITH TACHYCARDIA, CONFUSION, INFECTED RLE. [facility] [place] 03/10-03/16 NEW OR CHANGED MEDICATIONS: DC LIPITOR AND CARVEDILOL, START AMOXICILLIN, LASIX, ELIQUIS, METOPROLOL PATIENT LIVING SITUATION/CAREGIVER STATUS: LIVES ALONE IN CONDO RECENT FALLS: DENIES SUMMARIZE SKILLED NEED: INFECTION CONTROL, SKIN INTEGRITY, AFIB AND HTN, FALL PREVENTION, MEDS AND SIDE EFFECTS, LABS, NUTRITION AND HYDRATION, MANAGING CHRONIC CONDITIONS ADDITIONAL DISCIPLINES NEEDED OR DECLINED ORDERED SERVICES: NA] Future Scheduled Test SKILLED NU RSE TO PERFORM HOME SAFETY AND FALL ASSESSMENT AND PROVIDE INSTRUCTION TO IMPLEMENT HOME SAFETY AND FALL PREVENTION STRATEGIES. [code = SKILLED NURSE TO PERFORM HOME SAFETY AND FALL ASSESSMENT AND PROVIDE INSTRUCTION TO IMPLEMENT HOME SAFETY AND FALL PREVENTION STRATEGIES.] Future Scheduled Test SKILLED NU RSE TO PROVIDE ASSESSMENT AND TEACHING/REINFORCEMENT OF MANAGEMENT OF DEPRESSION INCLUDING DISEASE PROCESS, MEDICATION MANAGEMENT, COPING SKILLS AND IDENTIFY CHANGES ASSOCIATED WITH DEPRESSIVE DISORDERS FOR EARLY INTERVENTION. [code = SKILLED NURSE TO PROVIDE ASSESSMENT AND TEACHING/REINFORCEMENT OF MANAGEMENT OF DEPRESSION INCLUDING DISEASE PROCESS, MEDICATION MANAGEMENT, COPING SKILLS AND IDENTIFY CHANGES ASSOCIATED WITH DEPRESSIVE DISORDERS FOR EARLY INTERVENTION.] Future Scheduled Test SKILLED NU RSE TO OBTAIN PULSE OXIMETRY MEASUREMENT PRN FOR SIGNS AND SYMPTOMS OF SHORTNESS OF BREATH, ACTIVITY INTOLERANCE AND WHEN OXYGEN IS ORDERED. [code = SKILLED NURSE TO OBTAIN PULSE OXIMETRY MEASUREMENT PRN FOR SIGNS AND SYMPTOMS OF SHORTNESS OF BREATH, ACTIVITY INTOLERANCE AND WHEN OXYGEN IS ORDERED.] Future Scheduled Test SKILLED NU RSE FOR INSTRUCTION/ REINFORCEMENT OF NEEDS RELATED TO NUTRITION/HYDRATION D/T POOR APPETITE. [code = SKILLED NURSE FOR INSTRUCTION/ REINFORCEMENT OF NEEDS RELATED TO NUTRITION/HYDRATION D/T POOR APPETITE.] Future Scheduled Test PATIENT WILSON S A RISK OF REHOSPITALIZATION. SKILLED NURSE TO ESTABLISH SUPPORT MEASURES TO MINIMIZE RISK OF REHOSPITALIZATION, AND INSTRUCT PATIENT/CAREGIVER ON METHODS TO REDUCE AVOIDABLE HOSPITALIZATION. [code = PATIENT HAS A RISK OF REHOSPITALIZATION. SKILLED NURSE TO ESTABLISH SUPPORT MEASURES TO MINIMIZE RISK OF REHOSPITALIZATION, AND INSTRUCT PATIENT/CAREGIVER ON METHODS TO REDUCE AVOIDABLE HOSPITALIZATION.] Future Scheduled Test SKILLED NU RSE TO PROVIDE INSTRUCTION TO PATIENT/CAREGIVER RELATED TO DISCHARGE PLANNING. [code = SKILLED NURSE TO PROVIDE INSTRUCTION TO PATIENT/CAREGIVER RELATED TO DISCHARGE PLANNING. ] Future Scheduled Test SKILLED NU RSE FOR OBSERVATION AND ASSESSMENT OF PATIENTS PAIN LEVEL AND EFFECTIVENESS OF PAIN MANAGEMENT REGIMEN. SKILLED NURSE TO INSTRUCT PATIENT/CAREGIVER REGARDING PHARMACOLOGIC AND NON-PHARMACOLOGIC PAIN CONTROL MEASURES. SKILLED NURSE TO REPORT TO PHYSICIAN IF PAIN IS UNCONTROLLED WITH CURRENT PAIN MANAGEMENT REGIMEN. [code = SKILLED NURSE FOR OBSERVATION AND ASSESSMENT OF PATIENTS PAIN LEVEL AND EFFECTIVENESS OF PAIN MANAGEMENT REGIMEN. SKILLED NURSE TO INSTRUCT PATIENT/CAREGIVER REGARDING PHARMACOLOGIC AND NON-PHARMACOLOGIC PAIN CONTROL MEASURES. SKILLED NURSE TO REPORT TO PHYSICIAN IF PAIN IS UNCONTROLLED WITH CURRENT PAIN MANAGEMENT REGIMEN.] Future Scheduled Test SKILLED NU RSE FOR O/A, TEACHING RELATED TO LOOSE STOOL DUODENITIS FOR EARLY IDENTIFICATION OF EXACERBATION OF DISEASE PROCESS. [code = SKILLED NURSE FOR O/A, TEACHING RELATED TO LOOSE STOOL DUODENITIS FOR EARLY IDENTIFICATION OF EXACERBATION OF DISEASE PROCESS.] Future Scheduled Test SKILLED NU RSE FOR O/A, TEACHING AND MANAGEMENT OF ALEXUS FOR EARLY IDENTIFICATION OF EXACERBATION OF DISEASE PROCESS [code = SKILLED NURSE FOR O/A, TEACHING AND MANAGEMENT OF ALEXUS FOR EARLY IDENTIFICATION OF EXACERBATION OF DISEASE PROCESS] Future Scheduled Test SKILLED NU RSE FOR O/A OF RESPIRATORY SYSTEM TO IDENTIFY CHANGES ASSOCIATED WITH EXACERBATION AND TO PROVIDE SKILLED TEACHING ON MANAGEMENT OF TANO PROCESS. USE APAP MACHINE ORDERED. [code = SKILLED NURSE FOR O/A OF RESPIRATORY SYSTEM TO IDENTIFY CHANGES ASSOCIATED WITH EXACERBATION AND TO PROVIDE SKILLED TEACHING ON MANAGEMENT OF TANO PROCESS. USE APAP MACHINE ORDERED.] Future Scheduled Test SKILLED NU RSE FOR O/A RELATED TO SIGNS AND SYMPTOMS OF INFECTION AND TO PROVIDE TEACHING REGARDING INFECTION CONTROL MEASURES. [code = SKILLED NURSE FOR O/A RELATED TO SIGNS AND SYMPTOMS OF INFECTION AND TO PROVIDE TEACHING REGARDING INFECTION CONTROL MEASURES.] Future Scheduled Test SKILLED NU RSE FOR O/A OF MUSCULOSKELETAL STATUS AND TEACHING ON MEASURES TO MANAGE LEFT TKA AND TO MAINTAIN SAFETY WITH ACTIVITY. [code = SKILLED NURSE FOR O/A OF MUSCULOSKELETAL STATUS AND TEACHING ON MEASURES TO MANAGE LEFT TKA AND TO MAINTAIN SAFETY WITH ACTIVITY. ] Future Scheduled Test SKILLED NU RSE TO ASSESS PATIENT'S SKIN INTEGRITY AND INSTRUCT PATIENT/CAREGIVER ON MEASURES TO PREVENT PRESSURE ULCERS [code = SKILLED NURSE TO ASSESS PATIENT'S SKIN INTEGRITY AND INSTRUCT PATIENT/CAREGIVER ON MEASURES TO PREVENT PRESSURE ULCERS] Future Scheduled Test INSTRUCTED PATIENT/CAREGIVER ON SIGNS AND SYMPTOMS, RISK FACTORS, COMPLICATIONS, AND MANAGEMENT OF ATRIAL FIBRILLATION. [code = INSTRUCTED PATIENT/CAREGIVER ON SIGNS AND SYMPTOMS, RISK FACTORS, COMPLICATIONS, AND MANAGEMENT OF ATRIAL FIBRILLATION.] Future Scheduled Test SKILLED NU RSE TO PROVIDE TEACHING ON SIGNS AND SYMPTOMS AND MANAGEMENT OF HYPERTENSION. [code = SKILLED NURSE TO PROVIDE TEACHING ON SIGNS AND SYMPTOMS AND MANAGEMENT OF HYPERTENSION.] Future Scheduled Test SKILLED NU RSE FOR O/A AND SKILLED TEACHING RELATED TO ALTERED SKIN INTEGRITY CELLULITIS RLE [code = SKILLED NURSE FOR O/A AND SKILLED TEACHING RELATED TO ALTERED SKIN INTEGRITY CELLULITIS RLE] Future Scheduled Test SKILLED NU RSE FOR O/A, TEACHING AND SELF-MANAGEMENT RELATED TO HEART FAILURE. INSTRUCT PATIENT/CAREGIVER ON SIGNS AND SYMPTOMS OF EXACERBATION TO REPORT. WEIGHT TO BE OBTAINED DAILY AND WEIGHT GAIN OF 2LB OVERNIGHT OR 5LB IN 1 WEEK TO BE REPORTED TO PHYSICIAN. IF UNABLE TO WEIGH PATIENT, SKILLED NURSE TO OBTAIN MEASUREMENT OF BLE AT EACH VISIT AND REPORT INCREASE IN MEASUREMENT TO PHYSICIAN. [code = SKILLED NURSE FOR O/A, TEACHING AND SELF-MANAGEMENT RELATED TO HEART FAILURE. INSTRUCT PATIENT/CAREGIVER ON SIGNS AND SYMPTOMS OF EXACERBATION TO REPORT. WEIGHT TO BE OBTAINED DAILY AND WEIGHT GAIN OF 2LB OVERNIGHT OR 5LB IN 1 WEEK TO BE REPORTED TO PHYSICIAN. IF UNABLE TO WEIGH PATIENT, SKILLED NURSE TO OBTAIN MEASUREMENT OF BLE AT EACH VISIT AND REPORT INCREASE IN MEASUREMENT TO PHYSICIAN.] Future Scheduled Test SKILLED NU RSE TO INSTRUCT PATIENT/CAREGIVER ON PREVENTION OF SEPSIS, SIGNS AND SYMPTOMS OF SEPSIS TO REPORT AND DISEASE MANAGEMENT OF RLE SEPSIS. [code = SKILLED NURSE TO INSTRUCT PATIENT/CAREGIVER ON PREVENTION OF SEPSIS, SIGNS AND SYMPTOMS OF SEPSIS TO REPORT AND DISEASE MANAGEMENT OF RLE SEPSIS.] Future Scheduled Test SKILLED NU RSE FOR O/A AND SKILLED TEACHING RELATED TO SIGNS AND SYMPTOMS AND MANAGEMENT OF RIGHT KNEE OA. [code = SKILLED NURSE FOR O/A AND SKILLED TEACHING RELATED TO SIGNS AND SYMPTOMS AND MANAGEMENT OF RIGHT KNEE OA.] Future Scheduled Test VIRTUAL SIT FREQUENCY: 1-5 PER WEEK X 2 WEEKS, AND 5 PRN VIRTUAL VISITS MAY BE PERFORMED UTILIZING TELECOMMUNICATIONS SYSTEM TO OPTIMIZE SKILLED SERVICES FURNISHED ON THE PLAN OF CARE. SKILLED NURSE TO ESTABLISH SUPPORT MEASURES TO MINIMIZE RISK OF REHOSPITALIZATION, AND INSTRUCT PATIENT/CAREGIVER ON METHODS TO REDUCE AVOIDABLE HOSPITALIZATION. [code = VIRTUAL VISIT FREQUENCY: 1-5 PER WEEK X 2 WEEKS, AND 5 PRN VIRTUAL VISITS MAY BE PERFORMED UTILIZING TELECOMMUNICATIONS SYSTEM TO OPTIMIZE SKILLED SERVICES FURNISHED ON THE PLAN OF CARE. SKILLED NURSE TO ESTABLISH SUPPORT MEASURES TO MINIMIZE RISK OF REHOSPITALIZATION, AND INSTRUCT PATIENT/CAREGIVER ON METHODS TO REDUCE AVOIDABLE HOSPITALIZATION.] Goal 2022-05-14 Patient Goal - FOR R LEG TO HEAL Goal Provider Goal - A PLAN OF CARE WILL BE ESTABLISHED THAT MEETS PATIENT'S CORRECTION NEEDS AND INCLUDES PATIENT GOAL FOR HOME HEALTH. Goal Provider Goal - PATIENT/CAREGIVER WILL VERBALIZE/DEMONSTRATE EFFECTIVE HOME SAFETY AND FALL PREVENTION STRATEGIES THROUGHOUT CERTIFICATION PERIOD. Goal Provider Goal - PATIENT/CAREGIVER WILL VERBALIZE/DEMONSTRATE UNDERSTANDING OF THE MANAGEMENT OF DEPRESSION BY THE END OF THE EPISODE AND SYMPTOMS ARE IDENTIFIED AND MANAGED TO MAINTAIN PATIENT SAFETY IN THE HOME Goal Provider Goal - PULSE OXIMETER RESULTS OBTAINED NEEDED FOR RESPIRATORY COMPLICATIONS THROUGHOUT THE CERTIFICATION PERIOD. Goal Provider Goal - PATIENT/CAREGIVER WILL DEMONSTRATE ABILITY TO SELF MANAGE NEEDS RELATED TO NUTRITION/HYDRATION BY END OF EPISODE. Goal Provider Goal - PATIENT WILL HAVE SUPPORT MEASURES ESTABLISHED TO PREVENT REHOSPITALIZATION AND PATIENT/CAREGIVER WILL VERBALIZE/DEMONSTRATE METHODS TO REDUCE AVOIDABLE HOSPITALIZATION BY THE END OF THE EPISODE. Goal Provider Goal - PATIENT/CAREGIVER WILL VERBALIZE UNDERSTANDING OF DISCHARGE PLANNING INSTRUCTIONS BY DATE OF DISCHARGE. Goal Provider Goal - PATIENT/CAREGIVER WILL DEMONSTRATE UNDERSTANDING OF PHARMACOLOGIC AND NONPHARMACOLOGIC PAIN CONTROL MEASURES AND PATIENT WILL HAVE IMPROVEMENT IN PAIN INTERFERING WITH ACTIVITY EVIDENCED BY PAIN CONTROLLED AT LEVEL OF 7 OR LESS BY END OF CERTIFICATION PERIOD. Goal Provider Goal - EXACERBATIONS OF GASTROINTESTINAL DISEASE WILL BE PROMPTLY IDENTIFIED AND INTERVENTIONS IMPLEMENTED TO MINIMIZE RISKS TO PATIENT BY THE END OF THE EPISODE. Goal Provider Goal - PATIENT/CAREGIVER WILL VERBALIZE UNDERSTANDING OF GENITOURINARY DISEASE PROCESS, AND EXACERBATIONS OF GENITOURINARY DISEASE WILL BE PROMPTLY IDENTIFIED FOR EARLY INTERVENTION THROUGHOUT THE CERTIFICATION PERIOD. Goal Provider Goal - PATIENT/CAREGIVER WILL VERBALIZE/DEMONSTRATE MANAGEMENT OF RESPIRATORY DISEASE PROCESS. CHANGES IN RESPIRATORY STATUS WILL BE IDENTIFIED AND REPORTED TO PHYSICIAN FOR PROMPT INTERVENTION THROUGHOUT THE CERTIFICATION PERIOD. Goal Provider Goal - PATIENT/CAREGIVER WILL VERBALIZE/DEMONSTRATE INFECTION CONTROL MEASURES. SIGNS AND SYMPTOMS OF INFECTION WILL BE IDENTIFIED AND PHYSICIAN NOTIFIED FOR PROMPT INTERVENTION. Goal Provider Goal - PATIENT/CAREGIVER WILL VERBALIZE/DEMONSTRATE ABILITY TO MANAGE MUSCULOSKELETAL DISEASE WHILE MAINTAINING SAFETY BY THE END OF THE EPISODE. Goal Provider Goal - PATIENT/CAREGIVER WILL VERBALIZE UNDERSTANDING OF PRESSURE ULCER PREVENTION BY END OF EPISODE Goal Provider Goal - PATIENT/CAREGIVER WILL VERBALIZE UNDERSTANDING OF SIGNS AND SYMPTOMS, COMPLICATIONS, AND MANAGEMENT OF ATRIAL FIBRILLATION BY THE END OF THE EPISODE. Goal Provider Goal - PATIENT/CAREGIVER WILL VERBALIZE SIGNS AND SYMPTOMS OF HYPERTENSION AND WILL BE ABLE TO DEMONSTRATE ABILITY TO MANAGE EXACERBATION BY END OF EPISODE Goal Provider Goal - PATIENT/CAREGIVER WILL VERBALIZE/DEMONSTRATE UNDERSTANDING OF TEACHING RELATED TO ALTERED SKIN INTEGRITY BY END OF CERTIFICATION PERIOD. Goal Provider Goal - PATIENT/CAREGIVER WILL VERBALIZE/DEMONSTRATE KNOWLEDGE AND MANAGEMENT OF HEART FAILURE DISEASE PROCESS BY THE END OF THE EPISODE. Goal Provider Goal - PATIENT WILL BE FREE FROM INFECTION AND PATIENT/CAREGIVER WILL VERBALIZE UNDERSTANDING OF SIGNS AND SYMPTOMS AND MANAGEMENT OF SEPSIS BY THE END OF THE EPISODE. Goal Provider Goal - PATIENT/CAREGIVER WILL VERBALIZE UNDERSTANDING OF MUSCULOSKELETAL DISEASE INCLUDING SIGNS AND SYMPTOMS, MANAGEMENT, AND PRESCRIBED TREATMENT REGIMEN BY END OF EPISODE. Goal Provider Goal - PATIENT/CAREGIVER WILL UTILIZE VIRTUAL VISITS TO ACHIEVE GOALS OUTLINED ON THE PLAN OF CARE. PATIENT WILL HAVE SUPPORT MEASURES ESTABLISHED TO PREVENT REHOSPITALIZATION AND PATIENT/CAREGIVER WILL VERBALIZE/DEMONSTRATE METHODS TO REDUCE AVOIDABLE HOSPITALIZATION. Reason for Visit INDEPENDENT IN THE COMMUNITY Encounters Start Date/Time End Date/Time Encounter Type Admission Type Attending [facility] Care Department Encounter ID Discharge Date Discharge Status Discharge Condition Discharge Reason Percent Goals Met 2022-03-18 00:00:00 2022-05-14 00:00:00 Outpatient NEW ADMISSION [facility] [id number] 00:00:00 DISCHARGE TO HOME OR SELF CARE INDEPENDEN T IN THE COMMUNITY PER CLIENT REQUEST 96.77
--- OUTSIDE RECORDS SUMMARY | 2024-05-25 19:38 | XMS_ITS | Clinical Summary ---
Author Organization Unknown Care Team Providers Care Fish Agent Name Role Phone WALT DO, BRITTNEY Unavailable Unavailable SILAS CARRASQUILLO, EMILY Unavailable Unavailable COLTON RODRIGUEZ, NITIN Unavailable Unavailable Payers Payer Name Policy Type Policy Number Effective Date Expira tion Date MEDICARE.NGS.PDGM [id number] Problems Condition Name Condition Details Condition Category Status Onset Date Resolution Date Last Treatment Date Treating Clinician Comments AFTERCARE FOLLOWING JOINT REPLACEMENT SURGERY Active 11-21 00:00: 00 PRESENCE OF LEFT ARTIFICIAL KNEE JOINT Active 11-21 00:00: 00 UNSPECIFIED OSTEOARTHRIT IS, UNSPECIFIED SITE Active 11-21 00:00: 00 ESSENTIAL (PRIMARY) HYPERTENSION Active 06-16 00:00: 00 OBESITY, UNSPECIFIED Active 11-21 00:00: 00 OBSTRUCTIVE SLEEP APNEA (ADULT) (PEDIATRIC) Active 06-16 00:00: 00 VENOUS INSUFFICIENC Y (CHRONIC) (PERIPHERAL) Active 11-21 00:00: 00 HYPERLIPIDEM IA, UNSPECIFIED Active 06-16 00:00: 00 GASTRITIS, UNSPECIFIED, WITHOUT BLEEDING Active 06-16 00:00: 00 CONSTIPATION , UNSPECIFIED Active 11-29 00:00: 00 BODY MASS INDEX [BMI]40.0-44 .9, ADULT Active 12-01 00:00: 00 Allergies, Adverse Reactions, Alerts Allergy Name Allergy Type Status Severity Reaction(s) Onset Date Inactive Date Treating Clinician Comments DEXTROMETHOR HDEZ Propensity to adverse reactions Active 12-01 09:36: 14 FISH PRODUCT DERIVATIVES Propensity to adverse reactions Active 12-01 09:35: 26 MOXIFLOXACIN Propensity to adverse reactions Active 12-02 09:33: 48 Medications Ordered Medication Name Filled Medication Name Start Date Stop Date Current Medication? Ordering Clinician Indication Dosage Frequency Signature (SIG) Comments Components oxycodone 5 mg tablet 11-23 00:00: 00 Yes [id number] FOR PAIN 1 tablet EVERY 4 HOURS NEEDED FOR 7 DAYS 1 tablet EVERY 4 HOURS NEEDED FOR 7 DAYS (route: oral) Med Classific ation: Analgesic , Anti-infl ammatory or Antipyret ic docusate sodium 100 mg capsule 11-23 00:00: 00 Yes [id number] STOOL SOFTENER 1 capsule TWICE A DAY 1 capsule TWICE A DAY (route: oral) Med Classific ation: Gastroint estinal Therapy Agents aspirin 325 mg tablet,gilberto yed release 11-23 00:00: 00 Yes [id number] ANTICOAGULA NT 1 tablet TWICE A DAY FOR 28 DAYS 1 tablet TWICE A DAY FOR 28 DAYS (route: oral) Med Classific ation: Analgesic , Anti-infl ammatory or Antipyret ic sildenafil 50 mg tablet 11-18 00:00: 00 Yes [id number] ERECTILE DISFUNCTION 1 tablet DAILY NEEDED 1 tablet DAILY NEEDED (route: oral) Med Classific ation: Drugs to treat Erectile Dysfuncti on atorvastati n 10 mg tablet 11-25 00:00: 00 Yes [id number] CHOLESTEROL 1 tablet BEDTIME 1 tablet BEDTIME (route: oral) Med Classific ation: Cardiovas cular Therapy Agents carvedilol 3.125 mg tablet 11-27 00:00: 00 Yes [id number] BLOOD PRESSURE 1 tablet 2 TIMES DAILY 1 tablet 2 TIMES DAILY (route: oral) Med Classific ation: Cardiovas cular Therapy Agents acetaminoph en 325 mg tablet 11-24 00:00: 00 Yes [id number] PAIN 2 tablet EVERY 6 HOURS NEEDED 2 tablet EVERY 6 HOURS NEEDED (route: oral) Med Classific ation: Analgesic , Anti-infl ammatory or Antipyret ic epinephrine 0.3 mg/0.3 mL injection, auto-inject or 12-01 00:00: 00 Yes [id number] ANAPHYLACTI C REACTION 1 syringe NEEDED 1 syringe NEEDED (route: injection) Med Classific ation: Cardiovas cular Therapy Agents Hibiclens 4 % topical liquid 12-01 00:00: 00 12-01 23:59 :00 No [id number] ANTIMICROBI AL Per instruc tions 2 TIMES DAILY Per instructio ns 2 TIMES DAILY (route: topical) Med Classific ation: Antisepti cs and Disinfect ants Lasix 20 mg tablet 12-01 00:00: 00 Yes [id number] EDEMA 1 tablet DAILY 1 tablet DAILY (route: oral) Med Classific ation: Cardiovas cular Therapy Agents multivitami n with minerals capsule 12-01 00:00: 00 Yes [id number] SUPPLEMENT 1 capsule DAILY 1 capsule DAILY (route: oral) Med Classific ation: Electroly te Balance-N utritiona l Products pantoprazol e 40 mg tablet,gilberto yed release 12-01 00:00: 00 Yes [id number] ACID REFLUX 1 tablet DAILY 1 tablet DAILY (route: oral) Med Classific ation: Gastroint estinal Therapy Agents Vitamin D3 50 mcg (2,000 unit) tablet 12-01 00:00: 00 Yes [id number] SUPPLEMENT 1 tablet DAILY 1 tablet DAILY (route: oral) Med Classific ation: Electroly te Balance-N utritiona l Products Immunizations Ordered Immunization Name Filled Immunization Name Date Status Comments Refusal Reason DOSE #2, COVID-19 VACCINE 2020-09-06 00:00:00 DOSE #1, COVID-19 VACCINE 2020-08-06 00:00:00 PNEUMOCOCCAL (PPV), PPV 2020-03-01 00:00:00 SHINGLES, TIV (INACTIVATED) 2017-11-28 00:00:00 Vital Signs Vital Name Observation Time Observation Value Commen ts Temperature 2020-12-15 09:22:00.000 97.9 [degF] Temperature 2020-12-13 10:17:05.000 97.8 [degF] Temperature 2020-12-11 08:29:54.000 98.3 [degF] Temperature 2020-12-08 09:01:40.000 98.2 [degF] Temperature 2020-12-06 09:01:58.000 97.8 [degF] Temperature 2020-12-05 13:57:14.000 97.4 [degF] Temperature 2020-12-05 11:39:11.000 97.8 [degF] Temperature 2020-12-01 09:42:35.000 98.9 [degF] Temperature 2020-12-01 08:01:44.000 98.2 [degF] Height 2020-12-01 09:43:33.000 71 [in_us] Pulse 2020-12-15 09:22:05.000 73 /min Pulse 2020-12-13 10:17:15.000 72 /min Pulse 2020-12-11 08:30:08.000 66 /min Pulse 2020-12-08 09:01:47.000 75 /min Pulse 2020-12-06 09:05:35.000 77 /min Pulse 2020-12-05 13:57:26.000 74 /min Pulse 2020-12-05 11:40:15.000 83 /min Pulse 2020-12-01 09:42:51.000 82 /min Pulse 2020-12-01 08:01:56.000 76 /min O2 Saturation (%) 2020-12-13 10:18:05.000 97 % O2 Saturation (%) 2020-12-01 09:44:23.000 95 % O2 Saturation (%) 2020-12-01 08:02:23.000 97 % Respirations 2020-12-15 09:22:09.000 18 /min Respirations 2020-12-13 10:17:21.000 18 /min Respirations 2020-12-11 08:30:15.000 18 /min Respirations 2020-12-08 09:01:53.000 18 /min Respirations 2020-12-06 09:05:44.000 18 /min Respirations 2020-12-05 13:57:34.000 18 /min Respirations 2020-12-05 11:40:24.000 18 /min Respirations 2020-12-01 09:42:58.000 18 /min Respirations 2020-12-01 08:01:49.000 18 /min Weight (lbs) 2020-12-01 09:59:29.000 319.2 [lb_av] Systolic Blood Pressure 2020-12-15 09:22:17.000 110 mm [Hg] Systolic Blood Pressure 2020-12-13 10:17:46.000 128 mm [Hg] Systolic Blood Pressure 2020-12-11 08:30:25.000 140 mm [Hg] Systolic Blood Pressure 2020-12-08 09:02:08.000 158 mm [Hg] Systolic Blood Pressure 2020-12-06 09:06:06.000 130 mm [Hg] Systolic Blood Pressure 2020-12-05 13:57:56.000 130 mm [Hg] Systolic Blood Pressure 2020-12-01 09:43:10.000 138 mm [Hg] Systolic Blood Pressure 2020-12-01 08:02:42.000 134 mm [Hg] Diastolic Blood Pressure 2020-12-15 09:22:17.000 60 mm [Hg] Diastolic Blood Pressure 2020-12-13 10:17:46.000 68 mm [Hg] Diastolic Blood Pressure 2020-12-11 08:30:25.000 76 mm [Hg] Diastolic Blood Pressure 2020-12-08 09:02:08.000 76 mm [Hg] Diastolic Blood Pressure 2020-12-06 09:06:06.000 72 mm [Hg] Diastolic Blood Pressure 2020-12-05 13:57:56.000 74 mm [Hg] Diastolic Blood Pressure 2020-12-01 09:43:10.000 70 mm [Hg] Diastolic Blood Pressure 2020-12-01 08:02:42.000 68 mm [Hg] Plan of Treatment Planned Activity Planned Date Details Comments Future Scheduled Test SKILLED NU RSE TO ASSESS, EVALUATE, AND DEVELOP AN INDIVIDUALIZED PLAN OF CARE. AGENCY MAY ACCEPT ORDERS FROM CONSULTING PHYSICIANS DR. GODOY. SN TO OBSERVE/ASSESS RISK FOR FALLS AND INSTRUCT IN FALL PREVENTION, HOME SAFETY, MEDICATION MANAGEMENT, INFECTION PREVENTION, AND NUTRITION MANAGEMENT. SN MAY PERFORM O2 SATURATION LEVEL ON ADMISSION AND PRN TO ASSESS PATIENT, WITH NOTIFICATION TO THE PHYSICIAN IF SATURATION IS 90% IN THE ABSENCE OF MORE SPECIFIC PARAMETERS FROM THE PHYSICIAN. AGENCY MAY PERFORM A RESUMPTION OF CARE VISIT FOLLOWING ANY HOSPITAL ADMISSION. ALL DISCIPLINES (EXCEPT DESIGN SPECIALIST) MAY PROVIDE TELEHEALTH PHONE/REMOTE/VIRTUAL VISITS IN LIEU OF AN IN-PERSON VISIT THAT DOES NOT REQUIRE HANDS ON OR IN PERSON ASSESSMENT WHEN AN IN-PERSON VISIT IS NOT POSSIBLE DUE TO THE PUBLIC HEALTH EMERGENCY RELATED TO THE COVID-19 PANDEMIC. SKILLED NURSE TO INSTRUCT PATIENT / CAREGIVER ON DISEASE PROCESS, SELF MANAGEMENT, SIGNS AND SYMPTOMS TO REPORT TO SN/PHYSICIAN, RELATED TO: L TKR, HTN. [code = SKILLED NURSE TO ASSESS, EVALUATE, AND DEVELOP AN INDIVIDUALIZED PLAN OF CARE. AGENCY MAY ACCEPT ORDERS FROM CONSULTING PHYSICIANS DR. GODOY. SN TO OBSERVE/ASSESS RISK FOR FALLS AND INSTRUCT IN FALL PREVENTION, HOME SAFETY, MEDICATION MANAGEMENT, INFECTION PREVENTION, AND NUTRITION MANAGEMENT. SN MAY PERFORM O2 SATURATION LEVEL ON ADMISSION AND PRN TO ASSESS PATIENT, WITH NOTIFICATION TO THE PHYSICIAN IF SATURATION IS 90% IN THE ABSENCE OF MORE SPECIFIC PARAMETERS FROM THE PHYSICIAN. AGENCY MAY PERFORM A RESUMPTION OF CARE VISIT FOLLOWING ANY HOSPITAL ADMISSION. ALL DISCIPLINES (EXCEPT DESIGN SPECIALIST) MAY PROVIDE TELEHEALTH PHONE/REMOTE/VIRTUAL VISITS IN LIEU OF AN IN-PERSON VISIT THAT DOES NOT REQUIRE HANDS ON OR IN PERSON ASSESSMENT WHEN AN IN-PERSON VISIT IS NOT POSSIBLE DUE TO THE PUBLIC HEALTH EMERGENCY RELATED TO THE COVID- PANDEMIC. SKILLED NURSE TO INSTRUCT PATIENT / CAREGIVER ON DISEASE PROCESS, SELF MANAGEMENT, SIGNS AND SYMPTOMS TO REPORT TO SN/PHYSICIAN, RELATED TO: L TKR, HTN.] Future Scheduled Test RISK FOR H OSPITALIZATION; SKILLED NURSE TO INSTRUCT PATIENT/CAREGIVER ON RISK FOR HOSPITALIZATION, TEACH SIGNS AND SYMPTOMS THAT PUT PATIENT AT RISK, WHEN TO NOTIFY NURSE OF COMPLICATIONS/DECLINE, AND WHEN TO CALL 911. SKILLED NURSE TO INSTRUCT PATIENT/CAREGIVER ON: SIGNS AND SYMPTOMS TO BE ON ALERT FOR EARLY INTERVENTION, PRIOR TO NEEDING EMERGENCY SERVICES CALL [facility] NURSE TO KEEP WELT DRAWER SYMPTOM REPORT FOR VISIBLE REFERENCE NOTIFY SKILLED NURSE/PHYSICIAN FOR DECLINE IN STATS WHEN AND HOW TO CALL HOME HEALTH AGENCY FACILITATE PHYSICIAN FOLLOW UP APPOINTMENT IDENTIFY SOCIOECONOMIC CONCERNS AND MAKE APPROPRIATE REFERRAL NEEDED [code = RISK FOR HOSPITALIZATION; SKILLED NURSE TO INSTRUCT PATIENT/CAREGIVER ON RISK FOR HOSPITALIZATION, TEACH SIGNS AND SYMPTOMS THAT PUT PATIENT AT RISK, WHEN TO NOTIFY NURSE OF COMPLICATIONS/DECLINE, AND WHEN TO CALL 911. SKILLED NURSE TO INSTRUCT PATIENT/CAREGIVER ON: SIGNS AND SYMPTOMS TO BE ON ALERT FOR EARLY INTERVENTION, PRIOR TO NEEDING EMERGENCY SERVICES CALL [facility] NURSE TO KEEP W[facility]T [facility]ER SYMPTOM REPORT FOR VISIBLE REFERENCE NOTIFY SKILLED NURSE/PHYSICIAN FOR DECLINE IN STATS WHEN AND HOW TO CALL HOME HEALTH AGENCY FACILITATE PHYSICIAN FOLLOW UP APPOINTMENT IDENTIFY SOCIOECONOMIC CONCERNS AND MAKE APPROPRIATE REFERRAL NEEDED] Future Scheduled Test MEDICATION MANAGEMENT; SKILLED NURSE TO REVIEW MEDICATIONS FOR INTERACTIONS, EFFECTIVENESS OF DRUG THERAPY, AND SIGNS/SYMPTOMS OF ADVERSE REACTIONS. MAY INSTRUCT AND REINFORCE MEDICATION TEACHING RELATED TO THE USE OF MEDICATIONS, DOSAGE, FREQUENCY, PURPOSE, SIDE EFFECTS, AND TO REPORT COMPLICATIONS. [code = MEDICATION MANAGEMENT; SKILLED NURSE TO REVIEW MEDICATIONS FOR INTERACTIONS, EFFECTIVENESS OF DRUG THERAPY, AND SIGNS/SYMPTOMS OF ADVERSE REACTIONS. MAY INSTRUCT AND REINFORCE MEDICATION TEACHING RELATED TO THE USE OF MEDICATIONS, DOSAGE, FREQUENCY, PURPOSE, SIDE EFFECTS, AND TO REPORT COMPLICATIONS.] Future Scheduled Test SKIN INTEG RITY - SN OBSERVE AND ASSESS INTEGUMENTARY STATUS TO IDENTIFY CHANGES AND INTERVENE TO MINIMIZE COMPLICATIONS. PROVIDE SKILLED TEACHING OF GENERAL WOUND AND SKIN CARE AND PREVENTION RELATED TO POTENTIAL FOR OR ACTUAL ALTERED SKIN INTEGRITY. [code = SKIN INTEGRITY - SN OBSERVE AND ASSESS INTEGUMENTARY STATUS TO IDENTIFY CHANGES AND INTERVENE TO MINIMIZE COMPLICATIONS. PROVIDE SKILLED TEACHING OF GENERAL WOUND AND SKIN CARE AND PREVENTION RELATED TO POTENTIAL FOR OR ACTUAL ALTERED SKIN INTEGRITY.] Future Scheduled Test SKILLED NU RSE TO PERFORM/TEACH INCISION CARE TO L KNEE: MONITOR FOR S/S OF INFECTION. [code = SKILLED NURSE TO PERFORM/TEACH INCISION CARE TO L KNEE: MONITOR FOR S/S OF INFECTION.] Future Scheduled Test PAIN MANAG EMENT; SKILLED NURSE TO OBSERVE, ASSESS, AND PROVIDE EDUCATION ON PAIN MANAGEMENT TECHNIQUES. [code = PAIN MANAGEMENT; SKILLED NURSE TO OBSERVE, ASSESS, AND PROVIDE EDUCATION ON PAIN MANAGEMENT TECHNIQUES.] Future Scheduled Test FALL REDUC TION MANAGEMENT; NURSING TO PROVIDE SKILLED ASSESSMENT, EDUCATION, AND INTERVENTION TO IDENTIFY FALL RISK FACTORS SUCH MEDICATIONS THAT MAY CAUSE DIZZINESS, CHRONIC DISEASES, PSYCHOLOGICAL FACTORS, AND EMPOWER/EDUCATE PATIENT/CAREGIVER TO MINIMIZE FALL RISK. [code = FALL REDUCTION MANAGEMENT; NURSING TO PROVIDE SKILLED ASSESSMENT, EDUCATION, AND INTERVENTION TO IDENTIFY FALL RISK FACTORS SUCH MEDICATIONS THAT MAY CAUSE DIZZINESS, CHRONIC DISEASES, PSYCHOLOGICAL FACTORS, AND EMPOWER/EDUCATE PATIENT/CAREGIVER TO MINIMIZE FALL RISK.] Future Scheduled Test 65 YEAR OL D MALE WHO HAD ELECTIVE SURGERY FOR A TOTAL LEFT KNEE REPLACEMENT. PRIOR TO SURGERY, HE WAS REQUIRED TO LOSS WEIGHT. HE LOST 75 POUNDS OVER 15 MONTHS. PATIENT IS VERY MOTIVATED TO REGAIN MOBILITY AND RETURN TO HIS BOAT. 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 [code = 65 YEAR OLD MALE WHO HAD ELECTIVE SURGERY FOR A TOTAL LEFT KNEE REPLACEMENT. PRIOR TO SURGERY, HE WAS REQUIRED TO LOSS WEIGHT. HE LOST 75 POUNDS OVER 15 MONTHS. PATIENT IS VERY MOTIVATED TO REGAIN MOBILITY AND RETURN TO HIS BOAT. 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 ] Future Scheduled Test AGENCY MAY PERFORM A RESUMPTION OF CARE VISIT FOLLOWING ANY HOSPITAL ADMISSION. ALL DISCIPLINES (EXCEPT DESIGN SPECIALIST) MAY PROVIDE TELEHEALTH PHONE/REMOTE/VIRTUAL VISITS IN LIEU OF AN IN-PERSON VISIT THAT DOES NOT REQUIRE HANDS ON OR IN PERSON ASSESSMENT WHEN AN IN-PERSON VISIT IS NOT POSSIBLE DUE TO THE PUBLIC HEALTH EMERGENCY RELATED TO THE COVID-19 PANDEMIC. PHYSICAL THERAPY TO EVALUATE, ASSESS AND MONITOR, PROVIDE SKILLED THERAPEUTIC INTERVENTION, ACTIVITY, EDUCATION, AND TRAINING TO ADDRESS: TRANSFER TRAINING (PT) GAIT TRAINING (PT) NEUROMUSCULAR RE-EDUCATION / BALANCE RETRAINING (PT) THERAPEUTIC EXERCISES (PT) PAIN MANAGEMENT (PT) ORTHOPEDIC SURGICAL AFTERCARE (PT) MAY TEACH PATIENT APPLICATION OF CRYOTHERAPY FOR PAIN AND/OR SWELLING UP TO 20 MIN AT A TIME OVER INCISION/JOINT KNEE REPLACEMENT SELF-MANAGEMENT (PT) [code = AGENCY MAY PERFORM A RESUMPTION OF CARE VISIT FOLLOWING ANY HOSPITAL ADMISSION. ALL DISCIPLINES (EXCEPT DESIGN SPECIALIST) MAY PROVIDE TELEHEALTH PHONE/REMOTE/VIRTUAL VISITS IN LIEU OF AN IN-PERSON VISIT THAT DOES NOT REQUIRE HANDS ON OR IN PERSON ASSESSMENT WHEN AN IN-PERSON VISIT IS NOT POSSIBLE DUE TO THE PUBLIC HEALTH EMERGENCY RELATED TO THE COVID-19 PANDEMIC. PHYSICAL THERAPY TO EVALUATE, ASSESS AND MONITOR, PROVIDE SKILLED THERAPEUTIC INTERVENTION, ACTIVITY, EDUCATION, AND TRAINING TO ADDRESS: TRANSFER TRAINING (PT) GAIT TRAINING (PT) NEUROMUSCULAR RE-EDUCATION / BALANCE RETRAINING (PT) THERAPEUTIC EXERCISES (PT) PAIN MANAGEMENT (PT) ORTHOPEDIC SURGICAL AFTERCARE (PT) MAY TEACH PATIENT APPLICATION OF CRYOTHERAPY FOR PAIN AND/OR SWELLING UP TO 20 MIN AT A TIME OVER INCISION/JOINT KNEE REPLACEMENT SELF-MANAGEMENT (PT)] Goal 2020-12-15 [facility] Goal Provider Goal - A PLAN OF CARE WILL BE ESTABLISHED THAT MEETS THE PATIENT'S NURSING NEEDS PATIENT WILL DEMONSTRATE OXYGEN SATURATION WITH NORMAL LIMITS OR TO PATIENT'S OPTIMAL LEVEL ESTABLISHED BY THE PHYSICIAN THROUGHOUT CARE Goal Provider Goal - PATIENT/CAREGIVER WILL VERBALIZE UNDERSTANDING OF SIGNS AND SYMPTOMS THAT PUT THE PATIENT AT RISK FOR HOSPITALIZATION, WHEN TO NOTIFY SN OF COMPLICATIONS/DECLINE AND WHEN TO CALL 911. Goal Provider Goal - PATIENT/CAREGIVER TO VERBALIZE, AND CONSISTENTLY DEMONSTRATE EFFECTIVE, SAFE MANAGEMENT OF MEDICATION INCLUDING KNOWLEDGE OF EFFECTIVENESS, POTENTIAL SIDE EFFECTS AND DRUG REACTIONS AND WHEN TO CONTACT THE APPROPRIATE CARE PROVIDER. PATIENT/CAREGIVER WILL BE ABLE TO VERBALIZE UNDERSTANDING OF MEDICATION REGIMEN AND ACCURATELY TAKE MEDICATIONS PRESCRIBED WITHOUT ADVERSE EFFECTS BY 01/29/21. Goal Provider Goal - CHANGES IN SKIN INTEGRITY STATUS WILL BE IDENTIFIED AND REPORTED TO THE PHYSICIAN FOR PROMPT INTERVENTION. PATIENT / CAREGIVER WILL VERBALIZE/DEMONSTRATE ADEQUATE KNOWLEDGE OF INTEGUMENTARY STATUS AND APPROPRIATE MEASURES TO PROMOTE SKIN INTEGRITY AND PREVENT INJURY BY 01/29/21. Goal Provider Goal - PATIENT / CAREGIVER WILL DEMONSTRATE INCISIONAL CARE, SHOW IMPROVEMENT IN INCISION/SUTURE LINE STATUS EVIDENCED BY DECREASE IN SIZE/DRAINAGE OF WOUND, NO S/S OF INFECTION, AND DECREASED PAIN A RESULT OF SKILLED INTERVENTION Goal Provider Goal - PATIENT / CAREGIVER WILL VERBALIZE / DEMONSTRATE UNDERSTANDING OF PAIN CONTROL MEASURES BY 01/29/21. Goal Provider Goal - PATIENT/CAREGIVER ABLE TO IDENTIFY FALL RISK FACTORS AND IMPLEMENT STRATEGIES TO MINIMIZE FALL RISK. PATIENT/CAREGIVER WILL VERBALIZE/DEMONSTRATE AN ABILITY TO ADHERE TO FALL REDUCTION SELF MANAGEMENT AND LIFE-STYLE CHANGES AT DISCHARGE. PERSONAL GOAL(S) STATED BY PATIENT/CAREGIVER WILL BE MET BY 01/29/21. Goal Provider Goal - PATIENT WILL DEMO INDEP PERFORMANCE OF HOUSEHOLD TRANSFERS WITH FWW USE IN 4 WEEKS AND SPC USE IN8 WEEKS TO ALLOW SAFE NAVIGATION THROUGHOUT HOME ENVIRONMENT PATIENT WILL DEMO INDEP PERFORMANCE OF HOUSEHOLD GAIT WITH FWW IN 6 WEEKS AND SPC JSE INCLUDING STAIRS IN 8 WEEKS TO PROMOTE IMPROVED FUNCTIONAL MOBILITY PATIENT WILL DEMO IMPROVED TUG SCORE TO 16 SECONDS AND 21 TINETTI SCORE IN 8 WEEKS TO PROMOTE IMPROVED BALANCE INPUT INTEGRATION PATIENT WILL DEMO INDEP PERFORMANCE OF STANDING THEREX AND BALANCE ACTIVITY IN 4 WEEKS TO PROMOTE IMPROVED FUNCTIONAL MOBILITY PATIENT WILL IMPROVE LE STRENGTH LEVELS TO GROSSLY 4/5 IN 8 WEEKS TO PROMOTE IMPROVED FUNCTIONAL INDEP PT GOAL: PATIENT/CAREGIVER WILL VERBALIZE UNDERSTANDING OF PAIN MANAGEMENT BY DISCHARGE. PATIENT WILL DEMONSTRATE NORMAL HEALING FOLLOWING SURGERY WITH NO COMPLICATIONS BY DISCHARGE. PT GOAL: PATIENT WILL DEMONSTRATE OPTIMAL OUTCOMES, INCLUDING INCREASED ROM AND STRENGTH FOLLOWING TKA BY DISCHARGE. Reason for Visit INDEPENDENT IN THE HOME Encounters Start Date/Time End Date/Time Encounter Type Admission Type [facility]ending [facility] Care [facility] Care Department Encounter ID Discharge Date Discharge Status Discharge Condition Discharge Reason Percent Goals Met 2020-12-01 00:00:00 2020-12-15 00:00:00 Outpatient NEW ADMISSION [facility] [id number] 2020-12-15 00:00:00 DISCHARGE TO HOME OR SELF CARE INDEPENDEN T IN THE HOME HH ONLY - OUT PATIENT 77.78
== END 2024-05-19 14:34 | disposition home or self-care (01) ==
PROVIDERS: PCP Internal Medicine; Visit Provider Physician Assistant Surgical
DX: I89.0 Lymphedema, not elsewhere classified (principal)
CPT/HCPCS: 99214

== ENCOUNTER → 2024-05-19 13:41 | Outpatient (BNVA) | payer MEDICARE, SELFPAY | PROVIDERS: PCP Internal Medicine; Visit Provider Physician Assistant Surgical | DX: I89.0 Lymphedema, not elsewhere classified (principal) | CPT/HCPCS: 99212 ==

== ENCOUNTER → 2024-05-26 07:52 | Outpatient (REF) | payer MEDICARE, SELFPAY ==
--- NOTE | 2024-05-26 07:55 | CA_ITS ---
Transthoracic Echocardiogram Patient (Last, First, Middle): Emery Giraldo R Gender: Male Date of : 1955 Age: 69 Procedure Date: 05/26/2024 Procedure Type: Transthoracic Echocardiogram Location: OP Height: 177.8 cm Weight: 139.71 kg BSA: 2.51 m2 Heart Rate: bpm BP: 120 / 80 mmHg Wire Chief: CHADD Rolle MD: Jass Posada MD Waste Collector: Prashanth Trinh MD Symptoms: I48.0 - Paroxysmal atrial fibrillation Study Quality: Technically Difficult/Contrast ECG Rhythm: Atrial Fibrillation Conclusions: - 1. Normal LV ejection fraction of 65-70% with mild LVH 2. At least moderately dilated left atrium 3. Limited evaluation of cardiac valves with cardiac valvular Dopplers within normal limits 4. Normal calculated RV systolic pressure Findings Procedure Information Contrast agent, definity, is being given per protocol without apparent complications. Left Ventricle Normal left ventricular size and systolic function. There is mildly increased left ventricular wall thickness. The visually estimated ejection fraction is between 65-70%. Spectral Doppler is indicative of an impaired relaxation filling pattern. Elevated filling pressures. E/E prime ratio is >15, consistent with elevated filling pressures. Right Ventricle The right ventricle was not well visualized. Atria The left atrium is moderately dilated. Interatrial shunt cannot be excluded. The right atrium was not well visualized. Aortic Valve The aortic valve was not well visualized. There is no aortic valve stenosis. There is no aortic valve regurgitation. Mitral Valve The mitral valve was not well visualized. There is no mitral valve regurgitation. There is no mitral valve stenosis. Pulmonic Valve The pulmonic valve was not well visualized. Tricuspid Valve The tricuspid valve was not well visualized. There is trace tricuspid valve regurgitation. The right ventricular systolic pressure is normal. The right ventricular systolic pressure is 19 mmHg. Normal right atrial pressure. Great Vessels The aorta was not well visualized. The pulmonary artery was not well visualized. Venous The inferior vena cava is normal in size. Pericardium/Pleural The pericardium was not well visualized. Prior Study Comparison No significant change compared to prior study dated: 03/11/2022. Measurements 2D Linear Measurements IVSd: 1.44 0.6-0.9/0.6-1.0 cm LVIDd: 3.54 3.9-5.3/4.2-5.9 cm LVIDd Index: 1.41 2.4-3.2/2.2-3.1 cm/m2 LVIDs: 2.60 2.0-3.6 cm LVPWd: 1.34 0.7-1.1 cm Ao Root: 3.70 2.1-3.5 cm LV Mass: 216.40 67-162/88-224 g LV Mass Index: 86.21 43-95/49-115 g/m2 LVOT Diam: 2.00 3.0+(-)1.3 cm 2D Systolic Function EF 4C: 66.00 >55% EF 2C: 68.90 >55% EF BiP: 67.00 >55% Mitral Valve MV VTI: 0.53 MV Pk Flex: 1.45 MV Mn Flex: 0.91 MV Pk Grad: 8.00 MV Mn Grad: 4.00 MV Pk E: 1.24 MV PK A: 1.39 MV Decel Time: 255.00 E/A: 0.90 E'Lateral: 6.96 E'Medial: 6.85 E/E' Med: 18.10 E/E' Lat: 17.80 PHT: 75.00 MVA PHT: 2.93 MVA Continuity: 2.22 Decel Coleman: 4.88 Aortic Valve AoV Pk Flex: 1.59 AoV Mn Flex: 1.07 AoV VTI: 0.36 AoV Pk Grad: 10.00 Aov Mn Grad: 5.00 SUPRIYA Cont.VTI: 3.24 LVOT LVOT Pk Flxe: 1.54 LVOT Mn Flex: 1.13 LVOT VTI: 0.37 LVOT Pk Grad: 9.00 LVOT Mn Grad: 6.00 LVOT Diam: 2.00 LVOT Area: 3.14 Diastolic Function MV Pk E: 1.24 MV Pk A: 1.39 E/A: 0.90 E'Medial: 6.85 E/E' Med: 18.10 E' Laterial: 6.96 E/E' Lat: 17.80 Right Ventricle TAPSE (mm): 31.00 TVS' Flex: 10.00 Tricuspid Valve TR Pk Flex: 2.00 TR Pk Grad: 16.00 RA Press: 3.00 RVSP: 19.00 Great Vessels Aorta Ao Root-2D: 3.70 2.0-3.7 cm Ao Asc: 3.20 2.1-3.4 cm Ao Arch: 3.70 Updated in Other Vendor System with Status of Final Prashanth Trinh MD electronically signed on 05/27/2024 4:36:08 PM with status of Final
--- OUTSIDE RECORDS SUMMARY | 2024-05-26 22:53 | XMS_ITS | Clinical Summary ---
Author Organization Unknown Care Team Providers Care Reimbursement Consultant Name Role Phone WALT DO, BRITTNEY Unavailable Unavailable SILAS CARRASQUILLO, EMILY Unavailable Unavailable COLTON RODRIGUEZ, NITIN Unavailable Unavailable Payers Payer Name Policy Type Policy Number Effective Date Expira tion Date MEDICARE.NGS.PDGM [id number] Problems Condition Name Condition Details Condition Category [...] 5 mg tablet 11-23 00:00: 00 Yes [id number] FOR PAIN 1 tablet EVERY 4 HOURS NEEDED FOR 7 DAYS 1 tablet EVERY 4 HOURS NEEDED FOR 7 DAYS (route: oral) Med Classific ation: Analgesic , Anti-infl ammatory or Antipyret ic docusate sodium 100 mg capsule 11-23 00:00: 00 Yes [id number] STOOL SOFTENER 1 capsule TWICE A DAY 1 capsule TWICE A DAY (route: oral) Med Classific ation: Gastroint estinal Therapy Agents aspirin 325 mg tablet,gilberto yed release 11-23 00:00: 00 Yes [id number] ANTICOAGULA NT 1 tablet TWICE A DAY FOR 28 DAYS 1 tablet TWICE A DAY FOR 28 DAYS (route: oral) Med Classific ation: Analgesic , Anti-infl ammatory or Antipyret ic sildenafil 50 mg tablet 11-18 00:00: 00 Yes [id number] ERECTILE DISFUNCTION 1 tablet DAILY NEEDED 1 tablet DAILY NEEDED (route: oral) Med Classific ation: Drugs to treat Erectile Dysfuncti on atorvastati n 10 mg tablet 11-25 00:00: 00 Yes [id number] CHOLESTEROL 1 tablet BEDTIME 1 tablet BEDTIME (route: oral) Med Classific ation: Cardiovas cular Therapy Agents carvedilol 3.125 mg tablet 11-27 00:00: 00 Yes [id number] BLOOD PRESSURE 1 tablet 2 TIMES DAILY 1 tablet 2 TIMES DAILY (route: oral) Med Classific ation: Cardiovas cular Therapy Agents acetaminoph en 325 mg tablet 11-24 00:00: 00 Yes [id number] PAIN 2 tablet EVERY 6 HOURS NEEDED 2 tablet EVERY 6 HOURS NEEDED (route: oral) Med Classific ation: Analgesic , Anti-infl ammatory or Antipyret ic epinephrine 0.3 mg/0.3 mL injection, auto-inject or 12-01 00:00: 00 Yes [id number] ANAPHYLACTI C REACTION 1 syringe NEEDED 1 syringe NEEDED (route: injection) Med Classific ation: Cardiovas cular Therapy Agents Hibiclens 4 % topical liquid 12-01 00:00: 00 12-01 23:59 :00 No [id number] ANTIMICROBI AL Per instruc tions 2 TIMES DAILY Per instructio ns 2 TIMES DAILY (route: topical) Med Classific ation: Antisepti cs and Disinfect ants Lasix 20 mg tablet 12-01 00:00: 00 Yes [id number] EDEMA 1 tablet DAILY 1 tablet DAILY (route: oral) Med Classific ation: Cardiovas cular Therapy Agents multivitami n with minerals capsule 12-01 00:00: 00 Yes [id number] SUPPLEMENT 1 capsule DAILY 1 capsule DAILY (route: oral) Med Classific ation: Electroly te Balance-N utritiona l Products pantoprazol e 40 mg tablet,gilberto yed release 12-01 00:00: 00 Yes [id number] ACID REFLUX 1 tablet DAILY 1 tablet DAILY (route: oral) Med Classific ation: Gastroint estinal Therapy Agents Vitamin D3 50 mcg (2,000 unit) tablet 12-01 00:00: 00 Yes [id number] SUPPLEMENT 1 tablet DAILY 1 tablet DAILY [...] FOLLOWING ANY HOSPITAL ADMISSION. ALL DISCIPLINES (EXCEPT GRADUATE NURSE) MAY PROVIDE TELEHEALTH PHONE/REMOTE/VIRTUAL VISITS IN LIEU [...] FOLLOWING ANY HOSPITAL ADMISSION. ALL DISCIPLINES (EXCEPT GRADUATE NURSE) MAY PROVIDE TELEHEALTH PHONE/REMOTE/VIRTUAL VISITS IN LIEU [...] EMERGENCY SERVICES CALL [facility] NURSE TO KEEP SECONDARY SET UP MAN SYMPTOM REPORT FOR VISIBLE REFERENCE NOTIFY SKILLED [...] EMERGENCY SERVICES CALL [facility] NURSE TO KEEP SECONDARY SET UP MAN SYMPTOM REPORT FOR VISIBLE REFERENCE NOTIFY SKILLED [...] TO HIS BOAT. 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 [code = 65 YEAR OLD MALE WHO HAD ELECTIVE SURGERY FOR A TOTAL LEFT KNEE REPLACEMENT. PRIOR TO SURGERY, HE WAS REQUIRED TO LOSS WEIGHT. HE LOST 75 POUNDS OVER 15 MONTHS. PATIENT IS VERY MOTIVATED TO REGAIN MOBILITY AND RETURN TO HIS BOAT. 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 ] Future Scheduled Test AGENCY MAY PERFORM A RESUMPTION OF CARE VISIT FOLLOWING ANY HOSPITAL ADMISSION. ALL DISCIPLINES (EXCEPT GRADUATE NURSE) MAY PROVIDE TELEHEALTH PHONE/REMOTE/VIRTUAL VISITS IN LIEU [...] FOLLOWING ANY HOSPITAL ADMISSION. ALL DISCIPLINES (EXCEPT GRADUATE NURSE) MAY PROVIDE TELEHEALTH PHONE/REMOTE/VIRTUAL VISITS IN LIEU [...] Goal 2020-12-15 [facility] Goal Provider Goal - A [...] End Date/Time Encounter Type Admission Type Attending [facility] Care [facility] Care Department Encounter ID Discharge Date Discharge Status Discharge Condition Discharge Reason Percent Goals Met 2020-12-01 00:00:00 2020-12-15 00:00:00 Outpatient NEW ADMISSION EMILY ROSEN [facility] [id number] 2020-12-15 00:00:00 DISCHARGE TO HOME OR SELF CARE INDEPENDEN T IN THE HOME HH ONLY - OUT PATIENT 77.78
--- OUTSIDE RECORDS SUMMARY | 2024-05-26 22:53 | XMS_ITS | Clinical Summary ---
Author Organization Unknown Care Team Providers Care Hair Tinter Name Role Phone WALT DO, BRITTNEY Unavailable Unavailable SILAS CARRASQUILLO, EMILY Unavailable Unavailable COLTON RODRIGUEZ, NITIN Unavailable Unavailable Payers Payer Name Policy Type Policy Number Effective Date Expira tion Date MEDICARE.NGS.PDGM [id number] Problems Condition Name Condition Details Condition Category [...] 5 mg tablet 11-23 00:00: 00 Yes [id number] FOR PAIN 1 tablet EVERY 4 HOURS NEEDED FOR 7 DAYS 1 tablet EVERY 4 HOURS NEEDED FOR 7 DAYS (route: oral) Med Classific ation: Analgesic , Anti-infl ammatory or Antipyret ic docusate sodium 100 mg capsule 11-23 00:00: 00 Yes [id number] STOOL SOFTENER 1 capsule TWICE A DAY 1 capsule TWICE A DAY (route: oral) Med Classific ation: Gastroint estinal Therapy Agents aspirin 325 mg tablet,gilberto yed release 11-23 00:00: 00 Yes [id number] ANTICOAGULA NT 1 tablet TWICE A DAY FOR 28 DAYS 1 tablet TWICE A DAY FOR 28 DAYS (route: oral) Med Classific ation: Analgesic , Anti-infl ammatory or Antipyret ic sildenafil 50 mg tablet 11-18 00:00: 00 Yes [id number] ERECTILE DISFUNCTION 1 tablet DAILY NEEDED 1 tablet DAILY NEEDED (route: oral) Med Classific ation: Drugs to treat Erectile Dysfuncti on atorvastati n 10 mg tablet 11-25 00:00: 00 Yes [id number] CHOLESTEROL 1 tablet BEDTIME 1 tablet BEDTIME (route: oral) Med Classific ation: Cardiovas cular Therapy Agents carvedilol 3.125 mg tablet 11-27 00:00: 00 Yes [id number] BLOOD PRESSURE 1 tablet 2 TIMES DAILY 1 tablet 2 TIMES DAILY (route: oral) Med Classific ation: Cardiovas cular Therapy Agents acetaminoph en 325 mg tablet 11-24 00:00: 00 Yes [id number] PAIN 2 tablet EVERY 6 HOURS NEEDED 2 tablet EVERY 6 HOURS NEEDED (route: oral) Med Classific ation: Analgesic , Anti-infl ammatory or Antipyret ic epinephrine 0.3 mg/0.3 mL injection, auto-inject or 12-01 00:00: 00 Yes [id number] ANAPHYLACTI C REACTION 1 syringe NEEDED 1 syringe NEEDED (route: injection) Med Classific ation: Cardiovas cular Therapy Agents Hibiclens 4 % topical liquid 12-01 00:00: 00 12-01 23:59 :00 No [id number] ANTIMICROBI AL Per instruc tions 2 TIMES DAILY Per instructio ns 2 TIMES DAILY (route: topical) Med Classific ation: Antisepti cs and Disinfect ants Lasix 20 mg tablet 12-01 00:00: 00 Yes [id number] EDEMA 1 tablet DAILY 1 tablet DAILY (route: oral) Med Classific ation: Cardiovas cular Therapy Agents multivitami n with minerals capsule 12-01 00:00: 00 Yes [id number] SUPPLEMENT 1 capsule DAILY 1 capsule DAILY (route: oral) Med Classific ation: Electroly te Balance-N utritiona l Products pantoprazol e 40 mg tablet,gilberto yed release 12-01 00:00: 00 Yes [id number] ACID REFLUX 1 tablet DAILY 1 tablet DAILY (route: oral) Med Classific ation: Gastroint estinal Therapy Agents Vitamin D3 50 mcg (2,000 unit) tablet 12-01 00:00: 00 Yes [id number] SUPPLEMENT 1 tablet DAILY 1 tablet DAILY [...] FOLLOWING ANY HOSPITAL ADMISSION. ALL DISCIPLINES (EXCEPT HYDROMETER FINISHER) MAY PROVIDE TELEHEALTH PHONE/REMOTE/VIRTUAL VISITS IN LIEU [...] FOLLOWING ANY HOSPITAL ADMISSION. ALL DISCIPLINES (EXCEPT HYDROMETER FINISHER) MAY PROVIDE TELEHEALTH PHONE/REMOTE/VIRTUAL VISITS IN LIEU [...] EMERGENCY SERVICES CALL [facility] NURSE TO KEEP [place] PERFORMER SYMPTOM REPORT FOR VISIBLE REFERENCE NOTIFY SKILLED [...] EMERGENCY SERVICES CALL [facility] NURSE TO [place]EEP [place] PERFORMER SYMPTOM REPORT FOR VISIBLE REFERENCE NOTIFY SKILLED [...] TO HIS BOAT. 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 [code = 65 YEAR OLD MALE WHO HAD ELECTIVE SURGERY FOR A TOTAL LEFT KNEE REPLACEMENT. PRIOR TO SURGERY, HE WAS REQUIRED TO LOSS WEIGHT. HE LOST 75 POUNDS OVER 15 MONTHS. PATIENT IS VERY MOTIVATED TO REGAIN MOBILITY AND RETURN TO HIS BOAT. 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 ] Future Scheduled Test AGENCY MAY PERFORM A RESUMPTION OF CARE VISIT FOLLOWING ANY HOSPITAL ADMISSION. ALL DISCIPLINES (EXCEPT HYDROMETER FINISHER) MAY PROVIDE TELEHEALTH PHONE/REMOTE/VIRTUAL VISITS IN LIEU [...] FOLLOWING ANY HOSPITAL ADMISSION. ALL DISCIPLINES (EXCEPT HYDROMETER FINISHER) MAY PROVIDE TELEHEALTH PHONE/REMOTE/VIRTUAL VISITS IN LIEU [...] Goal 2020-12-15 Patient Goal - RETURN TO [facility] Goal Provider Goal - [...] End Date/Time Encounter Type Admission Type Attending [facility] Care [facility] Care Department Encounter ID Discharge Date Discharge Status Discharge Condition Discharge Reason Percent Goals Met 2020-12-01 00:00:00 2020-12-15 00:00:00 Outpatient NEW ADMISSION EMILY [facility] [id number] 2020-12-15 00:00:00 DISCHARGE TO HOME OR SELF CARE INDEPENDEN T IN THE HOME HH ONLY - OUT PATIENT 77.78
--- OUTSIDE RECORDS SUMMARY | 2024-05-26 22:53 | XMS_ITS | Clinical Summary ---
Author Organization Unknown Care Team Providers Care Manager Salt Name Role Phone WALT DO, BRITTNEY Unavailable Unavailable SHARIF MORTGAGE PROCESSOR, DUSTY Unavailable Unavailable LARRY MORTGAGE PROCESSOR, DARIAN Unavailable Unavail able LETITIA RN, AMINA Unavailable Unavailable KALETINA MORTGAGE PROCESSOR, JADA Unavailable Unavailab le Payers Payer Name Policy Type Policy Number Effective Date Expira tion Date [place]IC[place] - [place] [id number] Problems Condition Name Condition Details Condition Category [...] DUODENITIS WITHOUT BLEEDING Active 06-16 00:00: 00 FORGESMITH (CURRENT) USE OF ANTICOAGULAN TS Active 06-16 [...] 2021-06 00:00: 00 03-23 23:59 :00 No [id number] 1 tablet 2 TIMES DAILY 1 tablet 2 TIMES DAILY (route: oral) Med Classific ation: Anti-Infe ctive Agents Eliquis 5 mg tablet 2021-06 00:00: 00 Yes [id number] 1 tablet 2 TIMES DAILY 1 tablet 2 TIMES DAILY (route: oral) Med Classific ation: Hematolog ical Agents epinephrine 0.3 mg/0.3 mL injection, auto-inject or 2021-06 00:00: 00 Yes [id number] 1 auto-in jector DIRECTED 1 auto-injec tor DIRECTED (route: injection) Med Classific ation: Cardiovas cular Therapy Agents Lasix 40 mg tablet 2021-06 00:00: 00 Yes [id number] 1 tablet EVERY AM 1 tablet EVERY AM (route: oral) Med Classific ation: Cardiovas cular Therapy Agents metoprolol tartrate 75 mg tablet 2021-06 00:00: 00 03-22 23:59 :00 No [id number] 1 tablet 2 TIMES DAILY 1 tablet 2 TIMES DAILY (route: oral) Med Classific ation: Cardiovas cular Therapy Agents multivitami n tablet 2021-06 00:00: 00 Yes [id number] 1 tablet EVERY AM 1 tablet EVERY AM (route: oral) Med Classific ation: Electroly te Balance-N utritiona l Products omeprazole 40 mg capsule,del ayed release 2021-06 00:00: 00 Yes [id number] 1 capsule EVERY AM 1 capsule EVERY AM (route: oral) Med Classific ation: Gastroint estinal Therapy Agents sildenafil 50 mg tablet 2021-06 0 00:00: 00 Yes [id number] 1 tablet NEEDED 1 tablet NEEDED (route: oral) Med Classific ation: Drugs to treat Erectile Dysfuncti on spironolact one 25 mg tablet 2021-06 0 00:00: 00 Yes [id number] 1 tablet EVERY AM 1 tablet EVERY AM (route: oral) Med Classific ation: Cardiovas cular Therapy Agents Vitamin D3 50 mcg (2,000 unit) capsule 2021-06 0 00:00: 00 Yes [id number] 1 capsule EVERY AM 1 capsule EVERY AM (route: oral) Med Classific ation: Electroly te Balance-N utritiona l Products DILT-XR 240 mg capsule, extended release 2021-06 0 00:00: 00 Yes [id number] 1 capsule DAILY 1 capsule DAILY (route: [...] 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 CELLULITIS RLE. PMH OBESITY, HTN, HLD, TANO USES CPAP, ALEXUS, L TKA, R KNEE OA, CHF RECENT HOSPITALIZATION/INPATIENT ADMISSION RELATED TO: AFIB WITH TACHYCARDIA, CONFUSION, INFECTED RLE. 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 CELLULITIS RLE. PMH OBESITY, HTN, HLD, TANO USES CPAP, ALEXUS, L TKA, R KNEE OA, CHF RECENT HOSPITALIZATION/INPATIENT ADMISSION RELATED TO: AFIB WITH TACHYCARDIA, CONFUSION, INFECTED RLE. [facility] 03/10-03/16 NEW OR CHANGED MEDICATIONS: DC LIPITOR [...] CARE WILL BE ESTABLISHED THAT MEETS PATIENT'S HALF-WAY NEEDS AND INCLUDES PATIENT GOAL FOR HOME [...] End Date/Time Encounter Type Admission Type Attending [facility] Care Department Encounter ID Discharge Date Discharge Status Discharge Condition Discharge Reason Percent Goals Met 2022-03-18 00:00:00 2022-05-14 00:00:00 Outpatient NEW ADMISSION AMINA DONG [facility] [id number] 00:00:00 DISCHARGE TO HOME OR SELF CARE INDEPENDEN T IN THE COMMUNITY PER CLIENT REQUEST 96.77
== END ==
LOC: HO.CARD 07:52
PROVIDERS: PCP Internal Medicine; Visit Provider Internal Medicine
DX: I48.0 Paroxysmal atrial fibrillation (principal)
CPT/HCPCS: 93306; Q9957

== ENCOUNTER → 2024-05-26 07:55 | Outpatient (BNV) | payer MEDICARE, SELFPAY | PROVIDERS: PCP Internal Medicine; Visit Provider Internal Medicine Cardiovascular Disease | DX: I48.0 Paroxysmal atrial fibrillation (principal) | CPT/HCPCS: 93306 ==

== ENCOUNTER 2024-07-19 07:53 | Outpatient (AMB) | payer MEDICARE, SELFPAY ==
[2024-07-19 08:26] VITALS: BP 154/66; PULSE 90; BMI 45.2
--- NOTE | 2024-07-19 08:26 | A.OFFVIS_ITS ---
Vital Signs 07/19/24 08:26 Height 5 ft 10 in Weight 314 lb 13.121 oz BMI 45.2 BP 154/66 H Blood Pressure Location Lt brachial Position Sitting Pulse 90 Pulse Source Pulse Oximeter Intake Visit Reasons: 3 mth f/up 14 day holter Fiberg[employer] Boat [employer] Required: No Allergies dextromethorphan [DEXTROMETHORPHAN] Allergy (Severe, Verified 05/19/24 14:17) ITCHY SWELLING SOB shellfish derived Allergy (Severe, Verified 05/19/24 14:17) ANAPHYLAXIS Medication List - Last Reconciled 07/19/24 by Jass Posada MD apixaban (Eliquis) 5 mg PO BID 30 days atorvastatin 10 mg PO DAILY diltiazem HCl CD 360 mg PO DAILY 90 days epinephrine 0.3 mL IM DAILY PRN furosemide (Lasix) 40 mg PO DAILY 30 days sildenafil 50 mg PO DAILY PRN HPI Comments Details: Emery returns for follow-up. To recall, in the past, he was admitted for lower extremity cellulitis as well as sepsis. In that context, had atrial fibrillation with rapid rate with component of congestive heart failure. He converted to sinus before discharge. He was on beta-blockers but that was changed to diltiazem due to concurrent EpiPen use. Overall, he states he feels fine. No new concerns. No cardiac symptoms whatsoever. No angina. Rare palpitations. [facility] Medical History ALEXUS (acute kidney injury) TANO on CPAP Morbid obesity Leukocytosis Gastritis COVID-19 vaccine series completed Obesity Chronic venous insufficiency Osteoarthritis TANO on CPAP Osteoarthritis of left knee Hypertension High cholesterol Surgical History History of orthopedic surgery Hx of colonoscopy History of right knee surgery LAP-BAND surgery status Family History Father Myocardial infarct Mother No problems noted. 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 Review of Systems Const Denies chills, Denies fatigue, Denies fever(s), Denies weight gain and Denies weight loss ENT Denies dizziness Card Denies chest pain, Denies leg edema, Denies lightheadedness, Denies palpitations, Denies dyspnea on exertion, Denies orthopnea and Denies other Resp Denies cough and Denies dyspnea on exertion GI Denies hematochezia and Denies change in stool character Musc Denies abnormal gait, Denies muscle weakness, Denies numbness, Denies radiating pain into limb and Denies tingling Neuro Denies abnormal gait, Denies dizziness, Denies numbness and Denies tingling Endo Denies fatigue and Denies palpitations Physical Exam Vital Signs: Last Vital Signs Pulse 90 07/19/24 08:26 BP 154/66 H 07/19/24 08:26 BMI result Body Mass Index 45.2 Const General: comfortable and no acute distress Orientation/consciousness: patient oriented x3 HEENT Other: Unremarkable Head: Yes normal to inspection Neck Neck: Yes normal visual inspection Chest Chest palpation & inspection: normal inspection of the chest Resp Auscultation: clear to auscultation bilaterally Cardio Palpation: normal PMI Heart sounds: S1 normal heart sound present, S2 normal heart sound present, no gallops, no murmurs and no rubs GI Palpation (GI): Soft to palpation Back/Spine/Pelvis Other: unremarkable Skin General skin exam: no rashes or lesions noted Neuro General: patient oriented x3 Extrem General: Yes normal to inspection Psych Mental Status: mental status grossly normal Assessment & Plan Assessment & Plan (1) PAF (paroxysmal atrial fibrillation): Code(s): I48.0 - Paroxysmal atrial fibrillation Category: Medical Plan: In the last Holter monitor, atrial fibrillation burden is 0.8%. Longest episode 1 hour and 40 minutes. Diltiazem dose has been increased. Continue that. Continue anticoagulation. Due to possible need for EpiPen in the future, not on beta-blockers. (2) NSVT (nonsustained ventricular tachycardia): Code(s): I47.29 - Other ventricular tachycardia Category: Medical Plan: NSVT noted on Holter. Preserved LVEF and no ischemia on stress testing. Hence continue diltiazem. (3) Chronic diastolic (congestive) heart failure: Code(s): I50.32 - Chronic diastolic (congestive) heart failure Category: Medical Plan: Continue diuretics. Echocardiogram with hyperdynamic LVEF. Preserved RV function on limited assessment. No significant valvular issues. On the perfusion imaging, no ischemia or infarction noted. (4) Morbid obesity: Code(s): E66.01 - Morbid (severe) obesity due to excess calories Category: Medical Plan: He is well aware of the fact that the weight is causing a lot of issues. However, not clear how much she can actually lose. (5) TANO on CPAP: Code(s): G47.33 - Obstructive sleep apnea (adult) (pediatric); Z99.89 - Dependence on other enabling machines and devices Category: Medical Plan: Continue CPAP. Plan Follow-up 6 months. Orders: Orders ECG 3 day holter monitor 6 Months I48.0 - Paroxysmal atrial fibrillation Coding Level of Care Code Est Pt Level 4 (80961) Diagnoses PAF (paroxysmal atrial fibrillation) I48.0 NSVT (nonsustained ventricular tachycardia) I47.29 Chronic diastolic (congestive) heart failure I50.32 Morbid obesity E66.01 TANO on CPAP G47.33; Z99.89
== END 2024-07-19 08:44 | disposition home or self-care (01) ==
PROVIDERS: PCP Internal Medicine; Visit Provider Internal Medicine
DX: I48.0 Paroxysmal atrial fibrillation (principal); I47.29 Other ventricular tachycardia; I50.32 Chronic diastolic (congestive) heart failure; E66.01 Morbid (severe) obesity due to excess calories; G47.33 Obstructive sleep apnea (adult) (pediatric); Z99.89 Dependence on other enabling machines and devices
CPT/HCPCS: 99214

== ENCOUNTER → 2024-07-19 07:53 | Outpatient (BNVA) | payer MEDICARE, SELFPAY | PROVIDERS: PCP Internal Medicine; Visit Provider Internal Medicine | DX: I48.0 Paroxysmal atrial fibrillation (principal); I47.29 Other ventricular tachycardia; I50.32 Chronic diastolic (congestive) heart failure; E66.01 Morbid (severe) obesity due to excess calories; G47.33 Obstructive sleep apnea (adult) (pediatric); Z68.45 Body mass index [BMI] 70 or greater, adult; Z99.89 Dependence on other enabling machines and devices | CPT/HCPCS: 99212 ==

== ENCOUNTER 2024-10-26 22:24 | Inpatient (IN) | payer MEDICARE, SELFPAY ==
--- NOTE | 2024-10-26 | ECG_ITS ---
Test Reason : sob Blood Pressure : */* mmHG Vent. Rate : 122 BPM Atrial Rate : 122 BPM P-R Int : 140 ms QRS Dur : 98 ms QT Int : 320 ms P-R-T Axes : * 111 10 degrees QTcB Int : 456 ms Sinus tachycardia Possible Right ventricular hypertrophy Abnormal ECG When compared with ECG of 14-Mar-2022 10:08, Vent. rate has increased by 46 bpm Right bundle branch block is no longer Present Borderline criteria for Inferior infarct are no longer Present Referred By: Generic ED Physician Electronically Signed By: KEVIN GUIDRY MD
--- NOTE | 2024-10-26 | ECG_ITS ---
Test Reason : TACHYCARDIA Blood Pressure : */* mmHG Vent. Rate : 150 BPM Atrial Rate : * BPM P-R Int : * ms QRS Dur : 106 ms QT Int : 318 ms P-R-T Axes : * 125 24 degrees QTcB Int : 502 ms Possible Atrial flutter with 2 to 1 block Right axis deviation Right ventricular hypertrophy Abnormal ECG When compared with ECG of 26-Oct-2024 22:32, No significant change was found Referred By: Cirilo Hatfield Electronically Signed By: KEVIN GUIDRY MD
--- NOTE | ~2024-10-26 | US_ITS ---
EXAMINATION: US LOWER EXTREMITY VEINS LIMITED FOLLOW UP RIGHT HISTORY: Rule out DVT, noted edema cellulitis COMPARISON: Comparison is made with the prior examination dated 03/02/2024. TECHNIQUE: Duplex and color Doppler sonographic examination of the deep venous system of the right lower extremity was performed. FINDINGS: The common femoral, superficial femoral, and popliteal veins are patent demonstrating normal compressibility, spontaneous flow, and augmentation. There is a normal color and spectral Doppler waveform appearance of the visualized deep venous system above the knee. The posterior tibial and peroneal veins are patent. Incidental note is made of prominent lymph nodes in the right inguinal region. US/US venous duplex LE RT IMPRESSION: No evidence of acute DVT in the right lower extremity. Electronically signed by: Wilfredo Heaton MD 10/27/2024 08:55 AM EDT
--- NOTE | ~2024-10-26 | CT_ITS ---
CLINICAL HISTORY: high fever elevated [place] CT abdomen and pelvis with contrast Comparison: CT/SR - CT CHEST W IV CON - 10/27/24 02:[address]/SR - CT ABDOMEN PELVIS WO IV CON - 03/11/22 17:20 EDT Findings: Chest findings are discussed on the same day comparison exam. Cholelithiasis. No inflammatory changes or bile duct dilatation. 9 mm nonobstructing right anterior renal cysts. Small bilateral renal cysts. Abdominal solid organs are otherwise unremarkable. Adequately positioned gastric lap band. No erosion. Normal appendix. The bones are intact. IMPRESSION: 1. Cholelithiasis without acute cholecystitis. 2. Additional nonacute findings as above. This document has been electronically signed by: Tomi Lucia MD on 10/27/2024 04:10:42
--- NOTE | ~2024-10-26 | XR_ITS ---
CLINICAL HISTORY: SOB 1 view chest x-ray Comparison: CR/SR - XR CHEST 1V - 03/09/22 12:36 EDT Findings: There is slight left infrahilar lung opacity. Low lung volumes. No pleural effusion or pneumothorax. Heart size within normal limits. No acute fracture. IMPRESSION: Artifact versus a small patchy opacity at the left infrahilar lung. Consider full inspiration upright two-view chest x-ray when the patient is able. This document has been electronically signed by: Tomi Lucia MD on 10/27/2024 01:25:30
--- NOTE | ~2024-10-26 | CT_ITS ---
CLINICAL HISTORY: Dyspnea CT chest with contrast Comparison: CT/SR - CT ABDOMEN PELVIS W IV CON - 10/27/24 02:54 EDT Findings: Heart size within normal limits. Enlarged pulmonary artery. This can be seen with pulmonary artery hypertension. The visualized thyroid and mediastinum are unremarkable. Minor atelectasis both lower lungs. No consolidation or effusion. Abdominal findings are discussed on the comparison. 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 No acute fracture or dislocation. IMPRESSION: 1. Unremarkable chest CT. This document has been electronically signed by: Tomi Lucia MD on 10/27/2024 04:18:41
[2024-10-26 22:30] VITALS: BP 119/76; PULSE 123; O2SAT 97
[2024-10-26 22:34] VITALS: BP 139/58; PULSE 122; RESP 22; TEMP 37.2; O2SAT 98; BMI 45.3
[2024-10-26 22:37] VITALS: BP 139/58; PULSE 127; RESP 18; TEMP 37.2; O2SAT 98
--- NOTE | 2024-10-26 22:50 | ED_ITS ---
HPI - SOB/Dyspnea General Chief Complaint: Dyspnea Stated Complaint: SOB x2 hrs Time Seen by Provider: 10/26/24 22:43 Source: patient, EMS and old records reviewed Mode of arrival: EMS Limitations: no limitations History of Present Illness ED Provider: DR. Hatfield HPI Narrative: 66-year-old male with history of hypertension, hyperlipidemia, chronic venous stasis dermatitis, erectile dysfunction, morbid obesity, paroxysmal AFib on Eliquis. Patient presented by EMS for evaluation of generalized weakness, shivering and shaking, subjective fever. Patient also felt shortness of breath while he was sitting on a chair at home about 2 hours ago, as patient shivering and shaking shortness of breath is getting better as per patient. Patient was chronic lower extremity edema takes Lasix at home, no increased of shortness of breath from baseline normal for the patient. Related Data Home Medications ?Medication ?Instructions ?Recorded ?Confirmed atorvastatin 10 mg tablet 10 mg PO DAILY 09/11/20 07/19/24 epinephrine 0.3 mg/0.3 mL 0.3 ml IM DAILY PRN Allergic 09/11/20 07/19/24 injection, auto-injector Reaction sildenafil 50 mg tablet 50 mg PO DAILY PRN sexual 04/02/21 07/19/24 dysfunction Previous Rx's ?Medication ?Instructions ?Recorded apixaban 5 mg tablet (Eliquis) 5 mg PO BID 30 days #60 tabs 03/16/22 furosemide 40 mg tablet (Lasix) 40 mg PO DAILY 30 days #30 tabs 03/16/22 diltiazem HCl 360 mg 360 mg PO DAILY 90 days #90 caps 04/05/24 capsule,extended release 24 hr Allergies Allergy/AdvReac Type Severity Reaction Status Date / Time dextromethorphan Allergy Severe ITCHY Verified 10/26/24 22:35 [DEXTROMETHORPHAN] SWELLING SOB shellfish derived Allergy Severe ANAPHYLAXIS Verified 10/26/24 22:35 Review of Systems 2 Review of Systems: All other systems are reviewed and are negative Constitutional: Reports as per HPI and Reports no additional constitutional complaints Eyes: Reports as per HPI and Reports no additional eye complaints Reports system reviewed and no additional complaints, except as documented Cardiovascular: Reports as per HPI and Reports no additional cardiovascular complaints Respiratory: Reports as per HPI and Reports no additional respiratory complaints Gastrointestinal: Reports as per HPI and Reports no additional gastrointestinal complaints Genitourinary: Reports no additional female genitourinary complaints Musculoskeletal: Reports no additional musculoskeletal complaints Skin/Breast: Reports system reviewed and no additional complaints, except as docu Psychiatric: Reports no additional psychiatric complaints Endocrine: Reports no additional endocrine complaints Hematologic/Lymphatic: Reports no additional hematologic/lymphatic complaints Allergic/Immunologic: Reports no additional allergic/immunologic complaints Reports system reviewed and no additional complaints, except as documented and Reports Abnormal speech present [facility] Past Medical History Medical History ALEXUS (acute kidney injury) TANO on CPAP Morbid obesity Leukocytosis Gastritis COVID-19 vaccine series completed Obesity Chronic venous insufficiency Osteoarthritis TANO on CPAP Osteoarthritis of left knee Hypertension High cholesterol Surgical History History of orthopedic surgery Hx of colonoscopy History of right knee surgery LAP-BAND surgery status Family History Family History Father Myocardial infarct Mother No problems noted. 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 Blood pressure elevated. Heart rate normal. Respiratory rate normal. Temperature normal. Oxygen saturation normal. Appearance: Alert. Oriented X3. No acute distress. Head: Normal external exam. Normocephalic. Atraumatic. No Ramírez signs noted. No raccoon eyes noted Eyes: PERRLA. EOMI. Conjunctiva and sclera normal. Eyelids normal. ENT: TM's Normal. Pharynx normal. Uvula midline. Moist mucous membranes. No trismus noted. No drooling noted. No muffled voice noted. Neck: Normal inspection. Neck supple. FROM. No adenopathy. Thyroid Normal. No meningeal signs. No neck mass noted. CVS: Normal heart rate and rhythm. Heart sound normal. No murmurs noted. Pulses normal throughout. Respiratory: No respiratory distress. Painless inspiration. Breath sounds normal. No wheezes/rales/rhonchi noted. Chest nontender. No accessory muscle usage noted or decreased air movement noted. Abdomen: Soft and nontender. Bowel sounds normal in all 4 quadrants. No distention noted. No organomegaly noted. No visible injury noted. Back: No CVA tenderness. Full range of motion noted. Skin: Skin warm and dry. Normal skin color. Normal skin turgor. No rashes/lesions/lacerations noted. Extremities: No lower extremity edema. Extremities exhibit normal range of motion. Extremities nontender. Neuro: Oriented X 3. Cranial nerve exam: II-XII are grossly intact No motor deficit. No sensory deficit. Reflexes normal. Course Reevaluation(s) Reevaluation #1: Rapid paroxysmal AFib, controlled with metoprolol, patient is in digoxin will check a level, patient is already on AC. Patient is febrile, chest x-ray is questioning L lung pneumonia received 1 dose of prophylactic ceftriaxone + doxycycline. Will admit the patient for further cardiology workup and possible cardioversion. Time: 01:27 Medications Administered Generic Name Dose Route Start Last Admin Trade Name Freq PRN Reason Stop Dose Admin Lactated Ringer's 1,000 mls @ 500 mls/hr 10/27/24 00:30 10/27/24 00:20 Lr IV 10/27/24 02:29 500 mls/hr .Q2H NGA Administration Discontinued Medications Generic Name Dose Route Start Last Admin Trade Name Freq PRN Reason Stop Dose Admin Acetaminophen 975 mg 10/26/24 22:50 10/26/24 23:27 Acetaminophen 325 Mg Tablet PO 10/26/24 22:51 975 mg ONCE ONE Administration Ceftriaxone Sodium 1 gm 10/27/24 00:29 10/27/24 00:32 Ceftriaxone Sodium 1 Gm Vial IVPUSH 10/27/24 00:30 1 gm ONCE ONE Administration Acetaminophen 1,000 mg in 100 mls @ 400 mls/hr 10/27/24 00:25 10/27/24 00:32 Ofirmev IV 10/27/24 00:39 400 mls/hr ONCE ONE Administration Metoprolol Tartrate 5 mg 10/27/24 00:10 10/27/24 00:13 Metoprolol Tartrate 5 Mg/5 Ml Vial IVPUSH 10/27/24 00:11 5 mg ONCE ONE Administration Protocol Metoprolol Tartrate 50 mg 10/27/24 00:15 10/27/24 00:20 Metoprolol Tartrate 50 Mg Tablet PO 10/27/24 00:16 50 mg ONCE ONE Administration Protocol Medical Decision Making Differential Diagnosis Differential Diagnoses: The differential diagnosis associated with the presentation includes (Rapid AFib, pneumonia, pneumothorax, pleural effusion, ACS, CHF, upper respiratory viral infection, electrolyte derangement, severe anemia.) Admission/Observation Consideration of admission/observation: Escalation of care including admission/observation considered Consult Healthcare Provider Management of the patient was discussed with: Hospitalist (Dr. Pichardo) Lab Data MDM Lab Attestation statement: I reviewed the patient's lab results. 10/26/24 22:47 10/26/24 22:47 Labs: Lab Results 10/26/24 10/26/24 Range/Units 22:47 23:39 WBC 19.2 H (4.8-10.8) X10*3/uL RBC 4.65 (4.60-5.80) X10*6/uL Hgb 13.6 L (14.0-18.0) g/dl Hct 39.7 L (42.0-52.0) % MCV 85.4 (80.0-98.0) fL MCH 29.2 (27.0-33.0) pg MCHC 34.3 (31.0-36.0) g/dl RDW 13.0 (11.0-16.0) % Plt Count 238 D (160-400) X10*3/uL MPV 10.2 (9.4-12.4) fL Immature Gran % (Auto) 0.4 (0.0-0.4) % Neut % (Auto) 85.9 H (45-73) % Lymph % (Auto) 7.5 L (20-40) % [place] % (Auto) 5.4 (2-11) % Eos % (Auto) 0.5 (0-4) % Baso % (Auto) 0.3 (0-2) % Lymph # (Auto) 1.5 (1.2-4.9) X10*3/uL [place] # (Auto) 1.0 (0.1-1.2) X10*3/uL Eos # (Auto) 0.1 (0.0-0.4) X10*3/uL Baso # (Auto) 0.1 (0.0-0.2) X10*3/uL Abs Immat Gran (auto) 0.07 H (0.00-0.03) X10*3/uL Absolute Neuts (auto) 16.5 H (2.0-8.3) x10*3/uL Absolute Nucleated RBC 0.000 (0.0-0.012) X10*3/uL Nucleated RBC % (auto) 0.0 (0.0-0.2) /100WBC PT 14.4 H (10.9-12.4) SEC INR 1.3 H (0.9-1.1) Sodium 141 (135-145) mmol/L Potassium 3.9 (3.3-5.1) mmol/L Chloride 103 (96-108) mmol/L Carbon Dioxide 26 (22-29) mmol/L Anion Gap 16 (12-20) BUN 26 H (9-16) mg/dL Creatinine 1.26 (0.5-1.4) mg/dL Estim Creat Clear Calc 80.3 Estimated GFR 57 Random Glucose 210 H (60-115) mg/dL Lactic Acid 2.7 H* (0.5-2.0) mmol/L Calcium 9.1 D (8.4-10.2) mg/dL Magnesium 1.8 (1.6-2.6) mg/dL Total Bilirubin 0.5 (0.0-1.0) mg/dL AST 24 (5-37) U/L ALT 29 (0-40) U/L Alkaline Phosphatase 107 (39-117) U/L Troponin I High Sens 3.0 (<3.5-35.0) ng/L B-Natriuretic Peptide < 10 (<100) pg/mL Total Protein 7.2 (6.5-8.0) g/dL Albumin 4.2 (3.5-5.0) g/dL Influenza Type A (PCR) NEGATIVE (Negative) Influenza Type B (PCR) NEGATIVE (Negative) RSV RNA Qual (PCR) NEGATIVE (Negative) SARS-CoV-2 RNA (RT-PCR) NEGATIVE (Negative) S. pyogenes GrpA REECE Negative (Negative) Independent Interpretation I performed an independent interpretation of an: Plain X-Ray (Chest:Artifact versus a small patchy opacity at the left infrahilar lung. Consider full inspiration upright two-view chest x-ray when the patient is able.) Radiology Impression Discussion of test interpretation with radiology: I have reviewed the radiologist's reading. Critical Care Time Critical Care Time Critical Care Time: Yes Total Critical Care Time: 60 Attestation: The patient was critically ill with a high probability of imminent or life- threatening deterioration. I spent greater than 30 minutes of discontinuous time evaluating the patient, delivering critical care at the bedside, discussing evaluating data with consultants. Critical care time does not include time spent performing separately billable procedures or teaching. Time spent performing critical care was 60 minutes. Discharge Plan Discharge Clinical Impression: Atrial fibrillation with rapid ventricular response Patient Disposition: Admitted As Inpatient Print Language: Lithuanian
[2024-10-26 22:58] LABS: MANUAL DIFF FLAG NO
[2024-10-26 23:00] LABS: Basophils Absolute Auto 0.1 X10*3/uL (0.0-0.2); Basophils Percent Auto 0.3 % (0-2); Eosinophils Absolute Auto 0.1 X10*3/uL (0.0-0.4); Eosinophils Percent Auto 0.5 % (0-4); Hematocrit 39.7 % (42.0-52.0); Hemoglobin 13.6 g/dl (14.0-18.0); Imm Gran Abs Auto 0.07 X10*3/uL (0.00-0.03); Imm Gran Pct Auto 0.4 % (0.0-0.4); Lymphocytes Absolute Auto 1.5 X10*3/uL (1.2-4.9); Lymphocytes Percent Auto 7.5 % (20-40); Mean Corpuscular HGB Conc 34.3 g/dl (31.0-36.0); Mean Corpuscular Hemoglobin 29.2 pg (27.0-33.0); Mean Corpuscular Volume 85.4 fL (80.0-98.0); Mean Platelet Volume 10.2 fL (9.4-12.4); Monocytes Percent Auto 5.4 % (2-11); Neutrophils Absolute Auto 16.5 x10*3/uL (2.0-8.3); Neutrophils Percent Auto 85.9 % (45-73); Platelet Count 238 X10*3/uL (160-400); Red Blood Count 4.65 X10*6/uL (4.60-5.80); White Blood Count 19.2 X10*3/uL (4.8-10.8)
[2024-10-26 23:19] LABS: Alanine Aminotransferase 29 U/L (0-40); Albumin Level 4.2 g/dL (3.5-5.0); Alkaline Phosphatase 107 U/L (39-117); Anion Gap 16 (12-20); Aspartate Amino Transferase 24 U/L (5-37); Bilirubin Total 0.5 mg/dL (0.0-1.0); Blood Urea Nitrogen 26 mg/dL (9-16); Calcium 9.1 mg/dL (8.4-10.2); Carbon Dioxide 26 mmol/L (22-29); Chloride 103 mmol/L (96-108); Creatinine Clr Calc Pharmacy 80.3; Estimated Glomerular Filt Rate 57; Glucose Random 210 mg/dL (60-115); Magnesium 1.8 mg/dL (1.6-2.6); Potassium 3.9 mmol/L (3.3-5.1); Sodium 141 mmol/L (135-145); Total Protein 7.2 g/dL (6.5-8.0)
[2024-10-26 23:25] LABS: B Type Natriuretic Peptide < 10 pg/mL (<100)
[2024-10-26] MEDS: Acetaminophen 325 MG TABLET 975 MG PO (23:27)
[2024-10-26 23:33] LABS: INTERNATIONAL NORM RATIO 1.3 (0.9-1.1); Prothrombin Time 14.4 SEC (10.9-12.4)
[2024-10-26 23:36] LABS: Influenza A PCR NEGATIVE (Negative); Influenza B PCR NEGATIVE (Negative); Resp Syncy Virus RNA Qual PCR NEGATIVE (Negative); SARS COV2 PCR INHOUSE NEGATIVE (Negative)
[2024-10-26 23:38] LABS: Lactic Acid 2.7 mmol/L (0.5-2.0)
[2024-10-27] VITALS (12 sets, daily range): BP systolic 100–144; BP diastolic 43–68; PULSE 71–150; RESP 17–29; TEMP 36.2–39.4; O2SAT 94–98
--- NOTE | 2024-10-27 00:09 | PC.NURSE ---
PT tachy 150's, EKG ordered showing svt, oral temp 102.9, lactic back at 2.7 wbc19. sepsis alert called at 0000. made aware. awaiting orders.
[2024-10-27] MEDS: Metoprolol Tartrate 5 MG/5 ML VIAL IVPUSH (00:13)
[2024-10-27] MEDS: Lactated Ringers 1,000 ML 500 ML IV (00:20)
[2024-10-27] MEDS: Metoprolol Tartrate 50 MG TABLET PO (00:20)
--- NOTE | 2024-10-27 00:31 | ECG_ITS ---
Test Reason : TACHYCARDIA Blood Pressure : */* mmHG Vent. Rate : 141 BPM Atrial Rate : 308 BPM P-R Int : * ms QRS Dur : 98 ms QT Int : 318 ms P-R-T Axes : * 125 16 degrees QTcB Int : 487 ms Atrial flutter with variable A-V block Possible Right ventricular hypertrophy Abnormal ECG When compared with ECG of 26-Oct-2024 23:57, No significant changes seen Referred By: Sae Pichardo Electronically Signed By: KEVIN GUIDRY MD
[2024-10-27] MEDS: cefTRIAXone sodium 1 GM VIAL IVPUSH ×2 (00:32→11:31)
[2024-10-27] MEDS: Acetaminophen 1,000 MG/100 ML PIGGYBACK 400 MG IV (00:32)
[2024-10-27 00:48] LABS: IDNOW Serial# 6674DD1D; Strep A Nucleic Acid Negative (Negative)
[2024-10-27 00:56] LABS: Reflex Lactate? Lactic Acid Added
--- NOTE | 2024-10-27 01:04 | PC.NURSE ---
Pt given all meds per order, iv fluids running at this time. HR slowing down to 130's-140's, repeat EKG showing afib. given to provider. pt reporting feeling better.Plan of care ongoing.
[2024-10-27 01:40] LABS: ~Lactic Acid-LAB USE ONLY 2.3 mmol/L (0.5-2.0)
--- NOTE | 2024-10-27 02:02 | P.HPHOSP_ITS ---
History of Present Illness Date of Service: 10/27/24 Attending physician on admission: Sae Pichardo Chief Complaint: Dyspnea, fever Patient is a 69-year-old male with past medical history lymphedema follows with vascular, chronic diastolic heart failure, TANO, HLD, Asthma, ED, osteoarthritis, atrial fib on Eliquis, lap band procedure, nephrolithiasis follows with urologist, history of cellulitis right lower extremity x3, obesity was taken to the emergency department via ambulance after increasing shortness of breath that started approximately 20:30 10/26/2024. Patient states the shortness of breath was sudden onset and sometime before that patient has started having chills and shaking. Patient denies any recent travel or exposure to anyone with illness. Patient currently lives alone and is retired. Patient denies any current chest pain, abdominal pain, nausea or vomiting.. Temp as high as 102.9 degrees in the ED, reduce with Tylenol. Heart rate as high as 160, SVT noted on EKG with intermittent sinus tachycardia. Leukocytosis of 19, lactic acid 2.7 then 2.3. Patient currently on lactated Ringer's, conservative on amount due to suspected CHF exacerbation without hypoxia. BNP within normal limits. All viral studies negative. Patient received ceftriaxone empirically in the ED. Upon examination, noted increased redness, swelling and heat in the right lower extremity with no actual skin openings or blistering. Patient states he has had cellulitis in the same affected leg 3 times last summer. Patient is using equipment for his lymphedema that was replaced in May of 2024. Patient is on Eliquis with no history of blood clots to the lungs or legs. Patient does meet the criteria for sepsis and is being admitted for possible source cellulitis/ PNA. Chest x-ray notes small patchy opacity at the left infrahilar lung. CT scan of the chest and abdomen are ordered and pending noting patient's labs, clinical presentation and past medical history. Vancomycin will be added. Cardiology consulted and echo ordered. Patient received Cardizem 10 mg IV push x1 heart rate down to 118. After 2 doses of Tylenol, temp down to 100.2. Blood cultures x2 pending. UA negative. Review of Systems 2 Review of Systems: Patient denies currently any chest pain, still reporting mild shortness of breath at rest. Patient denies any abdominal pain patient. Patient is not having any known CR vomiting. Patient denies any headache or visual acuity changes. Patient is reporting mild right lower extremity discomfort. Yes all other systems are reviewed and are negative [facility] Medical History ALEXUS (acute kidney injury) TANO on CPAP Morbid obesity Leukocytosis Gastritis COVID-19 vaccine series completed Obesity Chronic venous insufficiency Osteoarthritis TANO on CPAP Osteoarthritis of left knee Hypertension High cholesterol Cognitive capacity: Alert and orientated x3 Family History Father Myocardial infarct Mother No problems noted. Brother Myocardial infarct Surgical History History of orthopedic surgery Hx of colonoscopy History of right knee surgery LAP-BAND surgery status Social History Household Members: None [facility] Are you a primary child care associate teacher to a significant other at home: No Do you presently have visiting nurse or other home services: No Alcohol intake: never Patient Tobacco Use Status: Never used Tobacco e-Cigarette/Vaping Use: Never Used Advance Directives: No Advance Directives Information Provided: Yes Do you have a plan to hurt others: No Plan service: No Current occupational status: 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 Ebola Risk: Travel/Contact With Anyone From Affected Area/s: No Has Patient Experienced Ebola Symptoms: No Meds Allergies Allergy/AdvReac Type Severity Reaction Status Date / Time dextromethorphan Allergy Severe ITCHY Verified 10/26/24 22:35 [DEXTROMETHORPHAN] SWELLING SOB shellfish derived Allergy Severe ANAPHYLAXIS Verified 10/26/24 22:35 Active Medications: Current Medications Acetaminophen (Acetaminophen 325 Mg Tablet) 650 mg PO Q6H PRN PRN Reason: Pain, Mild 1-3,fever,headache Calcium Carbonate (Calcium Carbonate 750 Mg Tab.Chew) 750 mg PO Q4H PRN PRN Reason: Heartburn Lactated Ringer's (Lr) 1,000 mls @ 500 mls/hr IV .Q2H NGA Stop: 10/27/24 02:29 Last Admin: 10/27/24 00:20 Dose: 500 mls/hr Doxycycline Hyclate 100 mg/ (Sodium Chloride) 250 mls @ 166.67 mls/hr IV ONCE ONE Stop: 10/27/24 03:01 Vancomycin HCl 1,000 mg/Vancomycin HCl 750 mg/ Sodium Chloride 535 mls @ 267.5 mls/hr IV ONCE ONE Stop: 10/27/24 03:58 Magnesium Hydroxide (Milk Of Magnesia 30 Ml Oral.Susp) 30 ml PO DAILY PRN PRN Reason: Constipation Melatonin (Melatonin 3 Mg Tablet) 6 mg PO BEDTIME PRN PRN Reason: Insomnia Ondansetron HCl (Ondansetron Hcl 4 Mg/2 Ml Vial) 4 mg IVPUSH Q8H PRN PRN Reason: Nausea and Vomiting Pharmacy Consult (Consult Rx Vancomycin Dosing) 1 each MISCELLANE DAILY PRN PRN Reason: Consult order Senna (Sennosides 8.6 Mg Tablet) 17.2 mg PO BEDTIME NGA Sodium Chloride (0.9 % Sodium Chloride Flush 3 Ml Syringe) 3 ml IVFLUSH QSHIFT [facility] Home Medications ?Medication ?Instructions ?Recorded ?Confirmed ?Last Taken ?Type atorvastatin 10 mg tablet 10 mg PO DAILY 09/11/20 07/19/24 03/09/22 History epinephrine 0.3 mg/0.3 mL 0.3 ml IM DAILY PRN Allergic 09/11/20 07/19/24 Unknown History injection, auto-injector Reaction sildenafil 50 mg tablet 50 mg PO DAILY PRN sexual 04/02/21 07/19/24 Unknown History dysfunction Physical Exam 2 Vital Signs and Narrative: Vital Signs: Last Vital Signs Temp 102.9 F H 10/27/24 00:00 Pulse 140 H 10/27/24 00:20 Resp 28 H 10/27/24 00:00 BP 144/65 H 10/27/24 00:20 Pulse Ox 98 10/26/24 22:37 O2 Del Method Room Air 10/26/24 22:37 BMI result Body Mass Index 45.3 Alert and orientated X3, able to give good history. Neuro: CN II-X11 intact, no deficits, visual acuity intact EYES: PERRLA, EOM intact ENT: hearing intact, no issues with swallowing, uvula midline, lips moist, nares patent no epistaxis Cardiac: S1 S2 tachycardic, no murmur, no JVD, B edema in Lower ext's chronic lymphedema, R >L Pulmonary: lungs diminished left greater than right, no adventitious sounds noted Abdominal: BS active in all 4 quadrants, no guarding, tenderness, rebounding, obese MSK: strength 5/5 upper and 4/5 lower extremities : no CVA tenderness no bladder distension Extremities: no edema in lower extremities, PT and DP pulses palpable +2, Homans sign negative bilaterally Psych: mood stable, judgement and insight good Skin: Large reddened area lateral right lower extremity, hot to the touch with increased edema compared to left lower extremity. No current openings or evidence of cat scratches or animal bites. Results Labs 10/26/24 22:47 10/26/24 22:47 Labs: Laboratory Results - last 24 hr 10/26/24 10/26/24 10/27/24 22:47 23:39 01:07 MCV 85.4 MCH 29.2 MCHC 34.3 RDW 13.0 Plt Count 238 D MPV 10.2 Immature Gran % (Auto) 0.4 Neut % (Auto) 85.9 H Lymph % (Auto) 7.5 L [place] % (Auto) 5.4 Eos % (Auto) 0.5 Baso % (Auto) 0.3 Lymph # (Auto) 1.5 [place] # (Auto) 1.0 Eos # (Auto) 0.1 Baso # (Auto) 0.1 Abs Immat Gran (auto) 0.07 H Absolute Neuts (auto) 16.5 H Absolute Nucleated RBC 0.000 Nucleated RBC % (auto) 0.0 PT 14.4 H INR 1.3 H Anion Gap 16 Estim Creat Clear Calc 80.3 Estimated GFR 57 Random Glucose 210 H Lactic Acid 2.7 H* Lactic Acid F/U @ 2Hr 2.3 H* Calcium 9.1 D Magnesium 1.8 Total Bilirubin 0.5 AST 24 ALT 29 Alkaline Phosphatase 107 B-Natriuretic Peptide < 10 Total Protein 7.2 Albumin 4.2 Influenza Type A (PCR) NEGATIVE Influenza Type B (PCR) NEGATIVE RSV RNA Qual (PCR) NEGATIVE SARS-CoV-2 RNA (RT-PCR) NEGATIVE S. pyogenes GrpA REECE Negative ECG Attestation: I personally reviewed and interpreted this ECG as follows: (SVT, repeat sinus tachycardia) Prior ECG tracings: available for review Imaging Radiologist's Impressions: CXR Findings: There is slight left infrahilar lung opacity. Low lung volumes. No pleural effusion or pneumothorax. Heart size within normal limits. No acute fracture. IMPRESSION: Artifact versus a small patchy opacity at the left infrahilar lung. Consider full inspiration upright two-view chest x-ray when the patient is able. Assessment and Plan (1) Sepsis: Qualifiers: Sepsis acute organ dysfunction status: without acute organ dysfunction Sepsis type: sepsis due to unspecified organism Qualified Code(s): A41.9 - Sepsis, unspecified organism Status: Acute Plan Patient is a 69-year-old male with past medical history lymphedema follows with vascular, chronic diastolic heart failure, TANO, HLD, Asthma, ED, osteoarthritis, atrial fib on Eliquis, lap band procedure, nephrolithiasis follows with urologist, history of cellulitis right lower extremity x3, obesity presented to the emergency department via ambulance for sudden onset dyspnea and fever with chills. Patient being admitted with the following problem list: Sepsis without Hypoxia -Source likely right lower extremity cellulitis, pneumonia - UA negative -CT of the chest and abdomen pending. LA elevated, leukocytosis of 19. -Patient is started on ceftriaxone in the emergency department, vancomycin added -Tylenol prn /Motrin x1 for fever -Blood cultures drawn before antibiotics started, pending -ID consult if indicated -Telemetry -IVF conservative rate due to CHF Left infrahilar lung opacity/ pneumonia -patient remains on room air, no evidence of hypoxia -patient is started on ceftriaxone in the ED, vancomycin was added for suspected cellulitis in the right lower extremity -CT of the chest pending -supportive care, ipratropium inhalation ordered p.r.n., no albuterol due to patient's tachycardia -incentive spirometer -all viral studies negative AFIB/ Aflutter SVT -continue eliquis -Lopressor IV X2, Cardizem IVP X1, HR trending down, temp also coming down -Telemetry -ECHO -Cardiology consulted -Continue po cardizem -MG 1.8, will give 2 grams, will check TSH Cellulitis RLE/ HX of Lymphedema HX of cellulitis same extremity -Pt has hx of cellulits same LE X3 last year. No hx of cat scratches, animal bites etc... Pt does use mechanical equipment for Lymphedema at home. -Ceftriaxone started in ED, VANCO added -ID consult if indicated -SIte marked with surgical pen -ID consult if indicated -Venous doppler RLE ordered (reviewed with attending, aware pt is on eliquis) -Pt does follow with vascular in the outpatient setting CHF exacerbation Diastolic HF -ECho ordered -Holding lasix, pt requiring IVF for sepsis -Cardiology consulted -Daily weights -I/Os -Low NA diet -Oxygen prn, pt is not hypoxic TANO -CPAP ordered DVT prophylaxis: Eliquis PPI prophylaxis: Protonix IV Med rec pending Full code status Quality Stroke Does the patient have a stroke diagnosis?: No Reason for No Anti-thrombotic by Day Two: N/A - Med Ordered VTE Prior VTE?: No VTE Risk Level:: Medical - moderate - high VTE Device Contraindication: Treatment Not Tolerated VTE Drug Contraindication: N/A - Med Ordered
[2024-10-27] MEDS: Doxycycline Hyclate 100 MG in 0.9 % Sodium Chloride 250 ML 166.67 MG IV (02:05)
[2024-10-27] MEDS: dilTIAZem HCL 50 MG/10 ML VIAL 10 MG IVPUSH (02:08)
[2024-10-27] MEDS: Ibuprofen 800 MG TABLET PO (02:08)
[2024-10-27] MEDS: Lactated Ringers 1,000 ML 100 ML IVCONT (02:35)
[2024-10-27 03:13] LABS: Reflex Lactate? 2 Y
[2024-10-27 03:18] LABS: Thyroid Stimulating Hormone 1.44 uIU/mL (0.32-4.0)
[2024-10-27] MEDS: vancomycin/NS 2,000 MG/500 ML PLAST..BAG 250 MG IV (03:25)
[2024-10-27] MEDS: Magnesium Sulfate/H2O 2 GM/50 ML PIGGYBACK IV (03:26)
[2024-10-27 03:43] LABS: Basophils Absolute Auto 0.1 X10*3/uL (0.0-0.2); Basophils Percent Auto 0.4 % (0-2); Hematocrit 37.3 % (42.0-52.0); Hemoglobin 12.6 g/dl (14.0-18.0); Imm Gran Abs Auto 0.29 X10*3/uL (0.00-0.03); Lymphocytes Absolute Auto 0.7 X10*3/uL (1.2-4.9); Lymphocytes Percent Auto 2.1 % (20-40); MANUAL DIFF FLAG SCAN; Mean Corpuscular HGB Conc 33.8 g/dl (31.0-36.0); Mean Corpuscular Hemoglobin 29.2 pg (27.0-33.0); Mean Corpuscular Volume 86.3 fL (80.0-98.0); Mean Platelet Volume 10.2 fL (9.4-12.4); Monocytes Absolute Auto 2.1 X10*3/uL (0.1-1.2); Monocytes Percent Auto 6.9 % (2-11); Neutrophils Absolute Auto 27.3 x10*3/uL (2.0-8.3); Neutrophils Percent Auto 89.6 % (45-73); Platelet Count 215 X10*3/uL (160-400); Red Blood Count 4.32 X10*6/uL (4.60-5.80); Red Cell Distribution Width 13.2 % (11.0-16.0); SCAN SMEAR FLAG 1
[2024-10-27 03:57] LABS: White Blood Count 30.4 X10*3/uL (4.8-10.8)
[2024-10-27 04:00] LABS: ~Lactic Acid-LAB USE ONLY 1.4 mmol/L (0.5-2.0)
[2024-10-27 04:01] LABS: Alanine Aminotransferase 35 U/L (0-40); Albumin Level 3.6 g/dL (3.5-5.0); Anion Gap 14 (12-20); Aspartate Amino Transferase 38 U/L (5-37); Bilirubin Total 0.5 mg/dL (0.0-1.0); Blood Urea Nitrogen 24 mg/dL (9-16); Calcium 8.5 mg/dL (8.4-10.2); Carbon Dioxide 21 mmol/L (22-29); Chloride 107 mmol/L (96-108); Creatinine Clr Calc Pharmacy 82.3; Estimated Glomerular Filt Rate 58; Glucose Random 115 mg/dL (60-115); Potassium 3.4 mmol/L (3.3-5.1); Sodium 139 mmol/L (135-145); Total Protein 6.1 g/dL (6.5-8.0)
[2024-10-27 04:02] LABS: SLIDE REVIEW VERIFIED
[2024-10-27 04:09] LABS: Alkaline Phosphatase 84 U/L (39-117)
--- NOTE | 2024-10-27 07:00 | CA_ITS ---
Transthoracic Echocardiogram Patient (Last, First, Middle): Emery Giraldo R Gender: Male Date of : 1955 Age: 69 Procedure Date: 10/27/2024 Procedure Type: Transthoracic Echocardiogram Location: [facility] – [place] Height: 180.34 cm Weight: 146.97 kg BSA: 2.59 m2 Heart Rate: bpm BP: 100 / 43 mmHg Aircraft Engine Installer: CHADD/ERICA Referring MD: Christa Cherry [facility]- Acquisition Analyst: Prashanth Trinh MD Symptoms: Aflutter Study Quality: Technically Difficult/Contrast ECG Rhythm: Sinus Conclusions: - 1. Technically limited study due to body habitus 2. Normal LV ejection fraction of 65-70% with pseudonormal filling pattern 3. At least moderately dilated left atrium 4. Limited evaluation of cardiac valves Findings Procedure Information Contrast agent, definity, is being given per protocol without apparent complications. Left Ventricle Normal left ventricular size, thickness, and systolic function. The visually estimated ejection fraction is between 65-70%. Regional wall motion abnormalities can not be excluded due to suboptimal endocardial definition. Spectral Doppler is indicative of a pseudonormal filling pattern. Right Ventricle The right ventricle was not well visualized. Atria The left atrium is moderately dilated. Interatrial shunt cannot be excluded. The right atrium was not well visualized. Aortic Valve The aortic valve was not well visualized. There is moderate calcification of the aortic valve. There is no aortic valve stenosis. There is no aortic valve regurgitation. Mitral Valve The mitral valve was not well visualized. There is moderate mitral annular calcification. There is no mitral valve regurgitation. There is no mitral valve stenosis. Pulmonic Valve The pulmonic valve was not well visualized. Tricuspid Valve The tricuspid valve was not well visualized. Tricuspid regurgitation envelope is inadequate for calculation of right ventricular systolic pressure. Great Vessels The aorta was not well visualized. The pulmonary artery was not well visualized. Venous The inferior vena cava was not well visualized. Pericardium/Pleural The pericardium was not well visualized. Measurements 2D Linear Measurements IVSd: 1.13 0.6-0.9/0.6-1.0 cm LVIDd: 4.19 3.9-5.3/4.2-5.9 cm LVIDd Index: 1.62 2.4-3.2/2.2-3.1 cm/m2 LVIDs: 2.31 2.0-3.6 cm LVPWd: 1.11 0.7-1.1 cm Ao Root: 3.60 2.1-3.5 cm LV Mass: 199.98 67-162/88-224 g LV Mass Index: 77.21 43-95/49-115 g/m2 LVOT Diam: 2.00 3.0+(-)1.3 cm 2D Systolic Function EF 4C: 67.00 >55% EF 2C: 68.70 >55% EF BiP: 67.90 >55% Mitral Valve MV VTI: 0.48 MV Pk Flex: 1.36 MV Mn Flex: 0.78 MV Pk Grad: 7.00 MV Mn Grad: 3.00 MV Pk E: 1.17 MV PK A: 1.14 MV Decel Time: 264.00 E/A: 1.00 E'Lateral: 9.25 E'Medial: 8.38 E/E' Med: 14.00 E/E' Lat: 12.60 PHT: 77.00 MVA PHT: 2.86 MVA Continuity: 2.19 Decel Hart: 4.42 Aortic Valve AoV Pk Flex: 1.61 AoV Mn Flex: 1.13 AoV VTI: 0.34 AoV Pk Grad: 10.00 Aov Mn Grad: 6.00 SUPRIYA Cont.VTI: 3.09 LVOT LVOT Pk Flex: 1.62 LVOT Mn Flex: 1.16 LVOT VTI: 0.33 LVOT Pk Grad: 10.00 LVOT Mn Grad: 6.00 LVOT Diam: 2.00 LVOT Area: 3.14 Diastolic Function MV Pk E: 1.17 MV Pk A: 1.14 E/A: 1.00 E'Medial: 8.38 E/E' Med: 14.00 E' Laterial: 9.25 E/E' Lat: 12.60 Right Ventricle TAPSE (mm): 19.70 TVS' Flex: 11.50 Tricuspid Valve TR Pk Flex: 2.20 TR Pk Grad: 19.00 Great Vessels Aorta Ao Root-2D: 3.60 2.0-3.7 cm Ao Asc: 3.60 2.1-3.4 cm Updated in Other Vendor System with Status of Final Prashanth Trinh MD electronically signed on 10/27/2024 4:11:53 PM with status of Final
--- NOTE | 2024-10-27 07:15 | PC.NURSE ---
Assumed care of pt at 0700. Pt resting in bed quietly, a/ox3, respirations even and unlabored, states mild sob, able to speak in full sentences, lung sounds diminished Left > Right, otherwise clear, no adventitious sounds heard, afib on quality assurance monitor chassis, HR 70s, denies CP/palpitations, denies pain at this time. Pt given breakfast tray, sitting upright in bed eating. Vitals updated in worklist, pt afebrile-oral temp 97.8. Redness noted to right lower extremity- warm to touch, MD aware. LR infusing @100mls/hr. Pt updated on plan of care, call collazo within reach, all needs met at this time.
--- NOTE | 2024-10-27 07:17 | PHA.PROG ---
Admission Date/Time: October 27, 2024 02:11 Indication: skin Weight in k.4 kg Adjusted body weight in K/14 [place] body weight in Kg: Obesity Dosing Indication % IBW: Serum Creatinine - Last 168 Hours 10/26/24 10/27/24 22:47 03:28 Creatinine 1.26 1.23 Estimated CrCl and GFR - Last 168 Hours 10/26/24 10/27/24 22:47 03:28 Estim Creat Clear Calc 80.3 82.3 Estimated GFR 57 58 Vancomycin Loading Dose: 2000 Current Vancomycin Dosing Regimen: 1000 Q12H Vancomycin Monitoring using AUC goal of 400 - 600 range with trough as surrogate marker: 534 Date and Time for next Vancomycin Level to be drawn: 10/28 @1300 Pharmacist Comments on Vancomycin Plan: Vancomycin dosing will take advantage of [employer] as a clinical decision support tool that uses Bayesian modeling to calculate individual patient's pharmacokinetic parameters and forecast the patient's drug concentration time course with the target goal AUC 24 range of 400 - 600 mg/L/hr.
--- NOTE | 2024-10-27 07:57 | PC.NURSE ---
Ultrasound at bedside.
--- NOTE | 2024-10-27 08:31 | PHA.MEDREC ---
Addendum entered by Miki Linder 10/27/24 08:50: reviewed Original Note: Pharmacy Consult ? Medication Reconciliation Pharmacy has completed the medication reconciliation. Spoke with patient who was able to confirm his medications.
[2024-10-27 09:30] LABS: Digoxin < 0.2 ng/mL (0.8-2.0)
[2024-10-27] MEDS: Apixaban 5 MG TABLET PO ×2 (09:31→20:27)
[2024-10-27] MEDS: dilTIAZem HCL CD 180 MG CAP.ER.24H 360 MG PO (09:31)
--- NOTE | 2024-10-27 09:41 | HO.PM.IMPN ---
Subjective Subjective Date of Service: 10/27/24 Interval History: f/u on heart failure, afib with rvr, cellulitis of the leg and possible pna he feels better, still fluid overloaded Physical Exam Vital Signs: Vital Signs: Last Vital Signs Temp 98.2 F 10/27/24 09:14 Pulse 73 10/27/24 09:14 Resp 18 10/27/24 09:14 BP 124/60 10/27/24 09:14 Pulse Ox 97 10/27/24 09:14 O2 Del Method Room Air 10/27/24 09:14 BMI result Body Mass Index 45.3 Const: Other: General: AO X 3, no acute distress Resp: CTA bilateral CVS: S1,S2, iregular, don 2-3+ leg edema, right greater than left GI: +BS, NT, no distention Skin: No rash Neuro: motor grossly intact Psych: appropriate affect Objective Data Active Medications Acetaminophen (Acetaminophen 325 Mg Tablet) 650 mg PO Q6H PRN PRN Reason: Pain, Mild 1-3,fever,headache Apixaban (Apixaban 5 Mg Tablet) 5 mg PO BID [facility] Last Admin: 10/27/24 09:31 Dose: 5 mg Documented By: BANDAR Calcium Carbonate (Calcium Carbonate 750 Mg Tab.Chew) 750 mg PO Q4H PRN PRN Reason: Heartburn Diltiazem HCl (Diltiazem Hcl Cd 180 Mg Cap.Er.24h) 360 mg PO DAILY [facility]; Protocol Last Admin: 10/27/24 09:31 Dose: 360 mg Documented By: BANDAR Lactated Ringer's (Lr) 1,000 mls @ 100 mls/hr IVCONT .Q10H [facility] Stop: 10/27/24 12:14 Last Admin: 10/27/24 02:35 Dose: 100 mls/hr Documented By: SALOME Vancomycin HCl 1,000 mg/ (Sodium Chloride) 270 mls @ 270 mls/hr IV Q12H [facility] Ipratropium [place] (Ipratropium [place] 0.5 Mg/2.5 Ml Solution) 0.5 mg INHALE RQ4H PRN PRN Reason: Shortness of Breath/Wheezing Magnesium Hydroxide (Milk Of Magnesia 30 Ml Oral.Susp) 30 ml PO DAILY PRN PRN Reason: Constipation Melatonin (Melatonin 3 Mg Tablet) 6 mg PO BEDTIME PRN PRN Reason: Insomnia Ondansetron HCl (Ondansetron Hcl 4 Mg/2 Ml Vial) 4 mg IVPUSH Q8H PRN PRN Reason: Nausea and Vomiting Pharmacy Consult (Consult Rx Vancomycin Dosing) 1 each MISCELLANE DAILY PRN PRN Reason: Consult order Senna (Sennosides 8.6 Mg Tablet) 17.2 mg PO BEDTIME NGA Sodium Chloride (0.9 % Sodium Chloride Flush 3 Ml Syringe) 3 ml IVFLUSH QSHIFT NGA Last Admin: 10/27/24 08:07 Dose: Not Given Documented By: CARMEN Non-Admin Reason: IV Running Labs 10/27/24 03:28 10/27/24 03:28 Labs: Laboratory Results - last 24 hr 10/26/24 10/26/24 10/27/24 22:47 23:39 01:07 MCV 85.4 MCH 29.2 MCHC 34.3 RDW 13.0 Plt Count 238 D MPV 10.2 Immature Gran % (Auto) 0.4 Neut % (Auto) 85.9 H Lymph % (Auto) 7.5 L [place] % (Auto) 5.4 Eos % (Auto) 0.5 Baso % (Auto) 0.3 Lymph # (Auto) 1.5 [place] # (Auto) 1.0 Eos # (Auto) 0.1 Baso # (Auto) 0.1 Abs Immat Gran (auto) 0.07 H Absolute Neuts (auto) 16.5 H Absolute Nucleated RBC 0.000 Nucleated RBC % (auto) 0.0 Smear Tech's Comments PT 14.4 H INR 1.3 H Anion Gap 16 Estim Creat Clear Calc 80.3 Estimated GFR 57 Random Glucose 210 H Lactic Acid 2.7 H* Lactic Acid F/U @ 2Hr 2.3 H* Lactic Acid F/U @ 4Hr Calcium 9.1 D Magnesium 1.8 Total Bilirubin 0.5 AST 24 ALT 29 Alkaline Phosphatase 107 B-Natriuretic Peptide < 10 Total Protein 7.2 Albumin 4.2 TSH 1.44 Free T4 1.00 Digoxin Influenza Type A (PCR) NEGATIVE Influenza Type B (PCR) NEGATIVE RSV RNA Qual (PCR) NEGATIVE SARS-CoV-2 RNA (RT-PCR) NEGATIVE S. pyogenes GrpA REECE Negative 10/27/24 10/27/24 03:28 09:06 MCV 86.3 MCH 29.2 MCHC 33.8 RDW 13.2 Plt Count 215 MPV 10.2 Immature Gran % (Auto) 1.0 H Neut % (Auto) 89.6 H Lymph % (Auto) 2.1 L [place] % (Auto) 6.9 Eos % (Auto) 0.0 Baso % (Auto) 0.4 Lymph # (Auto) 0.7 L [place] # (Auto) 2.1 H Eos # (Auto) 0.0 Baso # (Auto) 0.1 Abs Immat Gran (auto) 0.29 H Absolute Neuts (auto) 27.3 H Absolute Nucleated RBC 0.000 Nucleated RBC % (auto) 0.0 Smear Tech's Comments VERIFIED PT INR Anion Gap 14 Estim Creat Clear Calc 82.3 Estimated GFR 58 Random Glucose 115 Lactic Acid Lactic Acid F/U @ 2Hr Lactic Acid F/U @ 4Hr 1.4 Calcium 8.5 D Magnesium Total Bilirubin 0.5 AST 38 H ALT 35 Alkaline Phosphatase 84 B-Natriuretic Peptide Total Protein 6.1 L Albumin 3.6 TSH Free T4 Digoxin < 0.2 L Influenza Type A (PCR) Influenza Type B (PCR) RSV RNA Qual (PCR) SARS-CoV-2 RNA (RT-PCR) S. pyogenes GrpA REECE Assessment and Plan (1) Pneumonia: Status: Acute Plan Patient is a 69-year-old male with past medical history lymphedema follows with vascular, chronic diastolic heart failure, TANO, HLD, Asthma, ED, osteoarthritis, atrial fib on Eliquis, lap band procedure, nephrolithiasis follows with urologist, history of cellulitis right lower extremity x3, obesity presented to the emergency department via ambulance for sudden onset dyspnea and fever with chills. Admitted for sepsis and heart failure exacerbation Sepsis (on presenation tachy to 150s, wbc 19K) source proably PNA (infrahilar opasisty) and possible cellulitis of the or right lower leg, us negative for dvt follow cultures continue vancomycin, add cefttriaxone. AFIB/ Aflutter with RVR, resolved after IV lopressor and cardizem iv resume home cardizem continue eliquis starting sotalol 80 bid cardiology consult echo Acute on Chronic HFpEF, decompensated despite BNP < 10 IV Lasix drip echo cardiology consult Monitor I/O, weight and electrolytes HLD--lipitor TANO -CPAP ordered Chronic leukocytosis, worse today 19 to 30 at some point should have heme eval DVT prophylaxis: Tessa Full code status Quality Stroke Does the patient have a stroke diagnosis?: No Reason for No Anti-thrombotic by Day Two: N/A - Med Ordered VTE Prior VTE?: No VTE Risk Level:: Medical - moderate - high VTE Device Contraindication: Treatment Not Tolerated VTE Drug Contraindication: N/A - Med Ordered
--- NOTE | 2024-10-27 10:13 | P.CONCA_ITS ---
History of Present Illness History of Present Illness Date of Service: 10/27/24 Requesting physician: S[facility] Consult reason: atrial fibrillation Chief complaint: dyspnea Narrative: I was consulted to see Emery in cardiology consultation today who has prior history of paroxysmal atrial fibrillation being managed by Dr. Posada, morbid obesity, sleep apnea, heart failure preserved ejection fraction, chronic leg edema or present hospital with fever and chills. He said he was feeling very shaky and was feeling febrile and having chills and came to the emergency room. In the Emergency was noted to have temperature 102.9 degrees and was noted to be in rapid heart rate. EKG consistent with atrial flutter with rapid ventricular response. He was then given rate control and converted to sinus rhythm has remained in sinus rhythm. He says over the past several weeks he has had notice when he goes to the gym he does notice increasing exertional shortness of breath which is new for him. He also noted leg edema which she thought this was all related to lymphedema. He said he takes his Lasix on a regular basis. He does not weigh himself on a regular basis. Did feel his heart rate going rapid yesterday but thought this was all related to his medical issues. He denies any history of syncope. Denies any history of prior coronary artery disease or myocardial infarction. No prior history of stroke. He has been taking his oral anticoagulation therapy religiously. Review of Systems 2 Constitutional: Constitutional: Reports chills, Reports fever(s) and Reports snoring Eyes: Eyes: Reports no additional eye complaints Cardiovascular: Cardiovascular: Denies chest pain, Reports rapid heart rate, Reports leg edema, Denies lightheadedness, Denies Loss of Consciousness and Reports dyspnea on exertion Respiratory: Respiratory: Reports no additional respiratory complaints, Reports dyspnea on exertion and Reports snoring Gastrointestinal: Gastrointestinal: Reports no additional gastrointestinal complaints Genitourinary: Genitourinary: Reports no additional male genitourinary complaints Musculoskeletal: Musculoskeletal: Reports no additional musculoskeletal complaints Integumentary/Breasts: Skin/Breast: Reports system reviewed and no additional complaints, except as docu Neurologic: Reports system reviewed and no additional complaints, except as documented PMFSH Past Medical History Medical History ALEXUS (acute kidney injury) TANO on CPAP Morbid obesity Leukocytosis Gastritis COVID-19 vaccine series completed Obesity Chronic venous insufficiency Osteoarthritis TANO on CPAP Osteoarthritis of left knee Hypertension High cholesterol Family History Family History Father Myocardial infarct Mother No problems noted. 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 Travel History Ebola Risk: Travel/Contact With Anyone From Affected Area/s: No Has Patient Experienced Ebola Symptoms: No Meds Allergies Allergy/AdvReac Type Severity Reaction Status Date / Time dextromethorphan Allergy Severe ITCHY Verified 10/26/24 22:35 [DEXTROMETHORPHAN] SWELLING SOB shellfish derived Allergy Severe ANAPHYLAXIS Verified 10/26/24 22:35 Active Medications: Current Medications Acetaminophen (Acetaminophen 325 Mg Tablet) 650 mg PO Q6H PRN PRN Reason: Pain, Mild 1-3,fever,headache Apixaban (Apixaban 5 Mg Tablet) 5 mg PO BID NGA Last Admin: 10/27/24 09:31 Dose: 5 mg Atorvastatin Calcium (Atorvastatin Calcium 10 Mg Tablet) 10 mg PO DAILY [facility] Calcium Carbonate (Calcium Carbonate 750 Mg Tab.Chew) 750 mg PO Q4H PRN PRN Reason: Heartburn Ceftriaxone Sodium (Ceftriaxone Sodium 1 Gm Vial) 1 gm IVPUSH Q24H NGA Diltiazem HCl (Diltiazem Hcl Cd 180 Mg Cap.Er.24h) 360 mg PO DAILY NGA; Protocol Last Admin: 10/27/24 09:31 Dose: 360 mg Furosemide (Furosemide 40 Mg Tablet) 40 mg PO DAILY NGA; Protocol Vancomycin HCl 1,000 mg/ (Sodium Chloride) 270 mls @ 270 mls/hr IV Q12H NGA Ipratropium [place] (Ipratropium [place] 0.5 Mg/2.5 Ml Solution) 0.5 mg INHALE RQ4H PRN PRN Reason: Shortness of Breath/Wheezing Magnesium Hydroxide (Milk Of Magnesia 30 Ml Oral.Susp) 30 ml PO DAILY PRN PRN Reason: Constipation Melatonin (Melatonin 3 Mg Tablet) 6 mg PO BEDTIME PRN PRN Reason: Insomnia Ondansetron HCl (Ondansetron Hcl 4 Mg/2 Ml Vial) 4 mg IVPUSH Q8H PRN PRN Reason: Nausea and Vomiting Pharmacy Consult (Consult Rx Vancomycin Dosing) 1 each MISCELLANE DAILY PRN PRN Reason: Consult order Senna (Sennosides 8.6 Mg Tablet) 17.2 mg PO BEDTIME NGA Sodium Chloride (0.9 % Sodium Chloride Flush 3 Ml Syringe) 3 ml IVFLUSH QSHIFT NGA Last Admin: 10/27/24 08:07 Dose: Not Given Home Medications ?Medication ?Instructions ?Recorded ?Confirmed ?Last Taken ?Type atorvastatin 10 mg tablet 10 mg PO DAILY 09/11/20 10/27/24 10/26/24 History epinephrine 0.3 mg/0.3 mL 0.3 ml IM DAILY PRN Allergic 09/11/20 10/27/24 10/26/24 History injection, auto-injector Reaction sildenafil 50 mg tablet 50 mg PO DAILY PRN sexual 04/02/21 10/27/24 10/26/24 History dysfunction acetaminophen 500 mg tablet 1,000 mg PO Q6H PRN Pain 10/27/24 10/27/24 10/26/24 History Physical Exam 2 Vital Signs: Vital Signs: Last Vital Signs Temp 98.2 F 10/27/24 09:14 Pulse 73 10/27/24 09:14 Resp 18 10/27/24 09:14 BP 124/60 10/27/24 09:14 Pulse Ox 97 10/27/24 09:14 O2 Del Method Room Air 10/27/24 09:14 BMI result Body Mass Index 45.3 Const: General: cooperative, comfortable, alert, awake and in distress mild and respiratory Nutritional Appearance: obese morbidly obese O rientation/consciousness: patient oriented x3 Limitations: no limitations HEENT: Head: Yes normocephalic and Yes atraumatic Neck: Neck: Yes trachea midline, Yes supple and Yes JVD Resp: Effort & Inspection: normal respiratory effort Auscultation: d iminished lung sounds bilateral in the lower lung montejo Cardio: Jugular venous distension: JVD Rate: regular rate Rhythm: r egular rhythm Heart sounds: S1 normal heart sound present, S2 normal heart sound present, no click, no gallops and no murmurs GI: Inspection: Yes obesity Auscultation: normal bowel sounds Skin: General skin exam: no rashes or lesions noted Neuro: General: patient oriented x3 and no focal motor deficits Extrem: General: No clubbing, No cyanosis and Yes edema Psych: Appearance: grossly normal Objective Labs and Meds 10/27/24 03:28 10/27/24 03:28 Lab results: Laboratory Results - last 24 hr 10/26/24 10/26/24 10/27/24 22:47 23:39 01:07 WBC 19.2 H RBC 4.65 Hgb 13.6 L Hct 39.7 L MCV 85.4 MCH 29.2 MCHC 34.3 RDW 13.0 Plt Count 238 D MPV 10.2 Immature Gran % (Auto) 0.4 Neut % (Auto) 85.9 H Lymph % (Auto) 7.5 L [place] % (Auto) 5.4 Eos % (Auto) 0.5 Baso % (Auto) 0.3 Lymph # (Auto) 1.5 [place] # (Auto) 1.0 Eos # (Auto) 0.1 Baso # (Auto) 0.1 Abs Immat Gran (auto) 0.07 H Absolute Neuts (auto) 16.5 H Absolute Nucleated RBC 0.000 Nucleated RBC % (auto) 0.0 Smear Tech's Comments PT 14.4 H INR 1.3 H Sodium 141 Potassium 3.9 Chloride 103 Carbon Dioxide 26 Anion Gap 16 BUN 26 H Creatinine 1.26 Estim Creat Clear Calc 80.3 Estimated GFR 57 Random Glucose 210 H Lactic Acid 2.7 H* Lactic Acid F/U @ 2Hr 2.3 H* Lactic Acid F/U @ 4Hr Calcium 9.1 D Magnesium 1.8 Total Bilirubin 0.5 AST 24 ALT 29 Alkaline Phosphatase 107 Troponin I High Sens 3.0 B-Natriuretic Peptide < 10 Total Protein 7.2 Albumin 4.2 TSH 1.44 Free T4 1.00 Digoxin Influenza Type A (PCR) NEGATIVE Influenza Type B (PCR) NEGATIVE RSV RNA Qual (PCR) NEGATIVE SARS-CoV-2 RNA (RT-PCR) NEGATIVE S. pyogenes GrpA REECE Negative 10/27/24 10/27/24 03:28 09:06 WBC 30.4 H* RBC 4.32 L Hgb 12.6 L Hct 37.3 L MCV 86.3 MCH 29.2 MCHC 33.8 RDW 13.2 Plt Count 215 MPV 10.2 Immature Gran % (Auto) 1.0 H Neut % (Auto) 89.6 H Lymph % (Auto) 2.1 L [place] % (Auto) 6.9 Eos % (Auto) 0.0 Baso % (Auto) 0.4 Lymph # (Auto) 0.7 L [place] # (Auto) 2.1 H Eos # (Auto) 0.0 Baso # (Auto) 0.1 Abs Immat Gran (auto) 0.29 H Absolute Neuts (auto) 27.3 H Absolute Nucleated RBC 0.000 Nucleated RBC % (auto) 0.0 Smear Tech's Comments VERIFIED PT INR Sodium 139 Potassium 3.4 Chloride 107 Carbon Dioxide 21 L Anion Gap 14 BUN 24 H Creatinine 1.23 Estim Creat Clear Calc 82.3 Estimated GFR 58 Random Glucose 115 Lactic Acid Lactic Acid F/U @ 2Hr Lactic Acid F/U @ 4Hr 1.4 Calcium 8.5 D Magnesium Total Bilirubin 0.5 AST 38 H ALT 35 Alkaline Phosphatase 84 Troponin I High Sens B-Natriuretic Peptide Total Protein 6.1 L Albumin 3.6 TSH Free T4 Digoxin < 0.2 L Influenza Type A (PCR) Influenza Type B (PCR) RSV RNA Qual (PCR) SARS-CoV-2 RNA (RT-PCR) S. pyogenes GrpA REECE Imaging Radiologist's impression: Impressions Venous Duplex 10/27/24 07:45 IMPRESSION: No evidence of acute DVT in the right lower extremity. Electronically signed by: Wilfredo Heaton MD 10/27/2024 08:55 AM EDT Assessment and Plan (1) Atrial fibrillation with rapid ventricular response: Status: Acute Patient present with symptoms of fever and shows and suspected to be related to cellulitis most likely triggering his atrial arrhythmias and also possible related to his fluid overload. He is at high risk for recurrent atrial fibrillation flutter. I think he would benefit from antiarrhythmic drug therapy. At this point time will start on sotalol 80 mg b.i.d. on protocol. Continue full oral anticoagulation as prescribed. Can continue Cardizem therapy at this point time but eventually will probably discontinue it once he has few doses of sotalol to prevent bradycardia related proarrhythmia. This was discussed with him. He understands and agrees. Continue monitor electrolytes. (2) Acute diastolic heart failure: Status: Acute Clinically appears to be fluid overloaded in his symptomatic with recent symptoms of shortness of breath and leg edema. He think he will benefit from IV diuresis. Would start him on Lasix drip at 5 mg an hour. Strict intake and output chart needs to be pursued. Continue monitor electrolytes regularly and treat hypokalemia and hypomagnesemia aggressively. Also monitor renal function closely. Also consider starting Jardiance 10 mg to his regimen. Continue CPAP therapy. Continue treat underlying medical condition. Will follow with you Procedures Date of Service Date of Service: 10/27/24
--- NOTE | 2024-10-27 11:18 | ECG_ITS ---
Test Reason : Pre-Sotalol load Blood Pressure : */* mmHG Vent. Rate : 77 BPM Atrial Rate : 77 BPM P-R Int : 196 ms QRS Dur : 112 ms QT Int : 400 ms P-R-T Axes : 22 76 31 degrees QTcB Int : 452 ms Normal sinus rhythm Normal ECG When compared with ECG of 27-Oct-2024 00:31, Sinus rhythm has replaced Atrial flutter Vent. rate has decreased by 64 bpm QRS axis Shifted left Referred By: Sage Mo Electronically Signed By: KEVIN GUIDRY MD
[2024-10-27] MEDS: Furosemide 200 MG in 0.9 % Sodium Chloride 80 ML IVCONT (11:21)
[2024-10-27] MEDS: Sotalol HCL 80 MG TABLET PO (11:32)
[2024-10-27] MEDS: Atorvastatin Calcium 10 MG TABLET PO (11:32)
--- NOTE | 2024-10-27 13:29 | MHC.CM.PN ---
IMM 10/27/24, Pt lives alone, PCP confirmed: Wilian Wood, HCP is on file and confirmed: his son Brayan. Pt does not have home health services, for DME, he has a CPAP machine. He is able to arrange a ride home at [place]. DCP: home, self care, CM to follow for [place] needs.
--- NOTE | 2024-10-27 13:30 | ECG_ITS ---
Test Reason : 2hr after sotalol load Blood Pressure : */* mmHG Vent. Rate : 64 BPM Atrial Rate : 64 BPM P-R Int : 200 ms QRS Dur : 112 ms QT Int : 458 ms P-R-T Axes : 16 79 42 degrees QTcB Int : 472 ms Normal sinus rhythm Normal ECG When compared with ECG of 27-Oct-2024 11:00, No significant change was found Referred By: [facility] Electronically Signed By: KEVIN GUIDRY MD
[2024-10-27] MEDS: vancomycin HCL 1,000 MG in 0.9 % Sodium Chloride 250 ML 270 MG IV (15:53)
[2024-10-27] MEDS: 0.9 % Sodium Chloride Flush 3 ML SYRINGE IVFLUSH ×2 (15:53→20:28)
[2024-10-27] MEDS: Acetaminophen 325 MG TABLET 650 MG PO (20:27)
[2024-10-27] MEDS: Melatonin 3 MG TABLET 6 MG PO (20:27)
--- NOTE | 2024-10-28 | ECG_ITS ---
Test Reason : 2hrs after receving sotalol Blood Pressure : */* mmHG Vent. Rate : 70 BPM Atrial Rate : 70 BPM P-R Int : 188 ms QRS Dur : 112 ms QT Int : 430 ms P-R-T Axes : -26 88 34 degrees QTcB Int : 464 ms Normal sinus rhythm Normal ECG When compared to the previous EKG of No significant changes seen Referred By: Jeremias Sanches Electronically Signed By: KEVIN GUIDYR MD
[2024-10-28] MEDS: vancomycin HCL 1,000 MG in 0.9 % Sodium Chloride 250 ML 270 MG IV ×2 (02:48→17:18)
[2024-10-28 02:50] VITALS: BP 130/62; PULSE 68; RESP 18; TEMP 36.2; O2SAT 96
[2024-10-28 03:58] LABS: Appearance Urine Clear; Color Urine Yellow; Glucose Urine UA Negative (Negative); Leukocyte Esterase Urine Negative (Negative); Nitrite Urine Negative (Negative); Specific Gravity - Urine 1.015 (1.005-1.025); Urine Blood Negative (Negative); Urine Ketones Negative (Negative); Urine Protein Negative (Neg-Trace)
[2024-10-28 04:02] LABS: Bacteria Urine None Seen (None Seen); Hyaline Casts Urine 0-2 /LPF (0-2); RBC Urine 0-2 /HPF (0-2); Squamous Epithelial Cell Urine 0-2 /HPF (0-2); WBC Urine 0-5 /HPF (0-5)
[2024-10-28 05:49] VITALS: BMI 43.9
[2024-10-28 06:31] LABS: Anion Gap 11 (12-20); Blood Urea Nitrogen 19 mg/dL (9-16); Calcium 8.4 mg/dL (8.4-10.2); Carbon Dioxide 26 mmol/L (22-29); Chloride 105 mmol/L (96-108); Creatinine Clr Calc Pharmacy 82.9; Estimated Glomerular Filt Rate 60; Glucose Random 120 mg/dL (60-115); Magnesium 2.1 mg/dL (1.6-2.6); Potassium 3.2 mmol/L (3.3-5.1); Sodium 139 mmol/L (135-145)
[2024-10-28 07:22] VITALS: BP 128/61; PULSE 70; RESP 16; TEMP 36.4; O2SAT 94
[2024-10-28] MEDS: dilTIAZem HCL CD 180 MG CAP.ER.24H 360 MG PO (08:48)
[2024-10-28] MEDS: Apixaban 5 MG TABLET PO ×2 (08:48→21:10)
[2024-10-28] MEDS: Sotalol HCL 80 MG TABLET PO (08:48)
[2024-10-28] MEDS: Atorvastatin Calcium 10 MG TABLET PO (08:49)
[2024-10-28] MEDS: Potassium Chloride Packet 20 MEQ PACKET 40 MEQ PO ×5 (08:49→17:14)
[2024-10-28] MEDS: 0.9 % Sodium Chloride Flush 3 ML SYRINGE IVFLUSH ×2 (08:50→21:11)
[2024-10-28] MEDS: cefTRIAXone sodium 1 GM VIAL IVPUSH (08:50)
--- NOTE | 2024-10-28 10:48 | PM.PNCARD ---
Subjective Subjective Date of Service: 10/28/24 Principal diagnosis: CHF, atrial fibrillation. Interval history: Patient says he is breathing better since diuresis. Creatinine has remained stable. Potassium is on the lower side. Also remains in sinus rhythm and tolerating sotalol load. Review of Systems Constitutional: Reports no additional constitutional complaints Cardiovascular: Denies chest pain, Reports leg edema, Denies lightheadedness, Denies Loss of Consciousness, Denies palpitations, Reports dyspnea on exertion and Denies orthopnea Respiratory: Reports no additional respiratory complaints and Reports dyspnea on exertion Gastrointestinal: Reports no additional gastrointestinal complaints Endocrine: Denies palpitations Physical Exam Vital Signs: Last Vital Signs Temp 97.5 F 10/28/24 07:22 Pulse 70 10/28/24 07:22 Resp 16 10/28/24 07:22 BP 128/61 10/28/24 07:22 Pulse Ox 94 10/28/24 07:22 O2 Del Method Room Air 10/28/24 07:22 BMI result Body Mass Index 43.9 Const General: cooperative, comfortable, alert, awake and in distress mild and respiratory Nutritional Appearance: obese morbidly obese Orientation/consciousness: patient oriented x3 Limitations: no limitations HEENT Head: Yes normocephalic and Yes atraumatic Neck Neck: Yes trachea midline, Yes supple and Yes no JVD Resp Effort & Inspection: normal respiratory effort Auscultation: diminished lung sounds bilateral in the lower lung montejo Cardio Jugular venous distension: no JVD Rate: regular rate Rhythm: regular rhythm Heart sounds: S1 normal heart sound present, S2 normal heart sound present, no click, no gallops and no murmurs GI Inspection: Yes obesity Auscultation: normal bowel sounds Skin General skin exam: no rashes or lesions noted Neuro General: patient oriented x3 and no focal motor deficits Extrem General: No clubbing, No cyanosis and Yes edema (Improving) Psych Appearance: grossly normal Objective Labs and Meds 10/27/24 03:28 10/28/24 05:42 Lab results: Laboratory Results - last 24 hr 10/28/24 10/28/24 02:50 05:42 Sodium 139 Potassium 3.2 L Chloride 105 Carbon Dioxide 26 Anion Gap 11 L BUN 19 H Creatinine 1.20 Estim Creat Clear Calc 82.9 Estimated GFR 60 Random Glucose 120 H Calcium 8.4 Magnesium 2.1 Urine Color Yellow Urine Appearance Clear Urine pH 5.0 Ur Specific [place] 1.015 Urine Protein Negative Urine Glucose (UA) Negative Urine Ketones Negative Urine Blood Negative Urine Nitrite Negative Ur Leukocyte Esterase Negative Urine RBC 0-2 Urine WBC 0-5 Ur Squamous Epith Cells 0-2 Urine Bacteria None Seen Hyaline Casts 0-2 Progress Note: A&P Assessment and plan (1) PAF (paroxysmal atrial fibrillation): Status: Acute Assessment and Plan: Paroxysmal atrial fibrillation this elderly gentleman with multiple risk factors including sleep apnea, morbid obesity, hypertension, heart failure and triggered by his acute infection.. At this point time he will benefit from rhythm control approach. Will continue sotalol loading as per the protocol. Replace potassium aggressively and maintain potassium over 4. Continue monitor QT interval. Continue full oral anticoagulation. (2) Acute diastolic heart failure: Status: Acute Assessment and Plan: Acute heart failure which clinically seems to have improved significantly. He is breathing a lot better. Advised to ambulate as tolerated. Can switch to Bumex 1 mg b.i.d. IV push. Continue strict intake and output chart. Continue monitor renal function. Starting tomorrow if he is doing well can switch to p.o. Bumex 2 mg for management of his predominantly right-sided/diastolic heart failure. Also recommend Jardiance 10 mg to his regimen. Continue aggressive treatment of hypertension as well as sleep apnea. Continue rhythm control approach as above. Will follow with you Time Spent With Patient Time: Total time managing care of this patient today ____ minutes. Progress Note: Quality Stroke Does the patient have a stroke diagnosis?: No Reason for No Anti-thrombotic by Day Two: N/A - Med Ordered Procedures Date of Service Date of Service: 10/28/24
[2024-10-28 11:30] VITALS: BP 130/73; PULSE 70; RESP 16; TEMP 36.7; O2SAT 96
[2024-10-28] MEDS: Bumetanide 1 MG TABLET PO (11:31)
[2024-10-28] MEDS: Potassium Chloride/H20 10 MEQ/100 ML PIGGYBACK 100 MEQ IV ×2 (11:36→14:40)
--- NOTE | 2024-10-28 12:58 | P.PNIM_ITS ---
Subjective Subjective Date of Service: 10/28/24 Interval History: Seen and evaluated this morning Feels better making large amoung of urine swelling and dyspnea improved no other issues Review of Systems Review of Systems: Yes all other systems are reviewed and are negative Physical Exam 2 Vital Signs: Vital Signs: Last Vital Signs Temp 98.1 F 10/28/24 11:30 Pulse 70 10/28/24 11:30 Resp 16 10/28/24 11:30 BP 130/73 10/28/24 11:30 Pulse Ox 96 10/28/24 11:30 O2 Del Method Room Air 10/28/24 11:30 BMI result Body Mass Index 43.9 Const: Other: Constitutional : Awake, interactive, not in distress Neck : Normal inspection, Supple Cardiovascular : RRR, no JVP, Having lower extremity edema Respiratory : good bilateral air entry, basal fine crackles bilaterally , wheezes or rhonchi Gastrointestinal: soft, lax, Normal bowel sounds, Non tender Skin : Warm, Dry extremities: RLE +2 edema and erythema, LLE +1 edema with no erythema, no tenderness or warmth bilaterally Neurological : Alert & oriented x3, No focal deficit Objective Data Active Medications Acetaminophen (Acetaminophen 325 Mg Tablet) 650 mg PO Q6H PRN PRN Reason: Pain, Mild 1-3,fever,headache Last Admin: 10/27/24 20:27 Dose: 650 mg Documented By: LE Apixaban (Apixaban 5 Mg Tablet) 5 mg PO BID [facility] Last Admin: 10/28/24 08:48 Dose: 5 mg Documented By: EMILY Atorvastatin Calcium (Atorvastatin Calcium 10 Mg Tablet) 10 mg PO DAILY [facility] Last Admin: 10/28/24 08:49 Dose: 10 mg Documented By: EMILY Bumetanide (Bumetanide 1 Mg Tablet) 1 mg PO BID@0800,1700 [facility]; Protocol Last Admin: 10/28/24 11:31 Dose: 1 mg Documented By: EMILY Calcium Carbonate (Calcium Carbonate 750 Mg Tab.Chew) 750 mg PO Q4H PRN PRN Reason: Heartburn Ceftriaxone Sodium (Ceftriaxone Sodium 1 Gm Vial) 1 gm IVPUSH Q24H [facility] Last Admin: 10/28/24 08:50 Dose: 1 gm Documented By: EMILY Diltiazem HCl (Diltiazem Hcl Cd 180 Mg Cap.Er.24h) 360 mg PO DAILY [facility]; Protocol Last Admin: 10/28/24 08:48 Dose: 360 mg Documented By: EMILY Vancomycin HCl 1,000 mg/ (Sodium Chloride) 270 mls @ 270 mls/hr IV Q12H [facility] Last Infusion: 10/28/24 03:55 Dose: Infused Documented By: LE Potassium Chloride (Potassium Chloride/H20) 10 meq in 100 mls @ 100 mls/hr IV Q1H NGA Stop: 10/28/24 13:14 Last Infusion: 10/28/24 12:53 Dose: 100 mls/hr Documented By: EMILY Ipratropium [place] (Ipratropium [place] 0.5 Mg/2.5 Ml Solution) 0.5 mg INHALE RQ4H PRN PRN Reason: Shortness of Breath/Wheezing Magnesium Hydroxide (Milk Of Magnesia 30 Ml Oral.Susp) 30 ml PO DAILY PRN PRN Reason: Constipation Melatonin (Melatonin 3 Mg Tablet) 6 mg PO BEDTIME PRN PRN Reason: Insomnia Last Admin: 10/27/24 20:27 Dose: 6 mg Documented By: LE Ondansetron HCl (Ondansetron Hcl 4 Mg/2 Ml Vial) 4 mg IVPUSH Q8H PRN PRN Reason: Nausea and Vomiting Pharmacy Consult (Consult Rx Vancomycin Dosing) 1 each MISCELLANE DAILY PRN PRN Reason: Consult order Potassium Chloride (Potassium Chloride Packet 20 Meq Packet) 40 meq PO Q2H [facility] Stop: 10/28/24 13:16 Last Admin: 10/28/24 11:29 Dose: 40 meq Documented By: EMILY Senna (Sennosides 8.6 Mg Tablet) 17.2 mg PO BEDTIME [facility] Last Admin: 10/27/24 20:28 Dose: Not Given Documented By: LE Non-Admin Reason: Patient Refused Sodium Chloride (0.9 % Sodium Chloride Flush 3 Ml Syringe) 3 ml IVFLUSH QSHIFT [facility] Last Admin: 10/28/24 08:50 Dose: 3 ml Documented By: EMILY Sotalol HCl (Sotalol Hcl 80 Mg Tablet) 80 mg PO DAILY@0800 [facility] Last Admin: 10/28/24 08:48 Dose: 80 mg Documented By: HO.PHANLYM Labs 10/27/24 03:28 10/28/24 05:42 Labs: Laboratory Results - last 24 hr 10/28/24 10/28/24 02:50 05:42 Anion Gap 11 L Estim Creat Clear Calc 82.9 Estimated GFR 60 Random Glucose 120 H Calcium 8.4 Magnesium 2.1 Urine Color Yellow Urine Appearance Clear Urine pH 5.0 Ur Specific [place] 1.015 Urine Protein Negative Urine Glucose (UA) Negative Urine Ketones Negative Urine Blood Negative Urine Nitrite Negative Ur Leukocyte Esterase Negative Urine RBC 0-2 Urine WBC 0-5 Ur Squamous Epith Cells 0-2 Urine Bacteria None Seen Hyaline Casts 0-2 Microbiology Microbiology Results: Microbiology 10/26/24 23:37 Blood Culture - Preliminary Blood - Venous No growth after 24 hours. 10/26/24 22:47 Blood Culture - Preliminary Blood - Venous No growth after 24 hours. Assessment and Plan (1) Pneumonia: Status: Acute (2) Sepsis: Status: Acute (3) Atrial fibrillation with rapid ventricular response: Status: Acute (4) Acute diastolic heart failure: Status: Acute Plan Patient is a 69-year-old male with past medical history lymphedema follows with vascular, chronic diastolic heart failure, TANO, HLD, Asthma, ED, osteoarthritis, atrial fib on Eliquis, lap band procedure, nephrolithiasis follows with urologist, history of cellulitis right lower extremity x3, obesity presented to the emergency department via ambulance for sudden onset dyspnea and fever with chills. Admitted for sepsis and heart failure exacerbation Sepsis PNA vs RLE Cellulitis CT not showing significant infiltrates US negative for dvt Pending cultures continue vancomycin, add cefttriaxone. follow Vancomycin trough AFIB/ Aflutter with RVR resolved after IV lopressor and cardizem iv resume home cardizem 360 CD continue eliquis starting sotalol 80 bid, follow protocol EKG pre and post cardiology input appreciated echo 65-70% w pseudonormal filling pattern Acute on Chronic HFpEF, decompensated despite BNP < 10 dc IV Lasix drip start IV Bumex bid Start Jardiance 10 mg daily cardiology consult Monitor I/O, weight and electrolytes HLD lipitor TANO CPAP ordered Chronic leukocytosis, worse today 19 to 30 at some point should have heme eval DVT prophylaxis: Eliquis Full code status The paitent will need overnight stay to treat CHF exacerbation with IV Medicition and close monitoring with Sotalol loading Quality Stroke Does the patient have a stroke diagnosis?: No Reason for No Anti-thrombotic by Day Two: N/A - Med Ordered VTE Prior VTE?: No VTE Risk Level:: Medical - moderate - high VTE Device Contraindication: Treatment Not Tolerated VTE Drug Contraindication: N/A - Med Ordered
[2024-10-28 13:44] LABS: Vancomycin Random 14.7 mcg/mL (15-20)
[2024-10-28 15:16] LABS: Basophils Percent Auto 0.3 % (0-2); Eosinophils Absolute Auto 0.2 X10*3/uL (0.0-0.4); Eosinophils Percent Auto 1.4 % (0-4); Hematocrit 37.2 % (42.0-52.0); Hemoglobin 12.4 g/dl (14.0-18.0); Imm Gran Abs Auto 0.07 X10*3/uL (0.00-0.03); Imm Gran Pct Auto 0.6 % (0.0-0.4); Lymphocytes Absolute Auto 1.6 X10*3/uL (1.2-4.9); Lymphocytes Percent Auto 12.5 % (20-40); MANUAL DIFF FLAG SCAN; Mean Corpuscular HGB Conc 33.3 g/dl (31.0-36.0); Mean Corpuscular Volume 87.1 fL (80.0-98.0); Mean Platelet Volume 10.2 fL (9.4-12.4); Monocytes Absolute Auto 1.7 X10*3/uL (0.1-1.2); Monocytes Percent Auto 13.3 % (2-11); Neutrophils Percent Auto 71.9 % (45-73); Platelet Count 220 X10*3/uL (160-400); Red Blood Count 4.27 X10*6/uL (4.60-5.80); Red Cell Distribution Width 13.6 % (11.0-16.0); SCAN SMEAR FLAG 1; White Blood Count 12.5 X10*3/uL (4.8-10.8)
[2024-10-28 15:31] LABS: Blood Urea Nitrogen 22 mg/dL (9-16); Calcium 8.9 mg/dL (8.4-10.2); Creatinine Clr Calc Pharmacy 78.3; Estimated Glomerular Filt Rate 56; Glucose Random 126 mg/dL (60-115); Magnesium 2.1 mg/dL (1.6-2.6)
[2024-10-28 15:39] LABS: Anion Gap 15 (12-20); Carbon Dioxide 25 mmol/L (22-29); Chloride 105 mmol/L (96-108); Potassium 4.5 mmol/L (3.3-5.1); Sodium 140 mmol/L (135-145)
[2024-10-28 15:44] LABS: SLIDE REVIEW VERIFIED
[2024-10-28 16:00] VITALS: BP 133/61; PULSE 67; RESP 18; TEMP 37.1; O2SAT 94
[2024-10-28] MEDS: Bumetanide 1 MG/4 ML VIAL IVPUSH (17:17)
[2024-10-28 18:55] VITALS: BP 148/69; PULSE 76; RESP 18; TEMP 36.6; O2SAT 95
[2024-10-28] MEDS: Melatonin 3 MG TABLET 6 MG PO (21:10)
[2024-10-28] MEDS: Acetaminophen 325 MG TABLET 650 MG PO (21:10)
[2024-10-28 23:07] VITALS: BP 121/59; PULSE 76; RESP 18; TEMP 36; O2SAT 95
--- NOTE | 2024-10-29 | ECG_ITS ---
Test Reason : pre sotalol dose Blood Pressure : */* mmHG Vent. Rate : 72 BPM Atrial Rate : 72 BPM P-R Int : 208 ms QRS Dur : 116 ms QT Int : 430 ms P-R-T Axes : 24 87 19 degrees QTcB Int : 470 ms Normal sinus rhythm Normal ECG When compared with ECG of 28-Oct-2024 10:33, No significant change was found Referred By: Jeremias Sanches Electronically Signed By: KEVIN GUIDRY MD
[2024-10-29] MEDS: vancomycin HCL 1,000 MG in 0.9 % Sodium Chloride 250 ML 270 MG IV (02:04)
[2024-10-29 02:30] VITALS: BP 111/62; PULSE 57; RESP 18; TEMP 36.6; O2SAT 96
[2024-10-29 06:18] VITALS: BMI 43.0
[2024-10-29 07:10] LABS: Anion Gap 14 (12-20); Blood Urea Nitrogen 20 mg/dL (9-16); Calcium 8.8 mg/dL (8.4-10.2); Carbon Dioxide 25 mmol/L (22-29); Chloride 105 mmol/L (96-108); Creatinine Clr Calc Pharmacy 90.2; Estimated Glomerular Filt Rate > 60; Glucose Random 119 mg/dL (60-115); Magnesium 2.2 mg/dL (1.6-2.6); Potassium 3.9 mmol/L (3.3-5.1); Sodium 140 mmol/L (135-145)
[2024-10-29 07:11] LABS: Anion Gap 13 (12-20); Blood Urea Nitrogen 20 mg/dL (9-16); Calcium 8.8 mg/dL (8.4-10.2); Carbon Dioxide 26 mmol/L (22-29); Chloride 105 mmol/L (96-108); Creatinine Clr Calc Pharmacy 88.6; Estimated Glomerular Filt Rate > 60; Glucose Random 118 mg/dL (60-115); Potassium 3.9 mmol/L (3.3-5.1); Sodium 140 mmol/L (135-145)
[2024-10-29 07:53] VITALS: BP 133/68; PULSE 68; RESP 20; TEMP 36.4; O2SAT 96
[2024-10-29] MEDS: dilTIAZem HCL CD 180 MG CAP.ER.24H 360 MG PO (08:49)
[2024-10-29] MEDS: Empagliflozin 10 MG TABLET PO (08:49)
[2024-10-29] MEDS: Amoxicillin/Potassium Clav 875 MG TABLET PO (08:50)
[2024-10-29] MEDS: Apixaban 5 MG TABLET PO (08:50)
[2024-10-29] MEDS: Bumetanide 1 MG/4 ML VIAL IVPUSH (08:50)
[2024-10-29] MEDS: Atorvastatin Calcium 10 MG TABLET PO (08:50)
[2024-10-29] MEDS: Sotalol HCL 80 MG TABLET PO (08:51)
[2024-10-29] MEDS: Potassium Chloride Packet 20 MEQ PACKET 40 MEQ PO ×2 (08:51→10:57)
[2024-10-29] MEDS: 0.9 % Sodium Chloride Flush 3 ML SYRINGE IVFLUSH (08:56)
--- NOTE | 2024-10-29 10:14 | P.PNCA_ITS ---
Subjective Subjective Date of Service: 10/29/24 Principal diagnosis: CHF, atrial fibrillation. Interval history: Emery is feeling well. No overnight arrhythmias. QT interval was remained stable. No heart failure symptoms. Feeling a lot better. Review of Systems Constitutional: Reports no additional constitutional complaints Cardiovascular: Denies rapid heart rate, Denies leg edema, Denies lightheadedness, Denies palpitations, Reports dyspnea on exertion and Denies orthopnea Respiratory: Reports dyspnea on exertion Genitourinary: Reports no additional male genitourinary complaints Reports system reviewed and no additional complaints, except as documented Endocrine: Denies palpitations Physical Exam Vital Signs: Last Vital Signs Temp 97.6 F 10/29/24 07:53 Pulse 68 10/29/24 07:53 Resp 20 10/29/24 07:53 BP 133/68 10/29/24 07:53 Pulse Ox 96 10/29/24 07:53 O2 Del Method Room Air 10/29/24 07:53 BMI result Body Mass Index 43.0 Const General: cooperative, comfortable, alert, awake and in distress mild and respiratory Nutritional Appearance: obese morbidly obese Orientation/consciousness: patient oriented x3 Limitations: no limitations HEENT Head: Yes normocephalic and Yes atraumatic Neck Neck: Yes trachea midline, Yes supple and Yes no JVD Resp Effort & Inspection: normal respiratory effort Auscultation: diminished lung sounds bilateral in the lower lung montejo Cardio Jugular venous distension: no JVD Rate: regular rate Rhythm: regular rhythm Heart sounds: S1 normal heart sound present, S2 normal heart sound present, no click, no gallops and no murmurs GI Inspection: Yes obesity Auscultation: normal bowel sounds Skin General skin exam: no rashes or lesions noted Neuro General: patient oriented x3 and no focal motor deficits Extrem General: No clubbing, No cyanosis and Yes edema (Improving) Psych Appearance: grossly normal Objective Labs and Meds 10/28/24 15:08 10/29/24 06:13 Lab results: Laboratory Results - last 24 hr 10/28/24 10/28/24 10/29/24 12:52 15:08 06:13 WBC 12.5 H RBC 4.27 L Hgb 12.4 L Hct 37.2 L MCV 87.1 MCH 29.0 MCHC 33.3 RDW 13.6 Plt Count 220 MPV 10.2 Immature Gran % (Auto) 0.6 H Neut % (Auto) 71.9 Lymph % (Auto) 12.5 L Mcpherson % (Auto) 13.3 H Eos % (Auto) 1.4 Baso % (Auto) 0.3 Lymph # (Auto) 1.6 Mcpherson # (Auto) 1.7 H Eos # (Auto) 0.2 Baso # (Auto) 0.0 Abs Immat Gran (auto) 0.07 H Absolute Neuts (auto) 9.0 H Absolute Nucleated RBC 0.000 Nucleated RBC % (auto) 0.0 Smear Tech's Comments VERIFIED Sodium 140 140 Potassium 4.5 D Chloride 105 Carbon Dioxide 25 Anion Gap 15 BUN 22 H Creatinine 1.27 Estim Creat Clear Calc 78.3 Estimated GFR 56 Random Glucose 126 H Calcium 8.9 Magnesium 2.1 Random Vancomycin 14.7 L 10/29/24 10/29/24 10/29/24 06:13 06:13 06:13 WBC RBC Hgb Hct MCV MCH MCHC RDW Plt Count MPV Immature Gran % (Auto) Neut % (Auto) Lymph % (Auto) Mcpherson % (Auto) Eos % (Auto) Baso % (Auto) Lymph # (Auto) Mcpherson # (Auto) Eos # (Auto) Baso # (Auto) Abs Immat Gran (auto) Absolute Neuts (auto) Absolute Nucleated RBC Nucleated RBC % (auto) Smear Tech's Comments Sodium 140 Potassium 3.9 3.9 Chloride 105 105 Carbon Dioxide 25 Anion Gap BUN Creatinine Estim Creat Clear Calc Estimated GFR Random Glucose Calcium Magnesium Random Vancomycin 10/29/24 10/29/24 10/29/24 06:13 06:13 06:13 WBC RBC Hgb Hct MCV MCH MCHC RDW Plt Count MPV Immature Gran % (Auto) Neut % (Auto) Lymph % (Auto) Mcpherson % (Auto) Eos % (Auto) Baso % (Auto) Lymph # (Auto) Mcpherson # (Auto) Eos # (Auto) Baso # (Auto) Abs Immat Gran (auto) Absolute Neuts (auto) Absolute Nucleated RBC Nucleated RBC % (auto) Smear Tech's Comments Sodium Potassium Chloride Carbon Dioxide 26 Anion Gap 14 13 BUN 20 H 20 H Creatinine 1.09 Estim Creat Clear Calc Estimated GFR Random Glucose Calcium Magnesium Random Vancomycin 05/16/25 05/16/25 05/16/25 06:13 06:13 06:13 WBC RBC Hgb Hct MCV MCH MCHC RDW Plt Count MPV Immature Gran % (Auto) Neut % (Auto) Lymph % (Auto) Mcpherson % (Auto) Eos % (Auto) Baso % (Auto) Lymph # (Auto) Mcpherson # (Auto) Eos # (Auto) Baso # (Auto) Abs Immat Gran (auto) Absolute Neuts (auto) Absolute Nucleated RBC Nucleated RBC % (auto) Smear Tech's Comments Sodium Potassium Chloride Carbon Dioxide Anion Gap BUN Creatinine 1.11 Estim Creat Clear Calc 90.2 88.6 Estimated GFR > 60 > 60 Random Glucose 119 H Calcium Magnesium Random Vancomycin 10/29/24 10/29/24 06:13 06:13 WBC RBC Hgb Hct MCV MCH MCHC RDW Plt Count MPV Immature Gran % (Auto) Neut % (Auto) Lymph % (Auto) Mcpherson % (Auto) Eos % (Auto) Baso % (Auto) Lymph # (Auto) Mcpherson # (Auto) Eos # (Auto) Baso # (Auto) Abs Immat Gran (auto) Absolute Neuts (auto) Absolute Nucleated RBC Nucleated RBC % (auto) Smear Tech's Comments Sodium Potassium Chloride Carbon Dioxide Anion Gap BUN Creatinine Estim Creat Clear Calc Estimated GFR Random Glucose 118 H Calcium 8.8 8.8 Magnesium 2.2 Random Vancomycin Progress Note: A&P Assessment and plan (1) Acute diastolic heart failure: Status: Acute Assessment and Plan: Acute diastolic heart failure most likely precipitated by acute medical illness as well as AFib. Clinically doing well. Agree with starting Bumex which is a better drug in his kind of clinical situation. Discussed with the patient about heart failure management. Daily weight monitoring avoidance salt loading was discussed. Additional diuretics as need be. Continue rhythm control approach. Continue participate in aggressive weight loss program. Continue aggressive blood pressure control. Continue CPAP therapy. (2) PAF (paroxysmal atrial fibrillation): Status: Acute Assessment and Plan: Paroxysmal atrial fibrillation, doing well. Continue sotalol therapy for rhythm management. Continue full oral anticoagulation with Eliquis. Will follow up in the clinic in 7-10 days. Thank you for allowing me to partake in his care Time Spent With Patient Time: Total time managing care of this patient today ____ minutes. Progress Note: Quality Stroke Does the patient have a stroke diagnosis?: No Reason for No Anti-thrombotic by Day Two: N/A - Med Ordered Procedures Date of Service Date of Service: 10/29/24
--- NOTE | 2024-10-29 10:40 | ECG_ITS ---
Test Reason : post sotalol Blood Pressure : */* mmHG Vent. Rate : 69 BPM Atrial Rate : 69 BPM P-R Int : 198 ms QRS Dur : 108 ms QT Int : 418 ms P-R-T Axes : 10 89 24 degrees QTcB Int : 447 ms Normal sinus rhythm Normal ECG When compared with ECG of 29-Oct-2024 08:26, No significant change was found Referred By: Jeremias Sanches Electronically Signed By: KEVIN GUIDRY MD
[2024-10-29 12:00] VITALS: BP 120/66; PULSE 70; RESP 18; TEMP 36.3; O2SAT 98
[2024-10-29 13:36] LABS: Vancomycin Random 16.7 mcg/mL (15-20)
--- NOTE | 2024-10-29 13:46 | PM.DS ---
DS: Providers Provider Date of Service: 10/29/24 Date of admission: 10/27/24 02:11 Date of discharge: 10/29/24 Primary care physician: Wilian Wood MD Consults: 10/27/24 01:31 Consult to Cardiology Routine Consulting Provider: [facility] Reason for consultation: Aflutter, AFIB RVR Has provider been notified: No DS: Diagnosis Discharge Diagnosis (1) Acute diastolic heart failure: Status: Acute (2) PAF (paroxysmal atrial fibrillation): Status: Acute (3) Pneumonia: Status: Acute (4) Sepsis: Status: Acute (5) Atrial fibrillation with rapid ventricular response: Status: Acute (6) Acute cellulitis: Status: Acute DS: Summary Hospital Course Hospital Course: Admission note HPI Patient is a 69-year-old male with past medical history lymphedema follows with vascular, chronic diastolic heart failure, TANO, HLD, Asthma, ED, osteoarthritis, atrial fib on Eliquis, lap band procedure, nephrolithiasis follows with urologist, history of cellulitis right lower extremity x3, obesity was taken to the emergency department via ambulance after increasing shortness of breath that started approximately 20:30 10/26/2024. Patient states the shortness of breath was sudden onset and sometime before that patient has started having chills and shaking. Patient denies any recent travel or exposure to anyone with illness. Patient currently lives alone and is retired. Patient denies any current chest pain, abdominal pain, nausea or vomiting.. Temp as high as 102.9 degrees in the ED, reduce with Tylenol. Heart rate as high as 160, SVT noted on EKG with intermittent sinus tachycardia. Leukocytosis of 19, lactic acid 2.7 then 2.3. Patient currently on lactated Ringer's, conservative on amount due to suspected CHF exacerbation without hypoxia. BNP within normal limits. All viral studies negative. Patient received ceftriaxone empirically in the ED. Upon examination, noted increased redness, swelling and heat in the right lower extremity with no actual skin openings or blistering. Patient states he has had cellulitis in the same affected leg 3 times last summer. Patient is using equipment for his lymphedema that was replaced in May of 2024. Patient is on Eliquis with no history of blood clots to the lungs or legs. Patient does meet the criteria for sepsis and is being admitted for possible source cellulitis/ PNA. Chest x-ray notes small patchy opacity at the left infrahilar lung. CT scan of the chest and abdomen are ordered and pending noting patient's labs, clinical presentation and past medical history. Vancomycin will be added. Cardiology consulted and echo ordered. Patient received Cardizem 10 mg IV push x1 heart rate down to 118. After 2 doses of Tylenol, temp down to 100.2. Blood cultures x2 pending. UA negative. Hospital course The patient was treated for Sepsis likely a result of RLE Cellulitis as US negative for dvt. blood cultures remained negative as he was treated with vancomycin and cefttriaxone. switched to PO Augmentin as nasal swab was negative for MRSA. no recurrence of fever. will be discharged home on 4 more days of Augmentin. He was also treated for AFIB/ Aflutter with RVR that resolved after IV lopressor and cardizem iv. resumed home cardizem 360 CD and started on Sotalol per cardiology recommendations with good tolerance as QTc was monitored and remained below 500 (Last 447). continue eliquis. Echo 65-70% w pseudonormal filling pattern. To be followed by cardiology as outpatient. For Acute on Chronic HFpEF, decompensated despite BNP < 10 as its mainly right sided failure. responded well to IV Lasix drip then switched to IV Bumex bid and Started Jardiance 10 mg daily with negative balance of almost 3-4L during hospital stay. cardiology suggested switching home medication from Lasix to Bumex 2 mg daily. advised to monitor weight and report changes to cardiology. to repeat BMP as outpatient. Discharge plan Stop Lasix Continue Antibiotic for 4 more days Start Bumex 2 mg daily Start Sotalol 80 mg daily Start Jardiance 10 mg daily Monitor weight and report any increment to your slat basket maker machine repeat blood work next week follow with cardiology in clinic Time Attestation Discharge Coordination Time (in mins): 41 Quality: Safe Use of Opioids Does Pt have an Active Cancer Diagnosis on the Problem List?: No Quality: Stroke Does the patient have a stroke diagnosis?: No Physical Exam Vital Signs: Vital Signs: Last Vital Signs Temp 97.3 F 10/29/24 12:00 Pulse 70 10/29/24 12:00 Resp 18 10/29/24 12:00 BP 120/66 10/29/24 12:00 Pulse Ox 98 10/29/24 12:00 O2 Del Method Room Air 10/29/24 12:00 BMI result Body Mass Index 43.0 Const: Other: Constitutional : Awake, interactive, not in distress Neck : Normal inspection, Supple Cardiovascular : RRR, no JVP, Having lower extremity edema Respiratory : good bilateral air entry, basal fine crackles bilaterally , wheezes or rhonchi Gastrointestinal: soft, lax, Normal bowel sounds, Non tender Skin : Warm, Dry extremities: RLE +1 edema and erythema, LLE trace edema with no erythema, no tenderness or warmth bilaterally Neurological : Alert & oriented x3, No focal deficit DS: Data Data Completed and Pending Completed studies during hospitalization [Text1]: Procedures Assistance with Respiratory Ventilation, Less than 24 Consecutive Hours, Continuous Positive Airway Pressure (03/09/22) Labs on day of discharge: Laboratory Results - last 24 hr 10/28/24 10/29/24 10/29/24 15:08 06:13 06:13 WBC 12.5 H RBC 4.27 L Hgb 12.4 L Hct 37.2 L MCV 87.1 MCH 29.0 MCHC 33.3 RDW 13.6 Plt Count 220 MPV 10.2 Immature Gran % (Auto) 0.6 H Neut % (Auto) 71.9 Lymph % (Auto) 12.5 L Bureau % (Auto) 13.3 H Eos % (Auto) 1.4 Baso % (Auto) 0.3 Lymph # (Auto) 1.6 Bureau # (Auto) 1.7 H Eos # (Auto) 0.2 Baso # (Auto) 0.0 Abs Immat Gran (auto) 0.07 H Absolute Neuts (auto) 9.0 H Absolute Nucleated RBC 0.000 Nucleated RBC % (auto) 0.0 Smear Tech's Comments VERIFIED Sodium 140 140 140 Potassium 4.5 D 3.9 Chloride 105 Carbon Dioxide 25 Anion Gap 15 BUN 22 H Creatinine 1.27 Estim Creat Clear Calc 78.3 Estimated GFR 56 Random Glucose 126 H Calcium 8.9 Magnesium 2.1 Random Vancomycin 10/29/24 10/29/24 10/29/24 06:13 06:13 06:13 WBC RBC Hgb Hct MCV MCH MCHC RDW Plt Count MPV Immature Gran % (Auto) Neut % (Auto) Lymph % (Auto) Bureau % (Auto) Eos % (Auto) Baso % (Auto) Lymph # (Auto) Bureau # (Auto) Eos # (Auto) Baso # (Auto) Abs Immat Gran (auto) Absolute Neuts (auto) Absolute Nucleated RBC Nucleated RBC % (auto) Smear Tech's Comments Sodium Potassium 3.9 Chloride 105 105 Carbon Dioxide 25 26 Anion Gap 14 BUN Creatinine Estim Creat Clear Calc Estimated GFR Random Glucose Calcium Magnesium Random Vancomycin 10/29/24 10/29/24 10/29/24 06:13 06:13 06:13 WBC RBC Hgb Hct MCV MCH MCHC RDW Plt Count MPV Immature Gran % (Auto) Neut % (Auto) Lymph % (Auto) Bureau % (Auto) Eos % (Auto) Baso % (Auto) Lymph # (Auto) Bureau # (Auto) Eos # (Auto) Baso # (Auto) Abs Immat Gran (auto) Absolute Neuts (auto) Absolute Nucleated RBC Nucleated RBC % (auto) Smear Tech's Comments Sodium Potassium Chloride Carbon Dioxide Anion Gap 13 BUN 20 H 20 H Creatinine 1.09 1.11 Estim Creat Clear Calc 90.2 Estimated GFR Random Glucose Calcium Magnesium Random Vancomycin 10/29/24 10/29/24 10/29/24 06:13 06:13 06:13 WBC RBC Hgb Hct MCV MCH MCHC RDW Plt Count MPV Immature Gran % (Auto) Neut % (Auto) Lymph % (Auto) Bureau % (Auto) Eos % (Auto) Baso % (Auto) Lymph # (Auto) Bureau # (Auto) Eos # (Auto) Baso # (Auto) Abs Immat Gran (auto) Absolute Neuts (auto) Absolute Nucleated RBC Nucleated RBC % (auto) Smear Tech's Comments Sodium Potassium Chloride Carbon Dioxide Anion Gap BUN Creatinine Estim Creat Clear Calc 88.6 Estimated GFR > 60 > 60 Random Glucose 119 H 118 H Calcium 8.8 Magnesium Random Vancomycin 10/29/24 10/29/24 06:13 12:59 WBC RBC Hgb Hct MCV MCH MCHC RDW Plt Count MPV Immature Gran % (Auto) Neut % (Auto) Lymph % (Auto) Bureau % (Auto) Eos % (Auto) Baso % (Auto) Lymph # (Auto) Bureau # (Auto) Eos # (Auto) Baso # (Auto) Abs Immat Gran (auto) Absolute Neuts (auto) Absolute Nucleated RBC Nucleated RBC % (auto) Smear Tech's Comments Sodium Potassium Chloride Carbon Dioxide Anion Gap BUN Creatinine Estim Creat Clear Calc Estimated GFR Random Glucose Calcium 8.8 Magnesium 2.2 Random Vancomycin 16.7 Preliminary micro results at discharge 10/26/24 23:37 Blood Culture - Preliminary Blood - Venous No growth after 48 hours. 10/26/24 22:47 Blood Culture - Preliminary Blood - Venous No growth after 48 hours. Imaging Chest x-ray: Radiologist's impression: ITS Impressions Venous Duplex 10/27/24 07:45 IMPRESSION: No evidence of acute DVT in the right lower extremity. Electronically signed by: Wilfredo Heaton MD 10/27/2024 08:55 AM EDT RP Discharge Plan Discharge Anticipated Discharge Date/Time: 10/29/24 13:36 Patient Disposition: Home, Self-Care Discharge Diagnosis: Heart failure Atrial fibrillation Referrals: Wilian Wood MD [Primary Care Provider] - 1 Week Discharge Medications: New sotalol 80 mg Tablet 80 mg PO DAILY@0800 Qty: 90 0RF amoxicillin-pot clavulanate 875-125 mg Tablet 1 tab PO Q12H Qty: 8 0RF Jardiance 10 mg Tablet 10 mg PO DAILY Qty: 90 0RF bumetanide 2 mg tablet 2 mg PO DAILY Qty: 90 0RF Continued Eliquis 5 mg Tablet 5 mg PO BID 30 Days Qty: 60 0RF acetaminophen 500 mg Tablet 1,000 mg PO Q6H PRN (Reason: Pain) atorvastatin 10 mg tablet 10 mg PO DAILY epinephrine 0.3 mg/0.3 mL auto-injector 0.3 ml IM DAILY PRN (Reason: Allergic Reaction) sildenafil 50 mg tablet 50 mg PO DAILY PRN (Reason: sexual dysfunction) diltiazem HCl 360 mg capsule,extended release 24hr 360 mg PO DAILY 90 Days Qty: 90 3RF Discontinued furosemide [Lasix] 40 mg tablet 40 mg PO DAILY 30 Days Qty: 30 0RF Discharge Orders: Discharge Order (Routine); Ordered 10/29/24 Ordered By: Jeremias Sanches Diet: Low salt diet Activity on Discharge: As tolerated Stand Alone Forms: Patient Portal Discharge page Print Language: Syriac Other Ambulatory Orders: Basic Metabolic Panel (Routine) Timeframe: 1 Week Facility: [facility] - Location: Laboratory Ordered By: Jeremias Sanches Care Plan Goals: Stop Lasix Continue Antibiotic for 4 more days Start Bumex 2 mg daily Start Sotalol 80 mg daily Start Jardiance 10 mg daily Monitor weight and report any increment to your slat basket maker machine repeat blood work next week follow with cardiology in clinic Health Concerns: Heart failure exacerbation Atrial fibrillation with rapid response Cellulitis Plan of Treatment: Antibiotic Sotalol, Bumex and Jardiance Blood work Assessment: as above
--- NOTE | 2024-10-29 13:53 | MHC.CM.PN ---
DP: PT HAS BEEN MEDICALLY CLEARED FOR DC HOME, NO SERVICES. PT HAS OWN RIDE HOME
== END 2024-10-29 15:00 | disposition home or self-care (01) | DRG 871 ==
LOC: HO.ED 10-27 02:10 → HO.EDOVER 10-27 02:12 → HO.IMC 10-27 08:02
PROVIDERS: Student in an Organized Health Care Education/Training Program; Admitting Provider Nurse Practitioner Family; Emergency Provider Emergency Medicine; PCP Internal Medicine; Visit Provider Student in an Organized Health Care Education/Training Program
DX: A41.9 Sepsis, unspecified organism (principal); I50.33 Acute on chronic diastolic (congestive) heart failure; J18.9 Pneumonia, unspecified organism; L03.115 Cellulitis of right lower limb; Z68.41 Body mass index [BMI] 40.0-44.9, adult; E78.5 Hyperlipidemia, unspecified; G47.33 Obstructive sleep apnea (adult) (pediatric); E66.01 Morbid (severe) obesity due to excess calories; I48.0 Paroxysmal atrial fibrillation; Z20.822 Contact with and (suspected) exposure to COVID-19; Z79.01 Long term (current) use of anticoagulants; Z79.899 Other long term (current) drug therapy
CPT/HCPCS: 0241U; 36415; 71045; 71260; 74177; 80048; 80053; 80162; 80202; 81001; 83605; 83735; 83880; 84439; 84443; 84484; 85025; 85610; 87040; 87651; 93005; 93306; 93971; 99285; J0131; J0696; J1271; J1938; J1939; J3370; J3475; J3480; J7120; Q9957

== ENCOUNTER → 2024-10-26 22:32 | Outpatient (BNV) | payer MEDICARE, SELFPAY | PROVIDERS: Admitting Provider Nurse Practitioner Family; Emergency Provider Emergency Medicine; PCP Internal Medicine; Visit Provider Internal Medicine Cardiovascular Disease | DX: R00.0 Tachycardia, unspecified (principal); R06.02 Shortness of breath; I42.2 Other hypertrophic cardiomyopathy | CPT/HCPCS: 93010 ==

== ENCOUNTER → 2024-10-27 00:09 | Outpatient (BNV) | payer MEDICARE, SELFPAY | PROVIDERS: Emergency Provider Emergency Medicine; Visit Provider Radiology Diagnostic Radiology | DX: K80.20 Calculus of gallbladder without cholecystitis without obstruction (principal); R06.00 Dyspnea, unspecified; R60.9 Edema, unspecified; R06.02 Shortness of breath | CPT/HCPCS: 93971 ==

== ENCOUNTER → 2024-10-27 00:31 | Outpatient (BNV) | payer MEDICARE, SELFPAY | PROVIDERS: Admitting Provider Nurse Practitioner Family; Emergency Provider Emergency Medicine; PCP Internal Medicine; Visit Provider Internal Medicine Cardiovascular Disease | DX: I34.81 Nonrheumatic mitral (valve) annulus calcification (principal); I35.8 Other nonrheumatic aortic valve disorders; I44.30 Unspecified atrioventricular block | CPT/HCPCS: 93010; 93306 ==

== ENCOUNTER 2024-10-27 02:11 | Outpatient (BNV) | payer MEDICARE, SELFPAY | END 2024-10-29 08:26 | PROVIDERS: Admitting Provider Nurse Practitioner Family; Emergency Provider Emergency Medicine; PCP Internal Medicine; Visit Provider Internal Medicine Cardiovascular Disease | DX: Z79.899 Other long term (current) drug therapy (principal) | CPT/HCPCS: 93010 ==

== ENCOUNTER 2024-10-27 02:11 | Outpatient (BNV) | payer MEDICARE, SELFPAY | END 2024-10-28 10:33 | PROVIDERS: Admitting Provider Nurse Practitioner Family; Emergency Provider Emergency Medicine; PCP Internal Medicine; Visit Provider Internal Medicine Cardiovascular Disease | DX: I48.92 Unspecified atrial flutter (principal) | CPT/HCPCS: 93010 ==

== ENCOUNTER → 2024-10-27 02:11 | Outpatient (BNV) | payer MEDICARE, SELFPAY | PROVIDERS: Admitting Provider Nurse Practitioner Family; Emergency Provider Emergency Medicine; PCP Internal Medicine; Visit Provider Nurse Practitioner Family | DX: I48.0 Paroxysmal atrial fibrillation (principal); I50.31 Acute diastolic (congestive) heart failure; A41.9 Sepsis, unspecified organism; J18.9 Pneumonia, unspecified organism; L03.90 Cellulitis, unspecified | CPT/HCPCS: 99223; 99232; 99239; 99499 ==

== ENCOUNTER → 2024-10-27 02:11 | Outpatient (BNV) | payer MEDICARE, SELFPAY | PROVIDERS: Admitting Provider Nurse Practitioner Family; Emergency Provider Emergency Medicine; PCP Internal Medicine; Visit Provider Internal Medicine Cardiovascular Disease | DX: I48.91 Unspecified atrial fibrillation (principal); I50.31 Acute diastolic (congestive) heart failure | CPT/HCPCS: 99222 ==

== ENCOUNTER 2024-11-05 08:52 | Outpatient (AMB) | payer MEDICARE, SELFPAY ==
[2024-11-05 08:54] VITALS: BP 120/62; PULSE 66; BMI 41.3
--- NOTE | 2024-11-05 08:54 | MHC.OFFVIS ---
Vital Signs 11/05/24 08:54 Height 5 ft 11 in Weight 296 lb 4.82 oz BMI 41.3 BP 120/62 Blood Pressure Location Lt brachial Position Sitting Pulse 66 Pulse Source Pulse Oximeter Intake Visit Reasons: [facility] [place]- Follow up Specialty Food Products Supervisor Required: No Allergies dextromethorphan [DEXTROMETHORPHAN] Allergy (Severe, Verified 11/05/24 08:56) ITCHY SWELLING SOB shellfish derived Allergy (Severe, Verified 11/05/24 08:56) ANAPHYLAXIS Medication List - Last Reconciled 11/05/24 by Patti Braden NP-C acetaminophen 1,000 mg PO Q6H PRN apixaban (Eliquis) 5 mg PO BID 30 days atorvastatin 10 mg PO DAILY bumetanide 2 mg PO DAILY diltiazem HCl CD 360 mg PO DAILY 90 days empagliflozin (Jardiance) 10 mg PO DAILY epinephrine 0.3 mL IM DAILY PRN sildenafil 50 mg PO DAILY PRN sotalol 80 mg PO DAILY@0800 HPI HPI [facility] DC- Follow up: Details: Emery is a 69-year-old male with past medical history of morbid obesity, hypertension, obstructive sleep apnea with CPAP use, paroxysmal atrial fibrillation, diastolic heart failure, who was recently admitted to [facility] with left leg cellulitis, sepsis and treated for AFib RVR. He was put on sotalol for rhythm control and discharged in sinus rhythm. His Lasix was changed to Bumex. Jardiance was added. Today he reports he has been feeling well since his hospital discharge. He notes that his heart rate is much lower than it had been in the past. He is typically running in the 50s to 70s when he previously was running 70s to 80s. He has no chest discomfort at rest or with activity. No heart palpitations, lightheadedness, presyncope, syncope. No shortness of breath, PND, orthopnea or edema. He wears compression stockings daily. His cellulitis has fully resolved. He was having some loose stools which may be contributed to his antibiotic use. He has been going to the gym which he says he tolerates well. [facility] Medical History ALEXUS (acute kidney injury) TANO on CPAP Morbid obesity Leukocytosis Gastritis COVID-19 vaccine series completed Obesity Chronic venous insufficiency Osteoarthritis TANO on CPAP Osteoarthritis of left knee Hypertension High cholesterol Surgical History History of orthopedic surgery Hx of colonoscopy History of right knee surgery LAP-BAND surgery status Family History Father Myocardial infarct Mother No problems noted. 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 Review of Systems Const All systems reviewed & are unremarkable except as noted in HPI and below ENT Denies dizziness Card Denies chest pain, Denies chest pain at rest, Denies chest pain with activity, Denies rapid heart rate, Denies pedal edema, Denies edema, Denies leg edema, Denies lightheadedness, Denies palpitations, Denies dyspnea, Denies dyspnea on exertion and Denies orthopnea Resp Denies cough, Denies dyspnea and Denies dyspnea on exertion GI Denies hematochezia and Denies change in stool character Musc Denies abnormal gait, Denies limited range of motion, Denies muscle cramps, Denies muscle weakness, Denies numbness, Denies radiating pain into limb, Denies stiffness and Denies tingling Neuro Denies abnormal gait, Denies dizziness, Denies numbness and Denies tingling Endo Denies palpitations Physical Exam Vital Signs: Last Vital Signs Pulse 66 11/05/24 08:54 BP 120/62 11/05/24 08:54 BMI result Body Mass Index 41.3 Const General: cooperative, healthy appearing, comfortable and no acute distress Orientation/consciousness: patient oriented x3 Neck Neck: Yes normal visual inspection and Yes no JVD Resp Effort & Inspection: normal respiratory effort Auscultation: clear to auscultation bilaterally, no rales, no rhonchi and no wheezes Cardio Rate: regular rate Rhythm: regular rhythm Heart sounds: S1 normal heart sound present, S2 normal heart sound present, no gallops, no murmurs and no rubs Skin General skin exam: no rashes or lesions noted Neuro General: patient oriented x3 Extrem Other: compression socks on General: Yes normal to inspection, No no pedal edema and No calf tenderness Psych Appearance: grossly normal Mental Status: mental status grossly normal Speech and movement: Normal speech and movement present Office Procedures EKG Details: Today, read by me, ectopic atrial rhythm, incomplete RBBB, Qtc 506ms, rate 59 - reviewed with Dr Sanchez [id number], Complete Results Reviewed Results Reviewed: - Echocardiogram (05/26/2024): Ejection Fraction 65-70%, mild left ventricular hypertrophy, moderate dilatation of the left atrium, valve Doppler normal, right ventricular systolic pressure normal, impaired relaxation. - Holter Monitor (04/14/2024 for 14 days): Sinus rhythm, average 80 beats/min, intermittent atrial fibrillation burden 0.8%, longest episode 1 hour 39 minutes, occasional PACs burden 0.83%, 2 episodes of non-sustained ventricular tachycardia, longest 25 beats. - Nuclear Stress Test (): Normal myocardial perfusion imaging, normal ejection fraction. - Recent Echocardiogram (10/27/2024): EF 65-70%, pseudo normal filling pattern, moderate dilated left atrium, regional wall motion abnormalities not excluded. - Lab work (10/28/2024): White blood count 12.5, hematocrit 37.2, potassium 3.9, creatinine 1.11, BNP <10, TSH 1.44. Assessment & Plan Assessment & Plan (1) Atrial fibrillation with rapid ventricular response: Code(s): I48.91 - Unspecified atrial fibrillation Category: Medical Plan: History of paroxysmal atrial fibrillation with recurrent AFib during hospital admission for sepsis, leg cellulitis. He was on diltiazem 360 mg daily and sotalol was added. His QTC was 447 milliseconds on last EKG prior to discharge, 10/29/2024. EKG done today showing ectopic atrial rhythm, rate 59, QTC 506 milliseconds. Labs done today show potassium 3.3, magnesium 2.3. These findings reviewed with Dr. Sanchez. Will have him stop sotalol. I will be reducing his Bumex dose to 1 mg daily. He can take an extra tablet if needed for shortness of breath or leg swelling. I will give him 20 mEq of potassium to take b.i.d. for the next 2 days. Continue same diltiazem. Increase dietary potassium intake and planning recheck of labs and EKG next week. Continue Eliquis for anticoagulation. Cardiology follow-up 3 months, sooner if needed. (2) TANO on CPAP: Code(s): G47.33 - Obstructive sleep apnea (adult) (pediatric); Z99.89 - Dependence on other enabling machines and devices Category: Medical Plan: Compliant with CPAP (3) Morbid obesity: Code(s): E66.01 - Morbid (severe) obesity due to excess calories Category: Medical Plan: Remains active with going to the gym routinely (4) Chronic diastolic (congestive) heart failure: Code(s): I50.32 - Chronic diastolic (congestive) heart failure Category: Medical Plan: Treated for acute on chronic diastolic heart failure while hospitalized. His Lasix was changed to Bumex. No clinical signs of heart failure on examinatio. Labs now creatinine elevated to 1.47 which is high for him. Will be reducing Bumex to 1 mg daily. (5) Hospital discharge follow-up: Code(s): Z09 - Encounter for follow-up examination after completed treatment for conditions other than malignant neoplasm Category: Medical Plan: Discharge summary and cardiology notes reviewed Plan Time spent on chart review, documentation, intravenous assessment Labs were available prior to the completion of this note. Orders: Orders Magnesium Today I47.29 - Other ventricular tachycardia, I48.91 - Unspecified atrial fibrillation Basic Metabolic Panel 3 Days I48.91 - Unspecified atrial fibrillation Comprehensive Met. Panel Today I47.29 - Other ventricular tachycardia, I48.91 - Unspecified atrial fibrillation Medications: New bumetanide Take one table daily and extra tablet if needed for increased shortness of breath or leg swelling. Dose reduced 1 mg PO DAILY 90 days 135 tabs 1RF potassium chloride ER 20 mEq PO BID 2 days 4 tabs 0RF Discontinued bumetanide Discontinued Reason: Doctor's Order 2 mg PO DAILY 90 tabs 0RF sotalol Discontinued Reason: Doctor's Order 80 mg PO DAILY@0800 90 tabs 0RF Patient Instructions: - Maintain use of Bumex, and Jardiance as prescribed. - Perform regular physical activity moderately, considering heart rate limitations. - Use CPAP every night for sleep apnea management. - Monitor for signs of recurrent AFib or CHF exacerbation. - Use compression stockings for leg health. - Follow up with EKG and blood work as discussed. - Contact healthcare provider if symptoms of cellulitis return or experience new or worsening heart issues. Patient was informed and verbally consented to the use of an ambient scribe for clinic note documentation during this visit. Coding Level of Care Code Est Pt Level 4 (60529) Complex EM visit Add On G2211 Diagnoses Atrial fibrillation with rapid ventricular response I48.91 TANO on CPAP G47.33; Z99.89 Morbid obesity E66.01 Chronic diastolic (congestive) heart failure I50.32 Hospital discharge follow-up Z09 CPT Codes EKG - CPT: 48136-[id number], Complete ([id number]) Time Spent (min) 30
== END 2024-11-05 09:37 | disposition home or self-care (01) ==
LOC: HO.HCS 08:53
PROVIDERS: PCP Internal Medicine; Visit Provider Nurse Practitioner Family
DX: I48.91 Unspecified atrial fibrillation (principal); G47.33 Obstructive sleep apnea (adult) (pediatric); Z99.89 Dependence on other enabling machines and devices; E66.01 Morbid (severe) obesity due to excess calories; I50.32 Chronic diastolic (congestive) heart failure; Z09 Encounter for follow-up examination after completed treatment for conditions other than malignant neoplasm
CPT/HCPCS: 93010; 99214; G2211

== ENCOUNTER 2024-11-05 08:52 | Outpatient (REF) | payer MEDICARE, SELFPAY ==
[2024-11-05 10:59] LABS: Alanine Aminotransferase 89 U/L (0-40); Albumin Level 4.4 g/dL (3.5-5.0); Alkaline Phosphatase 106 U/L (39-117); Anion Gap 12 (12-20); Aspartate Amino Transferase 48 U/L (5-37); Bilirubin Total 0.9 mg/dL (0.0-1.0); Blood Urea Nitrogen 22 mg/dL (9-16); Carbon Dioxide 30 mmol/L (22-29); Chloride 103 mmol/L (96-108); Estimated Glomerular Filt Rate 47; Glucose Random 110 mg/dL (60-115); Magnesium 2.3 mg/dL (1.6-2.6); Potassium 3.3 mmol/L (3.3-5.1); Sodium 142 mmol/L (135-145); Total Protein 7.5 g/dL (6.5-8.0)
== END 2024-11-05 08:53 | disposition home or self-care (01) ==
LOC: HO.LAB 08:52
PROVIDERS: Student in an Organized Health Care Education/Training Program; PCP Internal Medicine; Referring Provider Internal Medicine; Visit Provider Nurse Practitioner Family
DX: Z09 Encounter for follow-up examination after completed treatment for conditions other than malignant neoplasm (principal); I47.29 Other ventricular tachycardia; I48.91 Unspecified atrial fibrillation; G47.33 Obstructive sleep apnea (adult) (pediatric); Z79.899 Other long term (current) drug therapy; E66.01 Morbid (severe) obesity due to excess calories
CPT/HCPCS: 36415; 80053; 83735; 93005; 99212

== ENCOUNTER 2024-11-09 10:11 | Outpatient (REF) | payer MEDICARE, SELFPAY ==
[2024-11-09 13:27] LABS: Anion Gap 12 (12-20); Blood Urea Nitrogen 23 mg/dL (9-16); Calcium 9.7 mg/dL (8.4-10.2); Carbon Dioxide 28 mmol/L (22-29); Chloride 105 mmol/L (96-108); Estimated Glomerular Filt Rate 53; Glucose Random 123 mg/dL (60-115); Potassium 3.4 mmol/L (3.3-5.1); Sodium 142 mmol/L (135-145)
== END 2024-11-09 10:12 | disposition home or self-care (01) ==
LOC: HO.10HDL 10:11
PROVIDERS: Student in an Organized Health Care Education/Training Program; PCP Internal Medicine; Visit Provider Nurse Practitioner Family
DX: I50.31 Acute diastolic (congestive) heart failure (principal)
CPT/HCPCS: 80048

== ENCOUNTER → 2024-11-10 09:54 | Outpatient (BNVA) | payer MEDICARE, SELFPAY | PROVIDERS: PCP Internal Medicine; Visit Provider Nurse Practitioner Family | DX: Z13.89 Encounter for screening for other disorder (principal) ==

== ENCOUNTER 2024-11-11 10:19 | Outpatient (AMB) | payer MEDICARE, SELFPAY ==
--- NOTE | 2024-11-11 10:31 | A.OFFVIS_ITS ---
Vital Signs 11/11/24 10:35 Height 5 ft 11 in Weight 298 lb 1.039 oz BMI 41.6 BP 140/62 H Blood Pressure Location Lt brachial Position Sitting Pulse 81 Pulse Source Pulse Oximeter Intake Visit Reasons: f/up Guest Relations Executive Required: No Accompanied by: Self / Same As Patient Allergies dextromethorphan [DEXTROMETHORPHAN] Allergy (Severe, Verified 11/05/24 08:56) ITCHY SWELLING SOB shellfish derived Allergy (Severe, Verified 11/05/24 08:56) ANAPHYLAXIS Medication List - Last Reconciled 11/11/24 by Jass Posada MD acetaminophen 1,000 mg PO Q6H PRN apixaban (Eliquis) 5 mg PO BID 30 days atorvastatin 10 mg PO DAILY bumetanide 1 mg PO DAILY 90 days diltiazem HCl CD 360 mg PO DAILY 90 days empagliflozin (Jardiance) 10 mg PO DAILY epinephrine 0.3 mL IM DAILY PRN sildenafil 50 mg PO DAILY PRN HPI Comments Details: Emery returns for follow-up. To recall, in the past, he was admitted for lower extremity cellulitis as well as sepsis. In that context, had atrial fibrillation with rapid rate with component of congestive heart failure. He converted to sinus before discharge. He was on beta-blockers but that was changed to diltiazem due to concurrent EpiPen use. Earlier this month, again admitted to hospital with cellulitis and that instance, reported atrial fibrillation all the EKGs shows atrial flutter. Any case, had fluid overload/some congestive heart failure. He was put on sotalol that time. When he came back for follow-up, there was concern for QT prolongat ion also there was slight increase in creatinine and hypokalemia and hence it was stopped. He states that when he was on sotalol he felt well but now he has again noticing recurrent palpitations. [facility] Medical History PAF (paroxysmal atrial fibrillation) ALEXUS (acute kidney injury) TANO on CPAP Morbid obesity Leukocytosis Gastritis COVID-19 vaccine series completed Obesity Chronic venous insufficiency Osteoarthritis TANO on CPAP Osteoarthritis of left knee Hypertension High cholesterol Surgical History History of orthopedic surgery Hx of colonoscopy History of right knee surgery LAP-BAND surgery status Family History Father Myocardial infarct Mother No problems noted. 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 Review of Systems Const Denies chills, Denies fatigue, Denies fever(s), Denies frequent falls, Denies weakness, Denies weight gain and Denies weight loss ENT Denies dizziness Card Denies chest pain, Denies leg edema, Denies lightheadedness, Reports palpitations, Denies dyspnea and Denies dyspnea on exertion Resp Denies cough, Denies dyspnea and Denies dyspnea on exertion GI Denies hematochezia Musc Denies abnormal gait, Denies muscle weakness, Denies numbness, Denies radiating pain into limb and Denies tingling Neuro Denies abnormal gait, Denies dizziness, Denies frequent falls, Denies numbness, Denies tingling and Denies weakness Endo Denies fatigue and Reports palpitations Physical Exam Vital Signs: Last Vital Signs Pulse 81 11/11/24 10:35 BP 140/62 H 11/11/24 10:35 BMI result Body Mass Index 41.6 Const General: comfortable and no acute distress Orientation/consciousness: patient oriented x3 HEENT Other: Unremarkable Head: Yes normal to inspection Neck Neck: Yes normal visual inspection Chest Chest palpation & inspection: normal inspection of the chest Resp Auscultation: clear to auscultation bilaterally Cardio Palpation: normal PMI Heart sounds: S1 normal heart sound present, S2 normal heart sound present, no gallops, no murmurs and no rubs GI Palpation (GI): Soft to palpation Back/Spine/Pelvis Other: unremarkable Skin General skin exam: no rashes or lesions noted Neuro General: patient oriented x3 Extrem General: Yes normal to inspection Psych Mental Status: mental status grossly normal Assessment & Plan Assessment & Plan (1) PAF (paroxysmal atrial fibrillation): Code(s): I48.0 - Paroxysmal atrial fibrillation Category: Medical Plan: In the recent EKG from hospitalization, suggestive of atrial flutter than fibrillation but previously atrial fibrillation. He remains on diltiazem. Sotalol was apparently tried but there was question of QT prolongation as well as concurrent elevation creatinine/hypokalemia related to diuretics. Hence stopped. Could not use beta-blockers because of EpiPen use. We discussed about further options including ablation. Not clear if it is weight will be an issue with the ablation but we can refer to EP for further evaluation. For the time being, use amiodarone as a temporary measure but would not use this long-term. We discussed about benefits/risks of antiarrhythmic therapy in detail. To come for EKG in a week or so for QT. (2) Chronic diastolic (congestive) heart failure: Code(s): I50.32 - Chronic diastolic (congestive) heart failure Category: Medical Plan: Remains on diuretics, Jardiance. He is getting some labs next week through his PCP. (3) Morbid obesity: Code(s): E66.01 - Morbid (severe) obesity due to excess calories Category: Medical Plan: He is well aware of the fact that the weight is causing a lot of issues. However, not clear how much he can actually lose. (4) TANO on CPAP: Code(s): G47.33 - Obstructive sleep apnea (adult) (pediatric); Z99.89 - Dependence on other enabling machines and devices Category: Medical Plan: Continue CPAP. Orders: Referrals Cardiac Electrophysiology Referral I48.0 - Paroxysmal atrial fibrillation Coding Level of Care Code Est Pt Level 4 (64783) Complex EM visit Add On G2211 Diagnoses PAF (paroxysmal atrial fibrillation) I48.0 Chronic diastolic (congestive) heart failure I50.32 Morbid obesity E66.01 TANO on CPAP G47.33; Z99.89
[2024-11-11 10:35] VITALS: BP 140/62; PULSE 81; BMI 41.6
== END 2024-11-11 11:01 | disposition home or self-care (01) ==
LOC: HO.HCS 10:19
PROVIDERS: PCP Internal Medicine; Visit Provider Internal Medicine
DX: I48.0 Paroxysmal atrial fibrillation (principal); I50.32 Chronic diastolic (congestive) heart failure; E66.01 Morbid (severe) obesity due to excess calories; G47.33 Obstructive sleep apnea (adult) (pediatric); Z99.89 Dependence on other enabling machines and devices
CPT/HCPCS: 99214; G2211

== ENCOUNTER → 2024-11-11 10:19 | Outpatient (BNVA) | payer MEDICARE, SELFPAY | PROVIDERS: PCP Internal Medicine; Visit Provider Internal Medicine | DX: I48.0 Paroxysmal atrial fibrillation (principal); I50.32 Chronic diastolic (congestive) heart failure; E66.01 Morbid (severe) obesity due to excess calories; G47.33 Obstructive sleep apnea (adult) (pediatric); Z99.89 Dependence on other enabling machines and devices | CPT/HCPCS: 99212 ==

== ENCOUNTER → 2024-11-19 09:45 | Outpatient (BNVA) | payer MEDICARE, SELFPAY | PROVIDERS: PCP Internal Medicine; Visit Provider Internal Medicine | DX: Z13.89 Encounter for screening for other disorder (principal) ==

== ENCOUNTER 2024-12-01 08:17 | Outpatient (REF) | payer MEDICARE, SELFPAY ==
--- NOTE | ~2024-12-01 | XR_ITS ---
CLINICAL HISTORY: PNEUMONIA OF RIGHT MIDDLE LOBE DUE TO INFECTIOUS ORGANISM, HTN --- Additional Notes or Special Instructions: WO 2 views chest Comparison: CT/SR - CT CHEST W IV CON - 10/27/24 02:54 EDT Findings: Cardiac and mediastinal contours are normal. Mild interstitial prominence with scattered peribronchial thickening. No focal consolidation. No effusion. No pneumothorax. No acute osseous finding. Impression: Mild interstitial prominence with scattered peribronchial thickening. No focal consolidation. This document has been electronically signed by: Vincent Mccartney MD on 12/02/2024 09:05:05
== END 2024-12-01 08:18 | disposition home or self-care (01) ==
LOC: HO.XRAY 08:17
PROVIDERS: PCP Internal Medicine; Visit Provider Internal Medicine
DX: I10 Essential (primary) hypertension (principal); J18.9 Pneumonia, unspecified organism
CPT/HCPCS: 71046

== ENCOUNTER → 2024-12-01 08:23 | Outpatient (BNV) | payer MEDICARE, SELFPAY | PROVIDERS: PCP Internal Medicine; Visit Provider Radiology Vascular & Interventional Radiology | DX: J18.1 Lobar pneumonia, unspecified organism (principal); I10 Essential (primary) hypertension | CPT/HCPCS: 71046 ==

== ENCOUNTER → 2025-01-10 12:48 | Outpatient (REF) | payer MEDICARE, SELFPAY ==
--- NOTE | 2025-01-10 12:51 | HM_ITS ---
* Total monitoring time 3 days. * Underlying rhythm is sinus with an average rate of 72/Min. * Frequent supraventricular ectopy with a burden of 3.1%. * No evidence of atrial fibrillation. * Rare ventricular ectopy. * No significant pauses or high-grade AV blocks. * Rapid/fast heartbeat in patient diary correlates with sinus rhythm and supraventricular ectopy. MTDD
--- OUTSIDE RECORDS SUMMARY | 2025-01-10 13:31 | XMS_ITS | Encounter Summary ---
Author Organization [facility] Address [address] [place] [address] Phone Care Team Providers Care Generator Assembler Name Role Phone Wilian Wood MD Unavailable [phone] Wilian Wood MD Primary Care Provider [phone] Wilian Wood MD Unavailable [phone] Bob Toro MD Unavailable [phone] Coleman Vu MD Unavailable [phone] Encounter Details Date Type Department Care Team (Late st Contact Info) Description 10/09/2022 Ancillary Orders [facility], X-Ray - [facility] [address] [place] [address] Tri Hand PA [address] [address] [email or web address] Calculus of kidney Social History Tobacco Use Types Packs/Day Years Used Date Smoking Tobacco: Never Smokeless Tobacco: Never Alcohol Use Standard Drinks/Week Comments Not Currently 0 (1 standard drink = 0.6 oz pur e alcohol) quit 2020 Education Answer Date Recorded Are you interested in more education? Not on keiry e 10/10/2022 Are you concerned about learning? Not on file 10/10/2022 No 10/10/2022 No 10/10/2022 Sex and Gender Information Value Date Recorded Sex Assigned at Male 08/19/2020 11:34 AM EST Legal Sex Male 9:57 PM EDT Gender Identity Male 08/19/2020 11:34 AM EST Sexual Orientation Straight 08/19/2020 11 :34 AM EST documented as of this encounter Plan of Treatment Upcoming Encounters Date Type Department Care Team (Late st Contact Info) Description 05/13/2025 10:00 AM EST Office Visit [facility] Internal Medicine [address] [place] [address] Wilian Wood MD [address] [place] [address] [email or web address] documented as of this encounter Results * XR ABDOMEN 1 VIEW (10/09/2022 2:12 PM EDT) Anatomical Region Laterality Modality Abdomen Computed Radiogr aphy 10/10/2022 9:09 PM EDT Impressions 10/10/2022 9:10 PM EDT 4 mm right midpole renal stone. Narrative 10/10/2022 9:10 PM EDT XR ABDOMEN 1 VIEW COMPARISON: CT ABDOMEN/PELVIS WITH AND WITHOUT CONTRAST FINDINGS: TUBES/LINES: Gastric band properly positioned with a reservoir in the midline abdomen. BOWEL: Nonobstructive bowel gas pattern. BONES/SOFT TISSUES: 4 mm right midpole renal stone. Surgical adriana/clips over the right proximal femur. Procedure Note Talya Clancy MD - 10/10/2022 XR ABDOMEN 1 VIEW COMPARISON: CT ABDOMEN/PELVIS WITH AND WITHOUT CONTRAST FINDINGS: TUBES/LINES: Gastric band properly positioned with a reservoir in themidline abdomen. BOWEL: Nonobstructive bowel gas pattern. BONES/SOFT TISSUES: 4 mm right midpole renal stone. Surgical adriana/clipsover the right proximal femur. IMPRESSION: 4 mm right midpole renal stone. us Tri PATEL IMG XR ABDOMEN Final Result documented in this encounter Visit Diagnoses Diagnosis Calculus of kidney Calculus of kidney documented in this encounter Additional Health Concerns Assessment Noted Time PHQ-2 Depression Total Score: 0 03/04/20 9:56 AM EDT documented as of this encounter Care Teams Generator Assembler Relationship Specialty Start Date End Date Wilian Wood MD [address] [place] [address] PCP - General 06/19/17 Wilian Wood MD [address] [place] [address] Historical LMR Provider 04/06/17 03/09/23 Wilian Wood MD [address] [place] [address] Insurance Assigned Provider 09/20/23 Bob Toro MD [address] [place] [id number] Ophthalmology 02/22/20 Coleman Vu MD [address] [place] [address], [address] [place] [address] Urology 03/10/23 documented as of this encounter Additional Source Comments The information contained in this document represents components of the legal health record. It is not the complete legal health record.[facility]
== END ==
LOC: HO.CARD 12:48
PROVIDERS: PCP Internal Medicine; Visit Provider Internal Medicine
DX: I48.0 Paroxysmal atrial fibrillation (principal)
CPT/HCPCS: 93242

== ENCOUNTER → 2025-01-10 12:51 | Outpatient (BNV) | payer MEDICARE, SELFPAY | PROVIDERS: PCP Internal Medicine; Visit Provider Internal Medicine | DX: I47.10 Supraventricular tachycardia, unspecified (principal); I49.3 Ventricular premature depolarization | CPT/HCPCS: 93244 ==

== ENCOUNTER 2025-01-25 08:03 | Outpatient (AMB) | payer MEDICARE, SELFPAY ==
--- OUTSIDE RECORDS SUMMARY | 2025-01-25 08:08 | XMS_ITS | Encounter Summary ---
Author Organization [facility] Address [address] [place] [address] Phone Care Team Providers Care Wellhead Pumper Name Role Phone Wilian Wood MD Unavailable [phone] Wilian Wood MD Primary Care Provider [phone] Wilian Wood MD Unavailable [phone] Bob Toro MD Unavailable [phone] Coleman Vu MD Unavailable [phone] Encounter Details Date Type Department Care Team (Late st Contact Info) Description 10/09/2022 Ancillary Orders [facility], X-Ray - [facility] [address] [place] [address] Tri Hand PA [address] [address] [email or web address] Calculus of kidney Social History Tobacco Use [...] Description 05/13/2025 10:00 AM EST Office Visit [facility] Internal Medicine [address] [place] [address] Wilian Wood MD [address] [place] [address] [email or web address] documented as of this encounter Results * [...] documented as of this encounter Care Teams Wellhead Pumper Relationship Specialty Start Date End Date Wilian Wood MD [address] [place] [address] PCP - General 06/19/17 Wilian Wood MD [address] [place] [address] Historical LMR Provider 04/06/17 03/09/23 Wilian Wood MD [address] [place] [address] Insurance Assigned Provider 09/20/23 Bob Toro MD [address] [place] [id number] Ophthalmology 02/22/20 Coleman Vu MD [address] [place] [address], [address] [place] [address] Urology 03/10/23 documented as of this encounter Additional Source Comments The information contained in this document represents components of the legal health record. It is not the complete legal health record.[facility]
--- NOTE | 2025-01-25 08:22 | A.OFFVIS_ITS ---
Vital Signs 01/25/25 08:26 Height 5 ft 11 in Weight 302 lb 0.533 oz BMI 42.1 BP 128/62 Blood Pressure Location Lt brachial Position Sitting Pulse 69 Pulse Source Pulse Oximeter Intake Visit Reasons: 6m follow up Allergies dextromethorphan (DEXTROMETHORPHAN) Allergy (Severe, Verified 11/05/24 08:56) ITCHY SWELLING SOB shellfish derived Allergy (Severe, Verified 11/05/24 08:56) ANAPHYLAXIS Medication List - Last Reconciled 01/25/25 by Jass Posada MD acetaminophen 1,000 mg PO Q6H PRN amiodarone 200 mg PO DAILY apixaban (Eliquis) 5 mg PO BID 30 days atorvastatin 10 mg PO DAILY bumetanide 1 mg PO DAILY 90 days diltiazem HCl CD 360 mg PO DAILY 90 days empagliflozin (Jardiance) 10 mg PO DAILY epinephrine 0.3 mL IM DAILY PRN sildenafil 50 mg PO DAILY PRN HPI Comments Details: Emery returns for follow-up. To recall, in the past, he was admitted for lower extremity cellulitis as well as sepsis. In that context, had atrial fibrillation with rapid rate with component of congestive heart failure. He converted to sinus before discharge. He was on beta-blockers but that was changed to diltiazem due to concurrent EpiPen use. Earlier this month, again admitted to hospital with cellulitis and that instance, reported atrial fibrillation all the EKGs shows atrial flutter. Any case, had fluid overload/some congestive heart failure. He was put on sotalol that time. When he came back for follow-up, there was concern for QT prolongation also there was slight increase in creatinine and hypokalemia and hence it was stopped. After that, he was again noticing palpitations. Eventually, put on amiodarone as a short-term measure and sent to EP for evaluation. He is scheduled for ablation next month. He states that he had one episode of palpitations for about a half an hour or so but otherwise felt fine. FORMERLY [facility], [facility] Medical History PAF (paroxysmal atrial fibrillation) ALEXUS (acute kidney injury) TANO on CPAP Morbid obesity Leukocytosis Gastritis COVID-19 vaccine series completed Obesity Chronic venous insufficiency Osteoarthritis TANO on CPAP Osteoarthritis of left knee Hypertension High cholesterol Surgical History History of orthopedic surgery Hx of colonoscopy History of right knee surgery LAP-BAND surgery status Family History Father Myocardial infarct Mother No problems noted. 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 Review of Systems Const Denies weakness ENT Denies dizziness Card Denies chest pain, Denies chest pain with activity, Denies syncope, Denies rapid heart rate, Denies pedal edema, Denies edema, Denies leg edema, Denies lightheadedness, Denies palpitations, Denies dyspnea, Denies dyspnea on exertion and Denies orthopnea Resp Denies cough, Denies dyspnea and Denies dyspnea on exertion GI Denies hematochezia and Denies change in stool character Musc Denies abnormal gait, Denies muscle cramps, Denies muscle weakness, Denies numbness, Denies radiating pain into limb and Denies tingling Neuro Denies abnormal gait, Denies dizziness, Denies syncope, Denies numbness, Denies tingling and Denies weakness Endo Denies palpitations Physical Exam Vital Signs: Last Vital Signs Pulse 69 01/25/25 08:26 BP 128/62 01/25/25 08:26 BMI result Body Mass Index 42.1 Const General: comfortable and no acute distress Orientation/consciousness: patient oriented x3 HEENT Other: Unremarkable Head: Yes normal to inspection Neck Neck: Yes normal visual inspection Chest Chest palpation & inspection: normal inspection of the chest Resp Auscultation: clear to auscultation bilaterally Cardio Palpation: normal PMI Heart sounds: S1 normal heart sound present, S2 normal heart sound present, no gallops, no murmurs and no rubs GI Palpation (GI): Soft to palpation Back/Spine/Pelvis Other: unremarkable Skin General skin exam: no rashes or lesions noted Neuro General: patient oriented x3 Extrem General: Yes normal to inspection Psych Mental Status: mental status grossly normal Assessment & Plan Assessment & Plan (1) PAF (paroxysmal atrial fibrillation): Code(s): I48.0 - Paroxysmal atrial fibrillation Category: Medical Plan: In the recent EKG from hospitalization, suggestive of atrial flutter than fibrillation but previously atrial fibrillation. Last EKG from [facility] from last month shows sinus rhythm. He remains on diltiazem. Sotalol was apparently tried but there was question of QT prolongation as well as concurrent elevation creatinine/hypokalemia related to diuretics. Hence stopped. Could not use beta-blockers because of EpiPen use. May continue short-term amiodarone as currently on. He is scheduled for ablation next month. After that, we can hopefully stop the amiodarone. Continue anticoagulation without changes. (2) Chronic diastolic (congestive) heart failure: Code(s): I50.32 - Chronic diastolic (congestive) heart failure Category: Medical Plan: Remains on diuretics, Jardiance. He states that he is getting labs through his own PCP. (3) Morbid obesity: Code(s): E66.01 - Morbid (severe) obesity due to excess calories Category: Medical Plan: He is well aware of the fact that the weight is causing a lot of issues. However, not clear how much he can actually lose. We discussed this today. (4) TANO on CPAP: Code(s): G47.33 - Obstructive sleep apnea (adult) (pediatric); Z99.89 - Dependence on other enabling machines and devices Category: Medical Plan: Continue CPAP. Plan Discussion Notes I discussed with the patient the plan for managing atrial fibrillation, including the upcoming ablation procedure scheduled for February. We reviewed the risks associated with the current medication Amiodarone, emphasizing the need to discontinue it post-procedure due to potential side effects. The patient was advised on lifestyle modifications to support weight management and reduce cardiac stress. We also discussed the importance of monitoring potassium levels, with plans for additional labs before the procedure. Patient was informed and verbally consented to the use of an ambient scribe for clinic note documentation during this visit. Patient Instructions: - Schedule and prepare for the ablation procedure in February. - Reduce nighttime eating and increase physical activity to manage weight. - Increase dietary potassium intake and follow up with labs before the procedure. Coding Level of Care Code Est Pt Level 4 (34966) Complex EM visit Add On G2211 Diagnoses PAF (paroxysmal atrial fibrillation) I48.0 Chronic diastolic (congestive) heart failure I50.32 Morbid obesity E66.01 TANO on CPAP G47.33; Z99.89
[2025-01-25 08:26] VITALS: BP 128/62; PULSE 69; BMI 42.1
== END 2025-01-25 08:45 | disposition home or self-care (01) ==
LOC: HO.HCS 08:03
PROVIDERS: PCP Internal Medicine; Visit Provider Internal Medicine
DX: I48.0 Paroxysmal atrial fibrillation (principal); I50.32 Chronic diastolic (congestive) heart failure; E66.01 Morbid (severe) obesity due to excess calories; G47.33 Obstructive sleep apnea (adult) (pediatric); Z99.89 Dependence on other enabling machines and devices
CPT/HCPCS: 99214; G2211

== ENCOUNTER → 2025-01-25 08:03 | Outpatient (BNVA) | payer MEDICARE, SELFPAY | PROVIDERS: PCP Internal Medicine; Visit Provider Internal Medicine | DX: I48.0 Paroxysmal atrial fibrillation (principal); I50.32 Chronic diastolic (congestive) heart failure; E66.01 Morbid (severe) obesity due to excess calories; G47.33 Obstructive sleep apnea (adult) (pediatric); Z99.89 Dependence on other enabling machines and devices; Z68.41 Body mass index [BMI] 40.0-44.9, adult | CPT/HCPCS: 99212 ==

== ENCOUNTER 2025-01-25 19:31 | Inpatient (IN) | payer MEDICARE, SELFPAY ==
[2025-01-25] VITALS (7 sets, daily range): BP systolic 132–152; BP diastolic 52–68; PULSE 97–104; RESP 17–27; TEMP 36.7–39.3; O2SAT 96; BMI 43.6
--- NOTE | 2025-01-25 | ECG_ITS ---
Test Reason : WEAKNESS Blood Pressure : */* mmHG Vent. Rate : 101 BPM Atrial Rate : 101 BPM P-R Int : 198 ms QRS Dur : 114 ms QT Int : 386 ms P-R-T Axes : 19 114 7 degrees QTcB Int : 500 ms Sinus tachycardia Right axis deviation Possible Left atrial enlargement Possible Right ventricular hypertrophy Abnormal ECG When compared with ECG of 29-Oct-2024 10:40, QT has lengthened Referred By: Angel Sol Electronically Signed By: Trino Sanchez
--- NOTE | ~2025-01-25 | XR_ITS ---
CLINICAL HISTORY: fever, unknown source Exam: AP portable chest x-ray. Comparison: December 01, 2024. Findings: Lungs are hypoinflated. Cardiac silhouette is within normal limits for degree of inflation. No focal areas of consolidation. No pleural effusion or pneumothorax. Impression: Hypoinflation without acute infiltrate. This document has been electronically signed by: Louie Penny MD on 01/25/2025 20:51:02
--- NOTE | ~2025-01-25 | US_ITS ---
EXAMINATION: US TRIPLEX LOWER EXTREMITY, RIGHT CLINICAL INFORMATION: Edema, right lower extremity. COMPARISON: None available. TECHNIQUE: Color-flow triplex imaging with spectral analysis and compression Doppler were performed on the right lower extremity. FINDINGS: Respiratory variation, normal compression and augmented flow are demonstrated in the interrogated right common femoral vein, superficial femoral vein, profunda femoral vein, popliteal vein and midcalf peroneal and posterior tibial venous segments. There is no Castellanos's cyst. Edema pattern in the soft tissues without fluid collections. US/US venous duplex LE RT IMPRESSION: No acute deep venous thrombosis interrogated veins, right lower extremity. Negative for DVT. . Electronically signed by: Juno Hong MD 01/26/2025 10:35 AM EDT
--- NOTE | ~2025-01-25 | CT_ITS ---
CLINICAL HISTORY: Sepsis undefined source CT abdomen and pelvis without contrast Comparison: CT/SR - CT ABDOMEN PELVIS W IV CON - 10/27/24 02:54 EDT Findings: Atelectasis. Gynecomastia. Distended gallbladder. No gallstones. Bilateral perinephric stranding, nonspecific. Nonobstructive 1.1 cm right lower pole renal calculus. Left-sided hypodense renal cysts. Redemonstrated gastric lap band in stable position below the diaphragm associated tubing. Mitral annular calculus and aortic valve calcifications. Central mesenteric fat stranding with prominent lymph nodes, suggestive of mesenteric panniculitis. Fat containing inguinal hernias. Prominent inguinal nodes, may be reactive. Normal appendix. Prostatomegaly noted. Scattered colonic diverticulosis without diverticulitis or colitis. Chronic appearing right-sided rib fractures with nonunion. Osteopenia with diffuse multilevel spondylosis. Thoracic diffuse idiopathic skeletal hyperostosis. IMPRESSION: 1. Mild mesenteric panniculitis. 2. Nonobstructive 1.1 cm right lower pole renal calculus. This document has been electronically signed by: Isai Grimm MD on 01/25/2025 21:54:11
--- NOTE | 2025-01-25 19:45 | ED.WEAKNESS ---
HPI - Weakness General Chief complaint: Weakness Stated complaint: SUDDEN ONSET LETHARGY, CONSTANT YAWNING Time Seen by Provider: 01/25/25 19:38 History of Present Illness ED Provider: Angel Sol MD HPI Narrative: 69-year-old male with a history of AFib felt generalized malaise and unwell subjective fever today had [facility] hours [facility]. No cough. Related Data Home Medications ?Medication ?Instructions ?Recorded ?Confirmed atorvastatin 10 mg tablet 10 mg PO DAILY 09/11/20 01/26/25 sildenafil 50 mg tablet 50 mg PO DAILY PRN sexual 04/02/21 01/26/25 dysfunction acetaminophen 500 mg tablet 1,000 mg PO Q6H PRN Pain 10/27/24 01/26/25 bumetanide 1 mg tablet 1 mg PO DAILY@1500 PRN INCREASED 01/26/25 01/26/25 SHORTNESS OF BREATH OR LEG SWELLING. fpyeqsps-lke-lcyvb acid 200 1 tab PO DAILY 01/26/25 01/26/25 mcg-vit K1 60 mcg-lycopene 600 mcg tablet (Men's Multivitamin) Previous Rx's ?Medication ?Instructions ?Recorded apixaban 5 mg tablet (Eliquis) 5 mg PO BID 30 days #60 tabs 03/16/22 diltiazem HCl 360 mg 360 mg PO DAILY 90 days #90 caps 04/05/24 capsule,extended release 24 hr bumetanide 1 mg tablet 1 mg PO DAILY 90 days #135 tabs 11/05/24 empagliflozin 10 mg tablet 10 mg PO DAILY #90 tabs 11/05/24 (Jardiance) amiodarone 200 mg tablet 200 mg PO DAILY #90 tabs 11/11/24 Allergies Allergy/AdvReac Type Severity Reaction Status Date / Time dextromethorphan Allergy Severe ITCHY Verified 01/25/25 19:37 (DEXTROMETHORPHAN) SWELLING SOB shellfish derived Allergy Severe ANAPHYLAXIS Verified 01/25/25 19:37 [facility] Past Medical History Medical History PAF (paroxysmal atrial fibrillation) ALEXUS (acute kidney injury) TANO on CPAP Morbid obesity Leukocytosis Gastritis COVID-19 vaccine series completed Obesity Chronic venous insufficiency Osteoarthritis TANO on CPAP Osteoarthritis of left knee Hypertension High cholesterol Surgical History History of orthopedic surgery Hx of colonoscopy History of right knee surgery LAP-BAND surgery status Family History Family History Father Myocardial infarct Mother No problems noted. Brother Myocardial infarct Social History Social History [facility] Members: [facility] Are you a primary regular senior care provider to a significant other at home: No Do you presently have visiting nurse or other home services: No Alcohol intake: never Patient Tobacco Use Status: Never used Tobacco Smoked in Last 30 Days: No e-Cigarette/Vaping Use: Never Used Use of substances other than those prescribed or required for medical reasons: No Advance Directives: No Advance Directives Information Provided: No Do you have a plan to hurt others: No Plan Nutrition Risks: No Nutritional Risk service: No Current occupational status: 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 Head: Atraumatic Eyes: Anicteric, Normal conjunctiva. ENT: Moist mucosa, no pallor. ? Neck: Supple. Skin: ?No observable rash or bruising on exposed or examined skin erythema and warmth from the proximal ankle to just below the knee no skin breakdown Respiratory: Breathing comfortably, No distress.Clear to auscultation bilaterally, symmetric chest expansion, No wheeze, rales, ronchi. Cardiovascular: Regular rate and rhythm. No murmurs or rub. Well perfused periphery, warm extremities. Chronic bilateral leg edema right slightly greater than left with warmth in the macario no breaks in the skin Abdominal: Obese, No focal tenderness. Soft, no objective distension. No palpable masses or obvious organomegaly. ?No guarding, no rebound tenderness or other peritoneal findings. : No flank tenderness. Neuro: Alert. Gross movement of all extremities intact. ? Psych: Calm. Cooperative. MSK: No grossly visible deformity. Vital signs: See flowsheet Vital Signs: Vital Signs: Last Vital Signs Temp 99.1 F 01/26/25 13:47 Pulse 94 01/26/25 13:47 Resp 18 01/26/25 13:47 BP 128/60 01/26/25 13:47 Pulse Ox 94 01/26/25 13:47 O2 Del Method Room Air 01/26/25 13:47 BMI result Body Mass Index 43.6 Medications Administered Generic Name Dose Route Start Last Admin Trade Name Devante PRN Reason Stop Dose Admin Amiodarone HCl 200 mg 01/26/25 11:30 01/26/25 12:41 Amiodarone Hcl 200 Mg Tablet PO 200 mg DAILY NGA Administration Apixaban 5 mg 01/26/25 09:00 01/26/25 09:59 Apixaban 5 Mg Tablet PO 5 mg BID NGA Administration Diltiazem HCl 360 mg 01/26/25 11:30 01/26/25 12:40 Diltiazem Hcl Cd 180 Mg Cap.Er.24h PO 360 mg DAILY NGA Administration Protocol Empagliflozin 10 mg 01/26/25 11:30 01/26/25 12:40 Empagliflozin 10 Mg Tablet PO 10 mg DAILY NGA Administration Piperacillin Sod/Tazobactam 50 mls @ 100 mls/hr 01/26/25 02:30 01/26/25 14:33 Sod 3.375 gm/ Sodium Chloride IV Infused Q6H NGA Infusion Vancomycin HCl 750 mg/ Sodium 265 mls @ 265 mls/hr 01/26/25 09:00 01/26/25 11:55 Chloride IV Infused Q12H NGA Infusion Ondansetron HCl 4 mg 01/26/25 00:47 01/26/25 04:41 Ondansetron Hcl 4 Mg/2 Ml Vial IVPUSH 4 mg Q8H PRN Administration Nausea and Vomiting Oxycodone HCl 5 mg 01/26/25 00:47 01/26/25 04:41 Oxycodone Hcl Immed Release 5 Mg Tablet PO 5 mg Q6H PRN Administration Pain, Severe (Pain Scale 7-10) Sodium Chloride 3 ml 01/26/25 08:00 01/26/25 14:11 0.9 % Sodium Chloride Flush 3 Ml Syringe IVFLUSH 3 ml QSHIFT NGA Administration Discontinued Medications Generic Name Dose Route Start Last Admin Trade Name Devante PRN Reason Stop Dose Admin Sodium Chloride 500 mls @ 999 mls/hr 01/25/25 19:45 01/25/25 20:25 Ns IV 01/25/25 20:15 Infused .Q31M NGA Infusion Piperacillin Sod/Tazobactam 50 mls @ 100 mls/hr 01/25/25 20:12 01/25/25 21:03 Sod 3.375 gm/ Sodium Chloride IV 01/25/25 20:41 Infused ONCE ONE Infusion Vancomycin HCl 2,000 mg in 500 mls @ 250 mls/hr 01/25/25 20:29 01/25/25 22:44 Vancomycin/Ns IV 01/25/25 22:28 Infused ONCE ONE Infusion Acetaminophen 1,000 mg in 100 mls @ 400 mls/hr 01/25/25 20:57 01/25/25 21:31 Ofirmev IV 01/25/25 21:11 Infused ONCE ONE Infusion Medical Decision Making Medical Decision Making MDM Narrative: Medical Decision Making: [age] male with abrupt onset of fever initially he endorsed no focal symptomatology but later revealed recurrence of right leg redness consistent with cellulitis. Broad workup was initiated upon arrival when he met SIRS/sepsis criteria. Never hypotensive. Lactate not elevated significantly. Blood cultures drawn antibiotics initiated intravenously. DVT excluded with point of care ultrasound right lower extremity. Preliminary Favored Differential Diagnosis: Sepsis, pneumonia, intra-abdominal infection, leg cellulitis, acute on chronic lymphedema, DVT among additional considered etiologies Testing Interpreted Independently: See ultrasound report above ECG sinus tachycardia rate 101 QTC 500, similar compared to 10/29/2024 Radiology or Lab testing Results Reviewed: Leukocytosis. No significant lactate elevation. ALEXUS Consults: Not Applicable Independent Historians/External Chart Reviews: Not Applicable Social Determinants of Health Impacting MDM/Planning: Not Applicable Consult Healthcare Provider Management of the patient was discussed with: Hospitalist Lab Data MDM Lab Attestation statement: I reviewed the patient's lab results. 01/26/25 03:11 01/26/25 03:11 Labs: Lab Results 01/25/25 01/25/25 01/25/25 Range/Units 19:55 19:58 20:07 WBC 22.8 H (4.8-10.8) X10*3/uL RBC 4.86 (4.60-5.80) X10*6/uL Hgb 14.2 (14.0-18.0) g/dl Hct 43.1 (42.0-52.0) % MCV 88.7 (80.0-98.0) fL MCH 29.2 (27.0-33.0) pg MCHC 32.9 (31.0-36.0) g/dl RDW 13.6 (11.0-16.0) % Plt Count 205 (160-400) X10*3/uL MPV 10.4 (9.4-12.4) fL Immature Gran % (Auto) 0.5 H (0.0-0.4) % Neut % (Auto) 90.4 H (45-73) % Lymph % (Auto) 3.6 L (20-40) % [place] % (Auto) 5.0 (2-11) % Eos % (Auto) 0.1 (0-4) % Baso % (Auto) 0.4 (0-2) % Lymph # (Auto) 0.8 L (1.2-4.9) X10*3/uL [place] # (Auto) 1.1 (0.1-1.2) X10*3/uL Eos # (Auto) 0.0 (0.0-0.4) X10*3/uL Baso # (Auto) 0.1 (0.0-0.2) X10*3/uL Abs Immat Gran (auto) 0.12 H (0.00-0.03) X10*3/uL Absolute Neuts (auto) 20.6 H (2.0-8.3) x10*3/uL Absolute Nucleated RBC 0.000 (0.0-0.012) X10*3/uL Nucleated RBC % (auto) 0.0 (0.0-0.2) /100WBC Smear Tech's Comments VERIFIED PT 12.7 H (10.9-12.4) SEC INR 1.1 (0.9-1.1) APTT 28.4 (26.7-34.1) SEC Sodium 141 (135-145) mmol/L Potassium 3.9 (3.3-5.1) mmol/L Chloride 105 (96-108) mmol/L Carbon Dioxide 25 (22-29) mmol/L Anion Gap 15 (12-20) BUN 19 H (9-16) mg/dL Creatinine 1.43 H (0.5-1.4) mg/dL Estim Creat Clear Calc 67.2 Estimated GFR 49 Random Glucose 110 (60-115) mg/dL Estimat Average Glucose 108 mg/dL Hemoglobin A1c % 5.4 (<6.0) % Lactic Acid 1.4 (0.5-2.0) mmol/L Calcium 9.0 D (8.4-10.2) mg/dL Magnesium 1.8 (1.6-2.6) mg/dL Total Bilirubin 0.7 (0.0-1.0) mg/dL AST 28 (5-37) U/L ALT 22 (0-40) U/L Alkaline Phosphatase 96 (39-117) U/L Troponin I High Sens 4.6 D (<3.5-35.0) ng/L B-Natriuretic Peptide 17 (<100) pg/mL Total Protein 7.3 (6.5-8.0) g/dL Albumin 4.5 (3.5-5.0) g/dL Procalcitonin 0.07 ng/mL Urine Color Yellow Urine Appearance Clear Urine pH 7.0 (5.0-9.0) Ur Specific Randolph 1.025 (1.005-1.025) Urine Protein Negative (Neg-Trace) mg/dL Urine Glucose (UA) >=1000 H (Negative) mg/dL Urine Ketones 15 (Negative) mg/dL Urine Blood Negative (Negative) Urine Nitrite Negative (Negative) Ur Leukocyte Esterase Negative (Negative) Urine RBC 0-2 (0-2) /HPF Urine WBC 0-5 (0-5) /HPF Ur Squamous Epith Cells 0-2 (0-2) /HPF Urine Bacteria None Seen (None Seen) Hyaline Casts 0-2 (0-2) /LPF Influenza Type A (PCR) NEGATIVE (Negative) Influenza Type B (PCR) NEGATIVE (Negative) RSV RNA Qual (PCR) NEGATIVE (Negative) SARS-CoV-2 RNA (RT-PCR) NEGATIVE (Negative) Procedures Procedure Narrative Procedure Narrative: EMERGENCY ULTRASOUND INTERPRETATION-Limited Point of Care Venous (DVT) [This study was ordered, performed, and interpreted by myself. The study reveals: Impression: NO EVIDENCE OF DVT. I RECOMMENDED TO THE PATIENT REPEAT ULTRASOUND IN ONE WEEK IF SYMPTOMS PERSIST.] [Indication: Laterality: RIGHT Common Femoral: -Full Compressibility: YES -Clot Seen: NO Superficial Femoral: -Full Compressibility: YES -Clot Seen: NO Popliteal: -Full Compressibility: YES -Clot Seen: NO Other: Performed by: Angel Sol MD Images were stored CPT: 69087] Critical Care Time Critical Care Time Critical Care Time: Yes Total Critical Care Time: 30 Attestation: ED Critical Care: Sepsis Authorized and Performed by: Angel Sol MD Total critical care time: Approximately 30 Due to a high probability of clinically significant, life threatening deterioration, the patient required my highest level of preparedness to intervene emergently and I personally spent this critical care time directly and personally managing the patient. This critical care time included obtaining a history; examining the patient; pulse oximetry; ordering and review of studies; arranging urgent treatment with development of a management plan; evaluation of patient's response to treatment; frequent reassessment; and, discussions with other providers. This critical care time was performed to assess and manage the high probability of imminent, life-threatening deterioration that could result in multi-organ failure. It was exclusive of separately billable procedures and treating other patients and teaching time. Discharge Plan Discharge Clinical Impression: Cellulitis Patient Disposition: Admitted As Inpatient Interventions: Admission Worksheet (ED) Last Done: 01/26/25 11:06
[2025-01-25 20:04] LABS: Hematocrit 43.1 % (42.0-52.0); Hemoglobin 14.2 g/dl (14.0-18.0); Imm Gran Abs Auto 0.12 X10*3/uL (0.00-0.03); Imm Gran Pct Auto 0.5 % (0.0-0.4); Lymphocytes Absolute Auto 0.8 X10*3/uL (1.2-4.9); MANUAL DIFF FLAG SCAN; Mean Corpuscular HGB Conc 32.9 g/dl (31.0-36.0); Mean Corpuscular Hemoglobin 29.2 pg (27.0-33.0); Mean Corpuscular Volume 88.7 fL (80.0-98.0); NRBC Abs Auto 0.000 X10*3/uL (0.0-0.012); NRBC Pct Auto 0.0 /100WBC (0.0-0.2); Platelet Count 205 X10*3/uL (160-400); Red Blood Count 4.86 X10*6/uL (4.60-5.80); SCAN SMEAR FLAG 1; White Blood Count 22.8 X10*3/uL (4.8-10.8)
[2025-01-25 20:11] LABS: INTERNATIONAL NORM RATIO 1.1 (0.9-1.1); Prothrombin Time 12.7 SEC (10.9-12.4)
[2025-01-25 20:14] LABS: Partial Thromboplastin Time 28.4 SEC (26.7-34.1)
[2025-01-25 20:14] LABS: Appearance Urine Clear; Glucose Urine UA >=1000 mg/dL (Negative); PH 7.0 (5.0-9.0); Specific Gravity - Urine 1.025 (1.005-1.025); UMIC TRIGGER UACC YES
[2025-01-25 20:25] LABS: B Type Natriuretic Peptide 17 pg/mL (<100)
[2025-01-25 20:26] LABS: Alanine Aminotransferase 22 U/L (0-40); Albumin Level 4.5 g/dL (3.5-5.0); Alkaline Phosphatase 96 U/L (39-117); Anion Gap 15 (12-20); Aspartate Amino Transferase 28 U/L (5-37); Blood Urea Nitrogen 19 mg/dL (9-16); Calcium 9.0 mg/dL (8.4-10.2); Carbon Dioxide 25 mmol/L (22-29); Chloride 105 mmol/L (96-108); Creatinine Clr Calc Pharmacy 67.2; Estimated Glomerular Filt Rate 49; Magnesium 1.8 mg/dL (1.6-2.6); Potassium 3.9 mmol/L (3.3-5.1); Sodium 141 mmol/L (135-145); Total Protein 7.3 g/dL (6.5-8.0); Troponin-I High Sensitivity 4.6 ng/L (<3.5-35.0)
[2025-01-25 20:40] LABS: Procalcitonin 0.07 ng/mL
[2025-01-25 20:43] LABS: Resp Syncy Virus RNA Qual PCR NEGATIVE (Negative); SARS COV2 PCR INHOUSE NEGATIVE (Negative)
[2025-01-25] MEDS: vancomycin/NS 2,000 MG/500 ML PLAST..BAG 250 MG IV (20:44)
--- NOTE | 2025-01-25 20:58 | PC.NURSE ---
pt biba from home c/o sudden onset weakness x 1730. pt reports being at [facility] when he started feeling weak/had trouble ambulating. pt also reports max temperature of 100.5 today - took tylenol w/ relief. pt denies any chest pain/palpitations/sob/dizziness/lightheadedness. upon ED arrival - pt a&ox4. answering questions/following commands appropriately. vss and up to date aside from being sinus tachycardic on the monitor. rectal temperature obtained as pt was seemingly hot to the touch - rectal temp displayed 102.8. provider notified/aware of all results d/t pt meeting SIRS criteria. bilateral 18gIVs placed in the ACs - labs obtained/sent to lab. IVF/abx administered per provider order. pt otherwise on RA w/o difficulty. no sob/wob noted. respirations even/unlabored. family bedside for support. plan of care ongoing. call collazo placed within reach.
[2025-01-26] VITALS (8 sets, daily range): BP systolic 107–141; BP diastolic 49–63; PULSE 78–94; RESP 14–24; TEMP 36.8–37.6; O2SAT 94–98; BMI 43.6
--- NOTE | 2025-01-26 00:15 | P.HPHOSP_ITS ---
History of Present Illness Date of Service: 01/25/25 Attending physician on admission: Hema Hutchinson Chief Complaint: malaise, fever Patient is a 69-year-old male with a past medical history significant for paroxysmal AFib on Eliquis, TANO on CPAP, HTN, HLD, morbid obesity, who presented to the ED due to malaise and fever. The patient reports this came on suddenly. He denies any chest pain, shortness of breath, cough, abdominal pain, nausea, vomiting or urinary symptoms. While in the ED he mentioned that his right lower extremity was having pain due to the sock was wearing, when this was lowered was found to have right lower extremity cellulitis. No purulent drainage or signs of of trauma. The patient reports that he has been spending time outdoors and feels he may have had a mosquito bite that started this. He denies any tick bites. Review of Systems 2 Constitutional: Constitutional: Denies body ache(s), Reports chills, Denies fatigue, Reports fever(s) and Denies headache(s) Eyes: Eyes: Denies change in vision ENT: Denies headache(s), Denies nasal congestion and Denies sore throat Cardiovascular: Cardiovascular: Denies chest pain, Denies rapid heart rate, Denies lightheadedness and Denies dyspnea Respiratory: Respiratory: Denies chest congestion, Denies cough, Denies dyspnea and Denies wheezing Gastrointestinal: Gastrointestinal: Denies abdominal pain, Denies diarrhea, Denies nausea and Denies vomiting Genitourinary: Genitourinary: Denies dysuria and Denies urinary urgency Musculoskeletal: Musculoskeletal: Denies myalgias Integumentary/Breasts: Skin/Breast: Reports as per HPI Neurologic: Denies confusion and Denies headache(s) Psychiatric: Psychiatric: Denies confusion Endocrine: Endocrine: Denies fatigue Hematologic/Lymphatic: Hematologic/Lymphatic: Denies easy bleeding and Denies easy bruising Allergic/Immunologic: Allergic/Immunologic: Denies wheezing PMFSH Medical History PAF (paroxysmal atrial fibrillation) ALEXUS (acute kidney injury) TANO on CPAP Morbid obesity Leukocytosis Gastritis COVID-19 vaccine series completed Obesity Chronic venous insufficiency Osteoarthritis TANO on CPAP Osteoarthritis of left knee Hypertension High cholesterol Family History Father Myocardial infarct Mother No problems noted. Brother Myocardial infarct Surgical History History of orthopedic surgery Hx of colonoscopy History of right knee surgery LAP-BAND surgery status Social History Household Members: None Housing: Condominium Are you a primary plant health care technician to a significant other at home: No Do you presently have visiting nurse or other home services: No Alcohol intake: never Patient Tobacco Use Status: Never used Tobacco Smoked in Last 30 Days: No e-Cigarette/Vaping Use: Never Used Use of substances other than those prescribed or required for medical reasons: No Advance Directives: No Advance Directives Information Provided: No Do you have a plan to hurt others: No Plan service: No Current occupational status: 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 Narrative: no smoking, etoh or drug use Meds Allergies Allergy/AdvReac Type Severity Reaction Status Date / Time dextromethorphan Allergy Severe ITCHY Verified 01/25/25 19:37 (DEXTROMETHORPHAN) SWELLING SOB shellfish derived Allergy Severe ANAPHYLAXIS Verified 01/25/25 19:37 Home Medications ?Medication ?Instructions ?Recorded ?Confirmed ?Last Taken ?Type atorvastatin 10 mg tablet 10 mg PO DAILY 09/11/20/08/1010/26/24 History epinephrine 0.3 mg/0.3 mL 0.3 ml IM DAILY PRN Allergic 09/11/20 01/25/25 10/26/24 History injection, auto-injector Reaction sildenafil 50 mg tablet 50 mg PO DAILY PRN sexual 01/25/25 10/26/24 History dysfunction acetaminophen 500 mg tablet 1,000 mg PO Q6H PRN Pain 0 10/27/24 01/25/25 10/26/24 History Physical Exam 2 Vital Signs and Narrative: Vital Signs: Last Vital Signs Temp 102.0 F H 01/25/25 22:04 Pulse 97 01/25/25 22:57 Resp 18 01/25/25 22:57 BP 132/67 01/25/25 22:57 Pulse Ox 96 01/25/25 22:57 O2 Del Method Room Air 01/25/25 22:57 BMI result Body Mass Index 43.6 General: AOx3, no acute distress Resp: CTA bilaterally CVS: S1, S2, RRR GI: +BS, NT, no distention Skin: Warm, dry. erythematous and warm RLE Neuro: Cranial nerves II-XII grossly intact bilaterally. Motor grossly intact bilaterally Extremities: No pitting edema Psych: Appropriate affect Const: General: No confusion Orientation/consciousness: No confusion Neuro: General: No confusion Results Labs 01/25/25 19:55 01/25/25 19:55 Labs: Laboratory Results - last 24 hr 01/25/25 01/25/25 01/25/25 19:55 19:58 20:07 MCV 88.7 MCH 29.2 MCHC 32.9 RDW 13.6 Plt Count 205 MPV 10.4 Immature Gran % (Auto) 0.5 H Neut % (Auto) 90.4 H Lymph % (Auto) 3.[address] [place] % (Auto) 5.0 Eos % (Auto) 0.1 Baso % (Auto) 0.4 Lymph # (Auto) 0.[address] [place] # (Auto) 1.1 Eos # (Auto) 0.0 Baso # (Auto) 0.1 Abs Immat Gran (auto) 0.12 H Absolute Neuts (auto) 20.6 H Absolute Nucleated RBC 0.000 Nucleated RBC % (auto) 0.0 Smear Tech's Comments VERIFIED PT 12.7 H INR 1.1 APTT 28.4 Anion Gap 15 Estim Creat Clear Calc 67.2 Estimated GFR 49 Random Glucose 110 Lactic Acid 1.4 Calcium 9.0 D Magnesium 1.8 Total Bilirubin 0.7 AST 28 ALT 22 Alkaline Phosphatase 96 B-Natriuretic Peptide 17 Total Protein 7.3 Albumin 4.5 Procalcitonin 0.07 Urine Color Yellow Urine Appearance Clear Urine pH 7.0 Ur Specific [place] 1.025 Urine Protein Negative Urine Glucose (UA) >=1000 H Urine Ketones 15 Urine Blood Negative Urine Nitrite Negative Ur Leukocyte Esterase Negative Urine RBC 0-2 Urine WBC 0-5 Ur Squamous Epith Cells 0-2 Urine Bacteria None Seen Hyaline Casts 0-2 Influenza Type A (PCR) NEGATIVE Influenza Type B (PCR) NEGATIVE RSV RNA Qual (PCR) NEGATIVE SARS-CoV-2 RNA (RT-PCR) NEGATIVE Assessment and Plan (1) Acute cellulitis: Status: Acute (2) Sepsis: Qualifiers: Sepsis acute organ dysfunction status: without acute organ dysfunction Sepsis type: sepsis due to unspecified organism Qualified Code(s): A41.9 - Sepsis, unspecified organism Status: Acute (3) Morbid obesity: Status: Acute Plan Patient is a 69-year-old male with a past medical history significant for paroxysmal AFib on Eliquis, TANO on CPAP, HTN, HLD, morbid obesity, who presented to the ED due to malaise and fever. sepsis secondary to RLE cellulitis - WBC 22.8, tachycardic, tachypneic, T-max of 102.8 degrees, lactic acid normal, blood cultures x2 pending, not severe sepsis - chest x-ray negative - abdominopelvic CT with mild mesenteric panniculitis. Patient not having abdominal pain - procalcitonin normal - EKG with sinus tachycardia - UA negative - COVID/flu/RSV negative - bedside ultrasound negative for DVT. order RLE venous dopplar - patient given 1 L NS in ED, blood pressure stable - started on vancomycin and Zosyn, continue - check lyme and tick panel - monitor CBC and BMP CKD 3 - creatinine 1.43, elevated from baseline but not true ALEXUS - patient did receive 1 L IV fluids in ED - avoid nephrotoxins - monitor BMP Glucosuria - check A1c - random glucose normal - patient denies diagnosis of diabetes Paroxysmal AFib - EKG with sinus tachycardia - continue home meds including Eliquis HTN - continue home meds HLD - continue home meds TANO - CPAP at bedtime Morbid obesity - BMI 43.6 - weight loss encouraged Med rec pending Full code VTE prophylaxis: Eliquis Patient with sepsis secondary to cellulitis, requiring admission for at least 2 midnights stay for IV antibiotics and monitoring. Quality Stroke Does the patient have a stroke diagnosis?: No VTE Prior VTE?: No VTE Risk Level:: Medical - moderate - high VTE Device Contraindication: Treatment Not Indicated VTE Drug Contraindication: N/A - Med Ordered
--- NOTE | 2025-01-26 00:51 | PC.NURSE ---
pt resting in bed, no sign of distress at this time.
[2025-01-26] MEDS: oxyCODONE HCl Immed Release 5 MG TABLET PO (04:41)
--- NOTE | 2025-01-26 05:01 | PC.NURSE ---
pt medicated per mar.
[2025-01-26 05:06] LABS: Hematocrit 42.4 % (42.0-52.0); Hemoglobin 13.5 g/dl (14.0-18.0); Imm Gran Abs Auto 0.42 X10*3/uL (0.00-0.03); Imm Gran Pct Auto 1.3 % (0.0-0.4); Lymphocytes Absolute Auto 0.6 X10*3/uL (1.2-4.9); MANUAL DIFF FLAG SCAN; Mean Corpuscular HGB Conc 31.8 g/dl (31.0-36.0); Mean Corpuscular Hemoglobin 28.7 pg (27.0-33.0); Mean Corpuscular Volume 90.2 fL (80.0-98.0); NRBC Abs Auto 0.000 X10*3/uL (0.0-0.012); NRBC Pct Auto 0.0 /100WBC (0.0-0.2); Platelet Count 203 X10*3/uL (160-400); Red Blood Count 4.70 X10*6/uL (4.60-5.80); SCAN SMEAR FLAG 1
[2025-01-26 05:17] LABS: Hemoglobin A1C 133.7405 umol/L; Total Hemoglobin (HGBA1C) 3767.1424 umol/L
[2025-01-26 05:21] LABS: White Blood Count 33.2 X10*3/uL (4.8-10.8)
[2025-01-26 05:28] LABS: Anion Gap 19 (12-20); Blood Urea Nitrogen 19 mg/dL (9-16); Calcium 8.5 mg/dL (8.4-10.2); Carbon Dioxide 21 mmol/L (22-29); Chloride 106 mmol/L (96-108); Creatinine Clr Calc Pharmacy 72.8; Estimated Glomerular Filt Rate 54; Potassium 3.3 mmol/L (3.3-5.1); Sodium 143 mmol/L (135-145)
--- NOTE | 2025-01-26 06:22 | PC.NURSE ---
right leg dominique for increase swelling and redness, updated photos sent to Dr. Da Silva, positive cms and pulse. leg elevated.
--- NOTE | 2025-01-26 08:04 | PHA.PROG ---
Admission Date/Time: January 25, 2025 22:56 Indication: Sepsis Weight in k.892 kg Serum Creatinine - Last 168 Hours 01/25/25 01/26/25 19:55 03:11 Creatinine 1.43 H 1.32 Estimated CrCl and GFR - Last 168 Hours 01/25/25 01/26/25 19:55 03:11 Estim Creat Clear Calc 67.2 72.8 Estimated GFR 49 54 Vancomycin Loading Dose: 2,000 mg Current Vancomycin Dosing Regimen: 750 mg q12h Vancomycin Monitoring using AUC goal of 400 - 600 range with trough as surrogate marker: 469, 15.9 trough Date and Time for next Vancomycin Level to be drawn: 01/27 @ 0700 Pharmacist Comments on Vancomycin Plan: Vancomycin dosing will take advantage of [employer] as a clinical decision support tool that uses Bayesian modeling to calculate individual patient's pharmacokinetic parameters and forecast the patient's drug concentration time course with the target goal AUC 24 range of 400 - 600 mg/L/hr.
--- NOTE | 2025-01-26 09:42 | PHA.MEDREC ---
Addendum entered by José Miguel Hendricks, PharmD 01/26/25 11:18: MED REC CHECKED BY [facility] Original Note: Pharmacy Consult ? Medication Reconciliation Pharmacy has completed the medication reconciliation. Spoke with pt and he confirmed his medications. Pt confirmed he is no longer taking Furosemide and is now taking Bumetanide 1mg tabs daily and if needed he can repeat once for shortness of breath/leg swelling. Pt confirmed his Dr stopped the Sotalol back in October due to an EKG patient got but his results were not what his Dr was hoping and they stopped the Sotalol.
--- NOTE | 2025-01-26 11:35 | MHC.CM.PN ---
CM met with Patient at bedside,in the ED, and addressed IMM with him, providing Patient with the original and a copy will be placed on the chart. Patient lives alone and he is independent. Home/self care is the goal and CM has initiated and will follow for dc planning. PCP is Dr. Wilian Wood and Son will transport to home at time of dc.
[2025-01-26] MEDS: dilTIAZem HCL CD 180 MG CAP.ER.24H 360 MG PO (12:40)
--- NOTE | 2025-01-26 14:09 | PC.NURSE ---
Pt A&O X4 VSS watching television. Denies complaints NAD- IV abx infusing.
[2025-01-26] MEDS: 0.9 % Sodium Chloride Flush 3 ML SYRINGE IVFLUSH ×3 (14:11→20:12)
--- NOTE | 2025-01-26 18:37 | HO.PM.IMPN ---
Subjective Subjective Date of Service: 01/26/25 Interval History: leg cellulitis Review of Systems seems erytema simialr no fevers Review of Systems: Yes all other systems are reviewed and are negative Physical Exam Exam: Exam: Appearance: Alert.? Oriented X3.? cvs: rrr, [id number] . res: clear to auscultation ,no rhonchii or wheezing abd: no rebound or guarding ,nt, bs present. ext -right leg erythema /mild discomfort neuro: axo3 , nonfocal. Vital Signs: Vital Signs: Last Vital Signs Temp 99.2 F 01/26/25 15:30 Pulse 88 01/26/25 15:30 Resp 18 01/26/25 15:30 BP 139/63 01/26/25 15:30 Pulse Ox 95 01/26/25 15:30 O2 Del Method Room Air 01/26/25 15:30 BMI result Body Mass Index 43.6 Objective Data Active Medications Acetaminophen (Acetaminophen 325 Mg Tablet) 975 mg PO Q6H PRN PRN Reason: Pain, Mild 1-3,fever,headache Amiodarone HCl (Amiodarone Hcl 200 Mg Tablet) 200 mg PO DAILY [facility] Last Admin: 01/26/25 12:41 Dose: 200 mg Documented By: CARMEN Apixaban (Apixaban 5 Mg Tablet) 5 mg PO BID [facility] Last Admin: 01/26/25 09:59 Dose: 5 mg Documented By: CARMEN Atorvastatin Calcium (Atorvastatin Calcium 10 Mg Tablet) 10 mg PO DAILY [facility] Calcium Carbonate (Calcium Carbonate 750 Mg Tab.Chew) 750 mg PO Q4H PRN PRN Reason: Heartburn Clotrimazole (Clotrimazole 1 % Cream 15 Gm Tube) 1 appl TOPICAL BID [facility]; Protocol Diltiazem HCl (Diltiazem Hcl Cd 180 Mg Cap.Er.24h) 360 mg PO DAILY [facility]; Protocol Last Admin: 01/26/25 12:40 Dose: 360 mg Documented By: CARMEN Empagliflozin (Empagliflozin 10 Mg Tablet) 10 mg PO DAILY [facility] Last Admin: 01/26/25 12:40 Dose: 10 mg Documented By: CARMEN Clindamycin Phosphate (Cleocin) 900 mg in 50 mls @ 50 mls/hr IV Q8H [facility] Last Infusion: 01/26/25 18:14 Dose: Infused Documented By: EZIO Magnesium Hydroxide (Milk Of Magnesia 30 Ml Oral.Susp) 30 ml PO DAILY PRN PRN Reason: Constipation Melatonin (Melatonin 3 Mg Tablet) 6 mg PO BEDTIME PRN PRN Reason: Insomnia Multivitamins/Vitamin C (Multivitamin Tablet) 1 tab PO DAILY [facility] Ondansetron HCl (Ondansetron Hcl 4 Mg/2 Ml Vial) 4 mg IVPUSH Q8H PRN PRN Reason: Nausea and Vomiting Last Admin: 01/26/25 04:41 Dose: 4 mg Documented By: ISA Oxycodone HCl (Oxycodone Hcl Immed Release 5 Mg Tablet) 5 mg PO Q6H PRN PRN Reason: Pain, Severe (Pain Scale 7-10) Last Admin: 01/26/25 04:41 Dose: 5 mg Documented By: ISA Pharmacy Consult (Consult Rx Vancomycin Dosing) 1 each MISCELLANE DAILY PRN PRN Reason: Consult order Sodium Chloride (0.9 % Sodium Chloride Flush 3 Ml Syringe) 3 ml IVFLUSH [facility] Last Admin: 01/26/25 14:11 Dose: 3 ml Documented By: KAINA Tramadol HCl (Tramadol Hcl 50 Mg Tablet) 50 mg PO Q6H PRN PRN Reason: Pain, Moderate(Pain Scale 4-6) Labs 01/26/25 03:11 01/26/25 03:11 Labs: Laboratory Results - last 24 hr 01/25/25 01/25/25 01/25/25 19:55 19:58 20:07 MCV 88.7 MCH 29.2 MCHC 32.9 RDW 13.6 Plt Count 205 MPV 10.4 Immature Gran % (Auto) 0.5 H Neut % (Auto) 90.4 H Lymph % (Auto) 3.6 L [place] % (Auto) 5.0 Eos % (Auto) 0.1 Baso % (Auto) 0.4 Lymph # (Auto) 0.8 L [place] # (Auto) 1.1 Eos # (Auto) 0.0 Baso # (Auto) 0.1 Abs Immat Gran (auto) 0.12 H Absolute Neuts (auto) 20.6 H Absolute Nucleated RBC 0.000 Nucleated RBC % (auto) 0.0 Smear Tech's Comments VERIFIED PT 12.7 H INR 1.1 APTT 28.4 Anion Gap 15 Estim Creat Clear Calc 67.2 Estimated GFR 49 Random Glucose 110 Estimat Average Glucose 108 Hemoglobin A1c % 5.4 Lactic Acid 1.4 Calcium 9.0 D Magnesium 1.8 Total Bilirubin 0.7 AST 28 ALT 22 Alkaline Phosphatase 96 B-Natriuretic Peptide 17 Total Protein 7.3 Albumin 4.5 Procalcitonin 0.07 Urine Color Yellow Urine Appearance Clear Urine pH 7.0 Ur Specific [place] 1.025 Urine Protein Negative Urine Glucose (UA) >=1000 H Urine Ketones 15 Urine Blood Negative Urine Nitrite Negative Ur Leukocyte Esterase Negative Urine RBC 0-2 Urine WBC 0-5 Ur Squamous Epith Cells 0-2 Urine Bacteria None Seen Hyaline Casts 0-2 Influenza Type A (PCR) NEGATIVE Influenza Type B (PCR) NEGATIVE RSV RNA Qual (PCR) NEGATIVE SARS-CoV-2 RNA (RT-PCR) NEGATIVE 01/26/25 03:11 MCV 90.2 MCH 28.7 MCHC 31.8 RDW 13.8 Plt Count 203 MPV 11.2 Immature Gran % (Auto) 1.3 H Neut % (Auto) 92.9 H Lymph % (Auto) 1.7 L [place] % (Auto) 3.7 Eos % (Auto) 0.0 Baso % (Auto) 0.4 Lymph # (Auto) 0.6 L [place] # (Auto) 1.2 Eos # (Auto) 0.0 Baso # (Auto) 0.1 Abs Immat Gran (auto) 0.42 H Absolute Neuts (auto) 30.9 H Absolute Nucleated RBC 0.000 Nucleated RBC % (auto) 0.0 Smear Tech's Comments PT INR APTT Anion Gap 19 Estim Creat Clear Calc 72.8 Estimated GFR 54 Random Glucose 82 Estimat Average Glucose Hemoglobin A1c % Lactic Acid Calcium 8.5 Magnesium Total Bilirubin AST ALT Alkaline Phosphatase B-Natriuretic Peptide Total Protein Albumin Procalcitonin Urine Color Urine Appearance Urine pH Ur Specific [place] Urine Protein Urine Glucose (UA) Urine Ketones Urine Blood Urine Nitrite Ur Leukocyte Esterase Urine RBC Urine WBC Ur Squamous Epith Cells Urine Bacteria Hyaline Casts Influenza Type A (PCR) Influenza Type B (PCR) RSV RNA Qual (PCR) SARS-CoV-2 RNA (RT-PCR) Assessment and Plan (1) Cellulitis of leg, right: Status: Acute Assessment and Plan: 69-year-old male with a past medical history significant for paroxysmal AFib on Eliquis, TANO on CPAP, HTN, HLD, morbid obesity, who presented to the ED due to malaise and fever. sepsis secondary to RLE cellulitis WBC trending up. tachycardic/ tachypneic improved , no fevers ,lactic acid normal, blood cultures x2 pending, not severe sepsis chest x-ray negative, abdominopelvic CT with mild mesenteric panniculitis. Patient not having abdominal pain procalcitonin normal,EKG with sinus tachycardia UA negative,COVID/flu/RSV negative right leg dvt studies -negative check lyme and tick panel pending, blood culture pending plan: id rec : iv clindamycin,off iv vanco/zosyn - monitor CBC and BMP CKD 3 - creatinine 1.43, elevated from baseline but not true ALEXUS Creatinine improved to 1.3 - avoid nephrotoxins - monitor BMP Glucosuria - check A1c: 5.4 - random glucose normal - patient denies diagnosis of diabetes Paroxysmal AFib - EKG with sinus tachycardia - continue home meds including Eliquis HTN - continue home meds HLD - continue home meds TANO - CPAP at bedtime Morbid obesity - BMI 43.6 - weight loss encouraged Med rec pending Full code VTE prophylaxis: Eliquis Patient with sepsis secondary to cellulitis, requiring admission for at least 2 midnights stay for IV antibiotics and monitoring. Quality Stroke Does the patient have a stroke diagnosis?: No VTE Prior VTE?: No VTE Risk Level:: Medical - moderate - high VTE Device Contraindication: Treatment Not Indicated VTE Drug Contraindication: N/A - Med Ordered
[2025-01-26] MEDS: Clotrimazole 1 % Cream 15 GM TUBE 1 APPL TOPICAL (20:11)
--- NOTE | 2025-01-26 23:02 | W.PM.IDCN ---
History of Present Illness Data of Consult Service Date: 01/26/25 Requesting physician: Papi Gonzales Primary Care Provider: Wilian Wood MD HPI Reason for consult: reddened right leg I had seen him before. He had cellulitis three times last year and now in October and January red right lower extremity. He presents this time with nausea. Review of Systems Review of Systems: Yes all other systems are reviewed and are negative PMFSH Past Medical History Medical History PAF (paroxysmal atrial fibrillation) ALEXUS (acute kidney injury) TANO on CPAP Morbid obesity Leukocytosis Gastritis COVID-19 vaccine series completed Obesity Chronic venous insufficiency Osteoarthritis TANO on CPAP Osteoarthritis of left knee Hypertension High cholesterol Family History Family History Father Myocardial infarct Mother No problems noted. Brother Myocardial infarct Family history: reviewed and not pertinent Surgical History Surgical History History of orthopedic surgery Hx of colonoscopy History of right knee surgery LAP-BAND surgery status Social History Social History Household Members: None Household Members Other:: self Housing: Condominium Are you a primary live in caregiver to a significant other at home: No Do you presently have visiting nurse or other home services: No Alcohol intake: never Patient Tobacco Use Status: Never used Tobacco e-Cigarette/Vaping Use: Never Used Second Hand Smoke Exposure: No service: No Current occupational status: 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 Meds Allergies Allergy/AdvReac Type Severity Reaction Status Date / Time dextromethorphan Allergy Severe ITCHY Verified 01/25/25 19:37 (DEXTROMETHORPHAN) SWELLING SOB shellfish derived Allergy Severe ANAPHYLAXIS Verified 01/25/25 19:37 Active Medications: Current Medications Acetaminophen (Acetaminophen 325 Mg Tablet) 975 mg PO Q6H PRN PRN Reason: Pain, Mild 1-3,fever,headache Amiodarone HCl (Amiodarone Hcl 200 Mg Tablet) 200 mg PO DAILY [facility] Last Admin: 01/26/25 12:41 Dose: 200 mg Apixaban (Apixaban 5 Mg Tablet) 5 mg PO BID [facility] Last Admin: 01/26/25 20:11 Dose: 5 mg Atorvastatin Calcium (Atorvastatin Calcium 10 Mg Tablet) 10 mg PO DAILY [facility] Calcium Carbonate (Calcium Carbonate 750 Mg Tab.Chew) 750 mg PO Q4H PRN PRN Reason: Heartburn Clotrimazole (Clotrimazole 1 % Cream 15 Gm Tube) 1 appl TOPICAL BID [facility]; Protocol Last Admin: 01/26/25 20:11 Dose: 1 appl Diltiazem HCl (Diltiazem Hcl Cd 180 Mg Cap.Er.24h) 360 mg PO DAILY [facility]; Protocol Last Admin: 01/26/25 12:40 Dose: 360 mg Empagliflozin (Empagliflozin 10 Mg Tablet) 10 mg PO DAILY [facility] Last Admin: 01/26/25 12:40 Dose: 10 mg Clindamycin Phosphate (Cleocin) 900 mg in 50 mls @ 50 mls/hr IV Q8H [facility] Last Infusion: 01/26/25 18:14 Dose: Infused Magnesium Hydroxide (Milk Of Magnesia 30 Ml Oral.Susp) 30 ml PO DAILY PRN PRN Reason: Constipation Melatonin (Melatonin 3 Mg Tablet) 6 mg PO BEDTIME PRN PRN Reason: Insomnia Multivitamins/Vitamin C (Multivitamin Tablet) 1 tab PO DAILY [facility] Ondansetron HCl (Ondansetron Hcl 4 Mg/2 Ml Vial) 4 mg IVPUSH Q8H PRN PRN Reason: Nausea and Vomiting Last Admin: 01/26/25 04:41 Dose: 4 mg Oxycodone HCl (Oxycodone Hcl Immed Release 5 Mg Tablet) 5 mg PO Q6H PRN PRN Reason: Pain, Severe (Pain Scale 7-10) Last Admin: 01/26/25 04:41 Dose: 5 mg Pharmacy Consult (Consult Rx Vancomycin Dosing) 1 each MISCELLANE DAILY PRN PRN Reason: Consult order Sodium Chloride (0.9 % Sodium Chloride Flush 3 Ml Syringe) 3 ml IVFLUSH QSHIFT [facility] Last Admin: 01/26/25 20:12 Dose: 3 ml Tramadol HCl (Tramadol Hcl 50 Mg Tablet) 50 mg PO Q6H PRN PRN Reason: Pain, Moderate(Pain Scale 4-6) Home Medications ?Medication ?Instructions ?Recorded ?Confirmed ?Last Taken ?Type atorvastatin 10 mg tablet 10 mg PO DAILY 09/11/20 01/26/25 01/25/25 History sildenafil 50 mg tablet 50 mg PO DAILY PRN sexual 04/02/21 01/26/25 10/26/24 History dysfunction acetaminophen 500 mg tablet 1,000 mg PO Q6H PRN Pain 10/27/24 01/26/25 10/26/24 History bumetanide 1 mg tablet 1 mg PO DAILY@1500 PRN INCREASED 01/26/25 01/26/25 Unknown History SHORTNESS OF BREATH OR LEG SWELLING. llfattyb-mym-cdyvu acid 200 1 tab PO DAILY 01/26/25 01/26/25 01/25/25 History mcg-vit K1 60 mcg-lycopene 600 mcg tablet (Men's Multivitamin) Physical Exam Vital Signs: Vital Signs: Last Vital Signs Temp 98.6 F 01/26/25 19:17 Pulse 78 01/26/25 19:17 Resp 18 01/26/25 19:17 BP 107/61 01/26/25 19:17 Pulse Ox 96 01/26/25 19:17 O2 Del Method Room Air 01/26/25 19:17 BMI result Body Mass Index 43.6 Extrem: Other: reddened RLE groin to foot tinea pedis between first and second toe pulses good no neuropathy Results Labs 01/26/25 03:11 01/26/25 03:11 Labs: Short CBC 01/26/25 Range/Units 03:11 WBC 33.2 H* (4.8-10.8) X10*3/uL Hgb 13.5 L (14.0-18.0) g/dl Hct 42.4 (42.0-52.0) % Plt Count 203 (160-400) X10*3/uL BMP 01/26/25 03:11 Sodium 143 Potassium 3.3 Chloride 106 Carbon Dioxide 21 L BUN 19 H Creatinine 1.32 Calcium 8.5 Microbiology Microbiology Results: Microbiology 01/25/25 20:07 Blood - Venous Blood Culture - Preliminary No growth after 24 hours. 01/25/25 19:55 Blood - Venous Blood Culture - Preliminary No growth after 24 hours. Assessment and Plan (1) Cellulitis of leg, right: Status: Acute He has had cellulitis in past due to tinea pedis likely. Lotrimin interdigitally Clindamycin 900 mg every 8 hours until improved and then po 450 mg tid for 5-7 days He may benefit from po PCN 500 mg bid preventive chronic therapy and suppression tinea pedis.
[2025-01-27 03:05] VITALS: BP 130/61; PULSE 72; RESP 18; TEMP 36.9; O2SAT 94
[2025-01-27 06:13] LABS: MANUAL DIFF FLAG NO
[2025-01-27 06:38] LABS: Anion Gap 10 (12-20); Blood Urea Nitrogen 21 mg/dL (9-16); Calcium 8.5 mg/dL (8.4-10.2); Carbon Dioxide 24 mmol/L (22-29); Chloride 108 mmol/L (96-108); Creatinine Clr Calc Pharmacy 68.2; Estimated Glomerular Filt Rate 50; Potassium 3.7 mmol/L (3.3-5.1); Sodium 138 mmol/L (135-145)
[2025-01-27 06:52] LABS: Hematocrit 37.5 % (42.0-52.0); Hemoglobin 12.5 g/dl (14.0-18.0); Imm Gran Abs Auto 0.07 X10*3/uL (0.00-0.03); Imm Gran Pct Auto 0.6 % (0.0-0.4); Lymphocytes Absolute Auto 1.1 X10*3/uL (1.2-4.9); Mean Corpuscular HGB Conc 33.3 g/dl (31.0-36.0); Mean Corpuscular Hemoglobin 29.6 pg (27.0-33.0); Mean Corpuscular Volume 88.9 fL (80.0-98.0); NRBC Abs Auto 0.000 X10*3/uL (0.0-0.012); NRBC Pct Auto 0.0 /100WBC (0.0-0.2); Platelet Count 171 X10*3/uL (160-400); Red Blood Count 4.22 X10*6/uL (4.60-5.80); White Blood Count 12.4 X10*3/uL (4.8-10.8)
[2025-01-27 07:32] VITALS: BP 109/57; PULSE 69; RESP 19; TEMP 36.3; O2SAT 95
[2025-01-27] MEDS: dilTIAZem HCL CD 180 MG CAP.ER.24H 360 MG PO (08:43)
[2025-01-27] MEDS: 0.9 % Sodium Chloride Flush 3 ML SYRINGE IVFLUSH ×4 (08:45→20:32)
[2025-01-27] MEDS: Clotrimazole 1 % Cream 15 GM TUBE 1 APPL TOPICAL ×2 (08:46→20:33)
[2025-01-27 15:24] VITALS: BP 139/64; PULSE 70; RESP 18; TEMP 36.3; O2SAT 97
--- NOTE | 2025-01-27 16:54 | HO.PM.IMPN ---
Subjective Subjective Date of Service: 01/27/25 Interval History: Right leg swelling and erythema improved Leg pain well controlled Requesting to be put back on Bumex No acute events overnight Review of Systems Review of Systems: Yes all other systems are reviewed and are negative Physical Exam Exam: Exam: General: AOx3, no acute distress Resp: CTA bilaterally CVS: S1, S2, RRR GI: +BS, NT, no distention Skin: Warm, dry Neuro: Cranial nerves II-XII grossly intact bilaterally. Motor grossly intact bilaterally Extremities: Right leg with swelling and erythema from ankle to groin, mildly improved from prior Psych: Appropriate affect Vital Signs: Vital Signs: Last Vital Signs Temp 97.4 F 01/27/25 15:24 Pulse 70 01/27/25 15:24 Resp 18 01/27/25 15:24 BP 139/64 01/27/25 15:24 Pulse Ox 97 01/27/25 15:24 O2 Del Method Room Air 01/27/25 15:24 BMI result Body Mass Index 43.6 Objective Data Active Medications Acetaminophen (Acetaminophen 325 Mg Tablet) 975 mg PO Q6H PRN PRN Reason: Pain, Mild 1-3,fever,headache Amiodarone HCl (Amiodarone Hcl 200 Mg Tablet) 200 mg PO DAILY [facility] Last Admin: 01/27/25 08:44 Dose: 200 mg Documented By: HALIE Apixaban (Apixaban 5 Mg Tablet) 5 mg PO BID [facility] Last Admin: 01/27/25 08:44 Dose: 5 mg Documented By: HALIE Atorvastatin Calcium (Atorvastatin Calcium 10 Mg Tablet) 10 mg PO DAILY [facility] Last Admin: 01/27/25 08:44 Dose: 10 mg Documented By: HALIE Bumetanide (Bumetanide 1 Mg Tablet) 1 mg PO DAILY [facility]; Protocol Last Admin: 01/27/25 15:11 Dose: 1 mg Documented By: HALIE Bumetanide (Bumetanide 1 Mg Tablet) 1 mg PO DAILY@1500 PRN; Protocol PRN Reason: INCREASED SHORTNESS OF BREATH OR LEG SWELLING. Calcium Carbonate (Calcium Carbonate 750 Mg Tab.Chew) 750 mg PO Q4H PRN PRN Reason: Heartburn Clotrimazole (Clotrimazole 1 % Cream 15 Gm Tube) 1 appl TOPICAL BID [facility]; Protocol Last Admin: 01/27/25 08:46 Dose: 1 appl Documented By: HALIE Diltiazem HCl (Diltiazem Hcl Cd 180 Mg Cap.Er.24h) 360 mg PO DAILY [facility]; Protocol Last Admin: 01/27/25 08:43 Dose: 360 mg Documented By: HALIE Empagliflozin (Empagliflozin 10 Mg Tablet) 10 mg PO DAILY [facility] Last Admin: 01/27/25 08:44 Dose: 10 mg Documented By: HALIE Clindamycin Phosphate (Cleocin) 900 mg in 50 mls @ 50 mls/hr IV Q8H [facility] Last Infusion: 01/27/25 09:51 Dose: Infused Documented By: HALIE Magnesium Hydroxide (Milk Of Magnesia 30 Ml Oral.Susp) 30 ml PO DAILY PRN PRN Reason: Constipation Melatonin (Melatonin 3 Mg Tablet) 6 mg PO BEDTIME PRN PRN Reason: Insomnia Multivitamins/Vitamin C (Multivitamin Tablet) 1 tab PO DAILY [facility] Last Admin: 01/27/25 08:44 Dose: 1 tab Documented By: HALIE Ondansetron HCl (Ondansetron Hcl 4 Mg/2 Ml Vial) 4 mg IVPUSH Q8H PRN PRN Reason: Nausea and Vomiting Last Admin: 01/26/25 04:41 Dose: 4 mg Documented By: ISA Oxycodone HCl (Oxycodone Hcl Immed Release 5 Mg Tablet) 5 mg PO Q6H PRN PRN Reason: Pain, Severe (Pain Scale 7-10) Last Admin: 01/26/25 04:41 Dose: 5 mg Documented By: ISA Pharmacy Consult (Consult Rx Vancomycin Dosing) 1 each MISCELLANE DAILY PRN PRN Reason: Consult order Sodium Chloride (0.9 % Sodium Chloride Flush 3 Ml Syringe) 3 ml IVFLUSH QSHIFT [facility] Last Admin: 01/27/25 15:11 Dose: 3 ml Documented By: HALIE Tramadol HCl (Tramadol Hcl 50 Mg Tablet) 50 mg PO Q6H PRN PRN Reason: Pain, Moderate(Pain Scale 4-6) Labs 01/27/25 05:28 01/27/25 05:28 Labs: Laboratory Results - last 24 hr 01/27/25 01/27/25 05:28 07:29 MCV 88.9 MCH 29.6 MCHC 33.3 RDW 14.2 Plt Count 171 MPV 10.6 Immature Gran % (Auto) 0.6 H Neut % (Auto) 78.5 H Lymph % (Auto) 8.5 L [place] % (Auto) 10.2 Eos % (Auto) 1.9 Baso % (Auto) 0.3 Lymph # (Auto) 1.1 L [place] # (Auto) 1.3 H Eos # (Auto) 0.2 Baso # (Auto) 0.0 Abs Immat Gran (auto) 0.07 H Absolute Neuts (auto) 9.7 H Absolute Nucleated RBC 0.000 Nucleated RBC % (auto) 0.0 Anion Gap 10 L Estim Creat Clear Calc 68.2 Estimated GFR 50 Random Glucose 92 Calcium 8.5 Random Vancomycin 5.4 L Microbiology Microbiology Results: Microbiology 01/25/25 20:07 Blood Culture - Preliminary Blood - Venous No growth after 24 hours. 01/25/25 19:55 Blood Culture - Preliminary Blood - Venous No growth after 24 hours. Assessment and Plan (1) Cellulitis of leg, right: Status: Acute Plan 69-year-old male with a past medical history significant for paroxysmal AFib on Eliquis, TANO on CPAP, HTN, HLD, morbid obesity, who presented to the ED due to malaise and fever. sepsis secondary to RLE cellulitis Likely secondary to tinea pedis WBC initially trending up, now improved tachycardic/ tachypneic improved , no fevers ,lactic acid normal, blood cultures x2 pending, not severe sepsis chest x-ray negative, abdominopelvic CT with mild mesenteric panniculitis. Patient not having abdominal pain procalcitonin normal,EKG with sinus tachycardia UA negative,COVID/flu/RSV negative right leg dvt studies -negative check lyme and tick panel pending, blood culture pending plan: id rec : iv clindamycin, off iv vanco/zosyn; clotrimazole interdigitally in right foot - monitor CBC and BMP CKD 3 - creatinine 1.41 - No ALEXUS: has been similarly elevated since October after starting on Bumex - Will resume Bumex; should follow up outpatient - avoid nephrotoxins - monitor BMP Glucosuria - check A1c: 5.4 - random glucose normal - patient denies diagnosis of diabetes Paroxysmal AFib - EKG with sinus tachycardia - continue home meds including Eliquis HTN - continue home meds HLD - continue home meds TANO - CPAP at bedtime Morbid obesity - BMI 43.6 - weight loss encouraged Med rec pending Full code VTE prophylaxis: Eliquis Patient with sepsis secondary to cellulitis, requiring admission for at least 2 midnights stay for IV antibiotics and monitoring. Quality Stroke Does the patient have a stroke diagnosis?: No VTE Prior VTE?: No VTE Risk Level:: Medical - moderate - high VTE Device Contraindication: Treatment Not Indicated VTE Drug Contraindication: N/A - Med Ordered
[2025-01-27 20:00] VITALS: BP 122/57; PULSE 70; RESP 18; TEMP 36.3; O2SAT 97
[2025-01-28 02:39] LABS: Lyme Disease DNA PCR NOT DETECTED (NOT DETECTED)
[2025-01-28 04:00] VITALS: BP 104/57; PULSE 66; RESP 16; TEMP 36.6; O2SAT 98
[2025-01-28 05:38] LABS: MANUAL DIFF FLAG NO
[2025-01-28 05:58] LABS: Hematocrit 38.0 % (42.0-52.0); Hemoglobin 12.8 g/dl (14.0-18.0); Imm Gran Abs Auto 0.07 X10*3/uL (0.00-0.03); Imm Gran Pct Auto 1.0 % (0.0-0.4); Lymphocytes Absolute Auto 1.2 X10*3/uL (1.2-4.9); Mean Corpuscular HGB Conc 33.7 g/dl (31.0-36.0); Mean Corpuscular Hemoglobin 29.5 pg (27.0-33.0); Mean Corpuscular Volume 87.6 fL (80.0-98.0); NRBC Abs Auto 0.000 X10*3/uL (0.0-0.012); NRBC Pct Auto 0.0 /100WBC (0.0-0.2); Platelet Count 190 X10*3/uL (160-400); Red Blood Count 4.34 X10*6/uL (4.60-5.80); White Blood Count 7.3 X10*3/uL (4.8-10.8)
[2025-01-28 06:01] LABS: Anion Gap 14 (12-20); Blood Urea Nitrogen 19 mg/dL (9-16); Calcium 8.5 mg/dL (8.4-10.2); Carbon Dioxide 25 mmol/L (22-29); Chloride 105 mmol/L (96-108); Creatinine Clr Calc Pharmacy 72.8; Estimated Glomerular Filt Rate 54; Potassium 3.6 mmol/L (3.3-5.1); Sodium 140 mmol/L (135-145)
[2025-01-28 07:23] VITALS: BP 117/59; PULSE 64; RESP 20; TEMP 36.3; O2SAT 98
[2025-01-28] MEDS: dilTIAZem HCL CD 180 MG CAP.ER.24H 360 MG PO (08:18)
[2025-01-28] MEDS: Clotrimazole 1 % Cream 15 GM TUBE 1 APPL TOPICAL ×2 (08:19→20:06)
[2025-01-28] MEDS: 0.9 % Sodium Chloride Flush 3 ML SYRINGE IVFLUSH ×3 (08:27→20:06)
--- NOTE | 2025-01-28 14:34 | MHC.CM.PN ---
EMR REVIEWED AND PER MD ROUNDS, PT CELLULITIS SLIGHTLY IMPROVED. MAY DC HOME TODAY VS TOMORROW. CM WILL CONTINUE TO FOLLOW
--- NOTE | 2025-01-28 14:55 | P.PNIM_ITS ---
Subjective Subjective Date of Service: 01/28/25 Interval History: Mild improvement in redness and swelling No leg pain Denies any other complaints No acute events overnight Review of Systems Review of Systems: Yes all other systems are reviewed and are negative Physical Exam 2 Exam: Exam: General: AOx3, no acute distress Resp: CTA bilaterally CVS: S1, S2, RRR GI: +BS, NT, no distention Skin: Warm, dry Neuro: Cranial nerves II-XII grossly intact bilaterally. Motor grossly intact bilaterally Extremities: Mild improvement with right leg swelling and erythema from ankle to groin Psych: Appropriate affect Vital Signs: Vital Signs: Last Vital Signs Temp 97.3 F 01/28/25 07:23 Pulse 64 01/28/25 07:23 Resp 20 01/28/25 07:23 BP 117/59 L 01/28/25 07:23 Pulse Ox 98 01/28/25 07:23 O2 Del Method Room Air 01/28/25 07:23 BMI result Body Mass Index 43.6 Objective Data Active Medications Acetaminophen (Acetaminophen 325 Mg Tablet) 975 mg PO Q6H PRN PRN Reason: Pain, Mild 1-3,fever,headache Amiodarone HCl (Amiodarone Hcl 200 Mg Tablet) 200 mg PO DAILY [facility] Last Admin: 01/28/25 08:18 Dose: 200 mg Documented By: HALIE Apixaban (Apixaban 5 Mg Tablet) 5 mg PO BID [facility] Last Admin: 01/28/25 08:18 Dose: 5 mg Documented By: HALIE Atorvastatin Calcium (Atorvastatin Calcium 10 Mg Tablet) 10 mg PO DAILY [facility] Last Admin: 01/28/25 08:18 Dose: 10 mg Documented By: HALIE Bumetanide (Bumetanide 1 Mg Tablet) 1 mg PO DAILY [facility]; Protocol Last Admin: 01/28/25 08:18 Dose: 1 mg Documented By: HALIE Bumetanide (Bumetanide 1 Mg Tablet) 1 mg PO DAILY@1500 PRN; Protocol PRN Reason: INCREASED SHORTNESS OF BREATH OR LEG SWELLING. Calcium Carbonate (Calcium Carbonate 750 Mg Tab.Chew) 750 mg PO Q4H PRN PRN Reason: Heartburn Clotrimazole (Clotrimazole 1 % Cream 15 Gm Tube) 1 appl TOPICAL BID [facility]; Protocol Last Admin: 01/28/25 08:19 Dose: 1 appl Documented By: HALIE Diltiazem HCl (Diltiazem Hcl Cd 180 Mg Cap.Er.24h) 360 mg PO DAILY [facility]; Protocol Last Admin: 01/28/25 08:18 Dose: 360 mg Documented By: HALIE Empagliflozin (Empagliflozin 10 Mg Tablet) 10 mg PO DAILY [facility] Last Admin: 01/28/25 08:18 Dose: 10 mg Documented By: HALIE Clindamycin Phosphate (Cleocin) 900 mg in 50 mls @ 50 mls/hr IV Q8H [facility] Last Infusion: 01/28/25 09:51 Dose: Infused Documented By: HALIE Magnesium Hydroxide (Milk Of Magnesia 30 Ml Oral.Susp) 30 ml PO DAILY PRN PRN Reason: Constipation Melatonin (Melatonin 3 Mg Tablet) 6 mg PO BEDTIME PRN PRN Reason: Insomnia Multivitamins/Vitamin C (Multivitamin Tablet) 1 tab PO DAILY [facility] Last Admin: 01/28/25 08:18 Dose: 1 tab Documented By: HALIE Ondansetron HCl (Ondansetron Hcl 4 Mg/2 Ml Vial) 4 mg IVPUSH Q8H PRN PRN Reason: Nausea and Vomiting Last Admin: 01/26/25 04:41 Dose: 4 mg Documented By: ISA Oxycodone HCl (Oxycodone Hcl Immed Release 5 Mg Tablet) 5 mg PO Q6H PRN PRN Reason: Pain, Severe (Pain Scale 7-10) Last Admin: 01/26/25 04:41 Dose: 5 mg Documented By: ISA Pharmacy Consult (Consult Rx Vancomycin Dosing) 1 each MISCELLANE DAILY PRN PRN Reason: Consult order Sodium Chloride (0.9 % Sodium Chloride Flush 3 Ml Syringe) 3 ml IVFLUSH QSHIFT [facility] Last Admin: 01/28/25 08:27 Dose: 3 ml Documented By: HALIE Tramadol HCl (Tramadol Hcl 50 Mg Tablet) 50 mg PO Q6H PRN PRN Reason: Pain, Moderate(Pain Scale 4-6) Labs 01/28/25 05:19 01/28/25 05:19 Labs: Laboratory Results - last 24 hr 01/26/25 01/28/25 01:43 05:19 MCV 87.6 MCH 29.5 MCHC 33.7 RDW 13.8 Plt Count 190 MPV 10.6 Immature Gran % (Auto) 1.0 H Neut % (Auto) 64.3 Lymph % (Auto) 16.5 L [place] % (Auto) 13.6 H Eos % (Auto) 4.0 Baso % (Auto) 0.6 Lymph # (Auto) 1.2 [place] # (Auto) 1.0 Eos # (Auto) 0.3 Baso # (Auto) 0.0 Abs Immat Gran (auto) 0.07 H Absolute Neuts (auto) 4.7 Absolute Nucleated RBC 0.000 Nucleated RBC % (auto) 0.0 Anion Gap 14 Estim Creat Clear Calc 72.8 Estimated GFR 54 Random Glucose 99 Calcium 8.5 Lyme Disease DNA (PCR) NOT DETECTED Microbiology Microbiology Results: Microbiology 01/25/25 20:07 Blood Culture - Preliminary Blood - Venous No growth after 48 hours. 01/25/25 19:55 Blood Culture - Preliminary Blood - Venous No growth after 48 hours. Assessment and Plan (1) Cellulitis of leg, right: Status: Acute Plan 69-year-old male with a past medical history significant for paroxysmal AFib on Eliquis, TANO on CPAP, HTN, HLD, morbid obesity, who presented to the ED due to malaise and fever. Sepsis secondary to RLE cellulitis Likely secondary to tinea pedis WBC initially trending up, now improved tachycardic/ tachypneic improved , no fevers ,lactic acid normal, blood cultures x2 pending, not severe sepsis chest x-ray negative, abdominopelvic CT with mild mesenteric panniculitis. Patient not having abdominal pain procalcitonin normal,EKG with sinus tachycardia UA negative,COVID/flu/RSV negative right leg dvt studies -negative lyme and tick panel pending, blood culture neg @48h plan: id rec : iv clindamycin, off iv vanco/zosyn; clotrimazole interdigitally in right foot for tinea pedis - monitor CBC and BMP CKD 3 - creatinine 1.32 - No ALEXUS: has been similarly elevated since October after starting on Bumex - Will resume Bumex; should follow up outpatient - avoid nephrotoxins - monitor BMP Glucosuria - check A1c: 5.4 - random glucose normal - patient denies diagnosis of diabetes Paroxysmal AFib - EKG with sinus tachycardia - continue home meds including Eliquis HTN - continue home meds HLD - continue home meds TANO - CPAP at bedtime Morbid obesity - BMI 43.6 - weight loss encouraged Med rec pending Full code VTE prophylaxis: Eliquis Pt requires continued hospitalization as cellulitis has not sufficiently imporoved and will require continued IV abx. Quality Stroke Does the patient have a stroke diagnosis?: No VTE Prior VTE?: No VTE Risk Level:: Medical - moderate - high VTE Device Contraindication: Treatment Not Indicated VTE Drug Contraindication: N/A - Med Ordered
[2025-01-28 15:20] VITALS: BP 126/58; PULSE 72; RESP 18; TEMP 36.4; O2SAT 97
[2025-01-28 19:29] VITALS: BP 118/58; PULSE 70; RESP 18; TEMP 36.3; O2SAT 97
[2025-01-29 00:03] LABS: A. Phagocytphilium DNA,RT-PCR NOT DETECTED (NOT DETECTED); Babesia Microti DNA, RT-PCR NOT DETECTED (NOT DETECTED); Borrelia Miyamotoi,DNA RT-PCR NOT DETECTED (NOT DETECTED); E.Chaffeensis DNA RT-PCR NOT DETECTED (NOT DETECTED); Lyme(Borrelia ssp)DNA RT-PCR NOT DETECTED (NOT DETECTED)
[2025-01-29 03:39] VITALS: BP 126/69; PULSE 67; RESP 18; TEMP 36.5; O2SAT 97
[2025-01-29 07:06] VITALS: BP 127/58; PULSE 65; RESP 17; TEMP 36.6; O2SAT 98
[2025-01-29] MEDS: 0.9 % Sodium Chloride Flush 3 ML SYRINGE IVFLUSH (08:17)
[2025-01-29 08:18] VITALS: BP 127/58; PULSE 65
[2025-01-29] MEDS: dilTIAZem HCL CD 180 MG CAP.ER.24H 360 MG PO (08:18)
[2025-01-29] MEDS: Clotrimazole 1 % Cream 15 GM TUBE 1 APPL TOPICAL (08:19)
--- NOTE | 2025-01-29 11:32 | P.DS_ITS ---
DS: Providers Provider Date of Service: 01/29/25 Date of admission: 01/25/25 22:56 Date of discharge: 01/29/25 Primary care physician: Wilian Wood MD Consults: 01/26/25 08:40 Consult to Infectious Diseases Routine Consulting Provider: [facility] Reason for consultation: Cellulitis of leg Has provider been notified: No DS: Diagnosis Discharge Diagnosis (1) Cellulitis of leg, right: Status: Acute DS: Summary Hospital Course Hospital Course: From admission HPI: Date of Service: 01/25/25 Attending physician on admission: Hema Hutchinson Chief Complaint: malaise, fever Patient is a 69-year-old male with a past medical history significant for paroxysmal AFib on Eliquis, TANO on CPAP, HTN, HLD, morbid obesity, who presented to the ED due to malaise and fever. The patient reports this came on suddenly. He denies any chest pain, shortness of breath, cough, abdominal pain, nausea, vomiting or urinary symptoms. While in the ED he mentioned that his right lower extremity was having pain due to the sock was wearing, when this was lowered was found to have right lower extremity cellulitis. No purulent drainage or signs of of trauma. The patient reports that he has been spending time outdoors and feels he may have had a mosquito bite that started this. He denies any tick bites. Hospital course: Pt was admitted to the hospital for recurrent right lower extremity cellulitis with sepsis and treated with IV antibiotics. Overall pt's hospital course was uncomplicated and he responded well to therapies. Leukocytosis resolved, and pt did not experience repeat fevers after day of presentation. Swelling, erythema, and warmth of lower extremity have improved. pt was seen and evaluated by Infectious Disease who thought cellulitis likely secondary to tinea pedis. They also noted this was patient's 5th cellulitis in the past 2 years, and recommended placing on chronic suppressive antibiotic therapy upon discharge. Pt is feeling well and agreeable with discharge plan. pt will be discharged home on clindamycin 450 mg b.i.d. x7 days, clotrimazole 1% cream to be applied interdigitally on right foot x4 weeks, and will be placed on penicillin 500 mg b.i.d. indefinitely for suppression of recurrent cellulitis. Pt should follow up with PCP in 1 week for routine post hospitalization follow-up, and follow up with Infectious Disease in 2-3 weeks for management of chronic suppressive antibiotic therapy. For CKD 3, creatinine was stable and at baseline as of October of this year. Follow up with PCP for monitoring of kidney function while on diuretics. For HFpEF continue Jardiance, bumetanide daily and p.r.n. For paroxysmal AFib continue Eliquis and diltiazem For HTN continue amiodarone For HLD continue atorvastatin For TANO continue CPAP at nighttime Time Attestation Discharge Coordination Time (in mins): 35 Quality: Safe Use of Opioids Does Pt have an Active Cancer Diagnosis on the Problem List?: No Quality: Stroke Does the patient have a stroke diagnosis?: No Physical Exam Exam: Exam: General: AOx3, no acute distress Resp: CTA bilaterally CVS: S1, S2, RRR GI: +BS, NT, no distention Skin: Warm, dry Neuro: Cranial nerves II-XII grossly intact bilaterally. Motor grossly intact bilaterally Extremities: Right leg with swelling and erythema from above ankle to thigh, improved from prior. Non-tender Psych: Appropriate affect Vital Signs: Vital Signs: Last Vital Signs Temp 97.8 F 01/29/25 07:06 Pulse 65 01/29/25 08:18 Resp 17 01/29/25 07:06 BP 127/58 L 01/29/25 08:18 Pulse Ox 98 01/29/25 07:06 O2 Del Method Room Air 01/29/25 07:06 BMI result Body Mass Index 43.6 DS: Data Data Completed and Pending Completed studies during hospitalization [Text1]: Procedures Assistance with Respiratory Ventilation, Less than 24 Consecutive Hours, Continuous Positive Airway Pressure (10/27/24) Labs on day of discharge: Laboratory Results - last 24 hr 01/26/25 01:43 A.phagocytophil DNA PCR NOT DETECTED Babesia microti DNA PCR NOT DETECTED Borrelia sp DNA (PCR) NOT DETECTED Borrelia miyamotoi (PCR) NOT DETECTED E.chaffeensis DNA (PCR) NOT DETECTED Tick-borne Disease PCR SEE NOTE Preliminary micro results at discharge 01/25/25 20:07 Blood Culture - Preliminary Blood - Venous No growth after 48 hours. 01/25/25 19:55 Blood Culture - Preliminary Blood - Venous No growth after 48 hours. Discharge Plan Discharge Anticipated Discharge Date/Time: 01/29/25 10:45 Patient Disposition: Home, Self-Care Discharge Diagnosis: Right lower extremity cellulitis with sepsis Referrals: Wilian Wood MD [Primary Care Provider, Internal Medicine] - 1 Week Carmen Rubin MD [Physician, Infectious Disease] - 1 Week Referral Note: On chronic penicillin for suppression of recurrent lower extremity cellulits Discharge Medications: New clindamycin HCl [Cleocin HCl] 150 mg capsule 450 mg PO TID 7 Days Qty: 63 0RF Rx Instructions: Take 3 capsules (450mg total) three times a day with food for the next 7 days, ending 02/05. penicillin V potassium 500 mg tablet 500 mg PO BID Qty: 180 0RF Rx Instructions: Take one tablet twice a day as chronic suppressive therapy for lower extremity cellulitis. Begin taking on 02/06 after completing course of clindamycin. clotrimazole 1 % cream 1 appl topical BID 28 Days Qty: 45 0RF Rx Instructions: Apply between toes of right foot twice a day for the next 4 weeks. Continued amiodarone 200 mg tablet 200 mg PO DAILY Qty: 90 3RF Eliquis 5 mg Tablet 5 mg PO BID 30 Days Qty: 60 0RF Men's Multivitamin 200-60-600 mcg Tablet 1 tab PO DAILY bumetanide 1 mg tablet 1 mg PO DAILY@1500 PRN (Reason: INCREASED SHORTNESS OF BREATH OR LEG SWELLING.) acetaminophen 500 mg Tablet 1,000 mg PO Q6H PRN (Reason: Pain) atorvastatin 10 mg tablet 10 mg PO DAILY sildenafil 50 mg tablet 50 mg PO DAILY PRN (Reason: sexual dysfunction) diltiazem HCl 360 mg capsule,extended release 24hr 360 mg PO DAILY 90 Days Qty: 90 3RF bumetanide 1 mg tablet 1 mg PO DAILY 90 Days Qty: 135 1RF Rx Instructions: Take one table daily and extra tablet if needed for increased shortness of breath or leg swelling. Dose reduced Jardiance 10 mg tablet 10 mg PO DAILY Qty: 90 3RF Discharge Orders: Discharge Order (Routine); Ordered 01/29/25 Ordered By: Zafar Shields Activity on Discharge: As tolerated Stand Alone Forms: Patient Portal Discharge page Print Language: Citizen Of [place] Care Plan Goals: See below Health Concerns: Recurrent leg cellulitis Sepsis Fungal foot infection Plan of Treatment: You were admitted to the hospital for recurrent right leg cellulitis that met sepsis criteria and for which you were treated with IV antibiotics. You were seen by infectious disease who thought cellulitis likely secondary to fungal infection of foot. You will be discharged on oral antibiotics, antifungal cream for your foot, as well as chronic suppressive antibiotics that should be taken once you complete your course of clindamycin. -- Take clindamycin 450 mg 3 times a day with food for the next 7 days, ending 02/05. -- Take penicillin 500 mg twice a day with food indefinitely for now; began taking on 02/06 after completing your course of clindamycin. -- Apply thin layer of clotrimazole 1% cream between your toes in the right foot twice a day for the next 4 weeks. -- Follow up with your PCP in 1 week for routine post-hospitalization follow up. -- Follow up with Dr. Rubin in infectious disease in 2-3 weeks for management of chronic suppressive antibiotics for recurrent cellulitis. Assessment: See discharge summary Patient Instructions: Cellulitis (GEN), Sepsis (DC) Discharge Date/Time: 01/29/25 12:05
--- NOTE | 2025-01-29 12:07 | MHC.CM.PN ---
PT TO DC HOME TODAY WITH NO SERVICES VIA PRIVATE TRANSPORT
== END 2025-01-29 12:05 | disposition home or self-care (01) | DRG 872 ==
LOC: HO.ED 22:56 → HO.EDOVER 23:00 → HO.S3 01-26 14:37
PROVIDERS: Physician Assistant; Admitting Provider Internal Medicine; Emergency Provider Emergency Medicine; PCP Internal Medicine; Visit Provider Student in an Organized Health Care Education/Training Program
DX: A41.9 Sepsis, unspecified organism (principal); L03.115 Cellulitis of right lower limb; Z68.41 Body mass index [BMI] 40.0-44.9, adult; I13.0 Hypertensive heart and chronic kidney disease with heart failure and stage 1 through stage 4 chronic kidney disease, or unspecified chronic kidney disease; I50.32 Chronic diastolic (congestive) heart failure; I48.0 Paroxysmal atrial fibrillation; G47.33 Obstructive sleep apnea (adult) (pediatric); N18.30 Chronic kidney disease, stage 3 unspecified; E66.01 Morbid (severe) obesity due to excess calories; Z71.3 Dietary counseling and surveillance; Z20.822 Contact with and (suspected) exposure to COVID-19; Z79.01 Long term (current) use of anticoagulants; Z79.899 Other long term (current) drug therapy
CPT/HCPCS: 36415; 71045; 74176; 80048; 80053; 80202; 81001; 83036; 83605; 83735; 83880; 84145; 84484; 85025; 85610; 85730; 87040; 87468; 87469; 87478; 87484; 87637; 87798; 93005; 93971; 99285; J0131; J0736; J2405; J2543; J3373; J3374

== ENCOUNTER → 2025-01-25 19:41 | Outpatient (BNV) | payer MEDICARE, SELFPAY | PROVIDERS: Emergency Provider Emergency Medicine; PCP Internal Medicine; Visit Provider Radiology Diagnostic Radiology | DX: N20.0 Calculus of kidney (principal); R50.9 Fever, unspecified | CPT/HCPCS: 71045 ==

== ENCOUNTER 2025-01-25 22:56 | Outpatient (BNV) | payer MEDICARE, SELFPAY | END 2025-01-26 10:11 | PROVIDERS: Admitting Provider Internal Medicine; Emergency Provider Emergency Medicine; PCP Internal Medicine; Visit Provider Radiology Diagnostic Radiology | DX: R60.0 Localized edema (principal) | CPT/HCPCS: 93971 ==

== ENCOUNTER → 2025-01-25 22:56 | Outpatient (BNV) | payer MEDICARE, SELFPAY | PROVIDERS: Admitting Provider Internal Medicine; Emergency Provider Emergency Medicine; PCP Internal Medicine; Visit Provider Physician Assistant | DX: L03.115 Cellulitis of right lower limb (principal) | CPT/HCPCS: 99223; 99232; 99239; 99499 ==

== ENCOUNTER → 2025-01-25 22:56 | Outpatient (BNV) | payer MEDICARE, SELFPAY | PROVIDERS: Admitting Provider Internal Medicine; Emergency Provider Emergency Medicine; PCP Internal Medicine; Visit Provider Internal Medicine | DX: L03.115 Cellulitis of right lower limb (principal) | CPT/HCPCS: 99232 ==

== ENCOUNTER 2025-02-04 14:43 | Outpatient (AMB) | payer MEDICARE, SELFPAY ==
--- OUTSIDE RECORDS SUMMARY | 2025-02-04 14:46 | XMS_ITS | Encounter Summary ---
Author Organization [facility] Address [address] [place] [id number] Phone Care Team Providers Care Geometrician Name Role Phone Wilian Wood MD Unavailable [phone] Wilian Wood MD Primary Care Provider [phone] Wilian Wood MD Unavailable [phone] Bob Toro MD Unavailable [phone] Coleman Vu MD Unavailable [phone] Encounter Details Date Type Department Care Team (Late st Contact Info) Description 10/09/2022 Ancillary Orders [facility], X-Ray - [facility] [address] [place] [address] Tri Hand PA [address] [address] [email or web address] Calculus of kidney Social History Tobacco Use [...] Care Team (Late st Contact Info) Description 02/08/2025 11:20 AM EDT Office Visit [facility] Internal Medicine [address] [place] [address] Radha Dunbar PA-C [address], [place] [id number] [email or web address] 05/13/2025 10:00 AM EST Office Visit [facility] Internal Medicine [address], [place] [phone] Wilian Wood MD [address], [place] [phone] [email or web address] documented as of this encounter Results * [...] IMPRESSION: 4 mm right midpole renal stone. Tri PATEL IMG XR ABDOMEN Final Result documented in this encounter Visit Diagnoses Diagnosis Calculus of kidney Calculus of kidney documented in this encounter Additional Health Concerns Assessment Noted Time PHQ-2 Depression Total Score: 0 03/04/20 9:56 AM EDT documented as of this encounter Care Teams Geometrician Relationship Specialty Start Date End Date Wilian Wood MD [address] [place] [address] PCP - General 06/19/17 Wilian Wood MD [address] [place] [address] Historical LMR Provider 04/06/17 03/09/23 Wilian Wood MD [address] [place] [address] Insurance Assigned Provider 09/20/23 Bob Toro MD [address] [place] [id number] Ophthalmology 02/22/20 Coleman Vu MD [address] [place] [address], [address] [place] [address] Urology 03/10/23 documented as of this encounter Additional Source Comments The information contained in this document represents components of the legal health record. It is not the complete legal health record.[facility]
--- NOTE | 2025-02-04 15:11 | A.OFFVIS_ITS ---
Vital Signs 3 02/04/25 15:12 Height 5 ft 11 in Weight 313 lb BMI 43.6 BP 128/72 Pulse 78 Pulse Oximetry (%) 97 Intake Visit Reasons: [facility] Reff/Cellutis of leg (R) Allergies dextromethorphan (DEXTROMETHORPHAN) Allergy (Severe, Verified 02/04/25 15:12) ITCHY SWELLING SOB shellfish derived Allergy (Severe, Verified 02/04/25 15:12) ANAPHYLAXIS HPI HPI [facility] Reff/Cellutis of leg (R): Details: He feels better and leg is improved. [facility] Medical History PAF (paroxysmal atrial fibrillation) ALEXUS (acute kidney injury) TANO on CPAP Morbid obesity Leukocytosis Gastritis COVID-19 vaccine series completed Obesity Chronic venous insufficiency Osteoarthritis TANO on CPAP Osteoarthritis of left knee Hypertension High cholesterol Surgical History History of orthopedic surgery Hx of colonoscopy History of right knee surgery LAP-BAND surgery status Family History Father Myocardial infarct Mother No problems noted. 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 Review of Systems Const All systems reviewed & are unremarkable except as noted in HPI and below Physical Exam Vital Signs: Last Vital Signs Pulse 78 02/04/25 15:12 BP 128/72 02/04/25 15:12 Pulse Ox 97 02/04/25 15:12 BMI result Body Mass Index 43.6 Const Other: General: cooperative Orientation/consciousness: patient oriented x3 HEENT Head: Yes normal to inspection Mouth: Normal oral and palatal mucosa present Eyes General: appearance normal, both eyes and all related structures Pupils: Equal, round and reactive pupils present Resp Effort & Inspection: normal respiratory effort Cardio Rate: regular rate Rhythm: regular rhythm GI Palpation (GI): Soft to palpation and nontender General: Yes no CVA tenderness Back/Spine/Pelvis Back: no CVA tenderness Skin General skin exam: no rashes or lesions noted Neuro General: patient oriented x3 Cranial nerves: Yes CN's II-XII intact bilaterally and Yes Equal, round and reactive pupils present Extrem General: Yes normal to inspection Psych Appearance: grossly normal Assessment & Plan Assessment & Plan (1) Cellulitis of leg, right: Comment: Leg is now improving. He has finished antibiotics Code(s): L03.115 - Cellulitis of right lower limb Category: Medical Plan: Would give PCN prophylaxis indefinitely See in six months. Coding Level of Care Code Est Pt Level 3 (36731) Diagnoses Cellulitis of leg, right L03.115
[2025-02-04 15:12] VITALS: BP 128/72; PULSE 78; O2SAT 97; BMI 43.6
== END 2025-02-04 15:23 | disposition home or self-care (01) ==
LOC: HO.HID 14:43
PROVIDERS: PCP Internal Medicine; Visit Provider Internal Medicine
DX: L03.115 Cellulitis of right lower limb (principal)
CPT/HCPCS: 99213

== ENCOUNTER → 2025-02-04 14:43 | Outpatient (BNVA) | payer MEDICARE, SELFPAY | PROVIDERS: PCP Internal Medicine; Visit Provider Internal Medicine | DX: L03.115 Cellulitis of right lower limb (principal) | CPT/HCPCS: 99212 ==

== ENCOUNTER 2025-05-06 14:23 | Outpatient (AMB) | payer MEDICARE, SELFPAY ==
--- NOTE | 2025-05-06 14:34 | MHC.OFFVIS ---
Vital Signs 05/06/25 14:35 Height 5 ft 11 in Weight 309 lb BMI 43.1 Pulse 75 Pulse Source Pulse Oximeter Pulse Oximetry (%) 98 Oxygen Delivery Method Room Air Intake Visit Reasons: 3 month f/u Cellutis of leg (R) Allergies dextromethorphan (DEXTROMETHORPHAN) Allergy (Severe, Verified 05/06/25 14:35) ITCHY SWELLING SOB shellfish derived Allergy (Severe, Verified 05/06/25 14:35) ANAPHYLAXIS HPI HPI 3 month f/u Cellutis of leg (R): Details: He has not had cellulitis recently. He is not taking preventive antibiotics at this time [facility] Medical History PAF (paroxysmal atrial fibrillation) ALEXUS (acute kidney injury) TANO on CPAP Morbid obesity Leukocytosis Gastritis COVID-19 vaccine series completed Obesity Chronic venous insufficiency Osteoarthritis TANO on CPAP Osteoarthritis of left knee Hypertension High cholesterol Surgical History History of orthopedic surgery Hx of colonoscopy History of right knee surgery LAP-BAND surgery status Family History Father Myocardial infarct Mother No problems noted. 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 He has finished antibiotics Code(s): L03.115 - Cellulitis of right lower limb Category: Medical Plan: See us prn need Coding Level of Care Code Est Pt Level 3 (57173) Diagnoses Cellulitis of leg, right L03.115
[2025-05-06 14:35] VITALS: PULSE 75; O2SAT 98; BMI 43.1
--- OUTSIDE RECORDS SUMMARY | 2025-05-06 14:44 | XMS_ITS | Encounter Summary ---
Author Organization [facility] Address [address] [place] [id number] Phone Care Team Providers Care Learning Disabled Teacher Name Role Phone Wilian Wood MD Primary Care Provider [phone] Wilian Wood MD Unavailable [phone] Bob Toro MD Unavailable [phone] Coleman Vu MD Unavailable [phone] Encounter Details Date Type Department Care Team (Late st Contact Info) Description 03/31/2025 Transcribe Orders [facility] [address] [place], [place] [id number] Wilian Wood MD [address] [place], [place] [id number] [email or web address] Social History Tobacco Use Types Packs/Day Years Used Date Smoking Tobacco: Never Smokeless Tobacco: Never Alcohol Use Standard Drinks/Week Comments Not Currently 0 (1 standard drink = 0.6 oz pur e alcohol) quit 2020 Child or Family Care Answer Date Record ed Do you have problems with on e of the following making it difficult for you to work, study, or receive health care? No 03/08/2024 Education Answer Date Recorded Are you interested in more education? Not on keiry e 10/10/2022 Are you concerned about learning? Not on file 10/10/2022 No 10/10/2022 No 10/10/2022 Food Answer Date Recorded Within the past 6 months we worried whether our food would run out before we got money to buy more. Never True 03/08/2024 Within the past 6 months the food we bought just didn't last and we didn't have enough money to get more. Never True Residential Stability Answer Date Recor ded What is your housing situation today? I have beckie guy 03/08/2024 How many times have you move d in the past 12 months? Zero (I did not move) 03/08/2024 Paying for Meds Answer Date Recorded Do you have trouble paying for medicines? No 03/08/2024 Paying Utility Bills Answer Date Record ed Do you have trouble paying your heating or elect ricity bill? No 03/08/2024 Transportation Answer Date Recorded Has the lack of transportati on kept you from medical appointments or from getting medications? No 03/08/2024 Digital Access Answer Date Recorded No 03/08/2024 Yes 03/08/2024 Do you have reliable internet access at home? Ye s 03/08/2024 Do you have a device (e.g., phone, tablet, computer) with a working camera? Yes 03/08/2024 Intimate Partner Violence Answer Date R ecorded Denied Basic Needs Not on file 03/08/2024 In the past 12 months have y ou been in a relationship with a person who hurts, threatens, or tries to control you? No 03/08/2024 Worried food would run out Not on file 03/08 In the past 12 months have y ou been in a relationship with a person who hurts, threatens, or tries to control you? No 03/08/2024 Sex and Gender Information Value Date Recorded Sex Assigned at Male 08/19/2020 11:34 AM EST Legal Sex Male 9:57 PM EDT Gender Identity Male 08/19/2020 11:34 AM EST Sexual Orientation Straight 08/19/2020 11 :34 AM EST documented as of this encounter Plan of Treatment Upcoming Encounters Date Type Department Care Team (Late st Contact Info) Description 05/13/2025 10:00 AM EST Office Visit [facility] [address] [place] [address] Wilian Wood MD [address] [place] [address] documented as of this encounter Visit Diagnoses Not on filedocumented in this encounter Additional Health Concerns Infection Onset Date Last Indicated Resolved Time CDiff-Risk 03/30/2025 04/04/2025 04/04/2025 1:33 PM EDT Assessment Noted Time PHQ-2 Depression Total Score: 0 03/08/20 10:17 PM EDT documented as of this encounter Care Teams Learning Disabled Teacher Relationship Specialty Start Date End Date Wilian Wood MD [address] [place] [address] PCP - General 06/19/17 Wilian Wood MD [address] [place] [address] Insurance Assigned Provider 09/20/23 Bob Toro MD [address] [place] [id number] Ophthalmology 02/22/20 Coleman Vu MD [address] [place] [address], [address] [place] [address] Urology 03/10/23 documented as of this encounter Additional Source Comments The information contained in this document represents components of the legal health record. It is not the complete legal health record.[email or web address]
--- OUTSIDE RECORDS SUMMARY | 2025-05-06 14:44 | XMS_ITS | Clinical Summary ---
Author Organization [facility] Address [address] [address] Phone Care Team Providers Care Bank Secrecy Act Officer Name Role Phone Wilian Wood MD Primary Care Provider [phone] Wilian Wood MD Unavailable [phone] Bob Toro MD Unavailable [phone] Coleman Vu MD Unavailable [phone] Allergies Active Allergy Reactions Criticality Noted Date Comments Moxifloxacin Itching 12/26/2017 Patient denies Dextromethorphan Hbr Wheezing Medium 05/11/2018 Shellfish Containing Products Angioedema High 2008 Trouble breathing and rash throat swelled Medications Medication-Free Text Compression Stockings 30-40 mmHg , Sig: as directed compression stockings DX I87.2 VENOUS INSUFFICIENCY Active acetaminophen (TYLENOL) 500 MG tablet Take 1,000 mg by mouth once a week. As needed Active sildenafiL (VIAGRA) 50 mg tabletIndications:Erect ile dysfunction, unspecified erectile dysfunction type TAKE ONE TABLET BY MOUTH NEEDED, ONCE A DAY NEEDED 4 tablet 11 024 Active ELIQUIS 5 mg tabletIndications:Parox ysmal A-fib TAKE ONE TABLET BY MOUTH TWICE A DAY 180 tablet 3 024 Active atorvastatin (LIPITOR) 10 MG tabletIndications:Pure hypercholesterolemia Take 1 tablet (10 mg total) by mouth daily. 90 tablet 3 025 Active dilTIAZem (CARDIZEM CD) 360 MG 24 hr capsule Take 1 capsule by mouth every morning. 025 Active bumetanide (BUMEX) 2 MG tablet Take 1 tablet by mouth every morning. Active JARDIANCE 10 mg tablet Take 1 tablet by mouth every morning. Active EPINEPHrine (EPIPEN 2-MAICO) 0.3 mg/0.3 mL auto-injectorIndication s:History of allergy to seafood Inject 0.3 mL (0.3 mg total) into the muscle once as needed for anaphylaxis. as directed Intramuscular USE NEEDED 2 each 1 Active penicillin V potassium (VEETIDS) 500 MG tablet Take 500 mg by mouth. Active clotrimazole (LOTRIMIN) 1 % cream Apply topically. Active Active Problems Problem Noted Date Diagnosed Date Balanitis 02/08/2025 Assessment & Plan (02/08/2025 12:01 PM EDT): He reports itching and irritation to the head of his penis due to poor hygiene during his hospital stay. Since he has been home he has been focusing on his hygiene. On examination there is no evidence of infection, phimosis, or paraphimosis. Likely in the setting of balanitis, potentially due to yeast infection from poor hygiene as he does experience some white chunky discharge from the area. Advised about appropriate hygiene. He can also use his clotrimazole cream x 7 days if he experiences any white curd-like discharge. Paroxysmal atrial fibrillation 02/08/2025 Assessment & Plan (02/08/2025 12:02 PM EDT): He has an upcoming appointment with [facility] cardiology for an ablation for his atrial fibrillation, 03/11/2025. He is not sure if a preop appointment is indicated. Advised that he should contact his cardiology office to determine if a preop evaluation by his PCP is indicated. We we will try to obtain his records from [facility] cardiology as we only have records from [facility] cardiology. Right shoulder pain 03/04/2024 Overview (03/18/2024): Dr. Geoff Lima ordered a 02/10/24 MRI right shoulder + partial tear of supraspinatus tendon, small tear of upper subscapularis tendon, medial subluxation of biceps tendon 2/2 to teat as above, , mild- mod OA no surgery for now per ortho Edema 02/02/2024 Assessment & Plan (02/02/2024 12:27 PM EDT): Noted in the right lower extremity along with erythema and warmth. Patient noted to have a positive Homans' sign. Patient is on Eliquis however given his repeat questionable cellulitis is concern is that he could have a DVT. Patient also is noted to follow with a vascular surgeon but has not seen them in quite some time -Recommended continuing Bactrim DS twice daily x 7 days that was prescribed on 01/29 -Follow-up with his vascular surgeon -Obtain an ultrasound to rule out DVT of the right lower extremity Cellulitis of right lower extremity 01/31/2024 Overview (03/18/2024): Seen on walk in 01/30/24 dx with cellulitis right knee to ankle tx with bactrim for 10 days, see media scan seesn at [facility] vascual Dr Laith Marshall 02/24/24 has peripheral lymphedema, reordering test to eval if venous insufficiency is pres ref to lymphedema progtram at [facility] Assessment & Plan (02/08/2025 12:01 PM EDT): Recently treated at [facility] for right lower extremity cellulitis with sepsis, improved with antibiotics. Completed a course of p.o. clindamycin and is currently on penicillin 500 mg twice daily for prophylaxis per infectious disease at [facility]. Also using clotrimazole cream interdigitally for concerns for tinea pedis. Advised to continue following up with ID, with an appointment in April 2025. Cellulitis looks improved on examination today, no further follow-up needed for this. Vertigo 11/20/2023 Assessment & Plan (02/02/2024 12:27 PM EDT): Benign positional vertigo AT referral for vestibular clinic Assessment & Plan (11/20/2023 9:43 PM EDT): Patient with prior hx of vertigo in the past, now with intermittent episodes on position which last for 30sec - 1min. - meclizine 25mg po tid prn (patient was advised this could make him drowsy and not to drive while taking the medication) -PT referral for vestibular clinic -follow up if no improvement Chronic diastolic (congestive) heart failure Assessment & Plan (02/08/2025 12:02 PM EDT): He has chronic kidney disease with his most recent GFR 54 on 12/08. He was advised by his PCP to get repeat labs done in 1 month but he was unable to do so as the lab order was not in the system. He is requesting repeat labs today. BMP ordered. Bilateral leg edema 12/26/2017 Cough syncope 12/26/2017 Hyperlipidemia 12/26/2017 Hypertension 12/26/2017 Impaired fasting glucose 12/26/2017 Morbid obesity 12/26/2017 Obstructive sleep apnea syndrome 12/26/2017 Pure hypercholesterolemia 12/26/2017 Routine medical exam 12/26/2017 Sleep apnea 12/26/2017 Encounters Date Type Department Care Team Description 04/04/2025 8:55 AM EDT - 04/04/2025 11:59 PM EDT Hospital Encounter [facility] [place] [address] [place] [address] Wilian Wood MD Discharge Disposition: Home or Self Care 04/01/2025 10:37 AM EDT - 04/01/2025 11:59 PM EDT Hospital Encounter [facility] [place] [address] [place] [address] Wilian Wood MD Discharge Disposition: Home or Self Care 03/31/2025 Transcribe Orders [facility] [place] [address] [place] [address] Wilian Wood MD 03/29/2025 Telephone [facility] Internal Medicine [address] [place] [address] Wilian Wood MD Request for Orders 02/24/2025 10:08 AM EDT - 02/24/2025 11:59 PM EDT Hospital Encounter [facility] [place] [address] [place] [address] Radha Dunbar PA-C Discharge Disposition: Home or Self Care 02/08/2025 11:20 AM EDT Office Visit [facility] Internal Medicine [address] [facility] [place] [address] Radha Dunbar PA-C Chronic diastolic (congestive) heart failure (Primary Dx); Cellulitis of right lower extremity; Balanitis; Paroxysmal atrial fibrillation 02/03/2025 Refill [facility] Internal Medicine [address] [facility] [place] [place] [address] Wilian Wood MD from Last 3 Months Immunizations Immunization Administration Dates Next Due COVID-19 (Pre-04/07) Moderna Vaccine, mRNA, PF 04/15/2021,09/06/2020,08/09/2020 Pneumococcal conjugate PCV13 02/22/2020 Pneumococcal polysaccharide PPSV23 03/06/2021 Td (adult) 5 Lf Tetanus Toxo id, PF, Adsorbed 04/16/2005 Tdap 07/31/2012 Zoster live 10/14/2014 Zoster recombinant 12/11/2018,07/25/2018 Family History Medical History Relation Comments Heart attack Brother 1 Heart disease Brother 1 Kidney disease Brother 1 sepsis Brother 1 CV disease Mother Relation Status Comments Brother 1 Alive alive Brother 2 (Age 60) peripheral vas c disease and ascvd Father Mother (Age 75) cva smoked aor tic valve Sister (Age 45) heart and etoh Social History Tobacco Use Types Packs/Day Years Used Date Smoking Tobacco: Never Smokeless Tobacco: Never Tobacco Cessation:Counseling Given: Not Answered Alcohol Use Standard Drinks/Week Comments Not Currently 0 (1 standard drink = 0.6 oz pur e alcohol) quit 2019 Child or Family Care Answer Date Record [...] your housing situation today? I have beckie sing 03/08/2024 How many times have you move [...] Orientation Straight 08/19/2020 11 :34 AM EST Last Filed Vital Signs Vital Sign Reading Time Taken Comments Blood Pressure 130/70 02/08/2025 11:07 AM EDT Pulse 80 02/08/2025 11:07 AM EDT Temperature 36.4 C (97.6 F) 02/08/2025 11:07 AM EDT Respiratory Rate 20 02/08/2025 11:07 AM EDT Oxygen Saturation 96% 02/08/2025 11:07 AM EDT Inhaled Oxygen Concentration - - Weight 137 kg (302 lb) 02/08/2025 11:07 AM EDT Height 177.1 cm (5' 9.72 ) 02/08/2025 11:07 AM E DT Body Mass Index 43.68 02/08/2025 11:07 AM EDT Plan of Treatment Upcoming Encounters Date Type Department Care Team (Late st Contact Info) Description 05/13/2025 10:00 AM EST Office Visit [facility] Internal Medicine [address] [place] [address] Wilian Wood MD [address] [place] [address] [email or web address] Health Maintenance Due Date Last Done Comments COLOGUARD 1999 FIT TEST 1999 FOBT 1999 SIGMOIDOSCOPY 1999 VIRTUAL COLONOSCOPY 1999 RSV VACCINE (1 - Risk 50-74 years 1-dose series) 2004 Adult Td,Tdap Booster 07/31/2022 07/31/2012, 005 COLONOSCOPY 02/09/2024 02/08/2019, 02/08/2019 COLORECTAL CANCER SCREENING 02/09/2024 INFLUENZA VACCINE (#1) 2025 COVID-19 VACCINE ( season) 2025 06/04/2022, 04/15/2021, 09/06/2020, Additional history exists DEPRESSION SCREENING 03/08/2025 03/08/2024 BLOOD PRESSURE 08/11/2025 02/08/2025 CREATININE LEVEL 04/01/2026 04/01/2025, 04/2025, 11/17/2024, Additional history exists LIPID PANEL 09/15/2029 09/15/2024, 08/14, 03/10/2023, Additional history exists ZOSTER VACCINES Completed 12/11/2018, 0202/2019, 10/14/2014 PNEUMOCOCCAL VACCINES (50+ years) Completed 03/06/2021, 02/22/2020 HEPATITIS C SCREENING Completed 05/01/2022 , 05/01/2022, 05/01/2022, Additional history exists SMOKING STATUS SCREENING (Once After 26 Yrs) Completed 02/08/2025 HEPATITIS A VACCINES Aged Out No long er eligible based on patient's age to complete this topic HIB VACCINES Aged Out No longer eligi ble based on patient's age to complete this topic MENINGOCOCCAL VACCINES (ACWY) Aged Out No longer eligible based on patient's age to complete this topic MENINGOCOCCAL VACCINES (B) Aged Out N o longer eligible based on patient's age to complete this topic Medical Devices Not on file Procedures Procedure Name Priority Date/Time Associated Diagnosis Comments GASTROINTESTINAL PATHOGEN PANEL, PCR, FECES Routine 04/04/2025 8:55 AM EDT Diarrhea, unspecified type CLOSTRIDIOIDES (CLOSTRIDIUM) DIFFICILE, PCR Routine 04/04/2025 8:55 AM EDT Diarrhea, unspecified type CBC AND DIFFERENTIAL Routine 04/01/2025 10:37 AM EDT Diarrhea, unspecified type Essential hypertension COMPREHENSIVE METABOLIC PANEL (CMP) Routine 04/01/2025 10:37 AM EDT Diarrhea, unspecified type Essential hypertension BASIC METABOLIC PANEL (BMP) Routine 02/24/2025 10:29 AM EDT Chronic diastolic (congestive) heart failure LIPID PANEL Routine 09/15/2024 8:34 AM EDT Essential hypertension Class 3 severe obesity due to excess calories with serious comorbidity and body mass index (BMI) of 40.0 to 44.9 in adult HEPATITIS C ANTIBODY, QUALITATIVE Routine 05/01/2022 8:46 AM EST Liver function abnormality HM COLONOSCOPY FOR RESULT ENTRY ONLY Routine 02/08/2019 from Last 3 Months or Most Recently Relevant to Health Maintenance Results * Gastrointestinal Pathogen Panel, PCR, Feces (04/04/2025 8:55 AM EDT) Specimen Source STOOL [facility] DPT OF LAB MED AND PAT+ Campylobacter Species Negative Negative [facility] DPT OF LAB MED AND PAT+ C.Difficile Toxin Negative Negative [facility] DPT OF LAB MED AND PAT+ Plesiomonas Shigelloides Negative Negative [facility] DPT OF LAB MED AND PAT+ Salmonella Species Negative Negative [facility] DPT OF LAB MED AND PAT+ Vibrio Species Negative Negative [facility] DPT OF LAB MED AND PAT+ Vibrio Cholerae Negative Negative [facility] DPT OF LAB MED AND PAT+ Yersinia Species Negative Negative [facility] DPT OF LAB MED AND PAT+ Enteroaggregative E. Coli (Eaec) Negative Negative [facility] DPT OF LAB MED AND PAT+ Enteroaggregative E. Coli (Epec) Negative Negative [facility] DPT OF LAB MED AND PAT+ Enteroaggregative E. Coli (Etec) Negative Negative [facility] DPT OF LAB MED AND PAT+ Shiga Toxin Producing E. Coli Negative Negative [facility] Escherichia Coli O157 Serotype Test component not applicable or not reported. [facility] DPT OF LAB MED AND PAT+ Shigella/Enteroinvas arlene E.Coli Negative Negative [facility] DPT OF LAB MED AND PAT+ Cryptosporidium Species Negative Negative [facility] DPT OF LAB MED AND PAT+ Cyclospora Cayetanensis Negative Negative [facility] DPT OF LAB MED AND PAT+ Entamoeba Histolytica Negative Negative [facility] DPT OF LAB MED AND PAT+ Giardia Negative Negative [facility] PAT+ Adenovirus F40/41 Negative Negative [facility] DPT OF LAB MED AND PAT+ Astrovirus Negative Negative [facility] DPT OF LAB MED AND PAT+ Norovirus Gi/Gii Negative Negative [facility] DPT OF LAB MED AND PAT+ Rotavirus Negative Negative [facility] OF LAB MED AND PAT+ Sapovirus Negative Negative [facility] D[facility] OF LAB MED AND PAT+ Comment: (NOTE) ADDITIONAL INFORMATION This assay is performed using the FDA-cleared [employer] Medical[employer] GI Panel ([employer] Interpretation Test component not applicable or not reported. [facility] DPT OF LAB MED AND PAT+ Stool (Stool) 04/04/2025 8:5 5 AM EDT 04/04/2025 8:57 AM EDT us Wilian Wood MD BODY FLUIDS AND STOOLS ORDERA BLES Final Result [facility] DPT OF LAB MED AND PAT+ [address] [place] [address] * C. DIFFICILE PCR (04/04/2025 8:55 AM EDT) C.DIFFICILE PCR Negative Negative [facility] C.DIFFICILE STRAIN PRESUMPTIVE NEGATIVE PRESUMPTIVE NEGATIVE [facility] Comment:Detection of 027/NAP 1/BI strains of C.difficile is presumptive and is solely for epidemiological purposes and is not intended to guide or monitor treatment of infections. Stool (Stool) 04/04/2025 8:5 5 AM EDT 04/04/2025 8:57 AM EDT us Wilian Wood MD LAB BODY FLUIDS AND STOOL ORD ERABLES Final Result Performing Organization Address City/[facility]/ZIP Co de Phone Number [facility] [address] [place] [address] * (ABNORMAL) Comprehensive metabolic panel (04/01/2025 10:37 AM EDT) SODIUM 139 133 - 146 mmol/L [facility] POTASSIUM 4.0 3.3 - 5.1 mmol/L [facility] CHLORIDE 101 96 - 108 mmol/L [facility] CO2 26 21 - 35 mmol/L [facility] BUN 22(H) 6 - 19 mg/dL [facility] CREATININE 1.40 0.5 - 1.5 mg/dL [facility] GLUCOSE 127(H) 70 - 99 mg/dL [facility] ALBUMIN 4.2 3.9 - 4.8 g/dL [facility] TOTAL PROTEIN 7.2 6.5 - 8.0 g/dL [facility] CALCIUM 9.2 8.4 - 10.3 mg/dL [facility] ALKALINE PHOSPHATASE 97 39 - 117 U/L [facility] TOTAL BILIRUBIN 0.7 0.0 - 1.2 mg/dL [facility] AST 22 0 - 37 U/L [facility] ALT 22 0 - 40 U/L [facility] GLOBULIN 3.0 1 - 4.8 g/dL [facility] EGFR 54(L) >59 mL/min/1.7 3m2 [facility] Comment:Estimated glomerular filtration rate calculated using the CKD-EPI refit equation. ANION GAP 16 10 - 20 mmol/L [facility] Blood 04/01/2025 10:3 7 AM EDT 04/01/2025 10:44 AM EDT us Wilian Wood MD LAB BLOOD BKR ORDERABLES Rukhsana diop Result Performing Organization Address City/State/[place] Co de Phone Number [facility] [address] [place] [address] * (ABNORMAL) CBC and differential (04/01/2025 10:37 AM EDT) WBC 8.22 4.00 - 11.00 K/uL [facility] RBC 4.83 4.50 - 5.90 M/uL [facility] HGB 14.1 13.5 - 17.5 g/dL [facility] HCT 43.4 41.0 - 53.0 % [facility] PLT 238 150 - 450 K/uL [facility] MCV 89.9 80.0 - 100.0 fL [facility] MCH 29.2 27.0 - 31.0 pg [facility] MCHC 32.5 32.0 - 36.0 g/dL [facility] RDW 14.1 11.5 - 14.5 % [facility] MPV 10.8 8.4 - 12.0 fL [facility] NRBC 0.00 0.00 /100 WBCs [facility] ABSOLUTE NRBC 0.00 0.00 K/uL [facility] DIFF METHOD Auto [facility] NEUTS 62.4 48.0 - 76.0 % [facility] LYMPHS 20.3 18.0 - 41.0 % [facility] MONOS 11.6(H) 4.0 - 11.0 % [facility] EOS 4.6 0.0 - 5.0 % [facility] BASOS 0.6 0.0 - 1.5 % [facility] Granulocytes, immature (%) 0.5 0.0 - 0.9 % [facility] ABSOLUTE NEUTS 5.13 1.92 - 7.60 K/uL [facility] ABSOLUTE LYMPHS 1.67 0.72 - 4.10 K/uL [facility] ABSOLUTE MONOS 0.95 0.16 - 1.10 K/uL [facility] ABSOLUTE EOS 0.38 0.00 - 0.50 K/uL [facility] ABSOLUTE BASOS 0.05 0.00 - 0.15 K/uL [facility] Granulocytes, immature 0.04 0.00 - 0.09 K/uL [facility] Blood 04/01/2025 10:3 7 AM EDT 04/01/2025 10:44 AM EDT us Wilian Wood MD LAB BLOOD BKR ORDERABLES Rukhsana diop Result [address] [address] * (ABNORMAL) Basic metabolic panel (02/24/2025 10:29 AM EDT) SODIUM 143 133 - 146 mmol/L [facility] CHLORIDE 105 96 - 108 mmol/L [facility] POTASSIUM 3.9 3.3 - 5.1 mmol/L [facility] CO2 25 21 - 35 mmol/L [facility] BUN 21(H) 6 - 19 mg/dL [facility] CREATININE 1.50 0.5 - 1.5 mg/dL [facility] GLUCOSE 142(H) 70 - 99 mg/dL [facility] CALCIUM 9.1 8.4 - 10.3 mg/dL [facility] EGFR 50(L) >59 mL/min/1.7 3m2 [facility] Comment:Estimated glomerular filtration rate calculated using the CKD-EPI refit equation. ANION GAP 17 10 - 20 mmol/L [facility] Blood 02/24/2025 10:2 9 AM EDT 02/24/2025 10:32 AM EDT Radha Dunbar PA-C LAB BLOOD BKR ORDERABLES Fin al Result Performing Organization Address [facility]/[place] Co de Phone Number [address] [address] * Lipid panel (09/15/2024 8:34 AM EDT) HDL 43 mg/dL [facility] Comment: Interpretation <40 mg/dL: Low HDL cholesterol (major risk factor for CHD) Greater than or equal to 60 mg/dL: High HDL cholesterol ( negative risk factor for CHD) HDL - cholesterol is affected by a number of factors, e.g. smoking, excerise, hormones, sex and age. CHOLESTEROL 145 0 - 240 mg/dL [facility] TRIGLYCERIDES 77 30 - 160 mg/dL [facility] LDL 87 50 - 129 mg/dL [facility] Comment: LDL levels in terms of risk for coronary heart disease: <100 mg/dL: Optimal 100-129 mg/dL: Near or above optimal 130-159 mg/dL: Borderline high 160-189 mg/dL: High >190 mg/dL: Very High CARDIAC RISK RATIO 3.4 3.4 - 5.0 C [facility] Blood 09/15/2024 8:34 AM EDT 09/15/2024 8:37 AM EDT Wilian Wood MD LAB BLOOD BKR ORDERABLES Rukhsana l Result Performing Organization Address [facility]/[place] Co de Phone Number [address] [address] * Hepatitis C antibody, qualitative (05/01/2022 8:46 AM EST) HCV NON-REACTIV E NON-REACTI VE [facility] Blood 05/01/2022 8:46 AM EST 05/01/2022 8:53 AM EST Wilian Wood MD LAB BLOOD BKR ORDERABLES Rukhsana l Result [facility] [address] [place] [address] * COLONOSCOPY FOR RESULT ENTRY ONLY (02/08/2019) Colonoscopy colonoscopy Comment:Dr Rocha us Historical Provider HEALTH MAINTENANCE Final Result from Last 3 Months or Most Recently Relevant to Health Maintenance Insurance [employer] MEDEX SUPPLEMENT MEDICARE PART A & B [employer] MEDEX SUPPLEMENT MEDICARE PART A & B Member Subscriber Plan / Payer ( fective 2019-Present) Name:Emery Giraldo Member ID:[id number] Relation to Subscriber:Self Name:Emery Giraldo Subscriber ID:[id number] Payer ID:[id number] Group ID:Not on file Type:Medicare Address: [employer] [id number] Hashable MEDEX SUPPLEMENT MEDICARE PART A & B [employer] MEDEX SUPPLEMENT MEDICARE PART A & B [employer] MEDEX SUPPLEMENT MEDICARE PART A & B BLUE CROSS MEDEX SUPPLEMENT MEDICARE PART A & B Skills Matter CROSS MEDEX SUPPLEMENT MEDICARE PART A & B [employer] CROSS MEDEX SUPPLEMENT MEDICARE PART A & B [employer] CROSS MEDEX SUPPLEMENT MEDICARE PART A & B Advance Directives For more information, please contact: [phone] (9AM - 5PM [facility], Friday-Friday) Documents on File Type Date Recorded Patient Seed Sales Manager Expl anation Healthcare Proxy 12/26/2017 10:27 AM Healt hcare Proxy Care Teams Bank Secrecy Act Officer Relationship Specialty Start Date End Date Wilian Wood MD [address] [place] [address] PCP - General 06/19/17 Wilian Wood MD [address] [place] [address] Insurance Assigned Provider 09/20/23 Bob Toro MD [address] [place] [address] Ophthalmology 02/22/20 Coleman Vu MD [address] [place] [address], [address] [place] [address] Urology 03/10/23 Additional Source Comments The information contained in this document represents components of the legal health record. It is not the complete legal health record.[facility]
--- OUTSIDE RECORDS SUMMARY | 2025-05-06 14:44 | XMS_ITS | Encounter Summary ---
Author Organization [facility] Address [address] [place] [address] Phone Care Team Providers Care Equipment Planner Name Role Phone Wilian Wood MD Unavailable [phone] Wilian Wodo MD Primary Care Provider [phone] Wilian Wood MD Unavailable [phone] Bob Toro MD Unavailable [phone] Coleman Vu MD Unavailable [phone] Encounter Details Date Type Department Care Team (Late st Contact Info) Description 10/09/2022 Ancillary Orders [facility], X-Ray - [facility] [address] [place] [address] Tri Hand PA [address] [address] [email or web address] Calculus of kidney Social [...] Description 05/13/2025 10:00 AM EST Office Visit [facility] Internal Medicine [address] [place] [address] Wilian Wood MD [address] [place] [address] [email or web address] documented as of this encounter Results * [...] documented in this encounter Additional Health Concerns Infection Onset Date Last Indicated Resolved Time CDiff-Risk 03/30/2025 04/04/2025 04/04/2025 1:33 PM EDT Assessment Noted Time PHQ-2 Depression Total Score: 0 03/04/20 9:56 AM EDT documented as of this encounter Care Teams Equipment Planner Relationship Specialty Start Date End Date Wilian Wood MD [address] [place] [address] PCP - General 06/19/17 Wilina Wood MD [address] [place] [address] Historical LMR Provider 04/06/17 03/09/23 Wilian Wood MD [address] [place] [address] Insurance Assigned Provider 09/20/23 Bob Toro MD [address] [place] [address] Ophthalmology 02/22/20 Coleman Vu MD [address] [place] [address], [address] [place] [address] Urology 03/10/23 documented as of this encounter Additional Source Comments The information contained in this document represents components of the legal health record. It is not the complete legal health record.[facility]
--- OUTSIDE RECORDS SUMMARY | 2025-05-06 14:44 | XMS_ITS | Encounter Summary ---
Author Organization Formerly [facility] Address [address] [place] [address] Phone Care Team Providers Care Electrician Elevator Maintenance Name Role Phone Wilian Wood MD Unavailable [phone] Wilian Wood MD Primary Care Provider [phone] Wilian Wood MD Unavailable [phone] Bob Toro MD Unavailable [phone] Coleman Vu MD Unavailable [phone] Encounter Details Date Type Department Care Team (Late st Contact Info) Description 05/03/2022 Procedure Pass [facility], Ct Scan - [address] [address] Social History Tobacco Use Types Packs/Day Years Used Date Smoking Tobacco: Never Smokeless Tobacco: Never Alcohol Use Standard Drinks/Week Comments Not Currently 0 (1 standard drink = 0.6 oz pur e alcohol) quit 2019 Sex and Gender Information Value Date Recorded Sex Assigned at Male 08/19/2020 11:34 AM EST Legal Sex Male 9:57 PM EDT Gender Identity Male 08/19/2020 11:34 AM EST Sexual Orientation Straight 08/19/2020 11 :34 AM EST documented as of this encounter Plan of Treatment Upcoming Encounters Date Type Department Care Team (Late st Contact Info) Description 05/13/2025 10:00 AM EST Office Visit [facility] Internal Medicine [address], [place] [id number] Wilian Wood MD [address] [place], [place] [id number] documented as of this encounter Visit Diagnoses Not on filedocumented in this encounter Additional Health Concerns Infection Onset Date Last Indicated Resolved Time CDiff-Risk 03/30/2025 04/04/2025 04/04/2025 1:33 PM EDT Assessment Noted Time PHQ-2 Depression Total Score: 0 03/04/20 9:56 AM EDT documented as of this encounter Care Teams Electric[employer] Ele[employer]ator Maintenance Relationship Specialty Start Date End Date Wilian Wood MD [address] [place] [address] PCP - General 06/19/17 Wilian Wood MD [address] [place] [address] Historical LMR Provider 04/06/17 03/09/23 Wilian Wood MD [address] [place] [address] Insurance Assigned Provider 09/20/23 Bob Toro MD [address] [place] [id number] Ophthalmology 02/22/20 Coleman Vu MD [address] [place] [address], [address] [place] [address] Urology 03/10/23 documented as of this encounter Additional Source Comments The information contained in this document represents components of the legal health record. It is not the complete legal health record.[facility]
== END 2025-05-06 14:49 | disposition home or self-care (01) ==
LOC: HO.HID 14:23
PROVIDERS: PCP Internal Medicine; Visit Provider Internal Medicine
DX: L03.115 Cellulitis of right lower limb (principal)
CPT/HCPCS: 99213

== ENCOUNTER → 2025-05-06 14:23 | Outpatient (BNVA) | payer MEDICARE, SELFPAY | PROVIDERS: PCP Internal Medicine; Visit Provider Internal Medicine | DX: L03.115 Cellulitis of right lower limb (principal) | CPT/HCPCS: 99212 ==